=== PATIENT | male | born 1950 | race African-American/Black ===

== ENCOUNTER 2016-02-23 14:41 | Inpatient (IN) | payer OTHER ==
[~2016-02-23] VITALS: Wt 152.5 kg
[2016-02-23] MEDS ORDERED: ALBUTEROL 0.083% NEBU SOLN 3 ML VIAL INH STA (15:18)
[2016-02-23 15:20] LABS: BASO % 0.2 %; BASO ABS # 0.01 K/uL (0-0.2); EOS % 4.5 %; HEMATOCRIT 25.1 % (42-52); IG% 0.7 %; LYMPH % 27.9 %; LYMPH ABS # 1.24 K/uL (1.2-3.4); MEAN CELL VOLUME 75.8 fL (80-100); MEAN CORPUSCULAR HEMOGLOBIN 26.6 pg (25-34); MEAN CORPUSCULAR HGB CONC 35.1 g/dl (32-36); MONO % 10.3 %; NEUT % 56.4 %; PLATELET COUNT 254 K/uL (130-400); RED BLOOD COUNT 3.31 M/uL (4.7-6.1); WHITE BLOOD COUNT 4.45 K/uL (4.8-10.8)
--- NOTE | 2016-02-23 15:29 | DIAGNOSTIC IMAGING REPORT ---
CHEST ONE VIEW PORTABLE CLINICAL HISTORY: EVALUATE WEAKNESS dyspnea COMPARISON STUDY: None FINDINGS: Moderate cardiomegaly. Findings of mild congestive failure. Moderate pulmonary vasculature prominence. IMPRESSION: Mild congestive failure. Electronically signed by: Ish Huertas M.D. 02/23/2016 3:27 PM Dictated Date/Time: 02/23/2016 3:26 PM
[2016-02-23 15:39] LABS: ALT/SGPT 20 U/L (12-78); BLOOD UREA NITROGEN 50 mg/dl (7-18); BUN/CREATININE RATIO 24.8 (10-20); CARBON DIOXIDE 27 mmol/L (21-32); CHLORIDE 92 mmol/L (98-107); GLUCOSE 62 mg/dl (70-99); MAGNESIUM 2.2 mg/dl (1.8-2.4); POTASSIUM 5.8 mmol/L (3.5-5.1); SODIUM 128 mmol/L (136-145)
[2016-02-23 15:42] LABS: ALKALINE PHOSPHATASE 162 U/L (45-117); AST/SGOT 23 U/L (15-37)
[2016-02-23 16:02] LABS: COMPLETE YES
[2016-02-23] MEDS ORDERED: NovoLIN-R INSULIN PER UNIT CHARGE IV STA (16:02)
[2016-02-23] MEDS ORDERED: DEXTROSE 50% 50 ML SYR IV STA (16:02)
[2016-02-23] MEDS ORDERED: CALCIUM GLUCONATE 10% 10 ML VIAL IV STA (16:02)
[2016-02-23 16:04] LABS: VEN BLD GAS O2 SATURATION < 60.0 %; VEN BLOOD GAS BASE EXCESS 1.8 mmol/L; VENOUS BLOOD GAS PCO2 58 mmHg (38.0-50.0); VENOUS BLOOD GAS PO2 22 mmHg
[2016-02-23] MEDS ORDERED: MAGN400T6 PO (16:14)
[2016-02-23] MEDS ORDERED: CLR10 PO (16:14)
[2016-02-23] MEDS ORDERED: METO100T14 PO (16:14)
[2016-02-23] MEDS ORDERED: HALO10TA17 PO (16:14)
[2016-02-23] MEDS ORDERED: FRS/40 PO (16:14)
[2016-02-23] MEDS ORDERED: ACET-1256 PO (16:14)
[2016-02-23] MEDS ORDERED: SPIR25TA PO (16:14)
[2016-02-23] MEDS ORDERED: DIVA500T59 PO (16:14)
[2016-02-23] MEDS ORDERED: IMD2X PO (16:14)
[2016-02-23] MEDS ORDERED: RANI300T2 PO (16:14)
[2016-02-23] MEDS ORDERED: METF-383 PO (16:14)
[2016-02-23] MEDS ORDERED: ASPI-589 PO (16:14)
[2016-02-23] MEDS ORDERED: ATOR-22 PO (16:14)
[2016-02-23] MEDS ORDERED: ENAL10TA88 PO (16:14)
[2016-02-23] MEDS ORDERED: SODIUM CHLORIDE 0.9% 500ML 500 ML IV STA (16:15)
[2016-02-23] MEDS ORDERED: FUROSEMIDE 40 MG/4 ML VIAL IV STA (17:09)
[2016-02-23] MEDS ORDERED: SODIUM POLYST. SULF SUSP 15G/60ML PO STA (17:09)
[2016-02-23] MEDS ORDERED: ACETAMINOPHEN 325 MG TAB PO PRN (17:15)
[2016-02-23] MEDS ORDERED: ALUMINUM/MAGNESIUM/SIMETH (MAALOX MAX) 30 ML UDC PO PRN (17:15)
[2016-02-23] MEDS ORDERED: LORAZEPAM 2 MG/ML 1 ML VIAL IV PRN ×2 (17:15)
[2016-02-23] MEDS ORDERED: ONDANSETRON INJ 2 MG/ML 2 ML VIAL IV PRN (17:15)
[2016-02-23] MEDS ORDERED: MAGNESIUM HYDROXIDE SUSP 30 ML UDC PO PRN (17:15)
[2016-02-23] MEDS ORDERED: NITROGLYCERIN 0.4 MG SL PER TAB CHARGE SL PRN (17:15)
[2016-02-23] MEDS ORDERED: HALOPERIDOL LACTATE 5 MG/ML 1 ML VIAL IV PRN (17:15)
[2016-02-23] MEDS ORDERED: HydrALAZINE HCL 20 MG/ML VIAL IV PRN (17:15)
[2016-02-23] MEDS ORDERED: DEXTROSE 50% 50 ML SYR IV PRN (17:45)
[2016-02-23] MEDS ORDERED: GLUCOSE 10 TABS/TUBE PO PRN (17:45)
[2016-02-23] MEDS ORDERED: GLUCAGON FOR INJ 1 MG VIAL SQ PRN (17:45)
[2016-02-23] MEDS ORDERED: GLUCOSE 40% GEL 15 GM TUBE PO PRN (17:45)
[2016-02-23 17:54] LABS: TOTAL IRON BINDING CAPACITY 280 mcg/dl (250-450)
--- NOTE | 2016-02-23 17:57 | HISTORY & PHYSICAL EXAMINATION ---
DATE OF ADMISSION: 02/23/2016 COMPLEX ADMISSION CHIEF COMPLAINT: Altered mental status. HISTORY OF PRESENT ILLNESS: Mr. Stover is a 65-year-old male who is incarcerated at [facility]. 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 He has significant comorbid illnesses; however, he presents today for decreased mentation, sleepiness, more difficulty to arouse. The patient has a history of mental retardation, schizophrenia, taking Depakote and Haldol on a scheduled basis for these things, but also takes medications that looked to be geared toward heart failure and presents today with hyponatremia, hyperkalemia with EKG changes, acute renal failure and what looks to be mild heart failure, unknown whether this is systolic or diastolic. The patient also was somewhat more anemic and is chronically anemic state and because of these multiple issues more pressingly being the hyperkalemia and peaked T waves, he will be admitted to our facility. 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 PAST MEDICAL HISTORY: As above, mental retardation, schizophrenia, hypertension, diabetes on oral medications, coronary artery disease, unknown status, dyslipidemia and chronic hyponatremia, and chronic anemia. MEDICATIONS: On presentation are Tylenol p.r.n., aspirin 81 a day, atorvastatin 20 a day, Depakote 1000 b.i.d., Vasotec 20 b.i.d., Lasix 40 b.i.d., Imodium p.r.n., Claritin 10 a day, magnesium oxide 400 a day, metformin 850 t.i.d., metoprolol 100 b.i.d., Aldactone 25 every day, Haldol 10 b.i.d. and Zantac 300. SOCIAL HISTORY: The patient would not give me a straight answer whether he smoked prior to his incarceration or drank. FAMILY HISTORY: Unobtainable. REVIEW OF SYSTEMS: Unreliable at best because of the patient's mental condition. PHYSICAL EXAMINATION: GENERAL: He is an obese black male. VITAL SIGNS: Temperature 36.7, pulse 74, respiration rate is 18, BP 135/83, O2 sat 98% on room air. HEENT: He has strabismus present. He cannot tell which is the tracking eye, it may well be that his right eye has more strabismus. Pupils: PERRL, EOMI. Oropharynx: He has some missing teeth, erythema to the posterior pharynx without exudates. NECK: Without lymphadenopathy. Trachea is midline. I cannot assess JVD due to the size of his neck and some facial hair. HEART: Distant but regular. I cannot hear any overt murmurs. LUNGS: Have decreased breath sounds at the bases from poor inspiratory effort, no large rales or rhonchi. ABDOMEN: Obese, normoactive bowel sounds, soft, does not appear to be tender. EXTREMITIES: Changes of chronic venous stasis, probably 1+ edema but an indurated type edema to his knees. NEUROLOGIC: He is awake. He is oriented to person. He has tangential thinking and has evasive question answering. LABORATORY DATA: He has a white count of 4, H\T\H 8 and 25, platelet count 254; differential seems relatively normal. His BUN and creatinine are 50 and 2.0, potassium 58, sodium 128. However, his bicarbonate is preserved and there is no anion gap. His glucose is 107. Cardiac enzymes are unremarkable. He has mildly elevated alkaline phosphatase to 162. His protein is high at 8.8. His albumin is low at 3.0. IMAGING DATA: Chest x-ray - difficult film is due to his body size. It looks to be mild congestive change. EKG shows sinus rhythm with peaked T waves. ASSESSMENT: A 65-year-old male who presents with hyperkalemia and EKG changes, acute renal failure, hyponatremia, worsened chronic anemia, an elevated protein not consistent with decreased albumin. PLAN: The patient will be kept in telemetry due to his hyperkalemia. For the hyperkalemia, the Emergency Room physician ordered calcium gluconate, regular insulin and dextrose. We will also give him 30 grams of Kayexalate. We will check a potassium at midnight, have him on a low potassium renal diet. Acute renal failure, because of the clinical evidence of volume overload, will give him some Lasix, will have a nephrology consult. We will check a urine sodium and a urine urea to help may be calculate a FENa. We will check a renal ultrasound. Regarding his hyponatremia, this is not significantly low. We will consider fluid restriction once we given his Lasix and see what his repeat level in the morning. Regarding his anemia, his indices suggest this may be iron deficient as his MCV is 75.8. We will add on iron and TIBC to his admission labs to determine if he has iron deficient anemia, certainly this could be anemia of chronic disease, given his chronic health issues, perhaps renal failure. Regarding his initial complaint decreased alertness, Depakote level is sent by myself and pending. Regarding his elevated total protein which is not in alignment with his low albumin, we will send an SPEP test, but this is a send out and will not be returned for few days. For his schizophrenia, we will maintain his Depakote unless his level is out of line, continue Haldol both scheduled and p.r.n. along with p.r.n. Ativan. He will be on heparin for deep vein thrombosis prevention. He has continued on a proton pump inhibitor in lieu of his Zantac. He is a full code. Time for this admission was 58 minutes.
--- NOTE | 2016-02-23 18:20 | EMERGENCY ROOM VISIT NOTE ---
History Report prepared by Zabrina: Ksenia Carrasquillo Under the Supervision of: Dr. Kristopher Andrade D.O. First contact with patient: 14:43 Chief Complaint: ALTERED MENTAL STATUS Stated Complaint: ALTERED MENTAL STATUS/ ABNORMAL LABS History of Present Illness The patient is a 65 year old male arriving by ambulance from [facility] who presents to the Emergency Room for evaluation of an altered mental status. Per Robert GANDARA who cares for the patient at the [facility], the patient has a history of MR, schizophrenia, hypertension, diabetes, CAD and dyslipidemia. Patient garret has chronic hyponatremia. His baseline creatinine is 0.8, hemiglobin is 10. Today, the patient has been feeling much more tired and has been falling asleep. Robert states the patient has been more difficult to awaken and arouse today. Additionally, as his labs were showed creatinine of 2, sodium of 125, potassium of 5.8 and Hbg of 8.8, patient was referred to the ED for further evaluation. Patient states that he is not currently in any discomfort, but history from him is limited secondary to AMS. [facility] History Limited By: AMS Onset: today Review of Systems Full ROS limited secondary to AMS. Past Medical & Surgical Medical Problems: (1) CAD (coronary artery disease) (2) Diabetes (3) HTN (hypertension) (4) Hyperkalemia (5) Hyperlipemia (6) Hyponatremia (7) Mental retardation (8) Schizophrenia Social History Housing Status: other (incarcerated) Occupation Status: disabled Current/Historical Medications Scheduled Aspirin (Aspirin Adult Low Dose), 81 MG PO DAILY Atorvastatin (Lipitor), 20 MG PO QPM Divalproex Sodium (Depakote), 1,000 TAB PO BID Enalapril (Vasotec), 20 MG PO BID Furosemide (Lasix), 40 MG PO BID Haloperidol (Haldol), 10 MG PO BID Loratadine (Claritin), 10 MG PO DAILY Magnesium Oxide (Mag-Ox), 400 MG PO DAILY Metformin Hcl (Glucophage), 850 MG PO TID Metoprolol Tartrate (Lopressor) (Lopressor), 100 MG PO BID Ranitidine (Zantac), 300 MG PO BID Spironolactone (Aldactone), 25 MG PO BID Scheduled PRN Acetaminophen (Tylenol), 1,000 MG PO TID PRN for Pain Loperamide Hcl (Imodium), 2 MG PO TID PRN for GI Upset Allergies Coded Allergies: No Known Allergies (Unverified , 02/23/16) Physical Exam Vital Signs Date Time Temp Pulse Resp B/P Pulse Ox O2 Delivery O2 Flow Rate FiO2 02/23/16 16:41 69 19 93 02/23/16 16:15 65 104/54 69 101/51 02/23/16 16:11 68 10 91 02/23/16 16:10 104/54 02/23/16 16:06 84/45 02/23/16 16:04 101/51 02/23/16 15:41 70 19 92 02/23/16 15:21 99 Room Air 02/23/16 15:17 99 Room Air 02/23/16 15:11 77 14 02/23/16 14:57 74 02/23/16 14:54 36.7 71 18 135/83 99 Room Air 02/23/16 14:49 135/83 Physical Exam GENERAL: Morbidly obese, sitting up in bed, expiratory wheezing, uncomfortable appearing. EYE EXAM: normal conjunctiva, PERRL and EOM's intact OROPHARYNX: no exudate, no erythema, lips, buccal mucosa, and tongue normal and mucous membranes are moist NECK: supple, no nuchal rigidity, no adenopathy, non-tender LUNGS: Lung sounds diminished at the bases. Diffuse wheezing, bilaterally. HEART: Distant heart sounds. ABDOMEN: abdomen soft, non-tender, normo-active bowel sounds, no masses, no rebound or guarding. BACK: Back is symmetrical on inspection and there is no deformity, no midline tenderness, no CVA tenderness. RECTAL: Heme negative. SKIN: no rashes and no bruising UPPER EXTREMITIES: upper extremities are grossly normal. LOWER EXTREMITIES: Diffuse pitting edema, tracking up to thighs. NEURO EXAM: Alert, oriented to place but not date. Following commands. Nonfocal. Medical Decision & Procedures ER Provider Diagnostic Interpretation: Xray results per the radiologist and my interpretation. Other results have been interpreted by the radiologist and reviewed by me. CHEST ONE VIEW PORTABLE CLINICAL HISTORY: EVALUATE WEAKNESS dyspnea COMPARISON STUDY: None FINDINGS: Moderate cardiomegaly. Findings of mild congestive failure. Moderate pulmonary vasculature prominence. IMPRESSION: Mild congestive failure. Electronically signed by: Ish Huertas M.D. 02/23/2016 3:27 PM Dictated Date/Time: 02/23/2016 3:26 PM Laboratory Results 02/23/16 14:07 Red Blood Count 3.31, Mean Corpuscular Volume 75.8, Mean Corpuscular Hemoglobin 26.6, Mean Corpuscular Hemoglobin Concent 35.1, Mean Platelet Volume 10.0, Neutrophils (%) (Auto) 56.4, Lymphocytes (%) (Auto) 27.9, Monocytes (%) (Auto) 10.3, Eosinophils (%) (Auto) 4.5, Basophils (%) (Auto) 0.2, Neutrophils # (Auto ) 2.51, Lymphocytes # (Auto) 1.24, Monocytes # (Auto) 0.46, Eosinophils # (Auto ) 0.20, Basophils # (Auto) 0.01 02/23/16 14:07 Test 02/23/16 14:07 02/23/16 15:19 02/23/16 15:51 02/23/16 16:02 White Blood Count 4.45 K/uL (4.8-10.8) Red Blood Count 3.31 M/uL (4.7-6.1) Hemoglobin 8.8 g/dL (14.0-18.0) Hematocrit 25.1 % (42-52) Mean Corpuscular Volume 75.8 fL (80-100) Mean Corpuscular Hemoglobin 26.6 pg (25-34) Mean Corpuscular Hemoglobin Concent 35.1 g/dl (32-36) Platelet Count 254 K/uL (130-400) Mean Platelet Volume 10.0 fL (7.4-10.4) Neutrophils (%) (Auto) 56.4 % Lymphocytes (%) (Auto) 27.9 % Monocytes (%) (Auto) 10.3 % Eosinophils (%) (Auto) 4.5 % Basophils (%) (Auto) 0.2 % Neutrophils # (Auto) 2.51 K/uL (1.4-6.5) Lymphocytes # (Auto) 1.24 K/uL (1.2-3.4) Monocytes # (Auto) 0.46 K/uL (0.11-0.59) Eosinophils # (Auto) 0.20 K/uL (0-0.5) Basophils # (Auto) 0.01 K/uL (0-0.2) RDW Standard Deviation 41.4 fL (36.4-46.3) RDW Coefficient of Variation 14.7 % (11.5-14.5) Immature Granulocyte % (Auto) 0.7 % Immature Granulocyte # (Auto) 0.03 K/uL (0.00-0.02) Red Blood Cell Morphology Unremarkable Anion Gap 9.0 mmol/L (3-11) Estimated GFR () 38.9 Estimated GFR (Non- 33.5 BUN/Creatinine Ratio 24.8 (10-20) Calcium Level 9.0 mg/dl (8.5-10.1) Magnesium Level 2.2 mg/dl (1.8-2.4) Iron Level 45 mcg/dl (35-175) Total Iron Binding Capacity 280 mcg/dl (250-450) Total Bilirubin 0.2 mg/dl (0.2-1) Direct Bilirubin < 0.1 mg/dl (0-0.2) Aspartate Amino Transf (AST/SGOT) 23 U/L (15-37) Alanine Aminotransferase (ALT/SGPT) 20 U/L (12-78) Alkaline Phosphatase 162 U/L (45-117) Troponin I < 0.015 ng/ml (0-0.045) Pro-B-Type Natriuretic Peptide 823 pg/ml (0-900) Total Protein 8.8 gm/dl (6.4-8.2) Albumin 3.0 gm/dl (3.4-5.0) Bedside Glucose 107 mg/dl (70-99) Venous Blood pH 7.32 (7.36-7.41) Venous Blood Partial Pressure CO2 58 mmHg (38.0-50.0) Venous Blood Partial Pressure O2 22 mmHg Venous Blood HCO3 29 meq/L Venous Blood Oxygen Saturation < 60.0 % Venous Blood Base Excess 1.8 mmol/L Ammonia 11.0 umol/L (11-32) Test 02/23/16 16:09 Laboratory results per my review. Medications Administered Medications (Trade) Dose Ordered Sig/Ismael Route Start Time Stop Time Status Last Admin Dose Admin Albuterol Sulfate (Ventolin 0.083% 2.5MG/3ML Neb) 2.5 mg NOW STAT INH 02/23/16 15:18 02/23/16 15:19 DC 02/23/16 15:29 2.5 MG Calcium Gluconate (Calcium Gluconate 10%) 1,000 mg NOW STAT IV 02/23/16 16:02 02/23/16 16:04 DC 02/23/16 16:56 1,000 MG Insulin Human Regular (novoLIN-R U-100 PER UNIT) 10 units NOW STAT IV 02/23/16 16:02 02/23/16 16:04 DC 02/23/16 17:09 10 UNITS Dextrose 50 ml 50 ml NOW STAT IV 02/23/16 16:02 02/23/16 16:04 DC 02/23/16 16:56 50 ML Sodium Chloride (Nss 500ml) 500 ml @ 999 mls/hr Q31M STAT IV 02/23/16 16:15 02/23/16 16:45 DC 02/23/16 16:59 999 MLS/HR ECG Indication: altered mental status Rate (beats per minute): 66 Rhythm: sinus rhythm Findings: 1st degree AV block, ST depression (III), other (Peaked T waves anterolateral. ) ED Course ED COURSE: Vital signs were reviewed and showed hypertension. The patient's medical record was reviewed. On 02/15 sodium was 125, potassium was 5.8, creatinine was 1.6. Today, Creatinine is 2. Sodium is 125, potassium is 5.8 and Hbg is 8.8. The above diagnostic studies were performed and reviewed. ED treatments and interventions as stated above. 1445: The patient was evaluated in room A8. A complete history and physical examination was performed. 1518: Albuterol Sulfate 2.5 mg INH was ordered. 1530: Spoke with Robert GANDARA from [facility]. He was able to give additional history on the patient. 1602: I reviewed the results of the patient's workup. Dextrose 50 ml IV, Insulin Human Regular 10 units IV and Calcium Gluconate 1,000 mg IV were ordered. The hospitalist will be contacted. 1605: After discussion with Dr. Peña, the patient will continue to be evaluated by the [facility] hospitalist for further management. Based on the patients age, coexisting illnesses, exam and lab findings the decision to treat as an inpatient was made. The patient remained stable while under my care. The patient will be evaluated for further management. Medical Decision Differential diagnoses includes but is not limited to toxic, metabolic, infectious, traumatic, cardiac, neurologic, hematologic, psychiatric and inflammatory etiologies. Patient is a 65-year-old male prisoner referred in from the [facility] with a past medical history of MR, schizophrenia, and hyponatremia. Patient has been falling asleep and difficult to arouse throughout the whole day. Upon presentation sodium is 128 which slightly improved from his previous in the walk mid 120s. Hemoglobin is 8.8 down from his baseline at 10. Creatinine is 2 up from a baseline of 0.8. Potassium was elevated at 5.8. Rectal was heme- negative. EKG did show peaked T waves. He has diffuse pitting edema bilateral lower extremities. PH was slightly low at 7.32 along with a CO2 of 58. Based on patient's presentation I do favor he is likely volume overloaded. I did give him insulin, glucose and IV calcium for his hyper kalemia. Patient was evaluated by internal medicine and admitted for further workup. Consults Time Called: 1500 Consulting Physician: Robert Guevara Returned Call: 1530 Discussed the patient's case. Robert GANDARA was able to give additional history on the patient. Additional Consults: Time Called: 1600 Consulted Physician: Dr. Peña - [facility] Returned Call: 1605 Additional Comments: Discussed the patient's case. He will continue to be evaluated by the [facility] hospitalist for further management. Impression Primary Impression: Altered mental status Additional Impressions: Hyperkalemia, SON (acute kidney injury), Hyponatremia , Anemia, CHF (congestive heart failure) Scribe Attestation The scribe's documentation has been prepared under my direction and personally reviewed by me in its entirety. I confirm that the note above accurately reflects all work, treatment, procedures, and medical decision making performed by me. Departure Information Dispostion Being Evaluated By Hospitalist ([facility]) Referrals Ismael LUNA (PCP)
[2016-02-23 19:19] VITALS: BP 161/92; PULSE 84; TEMP 36.7; O2SAT 94
--- NOTE | 2016-02-23 19:39 | DIAGNOSTIC IMAGING REPORT ---
ADDENDUM Addendum: There was a speech recognition error initial report. The right kidney length is 9.3 cm. Electronically signed by: Richard Yun M.D. 02/24/2016 1:13 PM Dictated Date/Time: 02/24/2016 1:13 PM ORIGINAL REPORT EXAMINATION: RENAL ULTRASOUND CLINICAL HISTORY: acute renal failure COMPARISON STUDY: None FINDINGS: The right kidney measures 5.3 cm. The left kidney measures 9.9 cm. There is no evidence of hydronephrosis. There are no renal masses. No bladder abnormalities are visualized. Bilateral ureteral jets were visualized. The study was difficult from a technical standpoint due to the patient's large body habitus and lack of cooperation IMPRESSION : Normal study. Electronically signed by: Richard Yun M.D. 02/23/2016 7:37 PM Dictated Date/Time: 02/23/2016 7:36 PM
[2016-02-23] MEDS ORDERED: LORAZEPAM INJ 1 MG in SYRINGE 0.5 ML IV PRN (20:00)
[2016-02-23] MEDS ORDERED: LORAZEPAM INJ 0.5 MG in SYRINGE 0.75 ML IV PRN (20:00)
[2016-02-23] MEDS ORDERED: ALBUT/IPRATROP 3MG/0.5MG NEB 3 ML VIAL INH PRN (20:30)
[2016-02-23 20:55] LABS: PROTHROMBIN TIME (PATIENT) 10.5 SECONDS (9.0-12.0)
[2016-02-23] MEDS: HEPARIN SOD 5000 UNIT/0.5 ML CARP SQ SCH (21:00)
[2016-02-23] MEDS: INSULIN ASPART 100 UNITS/ML 3 ML PEN SC SCH (21:00)
[2016-02-23] MEDS: DIVALPROEX SODIUM 500 MG DELAY RELEASE TAB PO SCH (21:55)
[2016-02-23] MEDS: METOPROLOL TARTRATE 100 MG TAB PO SCH (21:55)
[2016-02-23] MEDS: HALOPERIDOL 5 MG TAB PO SCH (21:55)
[2016-02-23 23:52] VITALS: BP 126/86; PULSE 65; TEMP 36.7; O2SAT 94
[2016-02-24] VITALS (14 sets, daily range): BP systolic 126–150; BP diastolic 66–94; PULSE 64–80; TEMP 36.4–36.9; O2SAT 92–100
[2016-02-24 00:19] LABS: BLOOD UREA NITROGEN 48 mg/dl (7-18); BUN/CREATININE RATIO 25.1 (10-20); CALCIUM 8.7 mg/dl (8.5-10.1); CARBON DIOXIDE 28 mmol/L (21-32); CHLORIDE 96 mmol/L (98-107); GLUCOSE 87 mg/dl (70-99); POTASSIUM 5.6 mmol/L (3.5-5.1); SODIUM 132 mmol/L (136-145)
[2016-02-24] MEDS: ALBUT/IPRATROP 3MG/0.5MG NEB 3 ML VIAL INH SCH ×4 (07:32→19:55)
[2016-02-24] MEDS: METOPROLOL TARTRATE 100 MG TAB PO SCH ×2 (09:17→20:59)
[2016-02-24] MEDS: DIVALPROEX SODIUM 500 MG DELAY RELEASE TAB PO SCH ×2 (09:17→20:59)
[2016-02-24] MEDS: ASPIRIN 81 MG ECTAB PO SCH (09:17)
[2016-02-24] MEDS: PANTOprazole SOD 40 MG TAB PO SCH (09:18)
[2016-02-24] MEDS: HALOPERIDOL 5 MG TAB PO SCH ×2 (09:18→21:00)
[2016-02-24] MEDS: HEPARIN SOD 5000 UNIT/0.5 ML CARP SQ SCH ×2 (09:22→21:03)
[2016-02-24 10:40] LABS: HEMATOCRIT 26.3 % (42-52); MEAN CELL VOLUME 77.8 fL (80-100); MEAN CORPUSCULAR HEMOGLOBIN 26.3 pg (25-34); MEAN CORPUSCULAR HGB CONC 33.8 g/dl (32-36); MEAN PLATELET VOLUME 9.6 fL (7.4-10.4); PLATELET COUNT 224 K/uL (130-400); RED BLOOD COUNT 3.38 M/uL (4.7-6.1); WHITE BLOOD COUNT 3.58 K/uL (4.8-10.8)
[2016-02-24] MEDS: INSULIN ASPART 100 UNITS/ML 3 ML PEN SC SCH ×3 (11:00→20:58)
[2016-02-24 11:03] LABS: BLOOD UREA NITROGEN 40 mg/dl (7-18); BUN/CREATININE RATIO 26.3 (10-20); CARBON DIOXIDE 29 mmol/L (21-32); CHLORIDE 94 mmol/L (98-107); GLUCOSE 128 mg/dl (70-99); POTASSIUM 4.7 mmol/L (3.5-5.1); SODIUM 130 mmol/L (136-145)
--- NOTE | 2016-02-24 12:30 | Nephrology Progress Note ---
Nephrology Progress Note Date of Service Feb 24, 2016. Chief Complaint Evaluation of SON, hyperkalemia and CHF Subjective Mr. Stover is an incarcerated 65 year old male who is seen at the request of Dr. Peña for evaluation of SON, hyperkalemia and CHF. Medical records in the hospital EMR were reviewed and are summarized as follows : The patient has a history of learning disability, paranoid schizophrenia, AODM, HTN, hyperlipidemia, ASCVD, anemia and chronic hyponatremia. Medical records from the [facility] system are not yet available. His baseline creatinine value is unknown. EMS records indicate that yesterday Mr. Stover was taken to the [facility] for evaluation of mental status changes. He had slurred speech, difficulty with word finding and was incontinent of bowel and bladder. He was noted to have lower extremity edema. Laboratory studies obtained in the [facility] revealed sodium 128, creatinine 2.0, potassium 5.8. In the ED at [facility] ECG was NSR w/ first degree AVB and peaked T-waves. Patient was treated medically for hyperkalemia, given one dose of IV furosemide and admitted to the ICU. Review of Systems Unable to obtain. Patient was not cooperative Vital Signs Last 8 Hrs Date Time Temp Pulse Resp B/P Pulse Ox O2 Delivery O2 Flow Rate FiO2 02/24/16 11:58 36.4 80 18 145/71 95 Nasal Cannula 1.0 02/24/16 08:00 Nasal Cannula 2.0 02/24/16 08:00 36.4 74 16 128/69 100 Nasal Cannula 2.0 02/24/16 07:32 72 16 95 Nasal Cannula 3.0 02/24/16 06:25 36.7 77 21 126/66 94 Room Air I & O 24-Hour Column 02/24/16 08:00 Intake Total 720 ml Balance 720 ml Last Recorded Weight Weight (Kilograms): 152.500 Physical Exam General Appearance: + pertinent finding (chronically ill appearing) Head: normocephalic, atraumatic Eyes: PERRL, EOMI Neck: supple, no adenopathy Respiratory/Chest: lungs clear (anteriorly) Cardiovascular: regular rate, rhythm Abdomen/GI: normal bowel sounds, non tender, soft Extremities/Musculoskelatal: + swelling (1+ pretibial pitting edema) Neurologic/Psych: alert (agitated) Social History Occupation: disabled Laboratory Results Past 24 Hours 02/23/16 14:07 Red Blood Count 3.31, Mean Corpuscular Volume 75.8, Mean Corpuscular Hemoglobin 26.6, Mean Corpuscular Hemoglobin Concent 35.1, Mean Platelet Volume 10.0, Neutrophils (%) (Auto) 56.4, Lymphocytes (%) (Auto) 27.9, Monocytes (%) (Auto) 10.3, Eosinophils (%) (Auto) 4.5, Basophils (%) (Auto) 0.2, Neutrophils # (Auto ) 2.51, Lymphocytes # (Auto) 1.24, Monocytes # (Auto) 0.46, Eosinophils # (Auto ) 0.20, Basophils # (Auto) 0.01 02/24/16 08:40 02/23/16 14:07 02/23/16 23:53 02/24/16 08:40 Test 02/23/16 14:07 02/23/16 15:19 02/23/16 15:51 02/23/16 16:02 White Blood Count 4.45 K/uL (4.8-10.8) Red Blood Count 3.31 M/uL (4.7-6.1) Hemoglobin 8.8 g/dL (14.0-18.0) Hematocrit 25.1 % (42-52) Mean Corpuscular Volume 75.8 fL (80-100) Mean Corpuscular Hemoglobin 26.6 pg (25-34) Mean Corpuscular Hemoglobin Concent 35.1 g/dl (32-36) Platelet Count 254 K/uL (130-400) Mean Platelet Volume 10.0 fL (7.4-10.4) Neutrophils (%) (Auto) 56.4 % Lymphocytes (%) (Auto) 27.9 % Monocytes (%) (Auto) 10.3 % Eosinophils (%) (Auto) 4.5 % Basophils (%) (Auto) 0.2 % Neutrophils # (Auto) 2.51 K/uL (1.4-6.5) Lymphocytes # (Auto) 1.24 K/uL (1.2-3.4) Monocytes # (Auto) 0.46 K/uL (0.11-0.59) Eosinophils # (Auto) 0.20 K/uL (0-0.5) Basophils # (Auto) 0.01 K/uL (0-0.2) RDW Standard Deviation 41.4 fL (36.4-46.3) RDW Coefficient of Variation 14.7 % (11.5-14.5) Immature Granulocyte % (Auto) 0.7 % Immature Granulocyte # (Auto) 0.03 K/uL (0.00-0.02) Red Blood Cell Morphology Unremarkable Anion Gap 9.0 mmol/L (3-11) Estimated GFR () 38.9 Estimated GFR (Non- 33.5 BUN/Creatinine Ratio 24.8 (10-20) Calcium Level 9.0 mg/dl (8.5-10.1) Magnesium Level 2.2 mg/dl (1.8-2.4) Iron Level 45 mcg/dl (35-175) Total Iron Binding Capacity 280 mcg/dl (250-450) Total Bilirubin 0.2 mg/dl (0.2-1) Direct Bilirubin < 0.1 mg/dl (0-0.2) Aspartate Amino Transf (AST/SGOT) 23 U/L (15-37) Alanine Aminotransferase (ALT/SGPT) 20 U/L (12-78) Alkaline Phosphatase 162 U/L (45-117) Troponin I < 0.015 ng/ml (0-0.045) Pro-B-Type Natriuretic Peptide 823 pg/ml (0-900) Total Protein 8.8 gm/dl (6.4-8.2) Albumin 3.0 gm/dl (3.4-5.0) Bedside Glucose 107 mg/dl (70-99) Venous Blood pH 7.32 (7.36-7.41) Venous Blood Partial Pressure CO2 58 mmHg (38.0-50.0) Venous Blood Partial Pressure O2 22 mmHg Venous Blood HCO3 29 meq/L Venous Blood Oxygen Saturation < 60.0 % Venous Blood Base Excess 1.8 mmol/L Ammonia 11.0 umol/L (11-32) Influenza Type A Antigen Neg for Influ A (NEG) Influenza Type B Antigen Neg for Influ B (NEG) Test 02/23/16 16:09 02/23/16 17:35 02/23/16 18:59 02/23/16 21:05 Valproic Acid (Depakene) Level 39 mcg/ml (50-100) Prothrombin Time 10.5 SECONDS (9.0-12.0) Prothromb Time International Ratio 1.0 (0.9-1.1) Bedside Glucose 121 mg/dl (70-99) Test 02/23/16 23:53 02/24/16 06:17 02/24/16 08:10 02/24/16 08:40 Anion Gap 8.0 mmol/L (3-11) 7.0 mmol/L (3-11) Estimated GFR () 41.4 55.0 Estimated GFR (Non- 35.7 47.5 BUN/Creatinine Ratio 25.1 (10-20) 26.3 (10-20) Calcium Level 8.7 mg/dl (8.5-10.1) 9.0 mg/dl (8.5-10.1) Bedside Glucose 71 mg/dl (70-99) Random Cortisol 9.12 mcg/dl Red Blood Count 3.38 M/uL (4.7-6.1) Mean Corpuscular Volume 77.8 fL (80-100) Mean Corpuscular Hemoglobin 26.3 pg (25-34) Mean Corpuscular Hemoglobin Concent 33.8 g/dl (32-36) RDW Standard Deviation 43.4 fL (36.4-46.3) RDW Coefficient of Variation 15.1 % (11.5-14.5) Mean Platelet Volume 9.6 fL (7.4-10.4) Date/Time Source Procedure Growth Status 02/24/16 06:15 Nasal MRSA DNA Surveillance Screen - Final Specimen Negative for MRSA by DNA Probe Complete Allergies Coded Allergies: No Known Allergies (Unverified , 02/23/16) Medications Current Inpatient Medications Medications (Trade) Dose Ordered Sig/Ismael Route Start Time Stop Time Status Last Admin Dose Admin Heparin Sodium (Porcine) (Heparin Sq 5000 Unit/0.5ml) 5,000 unit Q12 SQ 02/23/16 21:00 03/24/16 20:59 02/24/16 09:22 5,000 UNIT Acetaminophen (Tylenol Tab) 650 mg Q4H PRN PO 02/23/16 17:15 03/24/16 17:14 Al Hydrox/Mg Hydrox/Simethicone (Maalox Max Susp) 15 ml Q4H PRN PO 02/23/16 17:15 03/24/16 17:14 Magnesium Hydroxide (Milk Of Magnesia Susp) 30 ml Q12H PRN PO 02/23/16 17:15 03/24/16 17:14 Ondansetron HCl (Zofran Inj) 4 mg Q6H PRN IV 02/23/16 17:15 03/24/16 17:14 Nitroglycerin (Nitrostat Tab) 0.4 mg UD PRN SL 02/23/16 17:15 03/24/16 17:14 Aspirin (Ecotrin Tab) 81 mg DAILY PO 02/24/16 09:00 03/25/16 08:59 02/24/16 09:17 81 MG Divalproex Sodium (Depakote Delay Rel Tab) 1,000 mg BID PO 02/23/16 21:00 03/24/16 20:59 02/24/16 09:17 1,000 MG Metoprolol Tartrate (Lopressor Tab) 100 mg BID PO 02/23/16 21:00 03/24/16 20:59 02/24/16 09:17 100 MG Haloperidol (Haldol Tab) 10 mg BID PO 02/23/16 21:00 03/24/16 20:59 02/24/16 09:18 10 MG Haloperidol Lactate (Haldol Inj) 5 mg Q4 PRN IV 02/23/16 17:15 03/24/16 17:14 Lorazepam (Ativan Inj) 1 mg Q4H PRN IV 02/23/16 17:15 03/24/16 17:14 Lorazepam (Ativan Inj) 0.5 mg Q4H PRN IV 02/23/16 17:15 03/24/16 17:14 Insulin Aspart (novoLOG ASPART) SLIDING SCALE PARAMETER ACHS SC 02/23/16 21:00 03/24/16 20:59 Hydralazine HCl (HydrALAZINE INJ) 10 mg Q4H PRN IV 02/23/16 17:15 03/24/16 17:14 Pantoprazole Sodium (Protonix Tab) 40 mg QAM PO 02/24/16 09:00 03/25/16 08:59 02/24/16 09:18 40 MG Glucose (Glucose 40% Gel) 15-30 GRAMS 15 GRAMS... UD PRN PO 02/23/16 17:45 03/24/16 17:44 Glucose (Glucose Chew Tab) 4-8 Tablets 4 Tabl... UD PRN PO 02/23/16 17:45 03/24/16 17:44 Dextrose (Dextrose 50% 50ML Syringe) 25-50ML OF 50% DW IV FOR... UD PRN IV 02/23/16 17:45 03/24/16 17:44 Glucagon 1 mg 1 mg UD PRN SQ 02/23/16 17:45 03/24/16 17:44 Lorazepam 0.5 mg/ Syringe 1 ml @ 1 mls/min Q4H PRN IV 02/23/16 20:00 03/24/16 19:59 Lorazepam/Syringe (Ativan Inj/ Syringe) 1 ml @ 1 mls/min Q4H PRN IV 02/23/16 20:00 03/24/16 19:59 Albuterol/ Ipratropium (Duoneb) 3 ml QIDR INH 02/24/16 08:00 03/25/16 07:59 02/24/16 07:32 3 ML Albuterol/ Ipratropium (Duoneb) 3 ml Q2H PRN INH 02/23/16 20:30 03/24/16 20:29 Impression (1) SON (acute kidney injury) (2) Hyperkalemia (3) Hyponatremia (4) CHF (congestive heart failure) (5) Anemia (6) HTN (hypertension) (7) Schizophrenia (8) Mental retardation (9) Diabetes Patient admitted to [facility] for evaluation of mental status changes. He was found to have SON, hyperkalemia and CHF. Outpatient medical regimen included TIERRA inhibitor, loop diuretic and aldactone. Potassium has corrected with medical management and lower extremity edema has improved following loop diuretic administration. PMH - learning disability, paranoid schizophrenia, AODM, HTN, hyperlipidemia, ASCVD, anemia and chronic hyponatremia. Recommendations ACUTE KIDNEY INJURY: -- Hold vasotec and aldactone -- Will order urinalysis w/ microscopy -- Monitor serial PRP -- Await results of renal US -- Will request previous laboratory values from [facility] HYPERKALEMIA: -- Corrected following kayexelate and furosemide administration EDEMA: -- Patient has persistent lower extremity edema -- Will provide IV lasix today -- Recommend echocardiogram to assess LVEF HYPONATREMIA: -- Will order urine osmolality
[2016-02-24] MEDS ORDERED: FUROSEMIDE INJ 40 MG in SYRINGE 0 ML IV ONE (14:00)
[2016-02-24] MEDS ORDERED: PERFLUTREN LIPID MICROSPHERE (DEFINITY) IV ONE (14:14)
--- NOTE | 2016-02-24 16:30 | Progress Note ---
Subjective Date of Service: Feb 24, 2016. Subjective Pt evaluation today including: conversation w/ patient, physical exam, chart review, lab review, review of studies, review of inpatient medication list Pt presents with slurred speech States no pain or distress Unknown baseline alert and oriented x 2 Problem List Medical Problems: (1) SON (acute kidney injury) Status: Acute (2) Altered mental status Status: Acute (3) Anemia Status: Acute (4) CHF (congestive heart failure) Status: Acute Review of Systems Constitutional: No chills, No fever Respiratory: No cough, No dyspnea on exertion, No shortness of breath, No sputum, No wheezing Cardiac: No chest pain, No orthopnea Abdomen: No constipation, No diarrhea, No nausea, No pain, No vomiting Musculoskeletal: No joint pain, No muscle pain Male : No dysuria, No urinary frequency Objective Vital Signs Date Time Temp Pulse Resp B/P Pulse Ox O2 Delivery O2 Flow Rate FiO2 02/24/16 12:00 92 Nasal Cannula 2.0 02/24/16 11:58 36.4 80 18 145/71 95 Nasal Cannula 1.0 02/24/16 11:34 76 16 99 Nasal Cannula 3.0 02/24/16 08:00 Nasal Cannula 2.0 02/24/16 08:00 36.4 74 16 128/69 100 Nasal Cannula 2.0 02/24/16 07:32 72 16 95 Nasal Cannula 3.0 02/24/16 06:25 36.7 77 21 126/66 94 Room Air 02/24/16 04:00 94 Nasal Cannula 2.0 02/24/16 04:00 36.9 76 20 136/83 94 Nasal Cannula 2.0 02/24/16 00:01 94 Nasal Cannula 2.0 02/23/16 23:52 36.7 65 20 126/86 94 Nasal Cannula 2.0 02/23/16 23:30 73 02/23/16 19:19 36.7 84 20 161/92 94 Nasal Cannula 2.0 02/23/16 18:43 85 20 161/92 99 Nasal Cannula 02/23/16 18:00 87 Room Air 02/23/16 16:41 69 19 93 02/23/16 16:15 65 104/54 69 101/51 02/23/16 16:11 68 10 91 02/23/16 16:10 104/54 02/23/16 16:06 84/45 02/23/16 16:04 101/51 Physical Exam General Appearance: WD/WN, no apparent distress Neck: supple, no adenopathy Respiratory/Chest: normal breath sounds, + decreased breath sounds Cardiovascular: no gallop, no JVD Abdomen: non tender, soft Neurologic/Psychiatric: no motor/sensory deficits, normal mood/affect Laboratory Results Last 24 Hours Test 02/23/16 16:09 02/23/16 17:35 02/23/16 18:59 02/23/16 21:05 Valproic Acid (Depakene) Level 39 mcg/ml Prothrombin Time 10.5 SECONDS Prothromb Time International Ratio 1.0 Bedside Glucose 121 mg/dl Test 02/23/16 23:53 02/24/16 06:17 02/24/16 08:10 02/24/16 08:40 Sodium Level 132 mmol/L 130 mmol/L Potassium Level 5.6 mmol/L 4.7 mmol/L Chloride Level 96 mmol/L 94 mmol/L Carbon Dioxide Level 28 mmol/L 29 mmol/L Anion Gap 8.0 mmol/L 7.0 mmol/L Blood Urea Nitrogen 48 mg/dl 40 mg/dl Creatinine 1.90 mg/dl 1.50 mg/dl Estimated GFR () 41.4 55.0 Estimated GFR (Non- 35.7 47.5 BUN/Creatinine Ratio 25.1 26.3 Random Glucose 87 mg/dl 128 mg/dl Calcium Level 8.7 mg/dl 9.0 mg/dl Bedside Glucose 71 mg/dl Random Cortisol 9.12 mcg/dl White Blood Count 3.58 K/uL Red Blood Count 3.38 M/uL Hemoglobin 8.9 g/dL Hematocrit 26.3 % Mean Corpuscular Volume 77.8 fL Mean Corpuscular Hemoglobin 26.3 pg Mean Corpuscular Hemoglobin Concent 33.8 g/dl RDW Standard Deviation 43.4 fL RDW Coefficient of Variation 15.1 % Platelet Count 224 K/uL Mean Platelet Volume 9.6 fL Test 02/24/16 15:25 Assessment and Plan A 65-year-old male who presents with hyperkalemia and EKG changes, acute renal failure, hyponatremia, worsened chronic anemia, an elevated protein not consistent with decreased albumin. For the hyperkalemia, the Emergency Room physician ordered calcium gluconate, regular insulin and dextrose. We will also give him 30 grams of Kayexalate. Resolved. Cont on a low potassium renal diet. Cont to hold aldactone. Acute renal failure, because of the clinical evidence of volume overload, will give him some Lasix, will have a nephrology consult. We will check a urine sodium and a urine urea to help may be calculate a FENa. Renal US unremarkable Regarding his hyponatremia, this is not significantly low. We will consider fluid restriction once we given his Lasix and see what his repeat level in the morning. Regarding his anemia, his indices suggest this may be iron deficient as his MCV is 75.8. We will add on iron and TIBC to his admission labs to determine if he has iron deficient anemia, certainly this could be anemia of chronic disease, given his chronic health issues, perhaps renal failure. Regarding his initial complaint decreased alertness, ?if due to all antipsychotics involved Regarding his elevated total protein which is not in alignment with his low albumin, we will send an SPEP test, but this is a send out and will not be returned for few days. For his schizophrenia, we will maintain his Depakote, level is subtherapeutic. Continue Haldol both scheduled and p.r.n. along with p.r.n. Ativan. He will be on heparin for deep vein thrombosis prevention. He has continued on a proton pump inhibitor in lieu of his Zantac. He is a full code.
--- NOTE | 2016-02-24 16:46 | ECHOCARDIOGRAM REPORT ---
*NOTICE TO RECEIVING [employer] This information is strictly Confidential and protected under [place] law. [place] law prohibits you from making any further disclosure of this information unless further disclosure is expressly permitted by the written consent of the person to whom it pertains or is authorized by law. A general authorization for the release of medical or other information is not sufficient for this purpose. Hospital accepts no responsibility if the information is made available to any other person, INCLUDING THE PATIENT. Interpretation Summary * Name: KAMILA PATTERSON [id number] Study Date: 02/24/2016 01:32 PM BP: 145/71 mmHg * Patient Location: .MSICU\S\E102\S\1 HR: 72 * : 1950 (M/d/yyyy) Gender: Male * Age: 65 yrs Ethnicity: [place] Weight: 336 lb * Ordering Physician: Caleb Montague * Referring Physician: Ismael LUNA * Performed By: Leonie Marin RCS * * Reason For Study: EDEMA / ? CHF * -- Conclusions -- * The study was technically difficult. * Valves are not well seen, no significant regurgitation or stenosis appreciated with color flow or Doppler. * LVEF 65% with overall normal wall motion (Definity aid). * Diastolic dysfunction is present. Procedure Details * A complete two-dimensional transthoracic echocardiogram was performed (2D, M-mode, Doppler and color flow Doppler). * The study was technically difficult. * There were technical limitations due to patient'sbody habitus * A contrast injection of Definity was performed to improve assessment of LV function. * Contrast was injected into an intravenous site in the left arm. * One vial of Definity ultrasound contrast was diluted in normal saline to a total volume of 10 ml. A total of '2' ml of solution was administered during imaging. * Lot # [id number] of Definity utilized for procedure. * Expiration date 1 AUG 04. * The attending nurse who injected the contrast agent was ROMA GARCIA, RN. Left Ventricle * The left ventricle is not well visualized. * The left ventricle is grossly normal size. Mitral Valve * The mitral valve is not well visualized. Tricuspid Valve * The tricuspid valve is not well visualized. Aortic Valve * No hemodynamically significant valvular aortic stenosis. * There is no significant aortic regurgitation. Pulmonic Valve * The pulmonic valve is not well visualized. Left Ventricular Diastolic Function * Grade I diastolic dysfunction, (abnormal relaxation pattern). MMode 2D Measurements and Calculations IVSd 1.5 cm IVSs 2.0 cm LVIDd 5.2 cm LVIDs 3.6 cm LVPWd 1.4 cm LVPWs 1.4 cm IVS/LVPW 1.0 FS 32.3 % EDV(Teich) 132.3 ml ESV(Teich) 52.8 ml EF(Teich) 60.1 % EDV(cubed) 144.5 ml ESV(cubed) 44.9 ml EF(cubed) 68.9 % % IVS thick 38.7 % % LVPW thick 1.6 % LV mass(C)d 325.5 grams LV mass(C)s 249.9 grams SV(Teich) 79.5 ml SV(cubed) 99.6 ml Ao root diam 4.3 cm Ao root area 14.7 cm\S\2 LA dimension 3.8 cm LA/Ao 0.88 LVOT diam 2.0 cm LVOT area 3.2 cm\S\2 Doppler Measurements and Calculations MV E max anya 109.1 cm/sec MV A max anya 144.5 cm/sec MV E/A 0.76 MV P1/2t max anya 104.2 cm/sec MV P1/2t 80.4 msec MVA(P1/2t) 2.7 cm\S\2 MV dec slope 379.6 cm/sec\S\2 MV dec time 0.18 sec Ao V2 max 81.4 cm/sec Ao max PG 2.7 mmHg Ao max PG (full) -0.67 mmHg VICKI(V,A) 3.6 cm\S\2 VICKI(V,D) 3.6 cm\S\2 LV V1 max PG 3.3 mmHg LV V1 max 91.2 cm/sec
[2016-02-25] MEDS: INSULIN ASPART 100 UNITS/ML 3 ML PEN SC SCH (06:30)
[2016-02-25 07:20] VITALS: BP 143/82; PULSE 79; TEMP 36.6; O2SAT 97
[2016-02-25 07:43] LABS: BLOOD UREA NITROGEN 28 mg/dl (7-18); BUN/CREATININE RATIO 25.3 (10-20); CALCIUM 9.1 mg/dl (8.5-10.1); CARBON DIOXIDE 30 mmol/L (21-32); CHLORIDE 94 mmol/L (98-107); GLUCOSE 86 mg/dl (70-99); POTASSIUM 4.6 mmol/L (3.5-5.1); SODIUM 131 mmol/L (136-145)
[2016-02-25] MEDS: ALBUT/IPRATROP 3MG/0.5MG NEB 3 ML VIAL INH SCH ×2 (08:01→11:23)
[2016-02-25 08:02] VITALS: PULSE 91; O2SAT 95
[2016-02-25] MEDS: HEPARIN SOD 5000 UNIT/0.5 ML CARP SQ SCH (08:24)
[2016-02-25] MEDS: PANTOprazole SOD 40 MG TAB PO SCH (09:23)
[2016-02-25] MEDS: METOPROLOL TARTRATE 100 MG TAB PO SCH (09:23)
[2016-02-25] MEDS: HALOPERIDOL 5 MG TAB PO SCH (09:23)
[2016-02-25] MEDS: DIVALPROEX SODIUM 500 MG DELAY RELEASE TAB PO SCH (09:24)
[2016-02-25] MEDS: ASPIRIN 81 MG ECTAB PO SCH (09:24)
--- NOTE | 2016-02-25 09:24 | Nephrology Progress Note ---
Nephrology Progress Note Date of Service Feb 25, 2016. Chief Complaint Evaluation of SON, hyperkalemia and CHF Subjective Mr. Stover was seen and evaluated in his hospital room this morning. He voices no medical concerns. He remains agitated. Medical records from [facility] were reviewed this morning. Patient has had mild hyponatremia w/ serum sodium 130 - 135 mmol/l. His baseline creatinine has been 0.8 - 1.2. Echocardiogram results reviewed this am. LVEF has been 65%. No valvular heart disease or WMA reported. Review of Systems Cardiovascular: No chest pain Respiratory: No dyspnea at rest Abdomen: No pain Genitourinary - Male: No urinary hesitancy Extremities: No leg edema Vital Signs Last 8 Hrs Date Time Temp Pulse Resp B/P Pulse Ox O2 Delivery O2 Flow Rate FiO2 02/25/16 08:02 91 16 95 Room Air 02/25/16 07:20 36.6 79 18 143/82 97 Nasal Cannula 3.0 I & O 24-Hour Column 02/25/16 08:00 Intake Total 650 ml Balance 650 ml Last Recorded Weight Weight (Kilograms): 152.500 Physical Exam General Appearance: no apparent distress Head: atraumatic Eyes: PERRL Neck: no adenopathy Respiratory/Chest: lungs clear Cardiovascular: regular rate, rhythm Abdomen/GI: normal bowel sounds, non tender Extremities/Musculoskelatal: no pedal edema Neurologic/Psych: alert, oriented x 3 Social History Occupation: disabled Laboratory Results Past 24 Hours 02/25/16 06:35 Test 02/24/16 17:25 02/24/16 20:57 02/25/16 06:35 Bedside Glucose 104 mg/dl (70-99) 98 mg/dl (70-99) Anion Gap 7.0 mmol/L (3-11) Estimated GFR () 80.1 Estimated GFR (Non- 69.1 BUN/Creatinine Ratio 25.3 (10-20) Calcium Level 9.1 mg/dl (8.5-10.1) Allergies Coded Allergies: No Known Allergies (Unverified , 02/23/16) Medications Current Inpatient Medications Medications (Trade) Dose Ordered Sig/Ismael Route Start Time Stop Time Status Last Admin Dose Admin Heparin Sodium (Porcine) (Heparin Sq 5000 Unit/0.5ml) 5,000 unit Q12 SQ 02/23/16 21:00 03/24/16 20:59 02/24/16 21:03 5,000 UNIT Acetaminophen (Tylenol Tab) 650 mg Q4H PRN PO 02/23/16 17:15 03/24/16 17:14 Al Hydrox/Mg Hydrox/Simethicone (Maalox Max Susp) 15 ml Q4H PRN PO 02/23/16 17:15 03/24/16 17:14 Magnesium Hydroxide (Milk Of Magnesia Susp) 30 ml Q12H PRN PO 02/23/16 17:15 03/24/16 17:14 Ondansetron HCl (Zofran Inj) 4 mg Q6H PRN IV 02/23/16 17:15 03/24/16 17:14 Nitroglycerin (Nitrostat Tab) 0.4 mg UD PRN SL 02/23/16 17:15 03/24/16 17:14 Aspirin (Ecotrin Tab) 81 mg DAILY PO 02/24/16 09:00 03/25/16 08:59 02/24/16 09:17 81 MG Divalproex Sodium (Depakote Delay Rel Tab) 1,000 mg BID PO 02/23/16 21:00 03/24/16 20:59 02/24/16 20:59 1,000 MG Metoprolol Tartrate (Lopressor Tab) 100 mg BID PO 02/23/16 21:00 03/24/16 20:59 02/24/16 20:59 100 MG Haloperidol (Haldol Tab) 10 mg BID PO 02/23/16 21:00 03/24/16 20:59 02/24/16 21:00 10 MG Haloperidol Lactate (Haldol Inj) 5 mg Q4 PRN IV 02/23/16 17:15 03/24/16 17:14 Lorazepam (Ativan Inj) 1 mg Q4H PRN IV 02/23/16 17:15 03/24/16 17:14 Lorazepam (Ativan Inj) 0.5 mg Q4H PRN IV 02/23/16 17:15 03/24/16 17:14 Insulin Aspart (novoLOG ASPART) SLIDING SCALE PARAMETER ACHS SC 02/23/16 21:00 03/24/16 20:59 Hydralazine HCl (HydrALAZINE INJ) 10 mg Q4H PRN IV 02/23/16 17:15 03/24/16 17:14 Pantoprazole Sodium (Protonix Tab) 40 mg QAM PO 02/24/16 09:00 03/25/16 08:59 02/24/16 09:18 40 MG Glucose (Glucose 40% Gel) 15-30 GRAMS 15 GRAMS... UD PRN PO 02/23/16 17:45 03/24/16 17:44 Glucose (Glucose Chew Tab) 4-8 Tablets 4 Tabl... UD PRN PO 02/23/16 17:45 03/24/16 17:44 Dextrose (Dextrose 50% 50ML Syringe) 25-50ML OF 50% DW IV FOR... UD PRN IV 02/23/16 17:45 03/24/16 17:44 Glucagon 1 mg 1 mg UD PRN SQ 02/23/16 17:45 03/24/16 17:44 Lorazepam 0.5 mg/ Syringe 1 ml @ 1 mls/min Q4H PRN IV 02/23/16 20:00 03/24/16 19:59 Lorazepam/Syringe (Ativan Inj/ Syringe) 1 ml @ 1 mls/min Q4H PRN IV 02/23/16 20:00 03/24/16 19:59 Albuterol/ Ipratropium (Duoneb) 3 ml QIDR INH 02/24/16 08:00 03/25/16 07:59 02/25/16 08:01 3 ML Albuterol/ Ipratropium (Duoneb) 3 ml Q2H PRN INH 02/23/16 20:30 03/24/16 20:29 Impression (1) SON (acute kidney injury) (2) Hyperkalemia (3) Hyponatremia (4) CHF (congestive heart failure) (5) Anemia (6) HTN (hypertension) (7) Schizophrenia (8) Mental retardation (9) Diabetes Patient admitted to [facility] for evaluation of mental status changes. He was found to have SON, hyperkalemia and CHF. Outpatient medical regimen included TIERRA inhibitor, loop diuretic and aldactone. Potassium has corrected with medical management and lower extremity edema has improved following loop diuretic administration. PMH - learning disability, paranoid schizophrenia, AODM, HTN, hyperlipidemia, ASCVD, anemia and chronic hyponatremia. Recommendations ACUTE KIDNEY INJURY: -- Resolved. Baseline creatinine has been 0.8 - 1.0 -- Echocardiogram shows preserved LVEF. Recommend avoiding TIERRA inhibitor and aldactone as outpatient -- Urinalysis has not yet been obtained -- Renal US report reviewed this am: 9 cm kidneys without mass or hydronephrosis HYPERKALEMIA: -- Corrected following kayexelate and furosemide administration EDEMA: -- Peripheral edema has resolved -- Echocardiogram shows preserved cardiac function w/ LVEF 65% -- Recommend providing furosemide 20 mg each morning as outpatient to control volume status and blood pressure HYPONATREMIA: -- staff nurse anesthetist unable to obtain urine sample
[2016-02-25] MEDS ORDERED: FURO20TA PO (09:47)
--- NOTE | 2016-02-25 09:50 | Discharge Instructions ---
Discharge Instructions Admission Reason for Admission: Hyperkalemia Discharge Discharge Diagnosis / Problem: Altered mental status, hyperkalemia Discharge Goals Goal(s): Decrease discomfort, Improve function, Increase independence, Improve disease control, Diagnostic testing Activity Recommendations Activity Limitations: resume your previous activity . Instructions / Follow-Up Instructions / Follow-Up Patient to be discharged back to correctional facility Recommend repeat BMP in 1 week to assess potassium and creatinine specifically Please stop taking everton inhibitor and aldactone medication ECHO obtained and reviewed did not determine any congestive heart failure or valvular disease Would also look into perhaps tapering heavy antipsychotics Please follow up with primary care provider in skilled nursing in 1 week Current Hospital Diet Patient's current hospital diet: Low Potassium Diet (2g K), Diabetes Type 2 Diet Discharge Diet Recommended Diet: Diabetes Type 2 Diet, Low Potassium Diet (2g K) Pending Studies Studies pending at discharge: no Medical Emergencies . Who to Call and When: Medical Emergencies: If at any time you feel your situation is an emergency, please call 911 immediately. . Non-Emergent Contact Non-Emergency issues call your: Primary Care Provider Call Non-Emergent contact if: you have a fever, your pain is worsening . . "Provider Documentation" section prepared by Caleb Montague. VTE Core Measure Inpt VTE Proph given/why not?: Unfractionated heparin SQ
[2016-02-25 10:32] VITALS: BP 143/82; PULSE 91; TEMP 36.6; O2SAT 95
--- NOTE | 2016-02-25 12:18 | Discharge Summary ---
Discharge Summary Admission Date: Feb 23, 2016 at 17:17 Discharge Date: Feb 25, 2016 Discharge Disposition: Acute care facility Principal Diagnosis: metabolic encephalopathy, hyperkalemia Consultations: Nephrology Medication Reconciliation New Medications: Furosemide (Lasix) 20 Mg Tab 1 TAB PO DAILY for 30 Days, #30 TAB 5 Refills Continued Medications: Acetaminophen (Tylenol) 500 Mg Tab 1000 MG PO TID PRN for Pain, TAB Aspirin (Aspirin Adult Low Dose) 81 Mg Tab 81 MG PO DAILY Atorvastatin (Lipitor) 20 Mg Tab 20 MG PO QPM, TAB Divalproex Sodium (Depakote) 500 Mg Tab 1000 TAB PO BID for 30 Days, TAB 2 Refills Haloperidol (Haldol) 10 Mg Tab 10 MG PO BID, TAB Loperamide Hcl (Imodium) 2 Mg Cap 2 MG PO TID PRN for GI Upset, CAP Loratadine (Claritin) 10 Mg Tab 10 MG PO DAILY, TAB Magnesium Oxide (Mag-Ox) 400 Mg Tab 400 MG PO DAILY, TAB Metformin Hcl (Glucophage) 850 Mg Tab 850 MG PO TID, TAB Metoprolol Tartrate (Lopressor) (Lopressor) 100 Mg Tab 100 MG PO BID, TAB Ranitidine (Zantac) 300 Mg Tab 300 MG PO BID, TAB Discontinued Medications: Enalapril (Vasotec) 10 Mg Tab 20 MG PO BID, TAB Furosemide (Lasix) 40 Mg Tab 40 MG PO BID, TAB Spironolactone (Aldactone) 25 Mg Tab 25 MG PO BID, TAB Discharge Exam Review of Systems: Constitutional: No chills, No fever Respiratory: No cough, No shortness of breath, No sputum, No wheezing Cardiovascular: + edema, No chest pain, No orthopnea Abdomen: No nausea, No pain Musculoskeletal: No joint pain, No muscle pain Genitourinary - Male: No dysuria, No hematuria Psychiatric: + depression symptoms, No insomnia Physical Exam: General Appearance: WD/WN, no apparent distress Neck: supple, no adenopathy Respiratory/Chest: chest non-tender, lungs clear Cardiovascular: no gallop, no JVD Abdomen / GI: non tender, soft Neurologic/Psychiatric: alert, oriented x 3 Hospital Course A 65-year-old male who presents with hyperkalemia and EKG changes, acute renal failure, hyponatremia, worsened chronic anemia, an elevated protein not consistent with decreased albumin. For the hyperkalemia, the Emergency Room physician ordered calcium gluconate, regular insulin and dextrose. We will also give him 30 grams of Kayexalate. Resolved the following day. Cont on a low potassium renal diet. Cont to hold aldactone and ACEI on discharge Acute renal failure, because of the clinical evidence of volume overload, will give him some Lasix. Nephrology consulted. Agreed to hold ACEI and aldactone and only lasix 20 mg PO daily on discharge. Cr improved on DC Regarding his hyponatremia, this is not significantly low. Cont to monitor Regarding his anemia, his indices suggest this may be iron deficient as his MCV is 75.8 however serum iron and TIBC WNL, certainly this could be anemia of chronic disease, given his chronic health issues, perhaps renal failure. Regarding his initial complaint decreased alertness, ?if due to all antipsychotics involved Regarding his elevated total protein which is not in alignment with his low albumin, we will send an SPEP test, but this is a send out and will not be returned for few days. For his schizophrenia, we will maintain his Depakote, level is subtherapeutic. Continue Haldol both scheduled and p.r.n. along with p.r.n. Ativan. He will be on heparin for deep vein thrombosis prevention. He has continued on a proton pump inhibitor in lieu of his Zantac. He is a full code. Total Time Spent: Greater than 30 minutes This includes examination of the patient, discharge planning, medication reconciliation, and communication with other providers. Discharge Instructions Please refer to the electronic Patient Visit Report (Discharge Instructions) for additional information.
--- NOTE | 2016-02-27 10:33 | EDITING REQUIRED CODING QUERY ---
CONGESTIVE HEART FAILURE To Promote full compliance with coding requirements relating to patient care, physician participation is requested in all cases of pre coder uncertainty. Please assist us with the following questions. A diagnosis of Congestive Heart Failure is documented in the patient's medical record. To accurately code this diagnosis and to compare patient severity, we ask that you specify the type of heart failure by placing an X within the parenthesis (x). SYSTOLIC HEART FAILURE ( ) Acute ( ) Chronic ( ) Acute on Chronic ( ) Rheumatic ( X) Unknown DIASTOLIC HEART FAILURE ( ) Acute ( X) Chronic ( ) Acute on Chronic ( ) Rheumatic ( ) Unknown COMBINED SYSTOLIC AND DIASTOLIC HEART FAILURE ( ) Acute ( ) Chronic ( ) Acute on Chronic ( ) Rheumatic (X ) Unknown Was the CHF Present On Admission? Please check the appropriate box: (X ) Present on Admission ( ) Not Present On Admission ( ) Clinically undetermined Thank you Gilda Sheppard
--- NOTE | 2016-02-27 10:39 | EDITING REQUIRED CODING QUERY ---
CODING QUERY To promote full compliance with coding requirements relating to patient care, provider participation is requested in all cases of oyster grower uncertainty. Please assist us with the question(s) below: Coding Question(s): Metabolic Encephalopathy is documented on the Discharge Summary. There is documentation of altered mental status and decreased alertness ? d/t all antipsychotics. Please clarify below, in your clinical opinion. (X ) the altered mental status and decreased alertness were questionably due to all antipsychotic medications and was Metabolic Encephalopathy ( ) No Metabolic Encephalopathy ( ) Metabolic Encephalopathy due to other - Specify ( ) Other: Specify Physician's Response(s): Thank you Gilda Sheppard Principal Diagnosis: "_that condition established after study, to be chiefly responsible for occasioning the admission of the patient to the hospital for care." Co-Existing Principal Diagnosis: "_when two or more diagnoses equally meet the criteria for principal diagnosis as determined by the circumstances of admission, diagnostic work up, and/or therapy provided, and the Alphabetic Index, Tabular List, or another coding guideline does not provide sequencing direction, any one of the diagnoses may be sequenced first." "When the physician has documented what appears to be a current diagnosis in the body of the record, but has not included the diagnosis in the final diagnostic statement, the physician should be asked whether the diagnosis should be added." (Source Coding [facility] 2 QTR90. p3-4)
[2016-02-27 15:01] LABS: ALBUMIN 3.5 G/DL (3.8-4.8); GAMMA GLOBULIN 2.3 G/DL (0.8-1.7); TOTAL PROTEIN 8.1 G/DL (6.2-8.3)
[2016-05-18] MEDS ORDERED: COLC0.6T54 PO (10:46)
[2016-05-18] MEDS ORDERED: FLM4 PO (10:46)
[2016-05-18] MEDS ORDERED: AMPI500C9 PO (10:46)
[2016-05-18] MEDS ORDERED: PRED10TA PO (10:46)
[2016-05-18] MEDS ORDERED: LCTXP OR (10:46)
== END 2016-02-25 12:04 | DRG 682 ==
LOC: ENRESERVTM → ENRESERVDT → EDBD 14:41 → C.EDA 14:43 → C.EDINP 17:17 → C.MSICU 02-24 06:55 → C.MS4W 02-24 17:57
PROVIDERS: ADMIT Internal Medicine; ATTEND Hospitalist
DX: N17.9 Acute kidney failure, unspecified (principal); G93.41 Metabolic encephalopathy; I50.32 Chronic diastolic (congestive) heart failure; F20.0 Paranoid schizophrenia; E87.1 Hypo-osmolality and hyponatremia; E87.5 Hyperkalemia; D63.8 Anemia in other chronic diseases classified elsewhere; R79.89 Other specified abnormal findings of blood chemistry; T43.1X5A Adverse effect of monoamine-oxidase-inhibitor antidepressants, initial encounter; T42.6X5A Adverse effect of other antiepileptic and sedative-hypnotic drugs, initial encounter; E11.9 Type 2 diabetes mellitus without complications; I10 Essential (primary) hypertension; I25.10 Atherosclerotic heart disease of native coronary artery without angina pectoris; E78.5 Hyperlipidemia, unspecified; F79 Unspecified intellectual disabilities; E66.9 Obesity, unspecified; Z51.81 Encounter for therapeutic drug level monitoring; Z79.899 Other long term (current) drug therapy; Z79.84 Long term (current) use of oral hypoglycemic drugs; Z79.82 Long term (current) use of aspirin

== ENCOUNTER → 2016-02-23 | Outpatient (CLI) | payer OTHER ==
[~2016-02-23] MED LIST: ACET-1256 PO; AMPI500C9 PO; ASPI-589 PO; ASPI81TA28 PO; ATOR-22 PO; BUME2TAB3 PO; CLR10 PO; COLC0.6T54 PO; CPR500 PO; DIMECRE TOP; DIVA500T5 PO; DIVA500T59 PO; ENAL10TA88 PO; FERR1TAB39 PO; FLM4 PO; FRS/40 PO; FURO20TA PO; HALO10TA17 PO; HALO2TAB PO; IMD2X PO; IPRASOL4 NEB; ISOS-10 PO; KETO1AER2 TOP; LCTXP OR; LPR100 PO; MAGN400T6 PO; MCRK/10 PO; METF-383 PO; METO100T14 PO; PRED10TA PO; RANI300T2 PO; SPIR25TA PO; SULF-302 PO; SULF800T23 PO; TRMCR515 TOP; ZINC1CRE3 TOP
[2016-02-23 11:46] LABS: BASO % 0.2 %; BASO ABS # 0.01 K/uL (0-0.2); HEMATOCRIT 25.8 % (42-52); IG% 0.2 %; LYMPH % 25.3 %; LYMPH ABS # 1.18 K/uL (1.2-3.4); MEAN CELL VOLUME 76.1 fL (80-100); NEUT % 59.3 %; PLATELET COUNT 271 K/uL (130-400); RED BLOOD COUNT 3.39 M/uL (4.7-6.1); WHITE BLOOD COUNT 4.66 K/uL (4.8-10.8)
[2016-02-23 11:54] LABS: MEAN CORPUSCULAR HGB CONC 34.1 g/dl (32-36)
[2016-02-23 12:09] LABS: ALB/GLOB RATIO 0.6 (0.9-2); ALKALINE PHOSPHATASE 170 U/L (45-117); ALT/SGPT 22 U/L (12-78); AST/SGOT 19 U/L (15-37); BLOOD UREA NITROGEN 46 mg/dl (7-18); BUN/CREATININE RATIO 23.2 (10-20); CALCIUM 8.8 mg/dl (8.5-10.1); CARBON DIOXIDE 28 mmol/L (21-32); CHLORIDE 92 mmol/L (98-107); GLUCOSE 82 mg/dl (70-99); POTASSIUM 5.8 mmol/L (3.5-5.1); SODIUM 127 mmol/L (136-145)
[2016-02-23 12:14] LABS: COMPLETE YES; HYPOCHROMIA PRESENT; MICROCYTOSIS PRESENT; TARGET CELLS 1+
== END ==
LOC: C.LABSPEC 11:25
DX: E87.1 Hypo-osmolality and hyponatremia (principal)

== ENCOUNTER → 2016-04-02 | Outpatient (CLI) | payer OTHER ==
[~2016-04-02] MED LIST changes: -ENAL10TA88 PO; -FRS/40 PO; -SPIR25TA PO; +SULF-183 PO; -SULF-302 PO
[2016-04-02 08:46] LABS: BASO % 0.2 %; BASO ABS # 0.01 K/uL (0-0.2); EOS % 2.3 %; IG% 0.7 %; LYMPH % 12.7 %; LYMPH ABS # 0.71 K/uL (1.2-3.4); MEAN CELL VOLUME 80.6 fL (80-100); MEAN PLATELET VOLUME 10.1 fL (7.4-10.4); MONO % 12.5 %; NEUT % 71.6 %; PLATELET COUNT 239 K/uL (130-400); RED BLOOD COUNT 3.35 M/uL (4.7-6.1); WHITE BLOOD COUNT 5.58 K/uL (4.8-10.8)
[2016-04-02 08:54] LABS: MEAN CORPUSCULAR HGB CONC 32.2 g/dl (32-36)
[2016-04-02 08:58] LABS: ALB/GLOB RATIO 0.6 (0.9-2); ALKALINE PHOSPHATASE 140 U/L (45-117); ALT/SGPT 17 U/L (12-78); AST/SGOT 21 U/L (15-37); BLOOD UREA NITROGEN 17 mg/dl (7-18); CALCIUM 8.9 mg/dl (8.5-10.1); CARBON DIOXIDE 29 mmol/L (21-32); CHLORIDE 92 mmol/L (98-107); CREATININE 0.76 mg/dl (0.60-1.40); GLUCOSE 105 mg/dl (70-99); POTASSIUM 4.7 mmol/L (3.5-5.1); SODIUM 131 mmol/L (136-145)
[2016-04-02 09:17] LABS: COMPLETE YES; HYPOCHROMIA PRESENT; MICROCYTOSIS PRESENT; TARGET CELLS 1+
== END | disposition home or self-care (01) ==
LOC: C.LABSPEC 08:39
PROVIDERS: ATTEND Nurse Practitioner Adult Health
DX: E87.0 Hyperosmolality and hypernatremia (principal); E87.5 Hyperkalemia

== ENCOUNTER → 2016-04-11 | Outpatient (CLI) | payer OTHER ==
[2016-04-11 09:51] LABS: BASO % 0.2 %; BASO ABS # 0.01 K/uL (0-0.2); EOS % 2.5 %; HEMATOCRIT 22.7 % (42-52); LYMPH % 17.1 %; MEAN CELL VOLUME 77.2 fL (80-100); MEAN CORPUSCULAR HEMOGLOBIN 25.5 pg (25-34); MEAN PLATELET VOLUME 9.4 fL (7.4-10.4); NEUT % 61.2 %; PLATELET COUNT 246 K/uL (130-400); RED BLOOD COUNT 2.94 M/uL (4.7-6.1); WHITE BLOOD COUNT 6.42 K/uL (4.8-10.8)
[2016-04-11 09:55] LABS: COMPLETE YES
[2016-04-11 10:04] LABS: ALB/GLOB RATIO 0.6 (0.9-2); ALKALINE PHOSPHATASE 126 U/L (45-117); ALT/SGPT 15 U/L (12-78); AST/SGOT 13 U/L (15-37); BLOOD UREA NITROGEN 14 mg/dl (7-18); BUN/CREATININE RATIO 13.9 (10-20); CALCIUM 8.6 mg/dl (8.5-10.1); CARBON DIOXIDE 32 mmol/L (21-32); CHLORIDE 89 mmol/L (98-107); GLUCOSE 98 mg/dl (70-99); POTASSIUM 4.9 mmol/L (3.5-5.1); SODIUM 127 mmol/L (136-145)
[2016-04-13 07:03] LABS: TARGET CELLS 1+
== END | disposition home or self-care (01) ==
LOC: C.LABSPEC 09:36
PROVIDERS: ATTEND Nurse Practitioner Adult Health
DX: D62 Acute posthemorrhagic anemia (principal)

== ENCOUNTER → 2016-04-12 | Outpatient (CLI) | payer OTHER ==
[2016-04-12 11:42] LABS: BASO % 0.2 %; BASO ABS # 0.01 K/uL (0-0.2); EOS % 2.1 %; HEMATOCRIT 21.9 % (42-52); IG% 1.3 %; LYMPH % 19.2 %; LYMPH ABS # 1.19 K/uL (1.2-3.4); MEAN CELL VOLUME 78.8 fL (80-100); MEAN CORPUSCULAR HEMOGLOBIN 25.9 pg (25-34); MEAN PLATELET VOLUME 9.4 fL (7.4-10.4); MONO % 13.5 %; NEUT % 63.7 %; PLATELET COUNT 234 K/uL (130-400); RED BLOOD COUNT 2.78 M/uL (4.7-6.1); WHITE BLOOD COUNT 6.21 K/uL (4.8-10.8)
[2016-04-12 11:46] LABS: MEAN CORPUSCULAR HGB CONC 32.9 g/dl (32-36)
[2016-04-12 12:05] LABS: ALB/GLOB RATIO 0.6 (0.9-2); ALKALINE PHOSPHATASE 119 U/L (45-117); ALT/SGPT 14 U/L (12-78); AST/SGOT 12 U/L (15-37); BLOOD UREA NITROGEN 14 mg/dl (7-18); BUN/CREATININE RATIO 12.9 (10-20); CALCIUM 8.3 mg/dl (8.5-10.1); CARBON DIOXIDE 30 mmol/L (21-32); CHLORIDE 89 mmol/L (98-107); GLUCOSE 84 mg/dl (70-99); POTASSIUM 4.5 mmol/L (3.5-5.1); SODIUM 127 mmol/L (136-145)
[2016-04-12 12:24] LABS: COMPLETE YES; HYPOCHROMIA PRESENT; POLYCHROMASIA 1+; TARGET CELLS 1+
== END | disposition home or self-care (01) ==
LOC: C.LABSPEC 11:30
PROVIDERS: ATTEND Nurse Practitioner Adult Health
DX: D64.9 Anemia, unspecified (principal)

== ENCOUNTER 2016-04-13 11:43 | Inpatient (IN) | payer OTHER ==
[~2016-04-13] VITALS: Ht 195.6 cm; Wt 172.0 kg
[2016-04-13] VITALS (7 sets, daily range): BP systolic 137–170; BP diastolic 51–86; PULSE 70–88; TEMP 36.5–36.8; O2SAT 93–100; Ht 195.6 cm; Wt 172.0 kg
[~2016-04-13 11:43] MED LIST changes: -AMPI500C9 PO; -ASPI81TA28 PO; -BUME2TAB3 PO; -COLC0.6T54 PO; -CPR500 PO; -DIMECRE TOP; -DIVA500T5 PO; -FERR1TAB39 PO; -FLM4 PO; -HALO2TAB PO; -IPRASOL4 NEB; -ISOS-10 PO; -KETO1AER2 TOP; -LCTXP OR; -LPR100 PO; -MCRK/10 PO; -PRED10TA PO; -SULF-183 PO; -SULF800T23 PO; -TRMCR515 TOP; -ZINC1CRE3 TOP
[2016-04-13] MEDS ORDERED: BUME2TAB3 PO (13:38)
[2016-04-13] MEDS ORDERED: SULF800T23 PO (13:56)
[2016-04-13] MEDS ORDERED: HALO2TAB PO (13:56)
[2016-04-13] MEDS ORDERED: KETO1AER2 TOP (13:56)
[2016-04-13] MEDS ORDERED: MCRK/10 PO (13:56)
[2016-04-13] MEDS ORDERED: ISOS-10 PO (13:56)
[2016-04-13] MEDS ORDERED: SODIUM CHLORIDE 0.9% 1000ML 1,000 ML IV STA (14:20)
--- NOTE | 2016-04-13 14:48 | DIAGNOSTIC IMAGING REPORT ---
CHEST ONE VIEW PORTABLE CLINICAL HISTORY: Altered mental status. Hematuria. COMPARISON STUDY: 02/23/2016 FINDINGS: The study is limited from a technical standpoint. The cardiac silhouette is enlarged. The study is rotated. There is aortic tortuosity/ectasia. There is radiographic evidence for congestive failure with diffuse elevation of the interstitium. There is no lobar consolidation.[ IMPRESSION: Technically limited study. Worsening congestive failure. No evidence of lobar consolidation. Electronically signed by: Richard Yun M.D. 04/13/2016 2:46 PM Dictated Date/Time: 04/13/2016 2:45 PM
[2016-04-13 15:14] LABS: HEMATOCRIT 20.2 % (42-52); MEAN CELL VOLUME 76.5 fL (80-100); MEAN CORPUSCULAR HEMOGLOBIN 25.8 pg (25-34); MEAN CORPUSCULAR HGB CONC 33.7 g/dl (32-36); MEAN PLATELET VOLUME 7.7 fL (7.4-10.4); PLATELET COUNT 183 K/uL (130-400); RED BLOOD COUNT 2.64 M/uL (4.7-6.1)
[2016-04-13 15:21] LABS: PARTIAL THROMBOPLASTIN RATIO 1.1; PROTHROMBIN TIME (PATIENT) 10.7 SECONDS (9.0-12.0)
[2016-04-13 15:29] LABS: ALT/SGPT 13 U/L (12-78); AST/SGOT 12 U/L (15-37); BLOOD UREA NITROGEN 14 mg/dl (7-18); BUN/CREATININE RATIO 13.6 (10-20); CALCIUM 8.5 mg/dl (8.5-10.1); CARBON DIOXIDE 32 mmol/L (21-32); CHLORIDE 90 mmol/L (98-107); GLUCOSE 71 mg/dl (70-99); MAGNESIUM 1.9 mg/dl (1.8-2.4); POTASSIUM 4.5 mmol/L (3.5-5.1); SODIUM 128 mmol/L (136-145)
[2016-04-13 15:38] LABS: ALKALINE PHOSPHATASE 114 U/L (45-117)
[2016-04-13 15:53] LABS: BASO % 0.2 %; BASO ABS # 0.01 K/uL (0-0.2); COMPLETE YES; EOS % 1.8 %; IG% 0.8 %; LYMPH % 17.6 %; MICROCYTOSIS PRESENT; MONO % 18.4 %; NEUT % 61.2 %; TARGET CELLS 1+
[2016-04-13 15:54] LABS: URINE APPEARANCE CLEAR (CLEAR); URINE BILIRUBIN NEG (NEG); URINE COLOR ORANGE; URINE EPITHELIAL CELL AUTO 0-5 /lpf (0-5); URINE NITRITE NEG (NEG); URINE PH 7.5 (4.5-7.5); URINE SPECIFIC GRAVITY 1.006 (1.000-1.030); UROBILINOGEN NEG (NEG); ZZURINE CULT IF INDIC CATH NO
[2016-04-13 15:55] LABS: MANUAL MICROSCOPIC REQUIRED? NO; REVIEW REQ? NO
--- NOTE | 2016-04-13 16:13 | EMERGENCY ROOM VISIT NOTE ---
History Report prepared by Angelicaibbrett: Cass Herr Under the Supervision of: Dr. Gwyn Thomson D.O. First contact with patient: 14:09 Chief Complaint: HEMATURIA Stated Complaint: HEMATURIA Nursing Triage Summary: pt here two weeks ago, from [facility], guards at bedside; had ortega x2, removed at present; pt Hx MR and psych issues; hematuria; Hgb 7.2. History of Present Illness The patient is a 65 year old male who presents to the Emergency Room with complaints of intermittent hematuria for the past 2 weeks. He is accompanied by 2 guards from [facility], where he resides. He is an infirmary inmate at [facility] and was seen here in the ED 2 weeks ago for the same symptoms. He had a Ortega catheter placed, which was removed today. His notes from [facility] note his Hemoglobin is at 7.2, from lab work performed yesterday. His notes also state he has experienced "hematuria with clots" for the past few days. He has a past history of schizophrenia and mental retardation and is unable to answer questions about his current condition. Source of History: patient History Limited By: other (mental retardation) Onset: 2 weeks MATERIAL HANDLER 2ND SHIFT Position: other (urinary system) Timing: intermittent Review of Systems See HPI for pertinent positives & negatives. A total of 10 systems reviewed and were otherwise negative. Past Medical & Surgical Medical Problems: (1) CAD (coronary artery disease) (2) Diabetes (3) HTN (hypertension) (4) Hyperkalemia (5) Hyperlipemia (6) Hyponatremia (7) Mental retardation (8) Schizophrenia Social History Smoking Status: Current Some Day Smoker Alcohol Use: none Drug Use: none Marital Status: single Housing Status: other Occupation Status: disabled Current/Historical Medications Scheduled Aspirin (Aspirin Adult Low Dose), 81 MG PO DAILY Atorvastatin (Lipitor), 20 MG PO QPM Bumetanide (Bumex), 2 MG PO DAILY Divalproex Sodium (Depakote), 1,000 TAB PO HS Haloperidol (Haldol), 10 MG PO BID Haloperidol (Haloperidol), 2 MG PO BID Isosorbide Mononitrate (Isosorbide Mononitrate ER), 60 MG PO DAILY Ketoconazole (Topical) (Extina), 1 DOSE TOP BID Magnesium Oxide (Mag-Ox), 400 MG PO DAILY Metformin Hcl (Glucophage), 850 MG PO TID Metoprolol Tartrate (Lopressor) (Lopressor), 100 MG PO BID Potassium Chloride (K-Tabs), 10 MEQ PO DAILY Ranitidine (Zantac), 300 MG PO BID Sulfa/Trimethoprim (Bactrim Ds 800MG/160MG), 1 TAB PO BID Scheduled PRN Acetaminophen (Tylenol), 1,000 MG PO TID PRN for Pain Allergies Coded Allergies: No Known Allergies (Unverified , 04/13/16) Physical Exam Vital Signs Date Time Temp Pulse Resp B/P Pulse Ox O2 Delivery O2 Flow Rate FiO2 04/13/16 12:08 36.5 69 16 132/71 97 Room Air Physical Exam CONSTITUTIONAL/VITAL SIGNS: Reviewed / noted above. GENERAL: Non-toxic in appearance, obese. The patient is difficult to understand when he speaks. He has no specific complaints. INTEGUMENTARY: Warm, dry, and [place]. HEAD: Normocephalic. EYES: without scleral icterus or trauma. ENT/OROPHARYNX: clear and moist, edentulous. LYMPHADENOPATHY/NECK: Is supple without lymphadenopathy or meningismus. RESPIRATORY: Lungs clear and equal. CARDIOVASCULAR: Regular rate and rhythm. GI/ABDOMEN: Soft and nontender. No organomegaly or pulsatile mass. No rebound or guarding. Normal bowel sounds. EXTREMITIES: Warm and well perfused. BACK: No CVA tenderness. NEUROLOGICAL: Intact without focal deficits. : Gross blood from the urethra. PSYCHIATRIC: normal affect. MUSCULOSKELETAL: Normally developed with good muscle tone. Medical Decision & Procedures ER Provider Diagnostic Interpretation: This X-Ray was reviewed and interpreted by myself and the radiologist. CHEST ONE VIEW PORTABLE IMPRESSION: Technically limited study. Worsening congestive failure. No evidence of lobar consolidation. Electronically signed by: Richard Yun M.D. 04/13/2016 2:46 PM Laboratory Results 04/13/16 15:00 Red Blood Count 2.64, Mean Corpuscular Volume 76.5, Mean Corpuscular Hemoglobin 25.8, Mean Corpuscular Hemoglobin Concent 33.7, Mean Platelet Volume 7.7, Neutrophils (%) (Auto) 61.2, Lymphocytes (%) (Auto) 17.6, Monocytes (%) (Auto) 18.4, Eosinophils (%) (Auto) 1.8, Basophils (%) (Auto) 0.2, Neutrophils # (Auto ) 3.12, Lymphocytes # (Auto) 0.90, Monocytes # (Auto) 0.94, Eosinophils # (Auto ) 0.09, Basophils # (Auto) 0.01 04/13/16 15:00 Test 04/13/16 15:00 04/13/16 15:45 White Blood Count 5.10 K/uL (4.8-10.8) Red Blood Count 2.64 M/uL (4.7-6.1) Hemoglobin 6.8 g/dL (14.0-18.0) Hematocrit 20.2 % (42-52) Mean Corpuscular Volume 76.5 fL (80-100) Mean Corpuscular Hemoglobin 25.8 pg (25-34) Mean Corpuscular Hemoglobin Concent 33.7 g/dl (32-36) Platelet Count 183 K/uL (130-400) Mean Platelet Volume 7.7 fL (7.4-10.4) Neutrophils (%) (Auto) 61.2 % Lymphocytes (%) (Auto) 17.6 % Monocytes (%) (Auto) 18.4 % Eosinophils (%) (Auto) 1.8 % Basophils (%) (Auto) 0.2 % Neutrophils # (Auto) 3.12 K/uL (1.4-6.5) Lymphocytes # (Auto) 0.90 K/uL (1.2-3.4) Monocytes # (Auto) 0.94 K/uL (0.11-0.59) Eosinophils # (Auto) 0.09 K/uL (0-0.5) Basophils # (Auto) 0.01 K/uL (0-0.2) RDW Standard Deviation 43.6 fL (36.4-46.3) RDW Coefficient of Variation 15.6 % (11.5-14.5) Immature Granulocyte % (Auto) 0.8 % Immature Granulocyte # (Auto) 0.04 K/uL (0.00-0.02) Basophilic Stippling 1+ Microcytosis PRESENT Target Cells 1+ Prothrombin Time 10.7 SECONDS (9.0-12.0) Prothromb Time International Ratio 1.0 (0.9-1.1) Activated Partial Thromboplast Time 28.6 SECONDS (21.0-31.0) Partial Thromboplastin Ratio 1.1 Anion Gap 6.0 mmol/L (3-11) Est Creatinine Clear Calc Drug Dose 124.0 ml/min Estimated GFR () 89.9 Estimated GFR (Non- 77.5 BUN/Creatinine Ratio 13.6 (10-20) Calcium Level 8.5 mg/dl (8.5-10.1) Magnesium Level 1.9 mg/dl (1.8-2.4) Total Bilirubin 0.1 mg/dl (0.2-1) Direct Bilirubin < 0.1 mg/dl (0-0.2) Aspartate Amino Transf (AST/SGOT) 12 U/L (15-37) Alanine Aminotransferase (ALT/SGPT) 13 U/L (12-78) Alkaline Phosphatase 114 U/L (45-117) Total Creatine Kinase 58 U/L (39-308) Creatine Kinase MB 2.3 ng/ml (0.5-3.6) Creatine Kinase MB Ratio 4.0 (0-3.0) Troponin I < 0.015 ng/ml (0-0.045) Total Protein 7.5 gm/dl (6.4-8.2) Albumin 2.6 gm/dl (3.4-5.0) Lipase 183 U/L (73-393) Thyroid Stimulating Hormone (TSH) 4.120 uIu/ml (0.300-4.500) Urine Color ORANGE Urine Appearance CLEAR (CLEAR) Urine pH 7.5 (4.5-7.5) Urine Specific [place] 1.006 (1.000-1.030) Urine Protein NEG (NEG) Urine Glucose (UA) NEG (NEG) Urine Ketones NEG (NEG) Urine Occult Blood 3+ (NEG) Urine Nitrite NEG (NEG) Urine Bilirubin NEG (NEG) Urine Urobilinogen NEG (NEG) Urine Leukocyte Esterase NEG (NEG) Urine WBC (Auto) 0 /hpf (0-5) Urine RBC (Auto) >30 /hpf (0-4) Urine Hyaline Casts (Auto) 1-5 /lpf (0-5) Urine Epithelial Cells (Auto) 0-5 /lpf (0-5) Urine Bacteria (Auto) NEG (NEG) Laboratory results as stated above per my review. Medications Administered Medications (Trade) Dose Ordered Sig/Ismael Route Start Time Stop Time Status Last Admin Dose Admin Sodium Chloride (Nss 1000ml) 1,000 ml @ 999 mls/hr Q1H1M STAT IV 04/13/16 14:20 04/13/16 15:20 DC 04/13/16 15:57 999 MLS/HR ECG Indication: weakness Rate (beats per minute): 64 Rhythm: sinus rhythm Findings: no acute ischemic change, no ectopy ED Course 1419: Previous medical records were reviewed. The patient was evaluated in room C11B. A complete history and physical examination was performed. 1420: NSS 1000 ml @ 999 mls/hr IV. 1609: I discussed the patients case with Dr. Haas [facility] Hospitalist. The patient will be further evaluated. Medical Decision Differential includes acute coronary syndrome, myocardial infarction, CVA, TIA, anemia, infection, pneumonia, UTI, pyelonephritis, poor nutrition, dehydration, electrolyte disturbance,hypoglycemia. This is a 65-year-old male who is presenting to the emergency Department for history of recent bleeding from the urethra as well as anemia. He had blood work done yesterday that revealed anemia. He was sent here today for passing blood from the penis and passing clots. Patient is a poor historian and has mental health as well as MR. The patient reveals gross hematuria from the urethra as well as clots. Exam was otherwise remarkable for obesity. His speech is mostly incomprehensible most of the time. This is apparently chronic. Vital signs are stable. Physical exam was noted above. There is gross blood from the urethra. Hemoglobin 6.8 today. Chest x-ray was negative for acute disease. EKG shows a sinus rhythm. Metabolic panel was unremarkable. Urine reveals 30 and 30 RBCs but there is no gross blood after Ortega catheter placement. Ortega catheter was placed by nursing staff without difficulty. The patient was ordered transfusion of blood for anemia. He will be seen by the hospitalist service, with whom I spoke. Consults Time Called: 1605 Consulting Physician: Dr. Murillo [facility] Hospitalist Returned Call: 1604 I discussed the patients case with Dr. Haas [facility] Hospitalist. The patient will be further evaluated. Impression Primary Impression: Hemorrhage of urethra Additional Impression: Anemia Scribe Attestation The scribe's documentation has been prepared under my direction and personally reviewed by me in its entirety. I confirm that the note above accurately reflects all work, treatment, procedures, and medical decision making performed by me. Departure Information Dispostion Being Evaluated By Hospitalist Referrals Ismael LUNA (PCP) Patient Instructions My [facility] Problem Qualifiers
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
[2016-04-13] MEDS ORDERED: IV FLUIDS COMPLETED PRN ×2 (17:45→18:45)
[2016-04-13] MEDS ORDERED: ONDANSETRON INJ 2 MG/ML 2 ML VIAL IV PRN (18:30)
[2016-04-13] MEDS ORDERED: ACETAMINOPHEN 325 MG TAB PO PRN (18:30)
[2016-04-13] MEDS ORDERED: ACETAMINOPHEN 500 MG TAB PO PRN (18:30)
[2016-04-13] MEDS ORDERED: ALUMINUM/MAGNESIUM/SIMETH (MAALOX MAX) 30 ML UDC PO PRN (18:30)
[2016-04-13] MEDS ORDERED: POLYETHYLENE (MIRALAX) 17 GM PACK PO PRN (18:30)
[2016-04-13] MEDS ORDERED: MAGNESIUM HYDROXIDE SUSP 30 ML UDC PO PRN (18:30)
[2016-04-13 18:56] LABS: FERRITIN 83.2 ng/ml (8.0-388.0); TOTAL IRON BINDING CAPACITY 274 mcg/dl (250-450)
[2016-04-13] MEDS ORDERED: DIVALPROEX SODIUM 500 MG DELAY RELEASE TAB PO SCH (21:00)
--- NOTE | 2016-04-13 21:39 | History and Physical ---
History & Physical Date & Time of Service: Apr 13, 2016 at 21:39 Chief Complaint: Anemia Hemorrhage Of Urethra Primary Care Physician: Ismael LUNA Social History Smoking Status: Current Some Day Smoker Alcohol Use: none Drug Use: none Marital Status: single Occupational Status: disabled Allergies Coded Allergies: No Known Allergies (Unverified , 04/13/16) Home Medications Scheduled Aspirin (Aspirin Adult Low Dose), 81 MG PO DAILY Atorvastatin (Lipitor), 20 MG PO QPM Bumetanide (Bumex), 2 MG PO DAILY Divalproex Sodium (Depakote), 1,000 TAB PO HS Haloperidol (Haldol), 10 MG PO BID Haloperidol (Haloperidol), 2 MG PO BID Isosorbide Mononitrate (Isosorbide Mononitrate ER), 60 MG PO DAILY Ketoconazole (Topical) (Extina), 1 DOSE TOP BID Magnesium Oxide (Mag-Ox), 400 MG PO DAILY Metformin Hcl (Glucophage), 850 MG PO TID Metoprolol Tartrate (Lopressor) (Lopressor), 100 MG PO BID Potassium Chloride (K-Tabs), 10 MEQ PO DAILY Ranitidine (Zantac), 300 MG PO BID Sulfa/Trimethoprim (Bactrim Ds 800MG/160MG), 1 TAB PO BID Scheduled PRN Acetaminophen (Tylenol), 1,000 MG PO TID PRN for Pain Physical Exam Vital Signs Date Time Temp Pulse Resp B/P Pulse Ox O2 Delivery O2 Flow Rate FiO2 04/13/16 18:48 71 7 136/62 100 04/13/16 18:30 136/62 04/13/16 18:28 71 7 100 04/13/16 18:23 71 13 100 04/13/16 18:18 74 17 100 04/13/16 18:14 142/72 04/13/16 18:13 73 15 100 04/13/16 18:08 73 15 100 04/13/16 18:03 76 17 100 04/13/16 18:00 77 18 138/65 100 04/13/16 17:59 138/65 04/13/16 17:58 75 14 100 04/13/16 17:53 75 16 100 04/13/16 17:50 36.8 77 20 164/84 99 04/13/16 17:48 77 23 170/86 100 04/13/16 17:44 167/77 04/13/16 17:43 75 19 04/13/16 17:40 36.8 78 16 170/86 100 04/13/16 17:38 77 19 100 04/13/16 17:33 70 12 100 04/13/16 17:31 138/51 04/13/16 17:30 36.5 70 16 138/51 100 04/13/16 17:29 137/57 04/13/16 17:28 71 14 99 04/13/16 17:25 36.5 71 18 144/58 99 04/13/16 17:23 74 26 98 04/13/16 17:19 144/58 04/13/16 17:18 68 17 98 04/13/16 17:13 70 10 98 04/13/16 17:08 72 17 100 04/13/16 17:03 70 20 99 04/13/16 16:59 127/55 04/13/16 16:58 67 13 99 04/13/16 16:56 67 04/13/16 16:00 66 12 122/60 98 Room Air 04/13/16 16:00 122/60 04/13/16 14:05 70 16 128/68 98 Room Air 04/13/16 12:08 36.5 69 16 132/71 97 Room Air Diagnostics Laboratory Results Results Past 24 Hours Test 04/13/16 15:00 04/13/16 15:45 04/13/16 18:18 04/13/16 19:49 Range/Units White Blood Count 5.10 4.8-10.8 K/uL Red Blood Count 2.64 4.7-6.1 M/uL Hemoglobin 6.8 14.0-18.0 g/dL Hematocrit 20.2 42-52 % Mean Corpuscular Volume 76.5 80-100 fL Mean Corpuscular Hemoglobin 25.8 25-34 pg Mean Corpuscular Hemoglobin Concent 33.7 32-36 g/dl Platelet Count 183 130-400 K/uL Mean Platelet Volume 7.7 7.4-10.4 fL Neutrophils (%) (Auto) 61.2 % Lymphocytes (%) (Auto) 17.6 % Monocytes (%) (Auto) 18.4 % Eosinophils (%) (Auto) 1.8 % Basophils (%) (Auto) 0.2 % Neutrophils # (Auto) 3.12 1.4-6.5 K/uL Lymphocytes # (Auto) 0.90 1.2-3.4 K/uL Monocytes # (Auto) 0.94 0.11-0.59 K/uL Eosinophils # (Auto) 0.09 0-0.5 K/uL Basophils # (Auto) 0.01 0-0.2 K/uL RDW Standard Deviation 43.6 36.4-46.3 fL RDW Coefficient of Variation 15.6 11.5-14.5 % Immature Granulocyte % (Auto) 0.8 % Immature Granulocyte # (Auto) 0.04 0.00-0.02 K/uL Basophilic Stippling 1+ Microcytosis PRESENT Target Cells 1+ Prothrombin Time 10.7 9.0-12.0 SECONDS Prothromb Time International Ratio 1.0 0.9-1.1 Activated Partial Thromboplast Time 28.6 21.0-31.0 SECONDS Partial Thromboplastin Ratio 1.1 Sodium Level 128 136-145 mmol/L Potassium Level 4.5 3.5-5.1 mmol/L Chloride Level 90 98-107 mmol/L Carbon Dioxide Level 32 21-32 mmol/L Anion Gap 6.0 3-11 mmol/L Blood Urea Nitrogen 14 7-18 mg/dl Creatinine 1.00 0.60-1.40 mg/dl Est Creatinine Clear Calc Drug Dose 124.0 ml/min Estimated GFR () 89.9 Estimated GFR (Non- 77.5 BUN/Creatinine Ratio 13.6 10-20 Random Glucose 71 70-99 mg/dl Calcium Level 8.5 8.5-10.1 mg/dl Magnesium Level 1.9 1.8-2.4 mg/dl Iron Level 24 35-175 mcg/dl Total Iron Binding Capacity 274 250-450 mcg/dl Transferrin 210 200-360 mg/dl Transferrin % Saturation 8 20-50 % Ferritin 83.2 8.0-388.0 ng/ml Total Bilirubin 0.1 0.2-1 mg/dl Direct Bilirubin < 0.1 0-0.2 mg/dl Aspartate Amino Transf (AST/SGOT) 12 15-37 U/L Alanine Aminotransferase (ALT/SGPT) 13 12-78 U/L Alkaline Phosphatase 114 45-117 U/L Total Creatine Kinase 58 39-308 U/L Creatine Kinase MB 2.3 0.5-3.6 ng/ml Creatine Kinase MB Ratio 4.0 0-3.0 Troponin I < 0.015 0-0.045 ng/ml Total Protein 7.5 6.4-8.2 gm/dl Albumin 2.6 3.4-5.0 gm/dl Lipase 183 73-393 U/L Thyroid Stimulating Hormone (TSH) 4.120 0.300-4.500 uIu/ml Urine Color ORANGE Urine Appearance CLEAR CLEAR Urine pH 7.5 4.5-7.5 Urine Specific [place] 1.006 1.000-1.030 Urine Protein NEG NEG Urine Glucose (UA) NEG NEG Urine Ketones NEG NEG Urine Occult Blood 3+ NEG Urine Nitrite NEG NEG Urine Bilirubin NEG NEG Urine Urobilinogen NEG NEG Urine Leukocyte Esterase NEG NEG Urine WBC (Auto) 0 0-5 /hpf Urine RBC (Auto) >30 0-4 /hpf Urine Hyaline Casts (Auto) 1-5 0-5 /lpf Urine Epithelial Cells (Auto) 0-5 0-5 /lpf Urine Bacteria (Auto) NEG NEG Bedside Glucose 102 70-99 mg/dl Test 04/13/16 20:49 04/13/16 21:27 Range/Units Impression Assessment and Plan admit #[id number] VTE Prophylaxis VTE Risk Assessment Done? Y/N: Yes Risk Level: Moderate
[2016-04-13] MEDS: SULFAMETHOXAZOLE/TRIMETHOPRIM DS 800/160MG TAB PO SCH (21:55)
[2016-04-13] MEDS: METOPROLOL TARTRATE 100 MG TAB PO SCH (21:55)
[2016-04-13] MEDS: RANITIDINE HCL 150 MG TAB PO SCH (21:56)
[2016-04-13] MEDS: DIVALPROEX SODIUM 500 MG DELAY RELEASE TAB PO SCH (21:57)
[2016-04-13] MEDS: ATORVASTATIN 20 MG TAB PO SCH (21:57)
[2016-04-13] MEDS: HALOPERIDOL 1 MG TAB PO SCH (21:58)
[2016-04-13] MEDS: HALOPERIDOL 5 MG TAB PO SCH (21:58)
[2016-04-13 22:13] LABS: HEMATOCRIT 23.2 % (42-52)
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
[2016-04-14 07:08] LABS: ESTIMATED AVERAGE GLUCOSE 120 mg/dl; HA1C FLAG Normal (Normal)
[2016-04-14 07:47] VITALS: BP 163/73; PULSE 77; TEMP 37.1; O2SAT 94
[2016-04-14] MEDS: MAGNESIUM OXIDE 400 MG TAB PO SCH (07:56)
[2016-04-14] MEDS: HALOPERIDOL 5 MG TAB PO SCH ×2 (07:56→20:57)
[2016-04-14] MEDS: ISOSORBIDE MONONITRATE 60 MG TABCR PO SCH (07:56)
[2016-04-14] MEDS: SULFAMETHOXAZOLE/TRIMETHOPRIM DS 800/160MG TAB PO SCH ×2 (07:57→20:55)
[2016-04-14] MEDS: BUMETANIDE 1 MG TAB PO SCH (07:57)
[2016-04-14] MEDS: RANITIDINE HCL 150 MG TAB PO SCH ×2 (07:57→20:55)
[2016-04-14] MEDS: METFORMIN HCL 850 MG TAB PO SCH ×3 (07:57→18:24)
[2016-04-14] MEDS: POTASSIUM CHLORIDE 10 MEQ TABCR PO SCH (07:58)
[2016-04-14] MEDS: METOPROLOL TARTRATE 100 MG TAB PO SCH ×2 (07:58→20:56)
[2016-04-14] MEDS: HALOPERIDOL 1 MG TAB PO SCH ×2 (08:32→20:56)
[2016-04-14] MEDS ORDERED: PNEUMOCOCCAL POLYSACCHARIDES 25 MCG/0.5 ML VIAL/SYR IM. ONE (09:00)
[2016-04-14] MEDS ORDERED: PNEUMOCOCCAL ADMINISTRATION CHARGE ONE (09:00)
[2016-04-14 09:07] LABS: EOS % 0.7 %; HEMATOCRIT 22.1 % (42-52); IG% 0.4 %; LYMPH % 11.7 %; LYMPH ABS # 0.63 K/uL (1.2-3.4); MEAN CELL VOLUME 76.7 fL (80-100); MEAN CORPUSCULAR HEMOGLOBIN 26.4 pg (25-34); MEAN CORPUSCULAR HGB CONC 34.4 g/dl (32-36); MEAN PLATELET VOLUME 8.2 fL (7.4-10.4); MONO % 15.4 %; NEUT % 71.8 %; PLATELET COUNT 197 K/uL (130-400); RED BLOOD COUNT 2.88 M/uL (4.7-6.1); WHITE BLOOD COUNT 5.39 K/uL (4.8-10.8)
[2016-04-14 09:24] LABS: BUN/CREATININE RATIO 12.6 (10-20); CALCIUM 8.6 mg/dl (8.5-10.1); CREATININE 0.97 mg/dl (0.60-1.40); POTASSIUM 4.4 mmol/L (3.5-5.1)
[2016-04-14 09:55] LABS: COMPLETE YES; HYPOCHROMIA PRESENT; MICROCYTOSIS PRESENT; TARGET CELLS 1+
--- NOTE | 2016-04-14 11:14 | Urology Consultation ---
History General Date of Service: Apr 14, 2016. Chief Complaint: Hematuria/urethral bleeding Primary Care Physician: Ismael LUNA Pt seen a urologist before?: No If yes, why?: Uncertain if this is accurate History of Present Illness 65y/o inmate at [facility] - poor historian - presented with anemia and urethral bleeding - was seen in the ER here 2 weeks ago with a similar complaint and had a ortega catheter placed (I am a little unclear if he was truly in retention vs catheter placement secondary to the blood alone - unfortunately, he is unable to help me with this differentiation) - apparently his catheter was removed yesterday at [facility] and then he started passing blood and clots again and returned to the ER and had his catheter replaced - he reports a remote hx of some urethral trauma (pencil or blade passed into his urethra??) - he acknowledges this but can't expand upon it - I believe he is a smoker - he does not think he has ever had a cystoscopy - subjectively feeling ok right now 04/14/16 08:51 Red Blood Count 2.88, Mean Corpuscular Volume 76.7, Mean Corpuscular Hemoglobin 26.4, Mean Corpuscular Hemoglobin Concent 34.4, Mean Platelet Volume 8.2, Neutrophils (%) (Auto) 71.8, Lymphocytes (%) (Auto) 11.7, Monocytes (%) (Auto) 15.4, Eosinophils (%) (Auto) 0.7, Basophils (%) (Auto) 0.0, Neutrophils # (Auto ) 3.87, Lymphocytes # (Auto) 0.63, Monocytes # (Auto) 0.83, Eosinophils # (Auto ) 0.04, Basophils # (Auto) 0.00 04/14/16 08:51 Test 04/13/16 15:00 04/13/16 15:45 04/13/16 18:18 04/13/16 19:49 Basophilic Stippling 1+ Prothrombin Time 10.7 SECONDS (9.0-12.0) Prothromb Time International Ratio 1.0 (0.9-1.1) Activated Partial Thromboplast Time 28.6 SECONDS (21.0-31.0) Partial Thromboplastin Ratio 1.1 Estimated Average Glucose 120 mg/dl Hemoglobin A1c 5.8 % (4.5-5.6) Magnesium Level 1.9 mg/dl (1.8-2.4) Iron Level 24 mcg/dl (35-175) Total Iron Binding Capacity 274 mcg/dl (250-450) Transferrin 210 mg/dl (200-360) Ferritin 83.2 ng/ml (8.0-388.0) Total Bilirubin 0.1 mg/dl (0.2-1) Direct Bilirubin < 0.1 mg/dl (0-0.2) Aspartate Amino Transf (AST/SGOT) 12 U/L (15-37) Alanine Aminotransferase (ALT/SGPT) 13 U/L (12-78) Alkaline Phosphatase 114 U/L (45-117) Total Creatine Kinase 58 U/L (39-308) Creatine Kinase MB 2.3 ng/ml (0.5-3.6) Creatine Kinase MB Ratio 4.0 (0-3.0) Troponin I < 0.015 ng/ml (0-0.045) Total Protein 7.5 gm/dl (6.4-8.2) Albumin 2.6 gm/dl (3.4-5.0) Lipase 183 U/L (73-393) Thyroid Stimulating Hormone (TSH) 4.120 uIu/ml (0.300-4.500) Urine Color ORANGE Urine Appearance CLEAR (CLEAR) Urine pH 7.5 (4.5-7.5) Urine Specific [place] 1.006 (1.000-1.030) Urine Protein NEG (NEG) Urine Glucose (UA) NEG (NEG) Urine Ketones NEG (NEG) Urine Occult Blood 3+ (NEG) Urine Nitrite NEG (NEG) Urine Bilirubin NEG (NEG) Urine Urobilinogen NEG (NEG) Urine Leukocyte Esterase NEG (NEG) Urine WBC (Auto) 0 /hpf (0-5) Urine RBC (Auto) >30 /hpf (0-4) Urine Hyaline Casts (Auto) 1-5 /lpf (0-5) Urine Epithelial Cells (Auto) 0-5 /lpf (0-5) Urine Bacteria (Auto) NEG (NEG) Transferrin % Saturation % (20-50) Bedside Glucose 102 mg/dl (70-99) Test 04/13/16 22:02 04/14/16 08:51 White Blood Count 5.39 K/uL (4.8-10.8) Red Blood Count 2.88 M/uL (4.7-6.1) Hemoglobin 7.6 g/dL (14.0-18.0) Hematocrit 22.1 % (42-52) Mean Corpuscular Volume 76.7 fL (80-100) Mean Corpuscular Hemoglobin 26.4 pg (25-34) Mean Corpuscular Hemoglobin Concent 34.4 g/dl (32-36) Platelet Count 197 K/uL (130-400) Mean Platelet Volume 8.2 fL (7.4-10.4) Neutrophils (%) (Auto) 71.8 % Lymphocytes (%) (Auto) 11.7 % Monocytes (%) (Auto) 15.4 % Eosinophils (%) (Auto) 0.7 % Basophils (%) (Auto) 0.0 % Neutrophils # (Auto) 3.87 K/uL (1.4-6.5) Lymphocytes # (Auto) 0.63 K/uL (1.2-3.4) Monocytes # (Auto) 0.83 K/uL (0.11-0.59) Eosinophils # (Auto) 0.04 K/uL (0-0.5) Basophils # (Auto) 0.00 K/uL (0-0.2) RDW Standard Deviation 44.0 fL (36.4-46.3) RDW Coefficient of Variation 15.6 % (11.5-14.5) Immature Granulocyte % (Auto) 0.4 % Immature Granulocyte # (Auto) 0.02 K/uL (0.00-0.02) Hypochromasia PRESENT Microcytosis PRESENT Target Cells 1+ Anion Gap 6.0 mmol/L (3-11) Est Creatinine Clear Calc Drug Dose 127.8 ml/min Estimated GFR () 93.2 Estimated GFR (Non- 80.5 BUN/Creatinine Ratio 12.6 (10-20) Calcium Level 8.6 mg/dl (8.5-10.1) Vital Signs Past 12 Hours Date Time Temp Pulse Resp B/P Pulse Ox O2 Delivery O2 Flow Rate FiO2 04/14/16 07:47 37.1 77 17 163/73 94 Room Air 04/14/16 00:00 Room Air 04/13/16 23:11 36.8 86 20 137/75 93 Room Air Laboratory Labs were reviewed and are within normal limits unless listed below. Labs are available in the chart and at [facility] Problem List Medical Problems: (1) SON (acute kidney injury) Status: Acute (2) Altered mental status Status: Acute (3) Anemia Status: Acute (4) Anemia Status: Acute (5) CHF (congestive heart failure) Status: Acute (6) Hemorrhage of urethra Status: Acute Past History congestive heart failure, coronary artery disease, diabetes, GERD, high cholesterol, hypertension, other (schizophrenia, MR) Past Surgical History: other (pt could not describe any surgeries) Social History Hx Tobacco Use In Past Year?: Yes Marital status: single Occupation status: disabled, other (prisoner) Allergies Coded Allergies: No Known Allergies (Unverified , 04/13/16) Medications Home Medications: Home Meds and Scripts Medications Dose Route/Sig Max Daily Dose Days Date Category Bactrim Ds 800MG/160MG (Trimethoprim/Sulfamethoxazole) Tab 1 Tab PO BID 04/13/16 Reported K-Tabs (Potassium Chloride) 10 Meq Tabcr 10 Meq PO DAILY 04/13/16 Reported Extina (Ketoconazole (Topical)) 2 % Aer 1 Dose TOP BID 04/13/16 Reported Isosorbide Mononitrate ER (Isosorbide Mononitrate) 60 Mg Tabcr 60 Mg PO DAILY 04/13/16 Reported Haloperidol 2 Mg Tab 2 Mg PO BID 04/13/16 Reported Bumex (Bumetanide) 2 Mg Tab 2 Mg PO DAILY 04/13/16 Reported Zantac (Ranitidine HCl) 300 Mg Tab 300 Mg PO BID 02/23/16 Reported Lopressor (Metoprolol Tartrate) 100 Mg Tab 100 Mg PO BID 02/23/16 Reported Glucophage (Metformin Hcl) 850 Mg Tab 850 Mg PO TID 02/23/16 Reported Mag-Ox (Magnesium Oxide) 400 Mg Tab 400 Mg PO DAILY 02/23/16 Reported Haldol (Haloperidol) 10 Mg Tab 10 Mg PO BID 02/23/16 Reported Depakote (Divalproex Sodium) 500 Mg Tab 1,000 Tab PO HS 30 02/23/16 Reported Lipitor (Atorvastatin Calcium) 20 Mg Tab 20 Mg PO QPM 02/23/16 Reported Aspirin Adult Low Dose (Aspirin) 81 Mg Tab 81 Mg PO DAILY 02/23/16 Reported Tylenol (Acetaminophen) 500 Mg Tab 1,000 Mg PO TID PRN 02/23/16 Reported Inpatient Medications: Current Inpatient Medications Medications (Trade) Dose Ordered Sig/Ismael Route Start Time Stop Time Status Last Admin Dose Admin Miscellaneous (Iv Fluids Completed) 1 ea PRN PRN N/A 04/13/16 17:45 04/13/17 17:44 Acetaminophen (Tylenol Tab) 650 mg Q4H PRN PO 04/13/16 18:30 05/13/16 18:29 Al Hydrox/Mg Hydrox/Simethicone (Maalox Max Susp) 15 ml Q4H PRN PO 04/13/16 18:30 05/13/16 18:29 Magnesium Hydroxide (Milk Of Magnesia Susp) 30 ml Q6H PRN PO 04/13/16 18:30 05/13/16 18:29 Polyethylene (Miralax Powder Packet) 17 gm DAILY PRN PO 04/13/16 18:30 05/13/16 18:29 Ondansetron HCl (Zofran Inj) 4 mg Q6H PRN IV 04/13/16 18:30 05/13/16 18:29 Acetaminophen (Tylenol Tab) 1,000 mg TID PRN PO 04/13/16 18:30 05/13/16 18:29 Atorvastatin Calcium (Lipitor Tab) 20 mg QPM PO 04/13/16 21:00 05/13/16 20:59 04/13/16 21:57 20 MG Bumetanide (Bumex Tab) 2 mg DAILY PO 04/14/16 09:00 05/14/16 08:59 04/14/16 07:57 2 MG Isosorbide Mononitrate (Imdur Ext Rel Tab) 60 mg DAILY PO 04/14/16 09:00 05/14/16 08:59 04/14/16 07:56 60 MG Magnesium Oxide (Mag-Ox Tab) 400 mg DAILY PO 04/14/16 09:00 05/14/16 08:59 04/14/16 07:56 400 MG Metformin HCl (Glucophage Tab) 850 mg TIDM PO 04/14/16 08:00 05/14/16 07:59 04/14/16 07:57 850 MG Metoprolol Tartrate (Lopressor Tab) 100 mg BID PO 04/13/16 21:00 05/13/16 20:59 04/14/16 07:58 100 MG Trimethoprim/ Sulfamethoxazole (Septra Ds 800/ 160MG Tab) 1 tab BID PO 04/13/16 21:00 04/23/16 20:59 04/14/16 07:57 1 TAB Haloperidol (Haldol Tab) 2 mg BID PO 04/13/16 21:00 05/13/16 20:59 04/14/16 08:32 2 MG Haloperidol (Haldol Tab) 10 mg BID PO 04/13/16 21:00 05/13/16 20:59 04/14/16 07:56 10 MG Miscellaneous Information (Order Awaiting Action) 1 ea QS N/A 04/13/16 20:00 05/13/16 19:59 Potassium Chloride (Klor-Con M10) 10 meq DAILY PO 04/14/16 09:00 05/14/16 08:59 04/14/16 07:58 10 MEQ Ranitidine HCl (zANTac TAB) 300 mg BID PO 04/13/16 21:00 05/13/16 20:59 04/14/16 07:57 300 MG Divalproex Sodium (Depakote Delay Rel Tab) 500 mg HS PO 04/13/16 21:00 05/13/16 20:59 04/13/16 21:57 500 MG Review of Systems Review of Systems Constitutional: No chills, No fever, No frequent headaches, No problem reported , No see HPI, No weight loss Eyes: No blurred vision, No double vision, No eye pain, No loss of night vision , No problem reported, No see HPI Neurological: No dizzy, No numbness/tingling, No passing out, No problem reported, No see HPI, No seizures Endocrine: No excessive thirst, No problem reported, No see HPI, No tired/ sluggish, No too cold, No too hot Gastrointestinal: No abdominal pain, No constipation, No diarrhea, No indigestion, No nausea, No problem reported, No see HPI, No vomiting Cardiovascular: No angina, No chest pain, No heart murmur, No irregular heartbeat, No palpitations, No problem reported, No see HPI, No swelling ankles/ feet Respiratory: No chronic cough, No coughing up blood, No problem reported, No see HPI, No shortness of breath, No wheezing Skin: No boils, No dry skin, No problem reported, No rash, No see HPI Musculoskeletal: + problem reported (b/l leg pain) Blood / Lymphatic: + bleed easily Ears / Nose / Throat: No hearing loss, No hoarse voice, No problem reported, No see HPI, No sinus, No sore throat Psychologic / Mental: + problem reported Male : + blood in urine All Other Systems: Reviewed and Negative Physical Exam Vital Signs: Vital Signs Past 12 Hours Date Time Temp Pulse Resp B/P Pulse Ox O2 Delivery O2 Flow Rate FiO2 04/14/16 07:47 37.1 77 17 163/73 94 Room Air 04/14/16 00:00 Room Air 04/13/16 23:11 36.8 86 20 137/75 93 Room Air Physical Exam: General Appearance: + pertinent finding (mumbled speech - difficult to comprehend. Large man, slumped posture.) Eyes: bilateral eyes normal inspection ENT: normal ENT inspection, hearing grossly normal Neck: no adenopathy Respiratory/Chest: no respiratory distress, no accessory muscle use Cardiovascular: regular rate, rhythm Gastrointestinal: Abdomen: normal abdomen Bladder: normal bladder Renal: normal renal Genitourinary - Male: Penis: normal penis (uncircumcised - no active bleeding from the urethra, no urethral discharge) Urethral Meatus: normal urethral meatus Testes: normal testes (no masses, non-tender) Extremities: + pedal edema, + swelling Neurologic/Psychiatric: no motor/sensory deficits Skin: normal color, warm/dry Lymphatic: no adenopathy Assessment & Plan Assessment & Plan Urethral bleeding - uncertain cause, warrants further evaluation - but likely can be completed as an outpatient - remote hx of self induced urethral trauma? - no active bleeding at the moment - rec leaving catheter in place until further evaluation occurs - out pt cystoscopy appointment - had an US in February - no clear upper tract or bladder pathology - given that clinically his bleeding is from the urethra, I do not think a CT is necessary right now
[2016-04-14 14:57] LABS: HEMATOCRIT 21.8 % (42-52)
[2016-04-14 15:07] VITALS: BP 144/69; PULSE 84; TEMP 37; O2SAT 91
--- NOTE | 2016-04-14 15:10 | PROGRESS NOTE ---
DATE: 04/14/2016 HOSPITALIST PROGRESS NOTE PROBLEM LIST: Includes: 1. Hematuria. 2. Anemia. 3. Diabetes. 4. Coronary artery disease. 5. Schizophrenia. 6. Chronic hyponatremia. 7. Deep venous thrombosis prophylaxis. 8. Hyperlipidemia. 9. Gastroesophageal reflux disease. SUBJECTIVE: The patient is a 65-year-old male who was admitted from [facility] on 04/13/2016 with hematuria and it sounds like the patient was having some urethral trauma in the form of a pencil and a knife blade at different times but details on that are difficult to ascertain from the patient as per Dr. Murillo's note. On exam, the patient today reports that he is feeling well. He denies any problems. The patient is a difficult historian. He is not having any urethral pain at this time. He is not having any penile pain at this time. He does have a catheter in place. He did ask if there is any blood in the urine. He also asked if there is any glass or metal in the urine, otherwise no concerns or problems. No chest discomfort, no difficulty breathing, no abdominal pain. Other than that, the patient really did not give much of a history. Similar to Dr. Murillo's note, patient did ask me if I was from psychiatry or from medical and I did explain to him that I was medical. OBJECTIVE: GENERAL: The patient is a 65-year-old male lying in bed, does not appear in any acute distress. He is alert and oriented x3. VITAL SIGNS: Temp 37.1, pulse 77, respirations 17, blood pressure is 163/73, pulse ox 94% on room air. HEENT: Normocephalic, atraumatic. Pupils equal, round and reactive to light and accommodation. Extraocular movements are intact. The patient does have some strabismus which is chronic. NECK: Short neck, no mass. No adenopathy. No bruit. CHEST: Diminished breath sounds bilaterally. No wheeze, rale or rhonchi noted. CARDIOVASCULAR: Regular rate and rhythm. No murmurs, gallops or rubs. ABDOMEN: Bowel sounds are present. Abdomen soft, nontender. No guarding, rigidity or organomegaly. EXTREMITIES: No cyanosis or clubbing. Chronic venous stasis changes, 2+ edema bilaterally. NEUROLOGIC: The above-mentioned strabismus, otherwise no other focal deficits noted. LABORATORY DATA: Shows a white count of 5000, H\T\H 7.6 and 22.1 which is an improvement compared to 6.8 and 20.2 on admission. Sodium 125, chloride 89, potassium 4.4, BUN 12, creatinine 0.97. Urine culture is pending. No new imaging. IMPRESSION: 1. This is a 65-year-old male with history of schizophrenia and mental retardation who presents with what appears to be trauma to urethra with quite significant blood loss by the sound of it. The patient was evaluated by Dr. Doherty from urology service who felt that the patient could be followed up as an outpatient and have cystoscopy done. The patient has no active bleeding at this time. The recommendation is for him to continue the Man catheter until he is evaluated as an outpatient. 2. Anemia, acute on chronic. The patient to receive 1 unit of packed red blood cells. I did discuss the case with Dr. Montague and does have an H&H scheduled for this afternoon. If it is low, we will have the patient receive a second unit. We will plan on keeping him at least until tomorrow. We will continue to follow. 3. Diabetes mellitus. At this time, continue home meds. A1c was checked. His A1c was 5.8. 4. Coronary artery disease stable at this time. He is to continue his home medications. 5. Schizophrenia. He is continuing home medications at this time. 6. Chronic hyponatremia. Actually patient is stable. This is possibly secondary to above diagnoses. 7. The patient is on deep vein thrombosis prophylaxis. Due to his breathing, he is not on any anticoagulation pharmacologically at this time. 8. Hyperlipidemia. He is on Lipitor. He is to continue this. 9. Gastroesophageal reflux disease. Continue Zantac. MTDD
[2016-04-14 20:55] VITALS: BP 147/75; PULSE 85
[2016-04-14] MEDS: DIVALPROEX SODIUM 500 MG DELAY RELEASE TAB PO SCH (20:55)
[2016-04-14] MEDS: ATORVASTATIN 20 MG TAB PO SCH (20:58)
[2016-04-14 23:59] VITALS: BP 135/66; PULSE 78; TEMP 37.3; O2SAT 91
[2016-04-15] VITALS (9 sets, daily range): BP systolic 100–147; BP diastolic 57–77; PULSE 66–75; TEMP 36.7–37.4; O2SAT 90–94
[2016-04-15] MEDS: METOPROLOL TARTRATE 100 MG TAB PO SCH (08:47)
[2016-04-15] MEDS: SULFAMETHOXAZOLE/TRIMETHOPRIM DS 800/160MG TAB PO SCH (08:47)
[2016-04-15] MEDS: HALOPERIDOL 5 MG TAB PO SCH (08:47)
[2016-04-15] MEDS: RANITIDINE HCL 150 MG TAB PO SCH (08:47)
[2016-04-15] MEDS: HALOPERIDOL 1 MG TAB PO SCH (08:48)
[2016-04-15] MEDS: ISOSORBIDE MONONITRATE 60 MG TABCR PO SCH (08:48)
[2016-04-15] MEDS: POTASSIUM CHLORIDE 10 MEQ TABCR PO SCH (08:48)
[2016-04-15] MEDS: BUMETANIDE 1 MG TAB PO SCH (08:49)
[2016-04-15] MEDS: MAGNESIUM OXIDE 400 MG TAB PO SCH (08:49)
[2016-04-15] MEDS: METFORMIN HCL 850 MG TAB PO SCH ×2 (08:49→12:29)
[2016-04-15] MEDS ORDERED: SULF-183 PO ×2 (09:25→15:00)
--- NOTE | 2016-04-15 10:21 | PROGRESS NOTE ---
DATE: 04/15/2016 HOSPITALIST PROGRESS NOTE PROBLEM LIST: Includes: 1. Hematuria. 2. Anemia. 3. Diabetes. 4. Coronary artery disease. 5. Schizophrenia. 6. Chronic hyponatremia. 7. Deep vein thrombosis prophylaxis. 8. Hyperlipidemia. 9. Gastroesophageal reflux disease. SUBJECTIVE: The patient is a 65-year-old male who was admitted [facility] on with hematuria and anemia. Upon admission the patient was evaluated for bleeding from urethra with history of trauma to the urethra. At this time, urology has seen the patient, the bleeding has stopped and urology was recommending follow up procedure including cystoscopy to evaluate further. On exam and history today, the patient reports that he does have a little bit of knee pain, otherwise no complaints. He does not think he has had any bleeding from the urethra. When I spoke with nursing, they deny any blood from urethra as well. He denies any other problems. No headache or lightheadedness, dizziness, no chest pain, no palpitations, no chest pressure or heaviness. No abdominal pain, no nausea or vomiting, no swelling that he is aware of. He does still have a Man in place and is not having any difficulty with that. OBJECTIVE: GENERAL: The patient is a 65-year-old male, lying in bed in no acute distress. He is alert and oriented x3. Mood is good. Affect is good. VITAL SIGNS: Temp 37.4, pulse is 74, respirations 14, blood pressure is 143/72, pulse ox 94% on room air. HEENT: Normocephalic, atraumatic. Pupils equal, round and reactive. There is some strabismus noted. Otherwise no abnormality. [place] moist gingival and buccal mucosa. NECK: Thick, no mass. No adenopathy. No bruits. CHEST: Breath sounds are slightly diminished bilaterally. I feel that this is due to positioning. No wheeze, rale or rhonchi noted. CARDIOVASCULAR: Regular rate and rhythm. No murmurs, gallops or rubs. ABDOMEN: Obese, soft, nontender. No guarding, rigidity or organomegaly. PELVIS: Urethra had no visible blood around the urethra. EXTREMITIES: The patient has some chronic venous stasis changes with some +1 to +2 edema bilaterally. No erythema. On evaluating his knees, there is no deformity, no tenderness to palpation. No abnormality on exam. The patient had appropriate range of motion. NEUROLOGIC: Cranial nerves II-XII are intact. The patient does have chronic strabismus, otherwise no focal deficit noted. LABORATORY AND IMAGING DATA: Show an H\T\H yesterday afternoon was 7.4/21.8, had been 7.6/22.1 earlier today, so there was a slight decline; platelet count 197,000. No other imaging and no other laboratory data noted. IMPRESSION AND PLAN: 1. This is a 65-year-old male with history of schizophrenia and mental retardation who presented with trauma to the urethra and significant blood loss resulting in anemia. The patient did receive 1 unit of packed red blood cells in the Emergency Room; however, his hematocrit is still below 8 and there was a slight drop off during the day yesterday down to 7.4 and 21.8. At this point in regards to the urethral trauma, the bleeding has stopped. The patient has been seen by urology. I referred to Dr. Doherty's now, recommendation for urology is to follow patient up as an outpatient for possible cystoscopy and further evaluation. 2. Anemia: At this point, after discussion with Dr. Montague, will go ahead and transfuse the patient with 1 unit of packed red blood cells and then we will do a repeat H\T\H this afternoon. As long his H\T\H is above 8, the patient can be transferred back to [facility] today and then discharged from the hospital. He will need to be followed up in approximately [address] Doherty for evaluation of the potential urethral trauma. Due to the patient's MRI and schizophrenia, it was deemed that he is unable to verbally comprehend the need for blood. He has no family. He is a cortez of the [facility]. Due to medical criteria, it was deemed that it was medically necessary for him to receive the blood. We will go ahead and transfuse 1 unit packed red blood cells. ELAINE
--- NOTE | 2016-04-15 11:40 | Discharge Summary ---
Discharge Summary Date of Service Apr 15, 2016. Discharge Summary Admission Date: Apr 13, 2016 at 18:21 Discharge Date: Apr 15, 2016 Discharge Disposition: Home ([facility]) Principal Diagnosis: Uretheral bleeding Consultations: Urology Medication Reconciliation New Medications: Sulfamethoxazole-Trimethoprim (Smz-Tmp Ds) 1 Tab Tab 1 TAB PO BID for 5 Days, #10 TAB Continued Medications: Acetaminophen (Tylenol) 500 Mg Tab 1000 MG PO TID PRN for Pain, TAB Atorvastatin (Lipitor) 20 Mg Tab 20 MG PO QPM, TAB Bumetanide (Bumex) 2 Mg Tab 2 MG PO DAILY, TAB Divalproex Sodium (Depakote) 500 Mg Tab 1000 TAB PO HS for 30 Days, TAB 2 Refills Haloperidol (Haldol) 10 Mg Tab 10 MG PO BID, TAB Haloperidol (Haloperidol) 2 Mg Tab 2 MG PO BID, #30 TAB 2 Refills Isosorbide Mononitrate (Isosorbide Mononitrate ER) 60 Mg Tabcr 60 MG PO DAILY Ketoconazole (Topical) (Extina) 2 % Aer 1 DOSE TOP BID Magnesium Oxide (Mag-Ox) 400 Mg Tab 400 MG PO DAILY, TAB Metformin Hcl (Glucophage) 850 Mg Tab 850 MG PO TID, TAB Metoprolol Tartrate (Lopressor) (Lopressor) 100 Mg Tab 100 MG PO BID, TAB Potassium Chloride (K-Tabs) 10 Meq Tabcr 10 MEQ PO DAILY Ranitidine (Zantac) 300 Mg Tab 300 MG PO BID, TAB Discontinued Medications: Aspirin (Aspirin Adult Low Dose) 81 Mg Tab 81 MG PO DAILY Sulfa/Trimethoprim (Bactrim Ds 800MG/160MG) Tab 1 TAB PO BID, #6 TAB Discharge Exam Review of Systems: Constitutional: No chills, No fever Respiratory: No cough, No dyspnea at rest, No dyspnea on exertion, No shortness of breath, No sputum, No wheezing Cardiovascular: No chest pain, No orthopnea Abdomen: No nausea, No pain, No vomiting Musculoskeletal: No joint pain, No muscle pain Genitourinary - Male: + hematuria, No dysuria, No urinary frequency Physical Exam: General Appearance: WD/WN, no apparent distress Neck: supple, no adenopathy Cardiovascular: no gallop, no JVD Abdomen / GI: non tender, soft Neurologic/Psychiatric: alert, + disoriented Hospital Course I agree with PA assessment and plan and have personally seen and examined pt myself This is a 65-year-old male with history of schizophrenia and mental retardation who presented with trauma to the urethra and significant blood loss resulting in anemia. The patient did receive 1 unit of packed red blood cells in the Emergency Room; however, his hematocrit is still below 8 and there was a slight drop off during the day yesterday down to 7.4 and 21.8. At this point in regards to the urethral trauma, the bleeding has stopped. The patient has been seen by urology. I referred to Dr. Doherty's now, recommendation for urology is to follow patient up as an outpatient for possible cystoscopy and further evaluation. Anemia: At this point, after discussion with Dr. Montague, will go ahead and transfuse the patient with 1 unit of packed red blood cells and then we will do a repeat H\T\H this afternoon. As long his H\T\H is above 8, the patient can be transferred back to [facility] today and then discharged from the hospital. He will need to be followed up in approximately [address] Doherty for evaluation of the potential urethral trauma. Due to the patient's MRI and schizophrenia, it was deemed that he is unable to verbally comprehend the need for blood. He has no family. He is a [place] of [place]. Due to medical criteria, it was deemed that it was medically necessary for him to receive the blood. We will go ahead and transfuse 1 unit packed red blood cells. Pt to be discharged to [facility] s/ transfusion and follow up with urology as OP. Total Time Spent: Greater than 30 minutes This includes examination of the patient, discharge planning, medication reconciliation, and communication with other providers. Discharge Instructions Please refer to the electronic Patient Visit Report (Discharge Instructions) for additional information.
--- NOTE | 2016-04-15 11:41 | Discharge Instructions ---
Discharge Instructions Admission Reason for Admission: Anemia Hemorrhage Of Urethra Discharge Discharge Diagnosis / Problem: Uretheral bleeding Discharge Goals Goal(s): Decrease discomfort, Improve function, Increase independence, Improve disease control, Learn about illness, Diagnostic testing, Therapeutic intervention Activity Recommendations Activity Limitations: resume your previous activity Exercise/Sports Limitations: none Shower/Bathe: no limitations . Instructions / Follow-Up Instructions / Follow-Up Patient to be discharged back to [facility] Will need close surveillance as likely cause of bleeding from trauma of inserting objects Will need to follow up with urology in 1 week Please continue to take antibiotic bactrim twice a day for 10 days Current Hospital Diet Patient's current hospital diet: Regular Diet Discharge Diet Recommended Diet: Regular Diet Pending Studies Studies pending at discharge: no Laboratory Results Hemoglobin A1c Test 04/13/16 15:00 Range/Units Estimated Average Glucose 120 mg/dl Hemoglobin A1c 5.8 H 4.5-5.6 % Medical Emergencies . Who to Call and When: Medical Emergencies: If at any time you feel your situation is an emergency, please call 911 immediately. . Non-Emergent Contact Non-Emergency issues call your: Primary Care Provider Call Non-Emergent contact if: you have a fever, your pain is worsening . . "Provider Documentation" section prepared by Caleb Montague. VTE Core Measure Inpt VTE Proph given/why not?: Treatment not indicated
--- NOTE | 2016-04-15 11:43 | Progress Note ---
Progress Note Date of Service Apr 14, 2016. Progress Note I agree with PA assessment and plan and have personally seen and examined pt myself Pt resting comfortably in bed Undergoing transfusion Pt tangential in speech VSS Urology consult pending
--- NOTE | 2016-04-15 11:46 | Progress Note ---
Progress Note Date of Service Apr 15, 2016. Progress Note S: No major issues - only complaint pertains to his feet - no further bleeding overnight O: NAD slouched in bed - edematous lower extremities - urine clear - no bleeding around the catheter 04/14/16 14:29 Test 04/15/16 11:25 Bedside Glucose 105 mg/dl (70-99) Vital Signs Past 12 Hours Date Time Temp Pulse Resp B/P Pulse Ox O2 Delivery O2 Flow Rate FiO2 04/15/16 11:31 37.0 74 18 128/70 04/15/16 08:00 Room Air 04/15/16 07:34 37.4 74 14 143/72 94 Room Air 04/15/16 00:30 Room Air 04/14/16 23:59 37.3 78 20 135/66 91 Room Air A/P: Urethral bleeding after recent catheter removal - currently resolved - stable from standpoint - he is not a great historian and I am a little unclear in regard to how well he was voiding as an outpt - leave catheter for now - likely warrants a cysto and voiding trial in our office in the next week or two - ok from d/c to fdc from standpoint
[2016-04-15 14:41] LABS: HEMATOCRIT 24.5 % (42-52)
[2016-04-18 12:15] LABS: ILGF1 Z SCORE MALE -1.3 SD (-2.0 - +2.0)
[2016-05-18] MEDS ORDERED: COLC0.6T54 PO (10:46)
[2016-05-18] MEDS ORDERED: FLM4 PO (10:46)
[2016-05-18] MEDS ORDERED: AMPI500C9 PO (10:46)
[2016-05-18] MEDS ORDERED: PRED10TA PO (10:46)
[2016-05-18] MEDS ORDERED: LCTXP OR (10:46)
== END 2016-04-15 15:50 | DRG 699 ==
LOC: ENRESERVTM → ENRESERVDT → EDBD 11:43 → C.EDC 11:44 → C.MS2W 18:21 → EDBEDREQ 18:29
PROVIDERS: ADMIT Family Medicine; ATTEND Hospitalist
DX: S37.30XA Unspecified injury of urethra, initial encounter (principal); D62 Acute posthemorrhagic anemia; E87.1 Hypo-osmolality and hyponatremia; X58.XXXA Exposure to other specified factors, initial encounter; Y92.149 Unspecified place in prison as the place of occurrence of the external cause; R31.9 Hematuria, unspecified; F20.9 Schizophrenia, unspecified; F79 Unspecified intellectual disabilities; E22.0 Acromegaly and pituitary gigantism; I50.9 Heart failure, unspecified; E11.9 Type 2 diabetes mellitus without complications; I11.0 Hypertensive heart disease with heart failure; E78.00 Pure hypercholesterolemia, unspecified; E78.5 Hyperlipidemia, unspecified; K21.9 Gastro-esophageal reflux disease without esophagitis; I87.8 Other specified disorders of veins; I25.10 Atherosclerotic heart disease of native coronary artery without angina pectoris; F17.210 Nicotine dependence, cigarettes, uncomplicated; Z79.82 Long term (current) use of aspirin; Z79.84 Long term (current) use of oral hypoglycemic drugs; Z79.899 Other long term (current) drug therapy

== ENCOUNTER → 2016-05-04 | Outpatient (CLI) | payer OTHER ==
[~2016-05-04] MED LIST changes: +AMPI500C9 PO; -ASPI-589 PO; +ASPI81TA28 PO; +BUME2TAB3 PO; -CLR10 PO; +COLC0.6T54 PO; +CPR500 PO; +DIMECRE TOP; +DIVA500T5 PO; +FERR1TAB39 PO; +FLM4 PO; -FURO20TA PO; +HALO2TAB PO; +IPRASOL4 NEB; +ISOS-10 PO; +KETO1AER2 TOP; +LCTXP OR; +LPR100 PO; +MCRK/10 PO; +PRED10TA PO; +SULF800T23 PO; +TRMCR515 TOP; +ZINC1CRE3 TOP
[2016-05-04 14:30] LABS: BASO % 0.2 %; BASO ABS # 0.01 K/uL (0-0.2); EOS % 1.4 %; HEMATOCRIT 27.3 % (42-52); IG% 0.5 %; LYMPH % 12.2 %; LYMPH ABS # 0.79 K/uL (1.2-3.4); MEAN CELL VOLUME 75.8 fL (80-100); MEAN CORPUSCULAR HEMOGLOBIN 25.6 pg (25-34); MEAN PLATELET VOLUME 9.2 fL (7.4-10.4); MONO % 26.8 %; NEUT % 58.9 %; PLATELET COUNT 288 K/uL (130-400); WHITE BLOOD COUNT 6.46 K/uL (4.8-10.8)
[2016-05-04 14:40] LABS: COMPLETE YES; MEAN CORPUSCULAR HGB CONC 33.7 g/dl (32-36)
[2016-05-04 14:45] LABS: URINE APPEARANCE CLOUDY (CLEAR); URINE BILIRUBIN NEG (NEG); URINE COLOR YELLOW; URINE NITRITE POS (NEG); URINE SPECIFIC GRAVITY 1.013 (1.000-1.030); UROBILINOGEN NEG (NEG)
[2016-05-04 14:51] LABS: MANUAL MICROSCOPIC REQUIRED? NO; REVIEW REQ? NO
[2016-05-04 14:53] LABS: SULFASALICYLIC ACID POS (NEG)
[2016-05-04 14:54] LABS: ALB/GLOB RATIO 0.5 (0.9-2); ALKALINE PHOSPHATASE 85 U/L (45-117); ALT/SGPT 11 U/L (12-78); AST/SGOT 18 U/L (15-37); BLOOD UREA NITROGEN 9 mg/dl (7-18); BUN/CREATININE RATIO 10.1 (10-20); CALCIUM 8.6 mg/dl (8.5-10.1); CARBON DIOXIDE 27 mmol/L (21-32); CHLORIDE 87 mmol/L (98-107); CREATININE 0.92 mg/dl (0.60-1.40); GLUCOSE 83 mg/dl (70-99); MAGNESIUM 1.8 mg/dl (1.8-2.4); POTASSIUM 4.4 mmol/L (3.5-5.1); SODIUM 125 mmol/L (136-145)
== END | disposition home or self-care (01) ==
LOC: C.LABSPEC 14:30
DX: R41.82 Altered mental status, unspecified (principal)

== ENCOUNTER 2016-05-07 10:24 | Inpatient (IN) | payer OTHER ==
[~2016-05-07] VITALS: Ht 195.6 cm; Wt 160.9 kg
[~2016-05-07 10:24] MED LIST changes: -AMPI500C9 PO; -ASPI81TA28 PO; -COLC0.6T54 PO; -CPR500 PO; -DIMECRE TOP; -DIVA500T5 PO; -FERR1TAB39 PO; -FLM4 PO; -IMD2X PO; -IPRASOL4 NEB; -LCTXP OR; -LPR100 PO; -PRED10TA PO; -SULF800T23 PO; -TRMCR515 TOP; -ZINC1CRE3 TOP
[2016-05-07] MEDS ORDERED: SULF800T23 PO (10:59)
[2016-05-07] MEDS ORDERED: ASPI81TA28 PO (10:59)
[2016-05-07] MEDS ORDERED: FERR1TAB39 PO (10:59)
[2016-05-07] MEDS ORDERED: DIVA500T5 PO (10:59)
[2016-05-07] MEDS ORDERED: ZINC1CRE3 TOP (11:04)
[2016-05-07] MEDS ORDERED: DIMECRE TOP (11:04)
[2016-05-07] MEDS ORDERED: TRMCR515 TOP (11:04)
[2016-05-07] MEDS ORDERED: IMD2X PO (11:04)
--- NOTE | 2016-05-07 11:36 | DIAGNOSTIC IMAGING REPORT ---
CHEST ONE VIEW PORTABLE CLINICAL HISTORY: cough, fever dyspnea COMPARISON STUDY: 04/13/2016 FINDINGS: Suboptimal study due to patient respiratory and somatic motion. Heart is enlarged. Pulmonary vasculature is prominent. Diaphragms are smooth. IMPRESSION: Poor state technically. Cardiomegaly. Mild congestive failure. Electronically signed by: Ish Huertas M.D. 05/07/2016 11:35 AM Dictated Date/Time: 05/07/2016 11:34 AM
[2016-05-07 11:49] LABS: BASO % 0.2 %; BASO ABS # 0.01 K/uL (0-0.2); HEMATOCRIT 25.3 % (42-52); LYMPH ABS # 0.85 K/uL (1.2-3.4); MEAN CELL VOLUME 75.3 fL (80-100); MEAN CORPUSCULAR HGB CONC 33.2 g/dl (32-36); MEAN PLATELET VOLUME 8.7 fL (7.4-10.4); MONO % 29.7 %; NEUT % 51.1 %; PLATELET COUNT 214 K/uL (130-400); RED BLOOD COUNT 3.36 M/uL (4.7-6.1); WHITE BLOOD COUNT 4.99 K/uL (4.8-10.8)
[2016-05-07 12:21] LABS: BUN/CREATININE RATIO 12.5 (10-20); CALCIUM 8.5 mg/dl (8.5-10.1); CREATININE 1.1 mg/dl (0.60-1.40); POTASSIUM 4.2 mmol/L (3.5-5.1)
[2016-05-07 12:22] LABS: COMPLETE YES
[2016-05-07 12:24] LABS: ALB/GLOB RATIO 0.4 (0.9-2)
[2016-05-07 12:32] LABS: URINE APPEARANCE CLOUDY (CLEAR); URINE BILIRUBIN NEG (NEG); URINE COLOR YELLOW; URINE NITRITE POS (NEG); URINE SPECIFIC GRAVITY 1.006 (1.000-1.030); UROBILINOGEN NEG (NEG)
[2016-05-07 12:42] LABS: MANUAL MICROSCOPIC REQUIRED? NO; REVIEW REQ? YES
[2016-05-07] MEDS ORDERED: OPTIRAY 320 IV PRN (13:00)
--- NOTE | 2016-05-07 13:06 | DIAGNOSTIC IMAGING REPORT ---
HEAD CT NONCONTRAST CT DOSE: 691.05 mGy.cm HISTORY: Altered mental status. lethargic eval fro bleed TECHNIQUE: Multiaxial CT images of the head were performed without the use of intravenous contrast. Automated exposure control was utilized for this study. Comparison: None. Findings: The paranasal sinuses and mastoid air cells are clear. The calvarium and skull base are intact. The ventricles and sulci are within normal limits. There is no mass, hematoma, midline shift, or acute infarct. Old nasal bone fractures. Impression: No acute intracranial abnormality. Electronically signed by: Brenden Encarnacion M.D. 05/07/2016 1:04 PM Dictated Date/Time: 05/07/2016 12:59 PM
--- NOTE | 2016-05-07 13:19 | DIAGNOSTIC IMAGING REPORT ---
CHEST CTA for PULMONARY ARTERIES CT DOSE: 740.29 mGy.cm HISTORY: Chest pain dyspnea TECHNIQUE: Multiaxial CT images of the chest were performed following the intravenous administration of contrast to evaluate the pulmonary arteries. Maximal intensity projection images were also obtained. COMPARISON STUDY: None. FINDINGS: Limited study technically due to patient motion and inability to suspend respiration. Mild atelectatic change thoracic aorta. There is a right hilar/infrahilar mass/chely complex. This measures 3.8 x 3.5 cm. Is a 1.9 cm subcarinal node. This chely complex narrows the airway immediately distal to the right mainstem bronchus. Mild basilar interstitial changes are present. No evidence well-defined focal infiltrate. No evidence for significant pulmonary embolus. IMPRESSION: 1. No evidence for pulmonary embolus.. 2. Right hilar mass/chely complex measuring 3.8 x 3.5 cm. This creates narrowing of the bronchi in a right hilar distribution although no significant post obstructive changes identified currently. 3. Neoplastic process must be considered with bronchoscopy recommended. 4. Mild nonspecific interstitial change throughout both hemithoraces. 5. Poor study technically due to patient respiratory and somatic motion. Electronically signed by: Ish Huertas M.D. 05/07/2016 1:18 PM Dictated Date/Time: 05/07/2016 1:09 PM
[2016-05-07] MEDS ORDERED: LPR100 PO (15:13)
[2016-05-07] MEDS ORDERED: ONDANSETRON INJ 2 MG/ML 2 ML VIAL IV PRN (15:15)
[2016-05-07] MEDS ORDERED: ALUMINUM/MAGNESIUM/SIMETH (MAALOX MAX) 30 ML UDC PO PRN (15:15)
[2016-05-07] MEDS ORDERED: MAGNESIUM HYDROXIDE SUSP 30 ML UDC PO PRN (15:15)
[2016-05-07] MEDS ORDERED: ACETAMINOPHEN 325 MG TAB PO PRN (15:15)
[2016-05-07] MEDS ORDERED: POLYETHYLENE (MIRALAX) 17 GM PACK PO PRN (15:15)
[2016-05-07] MEDS ORDERED: NITROGLYCERIN 0.4 MG SL PER TAB CHARGE SL PRN (15:15)
[2016-05-07] MEDS ORDERED: ZINC OXIDE TOP PRN (15:30)
[2016-05-07] MEDS ORDERED: GLUCAGON FOR INJ 1 MG VIAL SQ PRN (15:30)
[2016-05-07] MEDS ORDERED: GLUCOSE 40% GEL 15 GM TUBE PO PRN (15:30)
[2016-05-07] MEDS ORDERED: DEXTROSE 50% 50 ML SYR IV PRN (15:30)
[2016-05-07] MEDS ORDERED: [UNRECOGNIZED DRUG - OTHER] TOP PRN (15:30)
[2016-05-07] MEDS ORDERED: DIMETHICONE TOP PRN (15:30)
[2016-05-07] MEDS ORDERED: TRIAMCINOLONE ACET 0.5% CR 15 GM TUBE EXT PRN (15:30)
[2016-05-07] MEDS ORDERED: GLUCOSE 10 TABS/TUBE PO PRN (15:30)
[2016-05-07] MEDS: INSULIN ASPART 100 UNITS/ML 3 ML PEN SC SCH ×2 (16:00→20:52)
[2016-05-07] MEDS ORDERED: LOPERAMIDE HCL 2 MG CAP PO PRN (16:00)
[2016-05-07 16:20] VITALS: BP 146/77; PULSE 77; TEMP 36.7; O2SAT 91; Ht 195.6 cm; Wt 160.9 kg
[2016-05-07 16:48] LABS: INR 1.1 (0.9-1.1); PARTIAL THROMBOPLASTIN RATIO 1.2; PROTHROMBIN TIME (PATIENT) 11.3 SECONDS (9.0-12.0)
[2016-05-07] MEDS ORDERED: FUROSEMIDE INJ 40 MG in SYRINGE 0 ML IV ONE (17:00)
--- NOTE | 2016-05-07 17:09 | EMERGENCY ROOM VISIT NOTE ---
History Report prepared by Zabrina: Lorene Mayen Under the Supervision of: Dr. Jim Mendes M.D. First contact with patient: 11:46 Chief Complaint: FEVER Stated Complaint: FEVER History of Present Illness The patient is a 65 year old male who presents to the Emergency Room to be evaluated for a persistent fever [employer] WORK[employer]. Per nursing notes, his temperature was 100.8 at the [facility]. Today, his pulse ox dropped to 85 percent on room air. He has a catheter and is currently on Bactrim for a UTI. Per [facility]dc guards, [facility] year and a half now due to his medical problems. The infirmary was concerned that the patient was septic. The patient denies shortness of breath, any pain, or other complaints. History is limited secondary to MR. 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 Social History Smoking Status: Current Every Day Smoker Alcohol Use: none Drug Use: none Marital Status: single Housing Status: other (fdc) Occupation Status: disabled, other Current/Historical Medications Scheduled Aspirin (Aspirin Ec), 81 MG PO DAILY Atorvastatin (Lipitor), 20 MG PO HS Bumetanide (Bumex), 2 MG PO DAILY Divalproex Sodium (Depakote), 1,000 TAB PO HS Divalproex Sodium (Depakote Delay Rel), 500 MG PO DAILY Ferrous Sulfate Dried (Feosol), 200 MG PO BID Haloperidol (Haldol), 10 MG PO BID Haloperidol (Haloperidol), 2 MG PO BID Isosorbide Mononitrate (Isosorbide Mononitrate ER), 60 MG PO DAILY Ketoconazole (Topical) (Extina), 1 DOSE TOP BID Magnesium Oxide (Mag-Ox), 400 MG PO BID Metformin Hcl (Glucophage), 850 MG PO TID Metoprolol Tartrate (Metoprolol Tartrate), 100 MG PO BID Potassium Chloride (K-Tabs), 10 MEQ PO DAILY Ranitidine (Zantac), 300 MG PO BID Sulfa/Trimethoprim (Bactrim Ds 800MG/160MG), 1 TAB PO BID Scheduled PRN Dimethicone-Zinc Oxide-Vitamin (A & D Zinc Oxide), 1 APPLN TOP BID PRN for DRYNESS Loperamide Hcl (Imodium), 2 MG PO TID PRN for Diarrhea Triamcinolone Acet (Triamcinolone Acetonide), 1 APPLN TOP BID PRN for RASH Zinc Oxide (Topical) (Desitin Rapid Relief), 1 APPLN TOP QID PRN for INCONTINENCE Allergies Coded Allergies: No Known Allergies (Unverified , 04/13/16) Physical Exam Vital Signs Date Time Temp Pulse Resp B/P Pulse Ox O2 Delivery O2 Flow Rate FiO2 05/07/16 14:30 67 141/77 100 Room Air 05/07/16 14:00 67 141/77 99 Room Air 05/07/16 13:47 66 05/07/16 13:01 72 22 135/79 98 Nasal Cannula 2.0 05/07/16 11:20 70 18 105/48 95 Nasal Cannula 2.0 05/07/16 10:47 96 Nasal Cannula 2.0 05/07/16 10:46 88 Room Air 05/07/16 10:39 75 05/07/16 10:38 37.5 75 18 105/52 88 Room Air Physical Exam Constitutional: Vital signs reviewed. Eyes: Pupils are equal round reactive to light. Conjunctiva are noninjected. ENT: Pharynx is clear without erythema or exudate. Mucous membranes are moist. Neck supple without meningeal signs. Respiratory: Clear to auscultation bilaterally. Breath sounds are equal bilaterally. Cardiovascular: Regular rate and rhythm. No rubs or gallops. GI: Soft, nondistended and nontender. Bowel sounds are present. Musculoskeletal: No lower extremity tenderness. Integumentary: No cyanosis. Neurological: The patient is somnolent but arousable. No focal deficits. Psychiatric: Unable to assess. Medical Decision & Procedures ER Provider Diagnostic Interpretation: Radiology results as stated below per my review and the radiologist's interpretation: CHEST ONE VIEW PORTABLE CLINICAL HISTORY: cough, fever dyspnea COMPARISON STUDY: 04/13/2016 FINDINGS: Suboptimal study due to patient respiratory and somatic motion. Heart is enlarged. Pulmonary vasculature is prominent. Diaphragms are smooth. IMPRESSION: Poor state technically. Cardiomegaly. Mild congestive failure. Electronically signed by: Ish Huertas M.D. 05/07/2016 11:35 AM Dictated Date/Time: 05/07/2016 11:[address] CT DOSE: 691.05 mGy.cm HISTORY: Altered mental status. lethargic eval fro bleed TECHNIQUE: Multiaxial CT images of the head were performed without the use of intravenous contrast. Automated exposure control was utilized for this study. Comparison: None. Findings: The paranasal sinuses and mastoid air cells are clear. The calvarium and skull base are intact. The ventricles and sulci are within normal limits. There is no mass, hematoma, midline shift, or acute infarct. Old nasal bone fractures. Impression: No acute intracranial abnormality. Electronically signed by: Brenden Encarnacion M.D. 05/07/2016 1:04 PM Dictated Date/Time: 05/07/2016 12:59 PM CHEST CTA for PULMONARY ARTERIES CT DOSE: 740.29 mGy.cm HISTORY: Chest pain dyspnea TECHNIQUE: Multiaxial CT images of the chest were performed following the intravenous administration of contrast to evaluate the pulmonary arteries. Maximal intensity projection images were also obtained. COMPARISON STUDY: None. FINDINGS: Limited study technically due to patient motion and inability to suspend respiration. Mild atelectatic change thoracic aorta. There is a right hilar/infrahilar mass/chely complex. This measures 3.8 x 3.5 cm. Is a 1.9 cm subcarinal node. This chely complex narrows the airway immediately distal to the right mainstem bronchus. Mild basilar interstitial changes are present. No evidence well-defined focal infiltrate. No evidence for significant pulmonary embolus. IMPRESSION: 1. No evidence for pulmonary embolus.. 2. Right hilar mass/chely complex measuring 3.8 x 3.5 cm. This creates narrowing of the bronchi in a right hilar distribution although no significant post obstructive changes identified currently. 3. Neoplastic process must be considered with bronchoscopy recommended. 4. Mild nonspecific interstitial change throughout both hemithoraces. 5. Poor study technically due to patient respiratory and somatic motion. Electronically signed by: Ish Huertas M.D. 05/07/2016 1:18 PM Dictated Date/Time: 05/07/2016 1:09 PM Laboratory Results 05/07/16 10:55 Red Blood Count 3.36, Mean Corpuscular Volume 75.3, Mean Corpuscular Hemoglobin 25.0, Mean Corpuscular Hemoglobin Concent 33.2, Mean Platelet Volume 8.7, Neutrophils (%) (Auto) 51.1, Lymphocytes (%) (Auto) 17.0, Monocytes (%) (Auto) 29.7, Eosinophils (%) (Auto) 1.0, Basophils (%) (Auto) 0.2, Neutrophils # (Auto ) 2.55, Lymphocytes # (Auto) 0.85, Monocytes # (Auto) 1.48, Eosinophils # (Auto ) 0.05, Basophils # (Auto) 0.01 05/07/16 10:55 Test 05/07/16 10:55 05/07/16 11:00 05/07/16 11:11 05/07/16 11:15 White Blood Count 4.99 K/uL (4.8-10.8) Red Blood Count 3.36 M/uL (4.7-6.1) Hemoglobin 8.4 g/dL (14.0-18.0) Hematocrit 25.3 % (42-52) Mean Corpuscular Volume 75.3 fL (80-100) Mean Corpuscular Hemoglobin 25.0 pg (25-34) Mean Corpuscular Hemoglobin Concent 33.2 g/dl (32-36) Platelet Count 214 K/uL (130-400) Mean Platelet Volume 8.7 fL (7.4-10.4) Neutrophils (%) (Auto) 51.1 % Lymphocytes (%) (Auto) 17.0 % Monocytes (%) (Auto) 29.7 % Eosinophils (%) (Auto) 1.0 % Basophils (%) (Auto) 0.2 % Neutrophils # (Auto) 2.55 K/uL (1.4-6.5) Lymphocytes # (Auto) 0.85 K/uL (1.2-3.4) Monocytes # (Auto) 1.48 K/uL (0.11-0.59) Eosinophils # (Auto) 0.05 K/uL (0-0.5) Basophils # (Auto) 0.01 K/uL (0-0.2) RDW Standard Deviation 43.4 fL (36.4-46.3) RDW Coefficient of Variation 15.8 % (11.5-14.5) Immature Granulocyte % (Auto) 1.0 % Immature Granulocyte # (Auto) 0.05 K/uL (0.00-0.02) Red Blood Cell Morphology Unremarkable Prothrombin Time 11.3 SECONDS (9.0-12.0) Prothromb Time International Ratio 1.1 (0.9-1.1) Activated Partial Thromboplast Time 30.4 SECONDS (21.0-31.0) Partial Thromboplastin Ratio 1.2 Anion Gap 5.0 mmol/L (3-11) Est Creatinine Clear Calc Drug Dose 110.5 ml/min Estimated GFR () 80.1 Estimated GFR (Non- 69.1 BUN/Creatinine Ratio 12.5 (10-20) Calcium Level 8.5 mg/dl (8.5-10.1) Total Bilirubin 0.2 mg/dl (0.2-1) Aspartate Amino Transf (AST/SGOT) 27 U/L (15-37) Alanine Aminotransferase (ALT/SGPT) 16 U/L (12-78) Alkaline Phosphatase 75 U/L (45-117) Pro-B-Type Natriuretic Peptide 3127 pg/ml (0-900) Total Protein 7.7 gm/dl (6.4-8.2) Albumin 2.3 gm/dl (3.4-5.0) Globulin 5.4 gm/dl (2.5-4.0) Albumin/Globulin Ratio 0.4 (0.9-2) Influenza Type A Antigen Neg for Influ A (NEG) Influenza Type B Antigen Neg for Influ B (NEG) Bedside Lactic Acid Venous 0.99 mmol/L (0.90-1.70) Bedside Troponin I 0.000 ng/ml (0-0.045) Test 05/07/16 12:00 Urine Color YELLOW Urine Appearance CLOUDY (CLEAR) Urine pH 6.0 (4.5-7.5) Urine Specific Elizabeth 1.006 (1.000-1.030) Urine Protein NEG (NEG) Urine Glucose (UA) NEG (NEG) Urine Ketones NEG (NEG) Urine Occult Blood 2+ (NEG) Urine Nitrite POS (NEG) Urine Bilirubin NEG (NEG) Urine Urobilinogen NEG (NEG) Urine Leukocyte Esterase LARGE (NEG) Urine WBC (Auto) >30 /hpf (0-5) Urine RBC (Auto) 0-4 /hpf (0-4) Urine Hyaline Casts (Auto) 1-5 /lpf (0-5) Urine Epithelial Cells (Auto) 5-10 /lpf (0-5) Urine Bacteria (Auto) 3+ (NEG) Urine Yeast (Auto) (NONE PRSENT) Laboratory results as reviewed by me. ED Course 1149: The patient was evaluated in room C8. A complete history and physical exam was performed. 1345: I reassessed the patient. He was awake and alert with no complaints. His oxygen saturation was 98 percent on 2L oxygen. 1351: I discussed the case with Dr. Eddi RAM Hospitalist. The patient will be evaluated for further management. Medical Decision This is a 65-year-old male who presents with fever and hypoxia. Differential diagnosis includes pneumonia, bronchitis, sepsis, UTI, pulmonary embolism. I did perform a limited focused review of portions of the patient's old chart on the electronic medical record. He was admitted for urethral bleeding requiring transfusion in March. I did evaluate the patient as noted above. History is limited due to the patient's developmental delay. IV access was established. The patient was placed on a continuous capital markets specialist. The patient was hypoxemic here and placed on supplemental oxygen. Initially the patient was rather lethargic but on reassessment he is now awake and alert. I did order and personally review the patient's 12-lead EKG and chest x-ray as described above. Chest x-ray was nondiagnostic. I did order and review the patient's blood work as noted in the electronic medical record. He is hyponatremic and anemic. I did order a CT of the chest. I did review the images myself as well as the radiology report as described above. There is no evidence of pulmonary embolism or infiltrate. His urinalysis does show signs of infection. He has been on Bactrim. I did recommend hospitalization for IV antibiotics and further evaluation of his hypoxia. I did discuss the case with the hospitalist and case management rn. Consults Time Called: [phone] Consulting Physician: Dr. Eddi RAM Hospitalist Returned Call: [phone] I discussed the case with him. The patient will be evaluated for further management. Impression Primary Impression: Hypoxia Additional Impressions: UTI (urinary tract infection) Hilar mass Anemia Hyponatremia Scribe Attestation The scribe's documentation has been prepared under my direct and personally reviewed by me in its entirety. I confirm that the note above accurately reflects all work, treatment, procedures, and medical decision making performed by me. Departure Information Dispostion Being Evaluated By Hospitalist Referrals Ismael LUNA (PCP) Patient Instructions My [facility] Problem Qualifiers Additional Impressions: UTI (urinary tract infection) Urinary tract infection type: catheter-associated UTI Indwelling urinary catheter type: indwelling urethral catheter Encounter type: initial encounter Qualified Codes: T83.511A - Infection and inflammatory reaction due to indwelling urethral catheter, initial encounter; N39.0 - Urinary tract infection, site not specified Anemia Anemia type: unspecified type Qualified Codes: D64.9 - Anemia, unspecified
[2016-05-07] MEDS ORDERED: PNEUMOCOCCAL ADMINISTRATION CHARGE ONE (18:00)
[2016-05-07] MEDS: ENOXAPARIN 40 MG/0.4 ML SYR SC SCH (18:00)
[2016-05-07] MEDS ORDERED: PNEUMOCOCCAL POLYSACCHARIDES 25 MCG/0.5 ML VIAL/SYR IM. ONE (18:00)
--- NOTE | 2016-05-07 19:17 | History and Physical ---
History & Physical Date & Time of Service: May 07, 2016 at 15:37 Chief Complaint: FEVER Primary Care Physician: Ismael LUNA History of Present Illness Source: patient, clinic records, hospital records, other ([facility] records) This is a 65 y/o male with a history of CAD, HTN, HLD, DM II, chronic diastolic CHF, urinary retention, schizophrenia, and mental retardation who presented to the ED on 05/07 with shortness of breath. The patient is a resident of [facility]. The patient reports having fevers and chills this morning and was found to have a temperature of 100.8F in the [facility]. The patient has a catheter in place and was recently diagnosed with a UTI last week and started on Bactrim DS on 05/05. The patient also complained of shortness of breath and felt as if he was "suffocating" this morning. The patient was found to have an O2 sat of 85% on room air. The patient does not typically wear supplemental oxygen. In the ED, the patient has been afebrile. He is now saturating at 98- 100% on 2L NC and states his SOB has improved. The patient denies fevers, chills, sweats, chest pain, palpitations, claudication, cough, wheezing, nausea , vomiting, abdominal pain, dysuria, hematuria, paralysis, weakness, numbness and tingling. Past Medical/Surgical History CAD HTN HLD DM II Chronic diastolic CHF Urinary retention Schizophrenia Mental retardation Family History Unable to obtain family history from patient due to mental status, which is at baseline. Social History Smoking Status: Former Smoker (patient currently residing in [facility] where he is not allowed to smoke, no cigarettes in several months) Smokeless Tobacco Use: No Alcohol Use: none Drug Use: none Marital Status: single Housing status: other ([facility]) Occupational Status: disabled, other (incarcerated) Allergies Coded Allergies: No Known Allergies (Unverified , 04/13/16) Home Medications Scheduled Aspirin (Aspirin Ec), 81 MG PO DAILY Atorvastatin (Lipitor), 20 MG PO HS Bumetanide (Bumex), 2 MG PO DAILY Divalproex Sodium (Depakote), 1,000 TAB PO HS Divalproex Sodium (Depakote Delay Rel), 500 MG PO DAILY Ferrous Sulfate Dried (Feosol), 200 MG PO BID Haloperidol (Haldol), 10 MG PO BID Haloperidol (Haloperidol), 2 MG PO BID Isosorbide Mononitrate (Isosorbide Mononitrate ER), 60 MG PO DAILY Ketoconazole (Topical) (Extina), 1 DOSE TOP BID Magnesium Oxide (Mag-Ox), 400 MG PO BID Metformin Hcl (Glucophage), 850 MG PO TID Metoprolol Tartrate (Metoprolol Tartrate), 100 MG PO BID Potassium Chloride (K-Tabs), 10 MEQ PO DAILY Ranitidine (Zantac), 300 MG PO BID Sulfa/Trimethoprim (Bactrim Ds 800MG/160MG), 1 TAB PO BID Scheduled PRN Dimethicone-Zinc Oxide-Vitamin (A & D Zinc Oxide), 1 APPLN TOP BID PRN for DRYNESS Loperamide Hcl (Imodium), 2 MG PO TID PRN for Diarrhea Triamcinolone Acet (Triamcinolone Acetonide), 1 APPLN TOP BID PRN for RASH Zinc Oxide (Topical) (Desitin Rapid Relief), 1 APPLN TOP QID PRN for INCONTINENCE Review of Systems Constitutional: + chills, + fever, No sweats Eyes: No diplopia, No eye pain, No worsening of vision ENT: No hearing loss, No sore throat, No trouble swallowing Respiratory: + shortness of breath, No cough, No wheezing Cardiovascular: No chest pain, No claudication, No palpitations Abdomen: No nausea, No pain, No vomiting Musculoskeletal: No calf pain, No joint pain, No muscle pain Genitourinary - Male: No dysuria, No hematuria, No urinary retention (Man in place) Neurologic: No numbness/tingling, No paralysis, No weakness Integumentary: No color change, No itch, No rash Physical Exam Vital Signs Date Time Temp Pulse Resp B/P Pulse Ox O2 Delivery O2 Flow Rate FiO2 05/07/16 14:30 67 17 141/77 100 Room Air 05/07/16 14:00 67 17 141/77 99 Room Air 05/07/16 13:47 66 05/07/16 13:01 72 22 135/79 98 Nasal Cannula 2.0 05/07/16 11:20 70 18 105/48 95 Nasal Cannula 2.0 05/07/16 10:47 96 Nasal Cannula 2.0 05/07/16 10:46 88 Room Air 05/07/16 10:39 75 05/07/16 10:38 37.5 75 18 105/52 88 Room Air General Appearance: WD/WN, no apparent distress, + obese (morbidly obese) Head: normocephalic, atraumatic Eyes: normal inspection, PERRL, EOMI, + pertinent finding (disconjugate gaze, R eye lazy and with cataract) ENT: normal ENT inspection, hearing grossly normal, pharynx normal, + pertinent finding (macroglossia, at baseline) Neck: supple, no JVD, trachea midline Respiratory/Chest: normal breath sounds, no respiratory distress, + decreased breath sounds, + wheezing (scattered throughout) Cardiovascular: regular rate, rhythm, no gallop, no murmur Abdomen/GI: normal bowel sounds, non tender, soft Genitourinary - Male: + pertinent finding (Man catheter in place draining clear urine) Extremities/Musculoskelatal: no calf tenderness, no pedal edema, + pertinent finding (skin extremely dry and thick in lower extremities) Neurologic/Psych: alert, normal mood/affect, + disoriented (oriented to name. Patient aware he was in [place] did not know the town. Oriented to year but not the month or date.), + pertinent finding (difficult to understand speech) Skin: normal color, warm/dry, no rash Diagnostics Laboratory Results Results Past 24 Hours Test 05/07/16 10:55 05/07/16 11:00 05/07/16 11:11 05/07/16 11:15 Range/Units White Blood Count 4.99 4.8-10.8 K/uL Red Blood Count 3.36 4.7-6.1 M/uL Hemoglobin 8.4 14.0-18.0 g/dL Hematocrit 25.3 42-52 % Mean Corpuscular Volume 75.3 80-100 fL Mean Corpuscular Hemoglobin 25.0 25-34 pg Mean Corpuscular Hemoglobin Concent 33.2 32-36 g/dl Platelet Count 214 130-400 K/uL Mean Platelet Volume 8.7 7.4-10.4 fL Neutrophils (%) (Auto) 51.1 % Lymphocytes (%) (Auto) 17.0 % Monocytes (%) (Auto) 29.7 % Eosinophils (%) (Auto) 1.0 % Basophils (%) (Auto) 0.2 % Neutrophils # (Auto) 2.55 1.4-6.5 K/uL Lymphocytes # (Auto) 0.85 1.2-3.4 K/uL Monocytes # (Auto) 1.48 0.11-0.59 K/uL Eosinophils # (Auto) 0.05 0-0.5 K/uL Basophils # (Auto) 0.01 0-0.2 K/uL RDW Standard Deviation 43.4 36.4-46.3 fL RDW Coefficient of Variation 15.8 11.5-14.5 % Immature Granulocyte % (Auto) 1.0 % Immature Granulocyte # (Auto) 0.05 0.00-0.02 K/uL Red Blood Cell Morphology Unremarkable Sodium Level 125 136-145 mmol/L Potassium Level 4.2 3.5-5.1 mmol/L Chloride Level 89 98-107 mmol/L Carbon Dioxide Level 31 21-32 mmol/L Anion Gap 5.0 3-11 mmol/L Blood Urea Nitrogen 14 7-18 mg/dl Creatinine 1.10 0.60-1.40 mg/dl Est Creatinine Clear Calc Drug Dose 110.5 ml/min Estimated GFR () 80.1 Estimated GFR (Non- 69.1 BUN/Creatinine Ratio 12.5 10-20 Random Glucose 69 70-99 mg/dl Calcium Level 8.5 8.5-10.1 mg/dl Total Bilirubin 0.2 0.2-1 mg/dl Aspartate Amino Transf (AST/SGOT) 27 15-37 U/L Alanine Aminotransferase (ALT/SGPT) 16 12-78 U/L Alkaline Phosphatase 75 45-117 U/L Pro-B-Type Natriuretic Peptide 3127 0-900 pg/ml Total Protein 7.7 6.4-8.2 gm/dl Albumin 2.3 3.4-5.0 gm/dl Globulin 5.4 2.5-4.0 gm/dl Albumin/Globulin Ratio 0.4 0.9-2 Influenza Type A Antigen Neg for Influ A NEG Influenza Type B Antigen Neg for Influ B NEG Bedside Lactic Acid Venous 0.99 0.90-1.70 mmol/L Bedside Troponin I 0.000 0-0.045 ng/ml Test 05/07/16 12:00 Range/Units Urine Color YELLOW Urine Appearance CLOUDY CLEAR Urine pH 6.0 4.5-7.5 Urine Specific [place] 1.006 1.000-1.030 Urine Protein NEG NEG Urine Glucose (UA) NEG NEG Urine Ketones NEG NEG Urine Occult Blood 2+ NEG Urine Nitrite POS NEG Urine Bilirubin NEG NEG Urine Urobilinogen NEG NEG Urine Leukocyte Esterase LARGE NEG Urine WBC (Auto) >30 0-5 /hpf Urine RBC (Auto) 0-4 0-4 /hpf Urine Hyaline Casts (Auto) 1-5 0-5 /lpf Urine Epithelial Cells (Auto) 5-10 0-5 /lpf Urine Bacteria (Auto) 3+ NEG Urine Yeast (Auto) NONE PRSENT Microbiology Results 05/07/16 Blood Culture, Received Pending 05/07/16 Blood Culture, Received Pending 05/07/16 Urine Culture, Received Pending Diagnostic Radiology Reviewed the following studies and agree with interpretation as follows: Patient Name: KAMILA PATTERSON [id number] Unit Number: [id number] Dictated: 05/07/161133 Transcribed: 05/07/16 1134 MS Printed Date/Time: [~ rep prt dt]/[~ rep prt tm] [~ rep ct labl] - [~ rep ct ivnm] [facility] [place] [address] Dictated: 05/07/161133 Transcribed: 05/07/16 1134 MS Printed Date/Time: [~ rep prt dt]/[~ rep prt tm] [~ rep ct labl] - [~ rep ct ivnm] Patient: KAMILA PATTERSON [id number] Address1: [facility] Rec: [id number] Address2: [facility] Acct ID: [id number] [facility] Zip: [place] [address] Date: 1950 Sex: M Room/Bed: Ref Phy: [facility] SC: BRENT Att Phy: Report #: [id number] Griselda Phy: CHERYL [facility] Test: [id number] Admit Phy: Jewelsmith: DAVID Interpreting Phy: Ish Huertas M.D. Diagnosis: FEVER Ordering Phy: ED, PROTOCOL Service Date: 05/07/16 Admit Date: 05/07/16 MNE: PWRSCRIBE CONF: DICTATED BY: Ish Huertas M.D.]] CC: ED,PROTOCOL No Doctor, Assigned Ismael LUNA Endcc: [~ rep ct add3]] CHEST ONE VIEW PORTABLE CLINICAL HISTORY: cough, fever dyspnea COMPARISON STUDY: 04/13/2016 FINDINGS: Suboptimal study due to patient respiratory and somatic motion. Heart is enlarged. Pulmonary vasculature is prominent. Diaphragms are smooth. IMPRESSION: Poor state technically. Cardiomegaly. Mild congestive failure. Electronically signed by: Ish Huertas M.D. 05/07/2016 11:35 AM Dictated Date/Time: 05/07/2016 11:34 AM The status of this report is Signed. Draft = Not yet reviewed or approved by Radiologist. Signed = Reviewed and approved by Radiologist. <AttendingPhy></AttendingPhy> <FamilyPhy>CHERYLIsmael</FamilyPhy> <PrimaryPhy> CHERYL kristine</PrimaryPhy> <UnitNumber>[id number]</UnitNumber> <VisitNumber> [id number]</VisitNumber> <PatientName>KAMILA PATTERSON [id number]</PatientName> < DateOfBirth>1950</DateOfBirth> <Location>[facility]</Location> <ServiceDate></ServiceDate> <MNE>ESINDI</MNE> <OrderingPhy>ED, PROTOCOL</OrderingPhy> < OrderingPhyMNE>f rep ord dr estrada</OrderingPhyMNE> <DictatingPhyMNE>f rep dict dr estrada</DictatingPhyMNE> <CCListMNE>f rep ct mne</CCListMNE> <AdmittingPhyMNE>f pt admit dr estrada</AdmittingPhyMNE> <AttendingPhyMNE>f pt attend dr estrada</ AttendingPhyMNE> <ConsultingPhyMNE>f pt consult dr estrada</ConsultingPhyMNE> <FamilyPhyMNE>f pt fam dr estrada</FamilyPhyMNE> <OtherPhyMNE>f pt other dr estrada</OtherPhyMNE> < PrimaryPhyMNE>f pt prim care dr estrada</PrimaryPhyMNE> <ReferringPhyMNE>f pt referring dr estrada</ReferringPhyMNE> Patient Name: KAMILA PATTERSON [id number] Unit Number: [id number] Dictated: 05/07/161258 Transcribed: 05/07/161258 [facility] Printed Date/Time: [~ rep prt dt]/[~ rep prt tm] [~ rep ct labl] - [~ rep ct ivnm] [facility] [place] [address] Dictated: 05/07/161258 Transcribed: 05/07/161258 PA Printed Date/Time: [~ rep prt dt]/[~ rep prt tm] [~ rep ct labl] - [~ rep ct ivnm] Patient: KAMILA PATTERSON [id number] Address1: [facility] Rec: [id number] Address2: [facility] Acct ID: [id number] [facility] Zip: [place] [address] Date: 1950 Sex: M Room/Bed: Ref Phy: [facility] SC: C.[facility] Att Phy: Report #: [id number] [facility] Phy: [facility] Test: HWO Admit Phy: Jewelsmith: ROQUE Interpreting Phy: Brenden Encarnacion MD Diagnosis: FEVER Ordering Phy: Jim Mendes MD Service Date: 05/07/16 Admit Date: 05/07/16 MNE: PWRSCRIBE CONF: DICTATED BY: Brenden Encarnacion M.D.]] CC: Jim Mendes M.D. [facility] Endcc: [~ rep ct add3]] HEAD CT NONCONTRAST CT DOSE: 691.05 mGy.cm HISTORY: Altered mental status. lethargic eval fro bleed TECHNIQUE: Multiaxial CT images of the head were performed without the use of intravenous contrast. Automated exposure control was utilized for this study. Comparison: None. Findings: The paranasal sinuses and mastoid air cells are clear. The calvarium and skull base are intact. The ventricles and sulci are within normal limits. There is no mass, hematoma, midline shift, or acute infarct. Old nasal bone fractures. Impression: No acute intracranial abnormality. Electronically signed by: Brenden Encarnacion M.D. 05/07/2016 1:04 PM Dictated Date/Time: 05/07/2016 12:59 PM The status of this report is Signed. Draft = Not yet reviewed or approved by Radiologist. Signed = Reviewed and approved by Radiologist. <AttendingPhy></AttendingPhy> <FamilyPhy>Ismael LUNA</FamilyPhy> <PrimaryPhy> Ismael LUNA</PrimaryPhy> <UnitNumber>[id number]</UnitNumber> <VisitNumber> [id number]</VisitNumber> <PatientName>KAMILA PATTERSON [id number]</PatientName> < DateOfBirth>1950</DateOfBirth> <Location>C[facility]</Location> <ServiceDate></ServiceDate> <MNE>ESINDI</MNE> <OrderingPhy>Jim Mendes MD</ OrderingPhy> <OrderingPhyMNE>f rep ord dr estrada</OrderingPhyMNE> <DictatingPhyMNE> f rep dict dr estrada</DictatingPhyMNE> <CCListMNE>f rep ct mne</CCListMNE> < AdmittingPhyMNE>f pt admit dr estrada</AdmittingPhyMNE> <AttendingPhyMNE>f pt attend dr estrada</AttendingPhyMNE> <ConsultingPhyMNE>f pt consult dr estrada</ConsultingPhyMNE> <FamilyPhyMNE>f pt fam dr estrada</FamilyPhyMNE> <OtherPhyMNE>f pt other dr estrada</OtherPhyMNE> < PrimaryPhyMNE>f pt prim care dr estrada</PrimaryPhyMNE> <ReferringPhyMNE>f pt referring dr estrada</ReferringPhyMNE> Patient Name: KAMILA PATTERSON [id number] Unit Number: [id number] Dictated: 05/07/161308 Transcribed: 05/07/161308 MS Printed Date/Time: [~ rep prt dt]/[~ rep prt tm] [~ rep ct labl] - [~ rep ct ivnm] [facility] [place] [address] Dictated: 03/20/17 1309 Transcribed: 05/07/16 1309 MS Printed Date/Time: [~ rep prt dt]/[~ rep prt tm] [~ rep ct labl] - [~ rep ct ivnm] Patient: KAMILA PATTERSON [id number] Address1: [facility] Rec: [id number] Address2: [facility] Acct ID: [id number] [facility] Zip: [place] [address] Date: 1950 Sex: M Room/Bed: Ref Phy: [facility] SC: C.[facility] Att Phy: Report #: [id number] Griselda Phy: [facility] Test: CXPEA Admit Phy: Jewelsmith: ROQUE Interpreting Phy: Ish Huertas M.D. Diagnosis: FEVER Ordering Phy: Jim Mendes MD Service Date: 05/07/16 Admit Date: 05/07/16 MNE: PWRSCRIBE CONF: DICTATED BY: Ish Huertas M.D.]] CC: Jim Mendes M.D. [facility] Endcc: [~ rep ct add3]] CHEST CTA for PULMONARY ARTERIES CT DOSE: 740.29 mGy.cm HISTORY: Chest pain dyspnea TECHNIQUE: Multiaxial CT images of the chest were performed following the intravenous administration of contrast to evaluate the pulmonary arteries. Maximal intensity projection images were also obtained. COMPARISON STUDY: None. FINDINGS: Limited study technically due to patient motion and inability to suspend respiration. Mild atelectatic change thoracic aorta. There is a right hilar/infrahilar mass/chely complex. This measures 3.8 x 3.5 cm. Is a 1.9 cm subcarinal node. This chely complex narrows the airway immediately distal to the right mainstem bronchus. Mild basilar interstitial changes are present. No evidence well-defined focal infiltrate. No evidence for significant pulmonary embolus. IMPRESSION: 1. No evidence for pulmonary embolus.. 2. Right hilar mass/chely complex measuring 3.8 x 3.5 cm. This creates narrowing of the bronchi in a right hilar distribution although no significant post obstructive changes identified currently. 3. Neoplastic process must be considered with bronchoscopy recommended. 4. Mild nonspecific interstitial change throughout both hemithoraces. 5. Poor study technically due to patient respiratory and somatic motion. Electronically signed by: Ish Huertas M.D. 05/07/2016 1:18 PM Dictated Date/Time: 05/07/2016 1:09 PM The status of this report is Signed. Draft = Not yet reviewed or approved by Radiologist. Signed = Reviewed and approved by Radiologist. <AttendingPhy></AttendingPhy> <[facility]Phy>[facility]</FamilyPhy> <PrimaryPhy> CHERYL [facility]</PrimaryPhy> <UnitNumber>[id number]</UnitNumber> <VisitNumber> [id number]</VisitNumber> <PatientName>KAMILA PATTERSON [id number]</PatientName> < DateOfBirth>1950</DateOfBirth> <Location>[facility]</Location> <ServiceDate></ServiceDate> <MNE>ESINDI</MNE> <OrderingPhy>Jim Mendes MD</ OrderingPhy> <OrderingPhyMNE>f rep ord dr estrada</OrderingPhyMNE> <DictatingPhyMNE> f rep dict dr estrada</DictatingPhyMNE> <CCListMNE>f rep ct mnbrett</CCListMNE> < AdmittingPhyMNE>f pt admit dr estrada</AdmittingPhyMNE> <AttendingPhyMNE>f pt attend dr estrada</AttendingPhyMNE> <ConsultingPhyMNE>f pt consult dr estrada</ConsultingPhyMNE> <FamilyPhyMNE>f pt fam dr estrada</FamilyPhyMNE> <OtherPhyMNE>f pt other dr estrada</OtherPhyMNE> < PrimaryPhyMNE>f pt prim care dr estrada</PrimaryPhyMNE> <ReferringPhyMNE>f pt referring dr estrada</ReferringPhyMNE> EKG Reviewed EKG and agree with interpretation as follows: 76 bpm, SR with 1st degree AV block Impression Assessment and Plan 65 y/o male resident of [facility] with a history of CAD, HTN, HLD, DM II, chronic diastolic CHF, urinary retention, schizophrenia, and mental retardation who presented to the ED on 05/07 with shortness of breath. Patient came to ED with chief complaint of fever and was found to have a temperature of 100.8F in the [facility]. He has been afebrile in the ED. The patient had also complained of shortness of breath and was found to have an O2 saturation of 85% on room air. The patient does not wear supplemental oxygen. The patient is now saturating at 98-100% on 2 L nasal cannula and states that his shortness of breath has improved. A CTA was done to rule out PE, which was negative, however , this found a right hilar mass. CXR showed mild congestive failure. Head CT negative for acute disease. Patient is also being treated for UTI and started Bactrim DS on 05/05. Initial labs significant for a BNP of 3127 and a dirty UA. Sodium low at 125. This seems to be around baseline, which is between 125 and 130. Shortness of breath/acute respiratory failure with hypoxia -Admit to telemetry -O2 by protocol Mild acute exacerbation of chronic diastolic CHF--per hospital records, echo on 02/24/16 shows diastolic dysfunction, preserved ejection fraction of 65%, no wall motion abnormalities, valves not well visualized but no significant abnormalities -Lasix 40 mg IV x 1, will see how much UO he has -Daily weights -Strict I's & O's -Continue Bumex 2 mg PO qd Right hilar mass on CT--mass measures 3.8 x 3.5 cm -Consult thoracic surgery, appreciate recs UTI--urine culture at [facility] on 05/04 shows multiple organisms, recommends repeat collection. UA in the ED positive for nitrites, leuks and bacteria -Repeat urine culture pending -Blood cultures pending -Continue Bactrim DS PO BID CAD and HTN--stable -Continue aspirin 81 mg PO qd and Imdur 60 mg PO qd HLD -Continue atorvastatin 20 mg PO qd Diabetes mellitus type 2--Last hemoglobin A1c checked on 04/13/16 was 5.8 -Hold metformin -Insulin sliding scale -Check BSGs q ac and qhs Schizophrenia -Continue Depakote 500 mg PO qd and 1000 mg PO qhs, Haldol 12 mg PO BID DVT prophylaxis -Enoxaparin 40 mg SC q24h -SANDIP Bustamante Code Status -Level I, FULL RESUSCITATION STATUS This chart was completed in part utilizing [employer] Speech Voice Recognition software. Attempts were made to minimize the grammatical errors, random word insertions, pronoun errors and incomplete sentences. Any formal questions or concerns about the content, text or information contained within the body of this dictation should be directly addressed to the provider for clarification. I agree with PA assessment and plan and have seen and examined pt myself Pt admitted for sob Perihilar mass noted incidentally thoracic surgery consulted Cont diuretics for mild CHF exab Currently hemodynamically stable at this time Level of Care Telemetry Resuscitation Status FULL RESUSCITATION VTE Prophylaxis VTE Risk Assessment Done? Y/N: Yes Risk Level: Moderate Given or contraindicated: Enoxaparin (Lovenox)SQ, T.E.D. Stockings, SCD's
[2016-05-07 19:23] VITALS: BP 129/78; PULSE 71; TEMP 37; O2SAT 95
[2016-05-07] MEDS: FERROUS SULFATE 325 MG TAB PO SCH (20:45)
[2016-05-07] MEDS: DIVALPROEX SODIUM 500 MG DELAY RELEASE TAB PO SCH (20:45)
[2016-05-07] MEDS: HALOPERIDOL 5 MG TAB PO SCH (20:46)
[2016-05-07] MEDS: HALOPERIDOL 1 MG TAB PO SCH (20:46)
[2016-05-07] MEDS: SULFAMETHOXAZOLE/TRIMETHOPRIM DS 800/160MG TAB PO SCH (20:46)
[2016-05-07] MEDS: RANITIDINE HCL 150 MG TAB PO SCH (20:46)
[2016-05-07] MEDS: METOPROLOL TARTRATE 100 MG TAB PO SCH (20:47)
[2016-05-07] MEDS: MAGNESIUM OXIDE 400 MG TAB PO SCH (20:48)
[2016-05-07] MEDS: ATORVASTATIN 20 MG TAB PO SCH (20:52)
[2016-05-08] VITALS (8 sets, daily range): BP systolic 117–164; BP diastolic 65–79; PULSE 74–85; TEMP 36.8–37.8; O2SAT 91–98
[2016-05-08] MEDS: INSULIN ASPART 100 UNITS/ML 3 ML PEN SC SCH ×4 (07:00→20:27)
[2016-05-08 07:53] LABS: BASO % 0.2 %; BASO ABS # 0.01 K/uL (0-0.2); COMPLETE YES; EOS % 1.1 %; HEMATOCRIT 27.6 % (42-52); IG% 0.9 %; LYMPH % 26.2 %; LYMPH ABS # 1.23 K/uL (1.2-3.4); MEAN CELL VOLUME 75.2 fL (80-100); MEAN CORPUSCULAR HEMOGLOBIN 24.8 pg (25-34); MEAN PLATELET VOLUME 8.8 fL (7.4-10.4); MONO % 18.6 %; PLATELET COUNT 208 K/uL (130-400); RED BLOOD COUNT 3.67 M/uL (4.7-6.1); WHITE BLOOD COUNT 4.69 K/uL (4.8-10.8)
[2016-05-08 08:22] LABS: BUN/CREATININE RATIO 14.4 (10-20); CALCIUM 8.8 mg/dl (8.5-10.1); POTASSIUM 4.3 mmol/L (3.5-5.1)
[2016-05-08] MEDS: DIVALPROEX SODIUM 500 MG DELAY RELEASE TAB PO SCH ×2 (09:20→20:22)
[2016-05-08] MEDS: ISOSORBIDE MONONITRATE 60 MG TABCR PO SCH (09:21)
[2016-05-08] MEDS: METOPROLOL TARTRATE 100 MG TAB PO SCH ×2 (09:22→20:25)
[2016-05-08] MEDS: SULFAMETHOXAZOLE/TRIMETHOPRIM DS 800/160MG TAB PO SCH ×2 (09:23→20:26)
[2016-05-08] MEDS: BUMETANIDE 1 MG TAB PO SCH (09:31)
[2016-05-08] MEDS: FERROUS SULFATE 325 MG TAB PO SCH ×2 (09:31→20:22)
[2016-05-08] MEDS: ASPIRIN 81 MG ECTAB PO SCH (09:31)
[2016-05-08] MEDS: HALOPERIDOL 1 MG TAB PO SCH ×2 (09:32→20:23)
[2016-05-08] MEDS: HALOPERIDOL 5 MG TAB PO SCH ×2 (09:32→20:24)
[2016-05-08] MEDS: POTASSIUM CHLORIDE 10 MEQ TABCR PO SCH (09:33)
[2016-05-08] MEDS: MAGNESIUM OXIDE 400 MG TAB PO SCH ×2 (09:33→20:25)
[2016-05-08] MEDS: RANITIDINE HCL 150 MG TAB PO SCH ×2 (09:34→20:27)
--- NOTE | 2016-05-08 13:11 | SURGICAL CONSULTATION ---
DATE OF CONSULTATION: 05/08/2016 REASON FOR CONSULT: Mediastinal adenopathy and hypoxia. HISTORY OF PRESENT ILLNESS: Domenic Stover is simply a huge 65-year-old male who stands 6 feet 5 inches tall and weighs 360 pounds. He is an inmate at [facility]. The patient was admitted yesterday afternoon with fevers and chills, was found to have probably a urinary tract infection. CT scan of his chest was obtained as he was hypoxic and this showed mediastinal, particularly hilar adenopathy. I was asked to evaluate him from a thoracic surgery standpoint. The patient does have a history of smoking but does not smoke, now that he is in [facility]. He states that he has lost weight. The patient is huge however. He definitely had symptoms suggestive of infection. However, this may well have been due to his urine. Saturations are better. In talking with him today, he really is difficult for me to get a history from. The patient suffers from not only schizophrenia, but also mental retardation and although I do not see a diagnosis, he certainly seems to have sleep apnea. PAST MEDICAL HISTORY: 1. Obesity. 2. Mental retardation. 3. Schizophrenia. 4. Coronary artery disease. 5. Hypertension. 6. Hyperlipidemia. 7. Diabetes mellitus (adult onset). 8. Episodes of diastolic dysfunction with congestive heart failure. 9. Urinary retention. 10. Hypoxemia. PAST SURGICAL HISTORY: Unknown. MEDICATIONS: 1. Depakote. 2. Aspirin. 3. Lipitor. 4. Bumex. 5. Ferrous sulfate. 6. Haldol. 7. Isosorbide mononitrate. 8. Extina topical. 9. Imodium. 10. Magnesium oxide. 11. Glucophage. 12. Metoprolol. 13. Potassium supplements. 14. Zantac. 15. Bactrim. ALLERGIES: No known drug allergies. SOCIAL HISTORY: The patient is originally from [facility]. He did smoke cigarettes. Otherwise he is difficult to get a history from. I am not sure how long he has been incarcerated. FAMILY MEDICAL HISTORY: Noncontributory. REVIEW OF SYSTEMS: The patient states he has lost weight despite the fact that he is huge. He also states that he does smoke but does not smoke now. He does not use alcohol or drugs while he is in nursing home. He states he has a hard time breathing. It is difficult for me to get a history from him. He does not appear to have any GI problems but he does have an indwelling Man and had problems with urinary retention and renal failure. PHYSICAL EXAMINATION: GENERAL: This is simply a huge man who is sitting in bed. He is handcuffed in his right wrist as well as his right foot, which is chained to the bed. HEENT: His sclerae are muddy but anicteric. He does appear to have frontal bossing. Pupils are small but reactive. He has no nasolabial flattening. His oral mucosa is moist. Not really cooperative with the exam to open his mouth. NECK: Thick but supple. He has no carotid bruits or lymphadenopathy. LUNGS: He does have some mild wheezing with some rhonchi. He has decreased breath sounds in both bases. HEART: He has distant heart sounds but regular rate and rhythm of his heart. ABDOMEN: Simply huge. I am unable to palpate any abnormalities. EXTREMITIES: Upon evaluation of his lower extremities, he has hemosiderin deposition, 1+ edema bilaterally. It appears his edema has decreased with wrinkled skin. He has no joint effusions. I can palpate posterior tibialis pulses. NEUROLOGIC: He moves all extremities to command but is quite guarded in his answers and simply would not answer some questions. DATA: I reviewed his CT scan. He does have a right hilar adenopathy and actually has some left hilar and mediastinal lymph node enlargement, although the right hilum is by far the most prominent. A very poor study. He also has some interstitial changes bilaterally. ASSESSMENT AND PLAN: Right hilar mass in a patient with history of cigarette smoking. I think an endobronchial ultrasound is indicated in this patient; however, he needs to get a bit better than he is. He has a sodium of 125 and I think that correction of this will of course need to be done. He needs to be tuned up a bit before the endobronchial ultrasound but I would like to try to do that this week. MTDD
[2016-05-08] MEDS: ENOXAPARIN 40 MG/0.4 ML SYR SC SCH (18:29)
--- NOTE | 2016-05-08 18:32 | Nephrology Consultation ---
Nephrology Consultation Date & Providers Date of Consultation: May 08, 2016. Primary Care Provider: Ismael LUNA Referring Provider: Reason for Consultation Hyponatremia History of Present Illness Mr. Domenic Stover is a 65-year-old male with morbid obesity, documented mental retardation, schizophrenia, coronary artery disease, hypertension, hyperlipidemia, diabetes mellitus II, chronic diastolic CHF. He presented to [facility] yesterday from [facility] with shortness of breath. Review of systems notable for fevers and chills within the past 24 hours. He has a history of urinary retention and incontinence. A Man catheter had recently been placed. He was diagnosed with a UTI last week and started on Bactrim. Mr. Stover is a very poor historian. CXR and CT of the chest were reviewed today. CT surgery consult also reviewed. There is evidence of hypervolemia and at least mild congestive failure. No specific infiltrates noted. Bilateral hilar adenopathy concerning. Hypoxia improving. There is a history of chronic hyponatremia. Serum sodium ranging from 125-131 mmol/L since January 2016. Prior admission to [facility] with diastolic CHF reviewed. Past Medical/Surgical History Medical: -- Morbid obesity -- Mental retardation -- Schizophrenia -- Coronary artery disease -- Hypertension -- Hyperlipidemia -- Diabetes mellitus II -- Chronic diastolic CHF -- Chronic urinary retention -- Chronic hyponatremia Surgical: None reported Allergies Coded Allergies: No Known Allergies (Unverified , 04/13/16) Inpatient Medications Current Inpatient Medications Medications (Trade) Dose Ordered Sig/Ismael Route Start Time Stop Time Status Last Admin Dose Admin Ioversol (Optiray 320) 100 ml UD PRN IV 05/07/16 13:00 05/11/16 12:59 Enoxaparin Sodium (Lovenox Inj) 40 mg DAILY@1800 SC 05/07/16 18:00 06/06/16 17:59 Acetaminophen (Tylenol Tab) 650 mg Q4H PRN PO 05/07/16 15:15 06/06/16 15:14 05/08/16 09:23 650 MG Al Hydrox/Mg Hydrox/Simethicone (Maalox Max Susp) 15 ml Q4H PRN PO 05/07/16 15:15 06/06/16 15:14 Magnesium Hydroxide (Milk Of Magnesia Susp) 30 ml Q12H PRN PO 05/07/16 15:15 06/06/16 15:14 Ondansetron HCl (Zofran Inj) 4 mg Q6H PRN IV 05/07/16 15:15 06/06/16 15:14 Nitroglycerin (Nitrostat Tab) 0.4 mg UD PRN SL 05/07/16 15:15 06/06/16 15:14 Polyethylene (Miralax Powder Packet) 17 gm DAILY PRN PO 05/07/16 15:15 06/06/16 15:14 Aspirin (Ecotrin Tab) 81 mg DAILY PO 05/08/16 09:00 06/07/16 08:59 05/08/16 09:31 81 MG Atorvastatin Calcium (Lipitor Tab) 20 mg HS PO 05/07/16 21:00 06/06/16 20:59 05/07/16 20:52 20 MG Bumetanide (Bumex Tab) 2 mg DAILY PO 05/08/16 09:00 06/07/16 08:59 05/08/16 09:31 2 MG Divalproex Sodium (Depakote Delay Rel Tab) 500 mg DAILY PO 05/08/16 09:00 06/07/16 08:59 05/08/16 09:20 500 MG Isosorbide Mononitrate (Imdur Ext Rel Tab) 60 mg DAILY PO 05/08/16 09:00 06/07/16 08:59 05/08/16 09:21 60 MG Loperamide HCl (Imodium Cap) 2 mg TID PRN PO 05/07/16 16:00 06/06/16 15:59 Magnesium Oxide (Mag-Ox Tab) 400 mg BID PO 05/07/16 21:00 06/06/16 20:59 05/08/16 09:33 400 MG Metoprolol Tartrate (Lopressor Tab) 100 mg BID PO 05/07/16 21:00 06/06/16 20:59 05/08/16 09:22 100 MG Trimethoprim/ Sulfamethoxazole (Septra Ds 800/ 160MG Tab) 1 tab BID PO 05/07/16 21:00 05/12/16 20:59 05/08/16 09:23 1 TAB Triamcinolone Acetonide (Kenalog 0.5% Crm) 1 appln BID PRN EXT 05/07/16 15:30 06/06/16 15:29 Ferrous Sulfate (Feosol Tab) 325 mg BID PO 05/07/16 21:00 06/06/16 20:59 05/08/16 09:31 325 MG Haloperidol (Haldol Tab) 2 mg BID PO 05/07/16 21:00 06/06/16 20:59 05/08/16 09:32 2 MG Haloperidol (Haldol Tab) 10 mg BID PO 05/07/16 21:00 06/06/16 20:59 05/08/16 09:32 10 MG Miscellaneous Information (Order Awaiting Action) 1 ea QS N/A 05/07/16 16:00 06/06/16 15:59 Potassium Chloride (Klor-Con M10) 10 meq DAILY PO 05/08/16 09:00 06/07/16 08:59 05/08/16 09:33 10 MEQ Ranitidine HCl (zANTac TAB) 300 mg BID PO 05/07/16 21:00 06/06/16 20:59 05/08/16 09:34 300 MG Miscellaneous Information (Order Awaiting Action) 1 ea QS N/A 05/07/16 16:00 06/06/16 15:59 Divalproex Sodium (Depakote Delay Rel Tab) 1,000 mg HS PO 05/07/16 21:00 06/06/16 20:59 05/07/16 20:45 1,000 MG Insulin Aspart (novoLOG ASPART) SLIDING SCALE If C... ACHS SC 05/07/16 16:00 06/06/16 15:59 Glucose (Glucose 40% Gel) 15-30 GRAMS 15 GRAMS... UD PRN PO 05/07/16 15:30 06/06/16 15:29 Glucose (Glucose Chew Tab) 4-8 Tablets 4 Tabl... UD PRN PO 05/07/16 15:30 06/06/16 15:29 Dextrose (Dextrose 50% 50ML Syringe) 25-50ML OF 50% DW IV FOR... UD PRN IV 05/07/16 15:30 06/06/16 15:29 Glucagon (Glucagon Inj) 1 mg UD PRN SQ 05/07/16 15:30 06/06/16 15:29 Social History Smoking Status: Former Smoker (patient currently residing in [facility] where he is not allowed to smoke, no cigarettes in several months) Smokeless Tobacco Use: No Alcohol Use: none Drug Use: none Marital Status: single Housing Status: other ([facility]) Occupation: disabled, other (incarcerated) Review of Systems A complete review of systems was performed. Pertinent positives are noted above. All other systems are negative. Physical Exam Date Time Temp Pulse Resp B/P Pulse Ox O2 Delivery O2 Flow Rate FiO2 05/08/16 15:07 36.9 77 20 117/65 98 Nasal Cannula 2.0 05/08/16 12:00 Nasal Cannula 2.0 05/08/16 11:00 36.8 78 18 164/74 98 Nasal Cannula 2.0 05/08/16 09:09 Nasal Cannula 2.0 05/08/16 08:00 Nasal Cannula 2.0 05/08/16 07:35 37.0 84 18 151/79 05/08/16 07:29 37.8 82 22 128/76 96 Nasal Cannula 2.0 05/08/16 04:00 Nasal Cannula 2.0 05/08/16 04:00 37.4 85 21 121/72 92 Nasal Cannula 2.0 05/08/16 00:00 37.8 76 17 147/74 96 Nasal Cannula 2.0 05/08/16 00:00 Nasal Cannula 2.0 05/07/16 20:00 Nasal Cannula 2.0 05/07/16 19:23 37.0 71 18 129/78 95 General Appearance: no apparent distress, + obese Head: normocephalic, atraumatic Eyes: normal inspection, sclerae normal ENT: normal ENT inspection, pharynx normal Neck: supple, + pertinent finding (thick, increased JVP) Respiratory/Chest: no respiratory distress, no accessory muscle use, + decreased breath sounds Cardiovascular: regular rate, rhythm, no gallop Abdomen/GI: non tender, soft Genitourinary - Male: + pertinent finding (Man draining yellow urine) Extremities/Musculoskelatal: normal inspection, + pedal edema Neurologic/Psych: alert, + depressed affect Skin: normal color Laboratory Results Last 24 Hours Test 05/07/16 19:47 05/08/16 07:22 05/08/16 11:25 05/08/16 15:43 Bedside Glucose 134 mg/dl 175 mg/dl 94 mg/dl White Blood Count 4.69 K/uL Red Blood Count 3.67 M/uL Hemoglobin 9.1 g/dL Hematocrit 27.6 % Mean Corpuscular Volume 75.2 fL Mean Corpuscular Hemoglobin 24.8 pg Mean Corpuscular Hemoglobin Concent 33.0 g/dl Platelet Count 208 K/uL Mean Platelet Volume 8.8 fL Neutrophils (%) (Auto) 53.0 % Lymphocytes (%) (Auto) 26.2 % Monocytes (%) (Auto) 18.6 % Eosinophils (%) (Auto) 1.1 % Basophils (%) (Auto) 0.2 % Neutrophils # (Auto) 2.49 K/uL Lymphocytes # (Auto) 1.23 K/uL Monocytes # (Auto) 0.87 K/uL Eosinophils # (Auto) 0.05 K/uL Basophils # (Auto) 0.01 K/uL RDW Standard Deviation 43.8 fL RDW Coefficient of Variation 15.7 % Immature Granulocyte % (Auto) 0.9 % Immature Granulocyte # (Auto) 0.04 K/uL Sodium Level 125 mmol/L Potassium Level 4.3 mmol/L Chloride Level 87 mmol/L Carbon Dioxide Level 30 mmol/L Anion Gap 8.0 mmol/L Blood Urea Nitrogen 14 mg/dl Creatinine 1.00 mg/dl Est Creatinine Clear Calc Drug Dose 120.4 ml/min Estimated GFR () 89.9 Estimated GFR (Non- 77.5 BUN/Creatinine Ratio 14.4 Random Glucose 76 mg/dl Calcium Level 8.8 mg/dl Test 05/08/16 16:30 05/08/16 16:42 Urine Osmolality 290 mOms/kg Urine Random Sodium 34 mEq/L Urine Random Potassium 14.3 mEq/L Urine Random Chloride 34 mEq/L Osmolality 265 mOsm/kg Impression (1) Hyponatremia (2) Acute on chronic diastolic (congestive) heart failure (3) Acute respiratory failure with hypoxia (4) HTN (hypertension) Mr. Domenic Stover is a 65-year-old male with morbid obesity, documented mental retardation, schizophrenia, coronary artery disease, hypertension, hyperlipidemia, diabetes mellitus II, chronic diastolic CHF. He presented to [facility] on 05/07/16 from [facility] with shortness of breath. Review of systems notable for fevers and chills within 24 hours of admission. He has a history of urinary retention and incontinence. A Man catheter had recently been placed after he was diagnosed with a UTI last week and started on Bactrim. Mr. Stover is a very poor historian. CXR and CT of the chest were evidence of hypervolemia and at least mild congestive failure; no specific infiltrates; bilateral hilar adenopathy concerning. CT surgery suggested endobronchial US once medically stable. Hypoxia improving. Acute on chronic hyponatremia noted. Difficult to assess symptoms. Hypervolemic on exam. Suggest continued monitoring response to diuretics. Repeat metabolic profile tomorrow AM with urine osmolality, urine chloride, urine sodium and urine potassium. Check TSH. Restrict daily fluid intake to < 1.5 L. Chronic hyponatremia may be associated with SIADH but this is unclear at this time. Recommendations -- Restrict daily fluid intake <1.5 L -- Bumex 92-4 mg daily) to encourage net negative fluid balance (>1L/d) -- Repeat metabolic profile tomorrow AM -- Check urine studies in the AM -- Check TSH
[2016-05-08] MEDS ORDERED: BUMETANIDE 1 MG TAB PO ONE (19:00)
--- NOTE | 2016-05-08 19:16 | Hospitalist Progress Note ---
Hospitalist Progress Note Date of Service May 08, 2016. Subjective Pt evaluation today including: conversation w/ patient Pain: 0 patient with no complaints Objective Vital Signs Date Time Temp Pulse Resp B/P Pulse Ox O2 Delivery O2 Flow Rate FiO2 05/08/16 15:07 36.9 77 20 117/65 98 Nasal Cannula 2.0 05/08/16 12:00 Nasal Cannula 2.0 05/08/16 11:00 36.8 78 18 164/74 98 Nasal Cannula 2.0 05/08/16 09:09 Nasal Cannula 2.0 05/08/16 08:00 Nasal Cannula 2.0 05/08/16 07:35 37.0 84 18 151/79 05/08/16 07:29 37.8 82 22 128/76 96 Nasal Cannula 2.0 05/08/16 04:00 Nasal Cannula 2.0 05/08/16 04:00 37.4 85 21 121/72 92 Nasal Cannula 2.0 05/08/16 00:00 37.8 76 17 147/74 96 Nasal Cannula 2.0 05/08/16 00:00 Nasal Cannula 2.0 05/07/16 20:00 Nasal Cannula 2.0 05/07/16 19:23 37.0 71 18 129/78 95 Physical Exam General Appearance: WD/WN Eyes: sclerae normal Neck: trachea midline Respiratory/Chest: chest non-tender Cardiovascular: regular rate, rhythm Abdomen: normal bowel sounds, non tender Extremities: normal range of motion Skin: normal color Laboratory Results Last 24 Hours Test 05/07/16 19:47 05/08/16 07:22 05/08/16 11:25 05/08/16 15:43 Bedside Glucose 134 mg/dl 175 mg/dl 94 mg/dl White Blood Count 4.69 K/uL Red Blood Count 3.67 M/uL Hemoglobin 9.1 g/dL Hematocrit 27.6 % Mean Corpuscular Volume 75.2 fL Mean Corpuscular Hemoglobin 24.8 pg Mean Corpuscular Hemoglobin Concent 33.0 g/dl Platelet Count 208 K/uL Mean Platelet Volume 8.8 fL Neutrophils (%) (Auto) 53.0 % Lymphocytes (%) (Auto) 26.2 % Monocytes (%) (Auto) 18.6 % Eosinophils (%) (Auto) 1.1 % Basophils (%) (Auto) 0.2 % Neutrophils # (Auto) 2.49 K/uL Lymphocytes # (Auto) 1.23 K/uL Monocytes # (Auto) 0.87 K/uL Eosinophils # (Auto) 0.05 K/uL Basophils # (Auto) 0.01 K/uL RDW Standard Deviation 43.8 fL RDW Coefficient of Variation 15.7 % Immature Granulocyte % (Auto) 0.9 % Immature Granulocyte # (Auto) 0.04 K/uL Sodium Level 125 mmol/L Potassium Level 4.3 mmol/L Chloride Level 87 mmol/L Carbon Dioxide Level 30 mmol/L Anion Gap 8.0 mmol/L Blood Urea Nitrogen 14 mg/dl Creatinine 1.00 mg/dl Est Creatinine Clear Calc Drug Dose 120.4 ml/min Estimated GFR () 89.9 Estimated GFR (Non- 77.5 BUN/Creatinine Ratio 14.4 Random Glucose 76 mg/dl Calcium Level 8.8 mg/dl Test 05/08/16 16:30 05/08/16 16:42 Urine Osmolality 290 mOms/kg Urine Random Sodium 34 mEq/L Urine Random Potassium 14.3 mEq/L Urine Random Chloride 34 mEq/L Osmolality 265 mOsm/kg Assessment and Plan 65 y/o male resident of [facility] with a history of CAD, HTN, HLD, DM II, chronic diastolic CHF, urinary retention, schizophrenia, and mental retardation who presented to the ED on 05/07 with shortness of breath. Patient came to ED with chief complaint of fever and was found to have a temperature of 100.8F in the [facility]. He has been afebrile in the ED. The patient had also complained of shortness of breath and was found to have an O2 saturation of 85% on room air. The patient does not wear supplemental oxygen. The patient is now saturating at 98-100% on 2 L nasal cannula and states that his shortness of breath has improved. A CTA was done to rule out PE, which was negative, however , this found a right hilar mass. CXR showed mild congestive failure. Head CT negative for acute disease. Patient is also being treated for UTI and started Bactrim DS on 05/05. Initial labs significant for a BNP of 3127 and a dirty UA. Sodium low at 125. This seems to be around baseline, which is between 125 and 130. 1. Shortness of breath/acute respiratory failure with hypoxia -Admit to telemetry -O2 by protocol symptoms are improving 2. Mild acute exacerbation of chronic diastolic CHF--per hospital records, echo on 02/24/16 shows diastolic dysfunction, preserved ejection fraction of 65%, no wall motion abnormalities, valves not well visualized but no significant abnormalities - -Daily weights -Strict I's & O's -Continue Bumex 2 mg PO qd being adjusted by Dr. Salgado 3. Right hilar mass on CT--mass measures 3.8 x 3.5 cm -Consult thoracic surgery, appreciate recs. Dr. Salgado consulted to help with acute on chronic hyponatremia. 4. UTI--urine culture at [facility] on 05/04 shows multiple organisms, recommends repeat collection. UA in the ED positive for nitrites, leuks and bacteria -Repeat urine culture pending -Blood cultures pending -Continue Bactrim DS PO BID 5. CAD and HTN--stable -Continue aspirin 81 mg PO qd and Imdur 60 mg PO qd 6. Diabetes mellitus type 2--Last hemoglobin A1c checked on 04/13/16 was 5.8 -Hold metformin -Insulin sliding scale -Check BSGs q ac and qhs Schizophrenia -Continue Depakote 500 mg PO qd and 1000 mg PO qhs, Haldol 12 mg PO BID DVT prophylaxis -Enoxaparin 40 mg SC q24h -SANDIP Bustamante Code Status -Level I, FULL RESUSCITATION STATUS
[2016-05-08] MEDS: ATORVASTATIN 20 MG TAB PO SCH (20:24)
[2016-05-09 03:41] VITALS: BP 122/72; PULSE 71; TEMP 37.5; O2SAT 92
[2016-05-09] MEDS: INSULIN ASPART 100 UNITS/ML 3 ML PEN SC SCH ×4 (07:00→21:00)
[2016-05-09 07:01] LABS: BASO % 0.4 %; BASO ABS # 0.02 K/uL (0-0.2); EOS % 2.2 %; HEMATOCRIT 26.7 % (42-52); IG% 0.4 %; LYMPH % 23.6 %; LYMPH ABS # 1.09 K/uL (1.2-3.4); MEAN CELL VOLUME 76.9 fL (80-100); MEAN CORPUSCULAR HEMOGLOBIN 25.6 pg (25-34); MEAN CORPUSCULAR HGB CONC 33.3 g/dl (32-36); MEAN PLATELET VOLUME 8.5 fL (7.4-10.4); MONO % 18.4 %; PLATELET COUNT 176 K/uL (130-400); RED BLOOD COUNT 3.47 M/uL (4.7-6.1); WHITE BLOOD COUNT 4.62 K/uL (4.8-10.8)
[2016-05-09 07:29] LABS: COMPLETE YES; MICROCYTOSIS PRESENT; TARGET CELLS 1+
[2016-05-09 07:37] LABS: BUN/CREATININE RATIO 14.3 (10-20); CALCIUM 8.2 mg/dl (8.5-10.1); POTASSIUM 4.3 mmol/L (3.5-5.1)
[2016-05-09 07:48] LABS: PHOSPHORUS 4.4 mg/dl (2.5-4.9); THYROID STIMULATING HORMONE 2.81 uIu/ml (0.300-4.500)
[2016-05-09] MEDS: METOPROLOL TARTRATE 100 MG TAB PO SCH ×2 (08:00→21:20)
[2016-05-09] MEDS: SULFAMETHOXAZOLE/TRIMETHOPRIM DS 800/160MG TAB PO SCH (08:00)
[2016-05-09] MEDS: HALOPERIDOL 1 MG TAB PO SCH ×2 (08:00→21:21)
[2016-05-09] MEDS: POTASSIUM CHLORIDE 10 MEQ TABCR PO SCH (08:00)
[2016-05-09] MEDS: FERROUS SULFATE 325 MG TAB PO SCH ×2 (08:00→21:20)
[2016-05-09] MEDS: ASPIRIN 81 MG ECTAB PO SCH (08:00)
[2016-05-09] MEDS: RANITIDINE HCL 150 MG TAB PO SCH ×2 (08:00→21:20)
[2016-05-09] MEDS: BUMETANIDE 1 MG TAB PO SCH (08:00)
[2016-05-09] MEDS: DIVALPROEX SODIUM 500 MG DELAY RELEASE TAB PO SCH ×2 (08:00→21:21)
[2016-05-09] MEDS: HALOPERIDOL 5 MG TAB PO SCH ×2 (08:00→21:20)
[2016-05-09] MEDS: MAGNESIUM OXIDE 400 MG TAB PO SCH ×2 (08:00→21:21)
[2016-05-09] MEDS: ISOSORBIDE MONONITRATE 60 MG TABCR PO SCH (08:00)
--- NOTE | 2016-05-09 08:01 | SURGERY PROGRESS NOTE ---
DATE: 05/09/2016 Mr. Stover was seen today. This is going to be a difficult case. I think this patient needs an endobronchial ultrasound with biopsies. I think he has a probable malignancy. It could be a lung malignancy or could be lymphoma. At any rate it manifests itself as a fairly large right hilar mass. Having said that, I talked to him today about this and he stated "I can't go for that." Given his mental retardation and his schizophrenia I think it is going to be difficult to get consent for this. We will start working on that. I think we will try and do him while he is in the hospital. He does have a urinary tract infection; however, I am concerned enough that he is still having some low grade fevers 37.8. His white count is a bit low at 4620.
--- NOTE | 2016-05-09 10:00 | Nephrology Progress Note ---
Nephrology Progress Note Date of Service May 09, 2016. Chief Complaint Hyponatremia Subjective No acute events overnight. Reports some lower back discomfort this morning which he attributes to the hospital bed. Denies shortness of breath. No fevers or chills. Review of Systems A complete review of systems was performed. Pertinent positives are noted above. All other systems are negative. Vital Signs Last 8 Hrs Date Time Temp Pulse Resp B/P Pulse Ox O2 Delivery O2 Flow Rate FiO2 05/09/16 04:00 Nasal Cannula 2.0 05/09/16 03:41 37.5 71 20 122/72 92 Nasal Cannula 2.0 I & O 24-Hour Column 05/09/16 08:00 Intake Total 920 ml Output Total 1950 ml Balance -1030 ml Last Recorded Weight Weight (Kilograms): 158.600 Physical Exam General Appearance: WD/WN, no apparent distress Head: normocephalic, atraumatic Eyes: normal inspection, sclerae normal ENT: normal ENT inspection, pharynx normal Neck: supple Respiratory/Chest: lungs clear, no respiratory distress, no accessory muscle use Cardiovascular: regular rate, rhythm, no gallop, no murmur Abdomen/GI: non tender, soft Extremities/Musculoskelatal: normal inspection, + pedal edema Neurologic/Psych: alert, + depressed affect Social History Smokeless Tobacco Use: No Alcohol Use: none Drug Use: none Marital Status: single Housing Status: other ([facility]) Occupation: disabled, other (incarcerated) Laboratory Results Past 24 Hours 05/09/16 06:52 Red Blood Count 3.47, Mean Corpuscular Volume 76.9, Mean Corpuscular Hemoglobin 25.6, Mean Corpuscular Hemoglobin Concent 33.3, Mean Platelet Volume 8.5, Neutrophils (%) (Auto) 55.0, Lymphocytes (%) (Auto) 23.6, Monocytes (%) (Auto) 18.4, Eosinophils (%) (Auto) 2.2, Basophils (%) (Auto) 0.4, Neutrophils # (Auto ) 2.54, Lymphocytes # (Auto) 1.09, Monocytes # (Auto) 0.85, Eosinophils # (Auto ) 0.10, Basophils # (Auto) 0.02 05/09/16 06:52 Test 05/08/16 11:25 05/08/16 15:43 05/08/16 16:30 05/08/16 16:42 Bedside Glucose 175 mg/dl (70-99) 94 mg/dl (70-99) Urine Osmolality 290 mOms/kg (500-800) Urine Random Sodium 34 mEq/L Urine Random Potassium 14.3 mEq/L Urine Random Chloride 34 mEq/L Osmolality 265 mOsm/kg (280-300) Test 05/08/16 20:24 05/09/16 06:35 05/09/16 06:52 Bedside Glucose 134 mg/dl (70-99) 81 mg/dl (70-99) White Blood Count 4.62 K/uL (4.8-10.8) Red Blood Count 3.47 M/uL (4.7-6.1) Hemoglobin 8.9 g/dL (14.0-18.0) Hematocrit 26.7 % (42-52) Mean Corpuscular Volume 76.9 fL (80-100) Mean Corpuscular Hemoglobin 25.6 pg (25-34) Mean Corpuscular Hemoglobin Concent 33.3 g/dl (32-36) Platelet Count 176 K/uL (130-400) Mean Platelet Volume 8.5 fL (7.4-10.4) Neutrophils (%) (Auto) 55.0 % Lymphocytes (%) (Auto) 23.6 % Monocytes (%) (Auto) 18.4 % Eosinophils (%) (Auto) 2.2 % Basophils (%) (Auto) 0.4 % Neutrophils # (Auto) 2.54 K/uL (1.4-6.5) Lymphocytes # (Auto) 1.09 K/uL (1.2-3.4) Monocytes # (Auto) 0.85 K/uL (0.11-0.59) Eosinophils # (Auto) 0.10 K/uL (0-0.5) Basophils # (Auto) 0.02 K/uL (0-0.2) RDW Standard Deviation 45.0 fL (36.4-46.3) RDW Coefficient of Variation 15.9 % (11.5-14.5) Immature Granulocyte % (Auto) 0.4 % Immature Granulocyte # (Auto) 0.02 K/uL (0.00-0.02) Microcytosis PRESENT Target Cells 1+ Anion Gap 7.0 mmol/L (3-11) Est Creatinine Clear Calc Drug Dose 118.5 ml/min Estimated GFR () 89.9 Estimated GFR (Non- 77.5 BUN/Creatinine Ratio 14.3 (10-20) Calcium Level 8.2 mg/dl (8.5-10.1) Phosphorus Level 4.4 mg/dl (2.5-4.9) Albumin 2.3 gm/dl (3.4-5.0) Thyroid Stimulating Hormone (TSH) 2.810 uIu/ml (0.300-4.500) Allergies Coded Allergies: No Known Allergies (Unverified , 04/13/16) Medications Current Inpatient Medications Medications (Trade) Dose Ordered Sig/Ismael Route Start Time Stop Time Status Last Admin Dose Admin Ioversol (Optiray 320) 100 ml UD PRN IV 05/07/16 13:00 05/11/16 12:59 Enoxaparin Sodium (Lovenox Inj) 40 mg DAILY@1800 SC 05/07/16 18:00 06/06/16 17:59 05/08/16 18:29 40 MG Acetaminophen (Tylenol Tab) 650 mg Q4H PRN PO 05/07/16 15:15 06/06/16 15:14 05/08/16 09:23 650 MG Al Hydrox/Mg Hydrox/Simethicone (Maalox Max Susp) 15 ml Q4H PRN PO 05/07/16 15:15 06/06/16 15:14 Magnesium Hydroxide (Milk Of Magnesia Susp) 30 ml Q12H PRN PO 05/07/16 15:15 06/06/16 15:14 Ondansetron HCl (Zofran Inj) 4 mg Q6H PRN IV 05/07/16 15:15 06/06/16 15:14 Nitroglycerin (Nitrostat Tab) 0.4 mg UD PRN SL 05/07/16 15:15 06/06/16 15:14 Polyethylene (Miralax Powder Packet) 17 gm DAILY PRN PO 05/07/16 15:15 06/06/16 15:14 Aspirin (Ecotrin Tab) 81 mg DAILY PO 05/08/16 09:00 06/07/16 08:59 05/09/16 08:00 81 MG Atorvastatin Calcium (Lipitor Tab) 20 mg HS PO 05/07/16 21:00 06/06/16 20:59 05/08/16 20:24 20 MG Bumetanide (Bumex Tab) 2 mg DAILY PO 05/08/16 09:00 06/07/16 08:59 05/09/16 08:00 2 MG Divalproex Sodium (Depakote Delay Rel Tab) 500 mg DAILY PO 05/08/16 09:00 06/07/16 08:59 05/09/16 08:00 500 MG Isosorbide Mononitrate (Imdur Ext Rel Tab) 60 mg DAILY PO 05/08/16 09:00 06/07/16 08:59 05/09/16 08:00 60 MG Loperamide HCl (Imodium Cap) 2 mg TID PRN PO 05/07/16 16:00 06/06/16 15:59 Magnesium Oxide (Mag-Ox Tab) 400 mg BID PO 05/07/16 21:00 06/06/16 20:59 05/09/16 08:00 400 MG Metoprolol Tartrate (Lopressor Tab) 100 mg BID PO 05/07/16 21:00 06/06/16 20:59 05/09/16 08:00 100 MG Triamcinolone Acetonide (Kenalog 0.5% Crm) 1 appln BID PRN EXT 05/07/16 15:30 06/06/16 15:29 Ferrous Sulfate (Feosol Tab) 325 mg BID PO 05/07/16 21:00 06/06/16 20:59 05/09/16 08:00 325 MG Haloperidol (Haldol Tab) 2 mg BID PO 05/07/16 21:00 06/06/16 20:59 05/09/16 08:00 2 MG Haloperidol (Haldol Tab) 10 mg BID PO 05/07/16 21:00 06/06/16 20:59 05/09/16 08:00 10 MG Miscellaneous Information (Order Awaiting Action) 1 ea QS N/A 05/07/16 16:00 06/06/16 15:59 Potassium Chloride (Klor-Con M10) 10 meq DAILY PO 05/08/16 09:00 06/07/16 08:59 05/09/16 08:00 10 MEQ Ranitidine HCl (zANTac TAB) 300 mg BID PO 05/07/16 21:00 06/06/16 20:59 05/09/16 08:00 300 MG Miscellaneous Information (Order Awaiting Action) 1 ea QS N/A 05/07/16 16:00 06/06/16 15:59 Divalproex Sodium (Depakote Delay Rel Tab) 1,000 mg HS PO 05/07/16 21:00 06/06/16 20:59 05/08/16 20:22 1,000 MG Insulin Aspart (novoLOG ASPART) SLIDING SCALE If C... ACHS SC 05/07/16 16:00 06/06/16 15:59 Glucose (Glucose 40% Gel) 15-30 GRAMS 15 GRAMS... UD PRN PO 05/07/16 15:30 06/06/16 15:29 Glucose (Glucose Chew Tab) 4-8 Tablets 4 Tabl... UD PRN PO 05/07/16 15:30 06/06/16 15:29 Dextrose (Dextrose 50% 50ML Syringe) 25-50ML OF 50% DW IV FOR... UD PRN IV 05/07/16 15:30 06/06/16 15:29 Glucagon (Glucagon Inj) 1 mg UD PRN SQ 05/07/16 15:30 06/06/16 15:29 Ciprofloxacin (Cipro Tab) 500 mg BID PO 05/09/16 11:00 05/19/16 10:59 Impression (1) Hyponatremia (2) Acute on chronic diastolic (congestive) heart failure (3) Acute respiratory failure with hypoxia (4) HTN (hypertension) Mr. Domneic Stover is a 65-year-old male with morbid obesity, documented mental retardation, schizophrenia, coronary artery disease, hypertension, hyperlipidemia, diabetes mellitus II, chronic diastolic CHF. He presented to [facility] on 05/07/16 from [facility] with shortness of breath. Review of systems notable for fevers and chills within 24 hours of admission. He has a history of urinary retention and incontinence. A Man catheter had recently been placed after he was diagnosed with a UTI last week and started on Bactrim. Mr. Stover is a very poor historian. CXR and CT of the chest were evidence of hypervolemia and at least mild congestive failure; no specific infiltrates; bilateral hilar adenopathy concerning. CT surgery suggested endobronchial US once medically stable. Hypoxia improving. Acute on chronic hyponatremia in the setting of hypervolemia. TSH 2.8. Restrict daily fluid intake to <1.5 L. Chronic hyponatremia may be associated with SIADH but this is unclear at this time. Recommendations -- Restrict daily fluid intake <1.5 L -- Bumex (2-4 mg daily) to encourage net negative fluid balance (>1L/d) -- Repeat metabolic profile tomorrow AM -- Monitor morning urine osmolality -- Potassium chloride 10 mEq daily
[2016-05-09 11:24] VITALS: BP 114/67; PULSE 76; TEMP 37.4; O2SAT 92
[2016-05-09] MEDS: CIPROFLOXACIN 500 MG TAB PO SCH ×2 (11:57→21:19)
[2016-05-09] MEDS: ENOXAPARIN 40 MG/0.4 ML SYR SC SCH (16:59)
[2016-05-09 17:54] VITALS: O2SAT 92
[2016-05-09 19:11] VITALS: BP 164/61; PULSE 93; TEMP 37.6; O2SAT 92
--- NOTE | 2016-05-09 19:46 | Hospitalist Progress Note ---
Hospitalist Progress Note Date of Service May 09, 2016. Subjective Pt evaluation today including: conversation w/ patient patient without complaints Medications Medications (Trade) Dose Ordered Sig/Ismael Route Start Time Stop Time Status Last Admin Dose Admin Ciprofloxacin (Cipro Tab) 500 mg BID PO 05/09/16 11:00 05/19/16 10:59 05/09/16 11:57 500 MG Objective Vital Signs Date Time Temp Pulse Resp B/P Pulse Ox O2 Delivery O2 Flow Rate FiO2 05/09/16 19:11 37.6 93 24 164/61 92 Nasal Cannula 2.0 05/09/16 17:54 92 Nasal Cannula 2.0 05/09/16 16:00 Nasal Cannula 2.0 05/09/16 12:00 Nasal Cannula 2.0 05/09/16 11:24 37.4 76 20 114/67 92 Nasal Cannula 2.0 05/09/16 08:30 Nasal Cannula 2.0 05/09/16 04:00 Nasal Cannula 2.0 05/09/16 03:41 37.5 71 20 122/72 92 Nasal Cannula 2.0 05/09/16 00:01 Nasal Cannula 2.0 05/08/16 23:56 37.8 74 20 126/68 91 Nasal Cannula 2.0 05/08/16 20:00 Nasal Cannula 2.0 05/08/16 19:55 36.8 82 20 149/72 92 Nasal Cannula 3.0 Physical Exam General Appearance: WD/WN, no apparent distress Eyes: sclerae normal Neck: trachea midline Respiratory/Chest: lungs clear Cardiovascular: regular rate, rhythm Abdomen: normal bowel sounds, non tender Extremities: non-tender, normal inspection Neurologic/Psychiatric: alert Laboratory Results Last 24 Hours Test 05/08/16 20:24 05/09/16 06:35 05/09/16 06:52 05/09/16 11:45 Bedside Glucose 134 mg/dl 81 mg/dl 105 mg/dl White Blood Count 4.62 K/uL Red Blood Count 3.47 M/uL Hemoglobin 8.9 g/dL Hematocrit 26.7 % Mean Corpuscular Volume 76.9 fL Mean Corpuscular Hemoglobin 25.6 pg Mean Corpuscular Hemoglobin Concent 33.3 g/dl Platelet Count 176 K/uL Mean Platelet Volume 8.5 fL Neutrophils (%) (Auto) 55.0 % Lymphocytes (%) (Auto) 23.6 % Monocytes (%) (Auto) 18.4 % Eosinophils (%) (Auto) 2.2 % Basophils (%) (Auto) 0.4 % Neutrophils # (Auto) 2.54 K/uL Lymphocytes # (Auto) 1.09 K/uL Monocytes # (Auto) 0.85 K/uL Eosinophils # (Auto) 0.10 K/uL Basophils # (Auto) 0.02 K/uL RDW Standard Deviation 45.0 fL RDW Coefficient of Variation 15.9 % Immature Granulocyte % (Auto) 0.4 % Immature Granulocyte # (Auto) 0.02 K/uL Microcytosis PRESENT Target Cells 1+ Sodium Level 127 mmol/L Potassium Level 4.3 mmol/L Chloride Level 88 mmol/L Carbon Dioxide Level 32 mmol/L Anion Gap 7.0 mmol/L Blood Urea Nitrogen 14 mg/dl Creatinine 1.00 mg/dl Est Creatinine Clear Calc Drug Dose 118.5 ml/min Estimated GFR () 89.9 Estimated GFR (Non- 77.5 BUN/Creatinine Ratio 14.3 Random Glucose 81 mg/dl Calcium Level 8.2 mg/dl Phosphorus Level 4.4 mg/dl Albumin 2.3 gm/dl Thyroid Stimulating Hormone (TSH) 2.810 uIu/ml Test 05/09/16 16:24 Bedside Glucose 163 mg/dl Assessment and Plan (1) Hilar mass Assessment & Plan: further work up is needed to decide etiology will ask palliative to see patient ? of capacity will also ask psychiatric eval for capacity determination in context of mental retardation. (2) Mental retardation (3) CAD (coronary artery disease) (4) Hyponatremia Assessment & Plan: Nephrology input appreciated. 65 y/o male resident of [facility] with a history of CAD, HTN, HLD, DM II, chronic diastolic CHF, urinary retention, schizophrenia, and mental retardation who presented to the ED on 05/07 with shortness of breath. Patient came to ED with chief complaint of fever and was found to have a temperature of 100.8F in the [facility]. He has been afebrile in the ED. The patient had also complained of shortness of breath and was found to have an O2 saturation of 85% on room air. The patient does not wear supplemental oxygen. The patient is now saturating at 98-100% on 2 L nasal cannula and states that his shortness of breath has improved. A CTA was done to rule out PE, which was negative, however , this found a right hilar mass. CXR showed mild congestive failure. Head CT negative for acute disease. Patient is also being treated for UTI and started Bactrim DS on 05/05. Initial labs significant for a BNP of 3127 and a dirty UA. Sodium low at 125. This seems to be around baseline, which is between 125 and 130. 1. Shortness of breath/acute respiratory failure with hypoxia -Admit to telemetry -O2 by protocol symptoms are improving 2. Mild acute exacerbation of chronic diastolic CHF--per hospital records, echo on 02/24/16 shows diastolic dysfunction, preserved ejection fraction of 65%, no wall motion abnormalities, valves not well visualized but no significant abnormalities - -Daily weights -Strict I's & O's -Continue Bumex 2 mg PO qd being adjusted by Dr. Salgado 3. Right hilar mass on CT--mass measures 3.8 x 3.5 cm -Consult thoracic surgery, appreciate recs. Dr. Salgado consulted to help with acute on chronic hyponatremia. 4. UTI--urine culture at [facility] on 05/04 shows multiple organisms, recommends repeat collection. UA in the ED positive for nitrites, leuks and bacteria -Repeat urine culture pending -Blood cultures pending -Continue Bactrim DS PO BID 5. CAD and HTN--stable -Continue aspirin 81 mg PO qd and Imdur 60 mg PO qd 6. Diabetes mellitus type 2--Last hemoglobin A1c checked on 04/13/16 was 5.8 -Hold metformin -Insulin sliding scale -Check BSGs q ac and qhs Schizophrenia -Continue Depakote 500 mg PO qd and 1000 mg PO qhs, Haldol 12 mg PO BID DVT prophylaxis -Enoxaparin 40 mg SC q24h -SANDIP Bustamante Code Status -Level I, FULL RESUSCITATION STATUS
[2016-05-09 20:30] VITALS: O2SAT 90
[2016-05-09] MEDS: ATORVASTATIN 20 MG TAB PO SCH (21:20)
[2016-05-09 23:40] VITALS: BP 126/69; PULSE 73; TEMP 37.4; O2SAT 97
[2016-05-10] VITALS (11 sets, daily range): BP systolic 134–171; BP diastolic 72–75; PULSE 69–83; TEMP 37–37.6; O2SAT 90–97
[2016-05-10 06:54] LABS: BASO % 0.2 %; BASO ABS # 0.01 K/uL (0-0.2); COMPLETE YES; EOS % 2.1 %; IG% 0.7 %; LYMPH % 19.2 %; MEAN CELL VOLUME 77.3 fL (80-100); MEAN CORPUSCULAR HEMOGLOBIN 25.1 pg (25-34); MEAN CORPUSCULAR HGB CONC 32.5 g/dl (32-36); MEAN PLATELET VOLUME 8.8 fL (7.4-10.4); MONO % 13.9 %; NEUT % 63.9 %; PLATELET COUNT 182 K/uL (130-400); RED BLOOD COUNT 3.62 M/uL (4.7-6.1); WHITE BLOOD COUNT 5.74 K/uL (4.8-10.8)
[2016-05-10] MEDS: INSULIN ASPART 100 UNITS/ML 3 ML PEN SC SCH ×4 (07:00→20:56)
[2016-05-10 07:27] LABS: BUN/CREATININE RATIO 13.6 (10-20); CALCIUM 8.3 mg/dl (8.5-10.1); POTASSIUM 4.2 mmol/L (3.5-5.1)
[2016-05-10 07:29] LABS: PHOSPHORUS 3.4 mg/dl (2.5-4.9)
--- NOTE | 2016-05-10 10:34 | Nephrology Progress Note ---
Nephrology Progress Note Date of Service May 10, 2016. Chief Complaint Hyponatremia Subjective No acute events overnight. No complaints this morning. Denies shortness of breath. Appetite good. Voiding urine without difficulty. Review of Systems A complete review of systems was performed. Pertinent positives are noted above. All other systems are negative. Vital Signs Last 8 Hrs Date Time Temp Pulse Resp B/P Pulse Ox O2 Delivery O2 Flow Rate FiO2 05/10/16 08:07 37.0 81 20 134/75 94 Nasal Cannula 2.0 05/10/16 08:00 94 Nasal Cannula 2.0 05/10/16 07:40 94 Nasal Cannula 2.0 05/10/16 04:15 92 Nasal Cannula 2.0 05/10/16 03:58 37.5 75 20 136/72 92 Nasal Cannula 3.0 I & O 24-Hour Column 05/10/16 08:00 Intake Total 660 ml Output Total 3550 ml Balance -2890 ml Last Recorded Weight Weight (Kilograms): 156.500 Physical Exam General Appearance: no apparent distress, + obese Head: normocephalic, atraumatic Eyes: normal inspection, sclerae normal ENT: normal ENT inspection, pharynx normal Neck: supple, no JVD Respiratory/Chest: lungs clear, + decreased breath sounds Cardiovascular: regular rate, rhythm Abdomen/GI: non tender, soft Extremities/Musculoskelatal: normal inspection, + pedal edema Neurologic/Psych: alert, normal mood/affect Social History Smokeless Tobacco Use: No Alcohol Use: none Drug Use: none Marital Status: single Housing Status: other ([facility]) Occupation: disabled, other (incarcerated) Laboratory Results Past 24 Hours 05/10/16 06:34 Red Blood Count 3.62, Mean Corpuscular Volume 77.3, Mean Corpuscular Hemoglobin 25.1, Mean Corpuscular Hemoglobin Concent 32.5, Mean Platelet Volume 8.8, Neutrophils (%) (Auto) 63.9, Lymphocytes (%) (Auto) 19.2, Monocytes (%) (Auto) 13.9, Eosinophils (%) (Auto) 2.1, Basophils (%) (Auto) 0.2, Neutrophils # (Auto ) 3.67, Lymphocytes # (Auto) 1.10, Monocytes # (Auto) 0.80, Eosinophils # (Auto ) 0.12, Basophils # (Auto) 0.01 05/10/16 06:34 Test 05/09/16 11:45 05/09/16 16:24 05/09/16 19:51 05/09/16 23:05 Bedside Glucose 105 mg/dl (70-99) 163 mg/dl (70-99) 151 mg/dl (70-99) Urine Osmolality 460 mOms/kg (500-800) Test 05/10/16 06:34 White Blood Count 5.74 K/uL (4.8-10.8) Red Blood Count 3.62 M/uL (4.7-6.1) Hemoglobin 9.1 g/dL (14.0-18.0) Hematocrit 28.0 % (42-52) Mean Corpuscular Volume 77.3 fL (80-100) Mean Corpuscular Hemoglobin 25.1 pg (25-34) Mean Corpuscular Hemoglobin Concent 32.5 g/dl (32-36) Platelet Count 182 K/uL (130-400) Mean Platelet Volume 8.8 fL (7.4-10.4) Neutrophils (%) (Auto) 63.9 % Lymphocytes (%) (Auto) 19.2 % Monocytes (%) (Auto) 13.9 % Eosinophils (%) (Auto) 2.1 % Basophils (%) (Auto) 0.2 % Neutrophils # (Auto) 3.67 K/uL (1.4-6.5) Lymphocytes # (Auto) 1.10 K/uL (1.2-3.4) Monocytes # (Auto) 0.80 K/uL (0.11-0.59) Eosinophils # (Auto) 0.12 K/uL (0-0.5) Basophils # (Auto) 0.01 K/uL (0-0.2) RDW Standard Deviation 45.5 fL (36.4-46.3) RDW Coefficient of Variation 15.9 % (11.5-14.5) Immature Granulocyte % (Auto) 0.7 % Immature Granulocyte # (Auto) 0.04 K/uL (0.00-0.02) Anion Gap 6.0 mmol/L (3-11) Est Creatinine Clear Calc Drug Dose 117.7 ml/min Estimated GFR () 89.9 Estimated GFR (Non- 77.5 BUN/Creatinine Ratio 13.6 (10-20) Bedside Glucose 90 mg/dl (70-99) Calcium Level 8.3 mg/dl (8.5-10.1) Phosphorus Level 3.4 mg/dl (2.5-4.9) Albumin 2.1 gm/dl (3.4-5.0) Allergies Coded Allergies: No Known Allergies (Unverified , 04/13/16) Medications Current Inpatient Medications Medications (Trade) Dose Ordered Sig/Ismael Route Start Time Stop Time Status Last Admin Dose Admin Ioversol (Optiray 320) 100 ml UD PRN IV 05/07/16 13:00 05/11/16 12:59 Enoxaparin Sodium (Lovenox Inj) 40 mg DAILY@1800 SC 05/07/16 18:00 06/06/16 17:59 05/09/16 16:59 40 MG Acetaminophen (Tylenol Tab) 650 mg Q4H PRN PO 05/07/16 15:15 06/06/16 15:14 05/08/16 09:23 650 MG Al Hydrox/Mg Hydrox/Simethicone (Maalox Max Susp) 15 ml Q4H PRN PO 05/07/16 15:15 06/06/16 15:14 Magnesium Hydroxide (Milk Of Magnesia Susp) 30 ml Q12H PRN PO 05/07/16 15:15 06/06/16 15:14 Ondansetron HCl (Zofran Inj) 4 mg Q6H PRN IV 05/07/16 15:15 06/06/16 15:14 Nitroglycerin (Nitrostat Tab) 0.4 mg UD PRN SL 05/07/16 15:15 06/06/16 15:14 Polyethylene (Miralax Powder Packet) 17 gm DAILY PRN PO 05/07/16 15:15 06/06/16 15:14 Aspirin (Ecotrin Tab) 81 mg DAILY PO 05/08/16 09:00 06/07/16 08:59 05/09/16 08:00 81 MG Atorvastatin Calcium (Lipitor Tab) 20 mg HS PO 05/07/16 21:00 06/06/16 20:59 05/09/16 21:20 20 MG Bumetanide (Bumex Tab) 2 mg DAILY PO 05/08/16 09:00 06/07/16 08:59 05/09/16 08:00 2 MG Divalproex Sodium (Depakote Delay Rel Tab) 500 mg DAILY PO 05/08/16 09:00 06/07/16 08:59 05/09/16 08:00 500 MG Isosorbide Mononitrate (Imdur Ext Rel Tab) 60 mg DAILY PO 05/08/16 09:00 06/07/16 08:59 05/09/16 08:00 60 MG Loperamide HCl (Imodium Cap) 2 mg TID PRN PO 05/07/16 16:00 06/06/16 15:59 Magnesium Oxide (Mag-Ox Tab) 400 mg BID PO 05/07/16 21:00 06/06/16 20:59 05/09/16 21:21 400 MG Metoprolol Tartrate (Lopressor Tab) 100 mg BID PO 05/07/16 21:00 06/06/16 20:59 05/09/16 21:20 100 MG Triamcinolone Acetonide (Kenalog 0.5% Crm) 1 appln BID PRN EXT 05/07/16 15:30 06/06/16 15:29 Ferrous Sulfate (Feosol Tab) 325 mg BID PO 05/07/16 21:00 06/06/16 20:59 05/09/16 21:20 325 MG Haloperidol (Haldol Tab) 2 mg BID PO 05/07/16 21:00 06/06/16 20:59 05/09/16 21:21 2 MG Haloperidol (Haldol Tab) 10 mg BID PO 05/07/16 21:00 06/06/16 20:59 05/09/16 21:20 10 MG Miscellaneous Information (Order Awaiting Action) 1 ea QS N/A 05/07/16 16:00 06/06/16 15:59 Potassium Chloride (Klor-Con M10) 10 meq DAILY PO 05/08/16 09:00 06/07/16 08:59 05/09/16 08:00 10 MEQ Ranitidine HCl (zANTac TAB) 300 mg BID PO 05/07/16 21:00 06/06/16 20:59 05/09/16 21:20 300 MG Miscellaneous Information (Order Awaiting Action) 1 ea QS N/A 05/07/16 16:00 06/06/16 15:59 Divalproex Sodium (Depakote Delay Rel Tab) 1,000 mg HS PO 05/07/16 21:00 06/06/16 20:59 05/09/16 21:21 1,000 MG Insulin Aspart (novoLOG ASPART) SLIDING SCALE If C... ACHS SC 05/07/16 16:00 06/06/16 15:59 Glucose (Glucose 40% Gel) 15-30 GRAMS 15 GRAMS... UD PRN PO 05/07/16 15:30 06/06/16 15:29 Glucose (Glucose Chew Tab) 4-8 Tablets 4 Tabl... UD PRN PO 05/07/16 15:30 06/06/16 15:29 Dextrose (Dextrose 50% 50ML Syringe) 25-50ML OF 50% DW IV FOR... UD PRN IV 05/07/16 15:30 06/06/16 15:29 Glucagon (Glucagon Inj) 1 mg UD PRN SQ 05/07/16 15:30 06/06/16 15:29 Ciprofloxacin (Cipro Tab) 500 mg BID PO 05/09/16 11:00 05/19/16 10:59 05/09/16 21:19 500 MG Impression (1) Hyponatremia (2) Acute on chronic diastolic (congestive) heart failure (3) Acute respiratory failure with hypoxia (4) HTN (hypertension) Mr. Domenic Stover is a 65-year-old male with morbid obesity, documented mental retardation, schizophrenia, coronary artery disease, hypertension, hyperlipidemia, diabetes mellitus II, chronic diastolic CHF. He presented to [facility] on 05/07/16 from [facility] with shortness of breath. Review of systems notable for fevers and chills within 24 hours of admission. He has a history of urinary retention and incontinence. A Man catheter had recently been placed after he was diagnosed with a UTI last week and started on Bactrim. Mr. Stover is a very poor historian. CXR and CT of the chest were evidence of hypervolemia and at least mild congestive failure; no specific infiltrates; bilateral hilar adenopathy concerning. CT surgery suggested endobronchial US once medically stable. Acute on chronic hyponatremia in the setting of hypervolemia. TSH 2.8. Restrict daily fluid intake to <1.5 L. Chronic hyponatremia may be associated with SIADH but this is unclear at this time. Recommendations -- Restrict daily fluid intake <1.5 L -- Bumex 2 mg daily -- Repeat metabolic profile tomorrow AM -- Potassium chloride 10 mEq daily -- Outpatient follow up with nephrology within 2 weeks of discharge
[2016-05-10] MEDS: BUMETANIDE 1 MG TAB PO SCH (10:38)
[2016-05-10] MEDS: CIPROFLOXACIN 500 MG TAB PO SCH ×2 (10:39→20:45)
[2016-05-10] MEDS: DIVALPROEX SODIUM 500 MG DELAY RELEASE TAB PO SCH ×2 (10:39→20:48)
[2016-05-10] MEDS: ASPIRIN 81 MG ECTAB PO SCH (10:40)
[2016-05-10] MEDS: FERROUS SULFATE 325 MG TAB PO SCH ×2 (10:41→20:51)
[2016-05-10] MEDS: ISOSORBIDE MONONITRATE 60 MG TABCR PO SCH (10:42)
[2016-05-10] MEDS: HALOPERIDOL 5 MG TAB PO SCH ×2 (10:42→20:49)
[2016-05-10] MEDS: POTASSIUM CHLORIDE 10 MEQ TABCR PO SCH (10:43)
[2016-05-10] MEDS: METOPROLOL TARTRATE 100 MG TAB PO SCH ×2 (10:44→20:50)
[2016-05-10] MEDS: MAGNESIUM OXIDE 400 MG TAB PO SCH ×2 (10:45→20:52)
[2016-05-10] MEDS: RANITIDINE HCL 150 MG TAB PO SCH ×2 (10:46→20:46)
[2016-05-10] MEDS: HALOPERIDOL 1 MG TAB PO SCH ×2 (10:46→20:51)
--- NOTE | 2016-05-10 12:05 | SURGERY PROGRESS NOTE ---
DATE: 05/10/2016 SUBJECTIVE: Mr. Stover was seen today. Mr. Stover has some obvious mental deficiencies and is schizophrenic. When I discussed that he had a mass in his chest and we were concerned that he may possibly have a malignancy, he stated quite frankly there was no need for a biopsy because he did not have any cancer. The patient is apparently going to be evaluated by psychiatry to see whether or not he is equipped to make his own decisions. I think this patient needs an endobronchial ultrasound with biopsies under general anesthesia.
--- NOTE | 2016-05-10 13:53 | Psychiatric Consultation ---
Psychiatric Consultation Date of Service: May 10, 2016. Consultation requested to evaluate patient's capacity to make medical decision as he is refusing the diagnostic testing recommended to workup a mass in his chest. At the time I see the patient he is able to give me vague information about the recommended procedure, that "they want to put something in my chest", and he does not want this. He says that he does not have cancer and knows that because a psychiatrist told him (none have seen him here.). He previously said he does not have a psychiatrist and becomes agitated that I am from psychiatry. he says that he "doesn't want anyone messing with my heart and soul" and will not be quiet long enough to clarify the procedure or its purpose. When asked what would happen if he doesn't have the test he says "I could , but I'm not gonna because I don't have cancer.". He denies auditory or visual hallucinations. he denies suicidality saying "I love myself". I have spoken with an senior storage administrator from [facility] who says that they are moving forward with guardianship and in the process of working with the patient' s appointed curriculum director. The patient has no family, and has had no one involved with him for years. They cannot immediately find an IQ but do have him listed as having Intellectual Disabilities. The senior storage administrator says that he would accept the patient back to the medical unit at [facility] for care until the guardianship process has been completed. An email from the senior storage administrator to Emma Gamez containing this information was sent this AM (not in chart). Assessment: The patient is not able to manipulate information in a reality based way, and subsequent to that, cannot appreciate the meaning of decisions relative to the recommendations. I agree that someone should be appointed guardian in view of long standing schizophrenia and intellectual disabilities, and the [facility] system and begun that process. Recommendation has been reviewed with Dr. June Dillard who is in agreement.
[2016-05-10] MEDS: ENOXAPARIN 40 MG/0.4 ML SYR SC SCH (16:27)
--- NOTE | 2016-05-10 18:17 | Hospitalist Progress Note ---
Hospitalist Progress Note Date of Service May 10, 2016. Subjective Pt evaluation today including: conversation w/ patient, chart review, conversation w/ resourcing consultant Patient insists that he does not have cancer, and he does not need psychiatry to manage his medications. He is expresses his right to refuse any treatment and states he does not want any procedures. Objective Vital Signs Date Time Temp Pulse Resp B/P Pulse Ox O2 Delivery O2 Flow Rate FiO2 05/10/16 15:55 37.1 69 17 162/75 91 Nasal Cannula 2.0 05/10/16 15:45 Nasal Cannula 2.0 05/10/16 12:00 Nasal Cannula 2.0 05/10/16 11:00 37.0 79 20 148/74 95 Nasal Cannula 2.0 05/10/16 10:42 37.0 79 20 148/74 91 Room Air 05/10/16 08:07 37.0 81 20 134/75 94 Nasal Cannula 2.0 05/10/16 08:00 94 Nasal Cannula 2.0 05/10/16 07:40 94 Nasal Cannula 2.0 05/10/16 04:15 92 Nasal Cannula 2.0 05/10/16 03:58 37.5 75 20 136/72 92 Nasal Cannula 3.0 05/10/16 00:10 97 Nasal Cannula 2.0 05/09/16 23:40 37.4 73 20 126/69 97 Nasal Cannula 2.0 05/09/16 20:30 90 Room Air 05/09/16 19:11 37.6 93 24 164/61 92 Nasal Cannula 2.0 Physical Exam General Appearance: no apparent distress Eyes: sclerae normal Neck: supple Respiratory/Chest: lungs clear Cardiovascular: regular rate, rhythm Abdomen: normal bowel sounds Extremities: normal range of motion Laboratory Results Last 24 Hours Test 05/09/16 19:51 05/09/16 23:05 05/10/16 06:34 05/10/16 10:45 Bedside Glucose 151 mg/dl 90 mg/dl 132 mg/dl Urine Osmolality 460 mOms/kg White Blood Count 5.74 K/uL Red Blood Count 3.62 M/uL Hemoglobin 9.1 g/dL Hematocrit 28.0 % Mean Corpuscular Volume 77.3 fL Mean Corpuscular Hemoglobin 25.1 pg Mean Corpuscular Hemoglobin Concent 32.5 g/dl Platelet Count 182 K/uL Mean Platelet Volume 8.8 fL Neutrophils (%) (Auto) 63.9 % Lymphocytes (%) (Auto) 19.2 % Monocytes (%) (Auto) 13.9 % Eosinophils (%) (Auto) 2.1 % Basophils (%) (Auto) 0.2 % Neutrophils # (Auto) 3.67 K/uL Lymphocytes # (Auto) 1.10 K/uL Monocytes # (Auto) 0.80 K/uL Eosinophils # (Auto) 0.12 K/uL Basophils # (Auto) 0.01 K/uL RDW Standard Deviation 45.5 fL RDW Coefficient of Variation 15.9 % Immature Granulocyte % (Auto) 0.7 % Immature Granulocyte # (Auto) 0.04 K/uL Sodium Level 130 mmol/L Potassium Level 4.2 mmol/L Chloride Level 92 mmol/L Carbon Dioxide Level 32 mmol/L Anion Gap 6.0 mmol/L Blood Urea Nitrogen 14 mg/dl Creatinine 1.00 mg/dl Est Creatinine Clear Calc Drug Dose 117.7 ml/min Estimated GFR () 89.9 Estimated GFR (Non- 77.5 BUN/Creatinine Ratio 13.6 Random Glucose 86 mg/dl Calcium Level 8.3 mg/dl Phosphorus Level 3.4 mg/dl Albumin 2.1 gm/dl Diagnostic Results CHEST CTA for PULMONARY ARTERIES CT DOSE: 740.29 mGy.cm HISTORY: Chest pain dyspnea TECHNIQUE: Multiaxial CT images of the chest were performed following the intravenous administration of contrast to evaluate the pulmonary arteries. Maximal intensity projection images were also obtained. COMPARISON STUDY: None. FINDINGS: Limited study technically due to patient motion and inability to suspend respiration. Mild atelectatic change thoracic aorta. There is a right hilar/infrahilar mass/chely complex. This measures 3.8 x 3.5 cm. Is a 1.9 cm subcarinal node. This chely complex narrows the airway immediately distal to the right mainstem bronchus. Mild basilar interstitial changes are present. No evidence well-defined focal infiltrate. No evidence for significant pulmonary embolus. IMPRESSION: 1. No evidence for pulmonary embolus.. 2. Right hilar mass/chely complex measuring 3.8 x 3.5 cm. This creates narrowing of the bronchi in a right hilar distribution although no significant post obstructive changes identified currently. 3. Neoplastic process must be considered with bronchoscopy recommended. 4. Mild nonspecific interstitial change throughout both hemithoraces. 5. Poor study technically due to patient respiratory and somatic motion. Electronically signed by: Ish Huertas M.D. 05/07/2016 1:18 PM Dictated Date/Time: 05/07/2016 1:09 PM Assessment and Plan (1) Hilar mass Assessment & Plan: The patient does not have the capacity to make his own decisions, psychiatry input appreciated. His clinical picture of hilar mass in a former smoker is consistent with malignancy. I have discussed the case with the long-term administration, and urged for a quick guardianship process. I belief he is a poor candidate for aggressive therapy. Even though he lacks the capacity to understand and make his own choices medically, he has consistently expressed no desire in any treatment. A biopsy is only the beginning of a long process, or further medical interventions. I probably will not be his physician when he has a guardian, however I have expressed that my position on further intervention is in line with the patient's current expressed preference to not undergo any diagnostic work up. This brings up the next point of interest which is would he be a candidate for early release secodary to his terminal illness? Without a biopsy and a prognosis of less than a year this may be difficult. If the work up does not proceed, I would recommend consideration of a repeat CT in 3 months to document growth of the tumor, if that would be sufficient evidence to make him a candidate for early release based upon his terminal condition and limited life expectancy in the context of no agreement for treatment. (2) Mental retardation Assessment & Plan: Stable will obtain Guardianship (3) CAD (coronary artery disease) (4) Hyponatremia Assessment & Plan: responding to tx 65 y/o male resident of [facility] with a history of CAD, HTN, HLD, DM II, chronic diastolic CHF, urinary retention, schizophrenia, and mental retardation who presented to the ED on 05/07 with shortness of breath. Patient came to ED with chief complaint of fever and was found to have a temperature of 100.8F in the [facility]. He has been afebrile in the ED. The patient had also complained of shortness of breath and was found to have an O2 saturation of 85% on room air. The patient does not wear supplemental oxygen. The patient is now saturating at 98-100% on 2 L nasal cannula and states that his shortness of breath has improved. A CTA was done to rule out PE, which was negative, however , this found a right hilar mass. CXR showed mild congestive failure. Head CT negative for acute disease. Patient is also being treated for UTI and started Bactrim DS on 05/05. Initial labs significant for a BNP of 3127 and a dirty UA. Sodium low at 125. This seems to be around baseline, which is between 125 and 130. 1. Shortness of breath/acute respiratory failure with hypoxia -Admit to telemetry -O2 by protocol symptoms are improving 2. Mild acute exacerbation of chronic diastolic CHF--per hospital records, echo on 02/24/16 shows diastolic dysfunction, preserved ejection fraction of 65%, no wall motion abnormalities, valves not well visualized but no significant abnormalities - -Daily weights -Strict I's & O's -Continue Bumex 2 mg PO qd being adjusted by Dr. Salgado 3. Right hilar mass on CT--mass measures 3.8 x 3.5 cm -Consult thoracic surgery, appreciate recs. Dr. Salgado consulted to help with acute on chronic hyponatremia. 4. UTI--urine culture at [facility] on 05/04 shows multiple organisms, recommends repeat collection. UA in the ED positive for nitrites, leuks and bacteria -Repeat urine culture pending -Blood cultures pending -Continue Bactrim DS PO BID 5. CAD and HTN--stable -Continue aspirin 81 mg PO qd and Imdur 60 mg PO qd 6. Diabetes mellitus type 2--Last hemoglobin A1c checked on 04/13/16 was 5.8 -Hold metformin -Insulin sliding scale -Check BSGs q ac and qhs Schizophrenia -Continue Depakote 500 mg PO qd and 1000 mg PO qhs, Haldol 12 mg PO BID DVT prophylaxis -Enoxaparin 40 mg SC q24h -SANDIP Bustamante Code Status -Level I, FULL RESUSCITATION STATUS
[2016-05-10] MEDS: ATORVASTATIN 20 MG TAB PO SCH (20:53)
[2016-05-11] VITALS (8 sets, daily range): BP systolic 119–154; BP diastolic 72–87; PULSE 69–78; TEMP 36.9–37.1; O2SAT 91–99
[2016-05-11] MEDS: INSULIN ASPART 100 UNITS/ML 3 ML PEN SC SCH ×4 (07:00→20:00)
[2016-05-11 07:13] LABS: BUN/CREATININE RATIO 16.5 (10-20); CALCIUM 8.7 mg/dl (8.5-10.1); CREATININE 0.92 mg/dl (0.60-1.40); PHOSPHORUS 3.7 mg/dl (2.5-4.9); POTASSIUM 4.4 mmol/L (3.5-5.1)
[2016-05-11] MEDS: MAGNESIUM OXIDE 400 MG TAB PO SCH ×2 (08:00→20:07)
[2016-05-11] MEDS: BUMETANIDE 1 MG TAB PO SCH (08:00)
[2016-05-11] MEDS: POTASSIUM CHLORIDE 10 MEQ TABCR PO SCH (08:00)
[2016-05-11] MEDS: HALOPERIDOL 5 MG TAB PO SCH ×2 (08:01→20:05)
[2016-05-11] MEDS: CIPROFLOXACIN 500 MG TAB PO SCH ×2 (08:01→20:06)
[2016-05-11] MEDS: FERROUS SULFATE 325 MG TAB PO SCH ×2 (08:01→20:06)
[2016-05-11] MEDS: RANITIDINE HCL 150 MG TAB PO SCH ×2 (08:01→20:05)
[2016-05-11] MEDS: METOPROLOL TARTRATE 100 MG TAB PO SCH ×2 (08:01→20:04)
[2016-05-11] MEDS: HALOPERIDOL 1 MG TAB PO SCH ×2 (08:01→20:06)
[2016-05-11] MEDS: ISOSORBIDE MONONITRATE 60 MG TABCR PO SCH (08:01)
[2016-05-11] MEDS: DIVALPROEX SODIUM 500 MG DELAY RELEASE TAB PO SCH ×2 (08:02→20:07)
[2016-05-11] MEDS: ASPIRIN 81 MG ECTAB PO SCH (08:02)
--- NOTE | 2016-05-11 09:46 | Nephrology Progress Note ---
Nephrology Progress Note Date of Service May 11, 2016. Chief Complaint Hyponatremia Subjective No acute events overnight. No complaints this morning. Sleeping comfortably. Denies shortness of breath. No fevers or chills. Appetite good. Fluid intake reported ~1 L/d Review of Systems A complete review of systems was performed. Pertinent positives are noted above. All other systems are negative. Vital Signs Last 8 Hrs Date Time Temp Pulse Resp B/P Pulse Ox O2 Delivery O2 Flow Rate FiO2 05/11/16 08:00 37.1 78 20 133/75 99 Room Air 05/11/16 04:13 36.9 76 20 150/76 96 Nasal Cannula 2.0 05/11/16 04:00 Nasal Cannula 2.0 I & O 24-Hour Column 05/11/16 07:59 Intake Total 980 ml Output Total 2950 ml Balance -1970 ml Last Recorded Weight Weight (Kilograms): 160.900 Physical Exam General Appearance: no apparent distress, + obese Head: normocephalic, atraumatic Eyes: normal inspection, sclerae normal ENT: normal ENT inspection, pharynx normal Neck: supple, no JVD Respiratory/Chest: lungs clear, + decreased breath sounds Cardiovascular: regular rate, rhythm, no gallop Abdomen/GI: non tender, soft Extremities/Musculoskelatal: normal inspection, + pedal edema Neurologic/Psych: alert, normal mood/affect Social History Smokeless Tobacco Use: No Alcohol Use: none Drug Use: none Marital Status: single Housing Status: other ([facility]) Occupation: disabled, other (incarcerated) Laboratory Results Past 24 Hours 05/11/16 06:28 Test 05/10/16 10:45 05/10/16 20:25 05/11/16 06:28 05/11/16 06:33 Bedside Glucose 132 mg/dl (70-99) 138 mg/dl (70-99) 98 mg/dl (70-99) Anion Gap 7.0 mmol/L (3-11) Est Creatinine Clear Calc Drug Dose 129.9 ml/min Estimated GFR () 99.4 Estimated GFR (Non- 85.8 BUN/Creatinine Ratio 16.5 (10-20) Calcium Level 8.7 mg/dl (8.5-10.1) Phosphorus Level 3.7 mg/dl (2.5-4.9) Albumin 2.2 gm/dl (3.4-5.0) Allergies Coded Allergies: No Known Allergies (Unverified , 04/13/16) Medications Current Inpatient Medications Medications (Trade) Dose Ordered Sig/Ismael Route Start Time Stop Time Status Last Admin Dose Admin Ioversol (Optiray 320) 100 ml UD PRN IV 05/07/16 13:00 05/11/16 12:59 Enoxaparin Sodium (Lovenox Inj) 40 mg DAILY@1800 SC 05/07/16 18:00 06/06/16 17:59 05/10/16 16:27 40 MG Acetaminophen (Tylenol Tab) 650 mg Q4H PRN PO 05/07/16 15:15 06/06/16 15:14 05/08/16 09:23 650 MG Al Hydrox/Mg Hydrox/Simethicone (Maalox Max Susp) 15 ml Q4H PRN PO 05/07/16 15:15 06/06/16 15:14 Magnesium Hydroxide (Milk Of Magnesia Susp) 30 ml Q12H PRN PO 05/07/16 15:15 06/06/16 15:14 Ondansetron HCl (Zofran Inj) 4 mg Q6H PRN IV 05/07/16 15:15 06/06/16 15:14 Nitroglycerin (Nitrostat Tab) 0.4 mg UD PRN SL 05/07/16 15:15 06/06/16 15:14 Polyethylene (Miralax Powder Packet) 17 gm DAILY PRN PO 05/07/16 15:15 06/06/16 15:14 Aspirin (Ecotrin Tab) 81 mg DAILY PO 05/08/16 09:00 06/07/16 08:59 05/11/16 08:02 81 MG Atorvastatin Calcium (Lipitor Tab) 20 mg HS PO 05/07/16 21:00 06/06/16 20:59 05/10/16 20:53 20 MG Bumetanide (Bumex Tab) 2 mg DAILY PO 05/08/16 09:00 06/07/16 08:59 05/11/16 08:00 2 MG Divalproex Sodium (Depakote Delay Rel Tab) 500 mg DAILY PO 05/08/16 09:00 06/07/16 08:59 05/11/16 08:02 500 MG Isosorbide Mononitrate (Imdur Ext Rel Tab) 60 mg DAILY PO 05/08/16 09:00 06/07/16 08:59 05/11/16 08:01 60 MG Loperamide HCl (Imodium Cap) 2 mg TID PRN PO 05/07/16 16:00 06/06/16 15:59 Magnesium Oxide (Mag-Ox Tab) 400 mg BID PO 05/07/16 21:00 06/06/16 20:59 05/11/16 08:00 400 MG Metoprolol Tartrate (Lopressor Tab) 100 mg BID PO 05/07/16 21:00 06/06/16 20:59 05/11/16 08:01 100 MG Triamcinolone Acetonide (Kenalog 0.5% Crm) 1 appln BID PRN EXT 05/07/16 15:30 06/06/16 15:29 Ferrous Sulfate (Feosol Tab) 325 mg BID PO 05/07/16 21:00 06/06/16 20:59 05/11/16 08:01 325 MG Haloperidol (Haldol Tab) 2 mg BID PO 05/07/16 21:00 06/06/16 20:59 05/11/16 08:01 2 MG Haloperidol (Haldol Tab) 10 mg BID PO 05/07/16 21:00 06/06/16 20:59 05/11/16 08:01 10 MG Miscellaneous Information (Order Awaiting Action) 1 ea QS N/A 05/07/16 16:00 06/06/16 15:59 Potassium Chloride (Klor-Con M10) 10 meq DAILY PO 05/08/16 09:00 06/07/16 08:59 05/11/16 08:00 10 MEQ Ranitidine HCl (zANTac TAB) 300 mg BID PO 05/07/16 21:00 06/06/16 20:59 05/11/16 08:01 300 MG Miscellaneous Information (Order Awaiting Action) 1 ea QS N/A 05/07/16 16:00 06/06/16 15:59 Divalproex Sodium (Depakote Delay Rel Tab) 1,000 mg HS PO 05/07/16 21:00 06/06/16 20:59 05/10/16 20:48 1,000 MG Insulin Aspart (novoLOG ASPART) SLIDING SCALE If C... ACHS SC 05/07/16 16:00 06/06/16 15:59 Glucose (Glucose 40% Gel) 15-30 GRAMS 15 GRAMS... UD PRN PO 05/07/16 15:30 06/06/16 15:29 Glucose (Glucose Chew Tab) 4-8 Tablets 4 Tabl... UD PRN PO 05/07/16 15:30 06/06/16 15:29 Dextrose (Dextrose 50% 50ML Syringe) 25-50ML OF 50% DW IV FOR... UD PRN IV 05/07/16 15:30 06/06/16 15:29 Glucagon (Glucagon Inj) 1 mg UD PRN SQ 05/07/16 15:30 06/06/16 15:29 Ciprofloxacin (Cipro Tab) 500 mg BID PO 05/09/16 11:00 05/19/16 10:59 05/11/16 08:01 500 MG Impression (1) Hyponatremia (2) Acute on chronic diastolic (congestive) heart failure (3) Acute respiratory failure with hypoxia (4) HTN (hypertension) Mr. Domenic Stover is a 65-year-old male with morbid obesity, documented mental retardation, schizophrenia, coronary artery disease, hypertension, hyperlipidemia, diabetes mellitus II, chronic diastolic CHF. He presented to [facility] on 05/07/16 from [facility] with shortness of breath. Review of systems notable for fevers and chills within 24 hours of admission. He has a history of urinary retention and incontinence. A Man catheter had recently been placed after he was diagnosed with a UTI last week and started on Bactrim. Mr. Stover is a very poor historian. CXR and CT of the chest were evidence of hypervolemia and at least mild congestive failure; no specific infiltrates; bilateral hilar adenopathy concerning. CT surgery suggested endobronchial US once medically stable. Acute on chronic hyponatremia in the setting of hypervolemia. TSH 2.8. Restrict daily fluid intake to <1 L. Chronic hyponatremia may be associated with SIADH but this is unclear at this time. Certainly SIADH may be associated with underlying lung disease. Cannot exclude reset osmostat at this time either. Recommendations -- Restrict daily fluid intake <1 L -- Bumex 2 mg daily -- Repeat metabolic profile tomorrow AM -- Potassium chloride 10 mEq daily -- Outpatient follow up with nephrology within 2 weeks of discharge
--- NOTE | 2016-05-11 10:39 | SURGERY PROGRESS NOTE ---
DATE: 05/11/2016 SUBJECTIVE: Mr. Stover was evaluated by the psychiatrist yesterday. Unfortunately, no one has a power of trust and estates attorney and he is unable to grasp the importance of this and repeatedly states that he does not have cancer. At this point, we will hold off offering him anything. At present, they are starting to work on getting a power of trust and estates attorney at the [facility] where someone can sign for his consents. ELAINE
[2016-05-11] MEDS ORDERED: CPR500 PO (11:33)
--- NOTE | 2016-05-11 16:05 | Discharge Instructions ---
Discharge Instructions Date of Service May 11, 2016. Admission Reason for Admission: Hilar Mass,Sob Discharge Discharge Diagnosis / Problem: Hilar mass Discharge Goals Goal(s): Improve function Activity Recommendations Activity Limitations: per Instructions/Follow-up section . Instructions / Follow-Up Instructions / Follow-Up to go to [facility] and obtain Guardianship to figure out next step in tx Current Hospital Diet Patient's current hospital diet: Diabetes Type 2 Diet Discharge Diet Recommended Diet: Diabetes Type 2 Diet Fluid Restriction: 1000 ml (4 cups) Pending Studies Studies pending at discharge: no Laboratory Results Hemoglobin A1c Test 04/13/16 15:00 Range/Units Estimated Average Glucose 120 mg/dl Hemoglobin A1c 5.8 H 4.5-5.6 % Medical Emergencies . Who to Call and When: Medical Emergencies: If at any time you feel your situation is an emergency, please call 911 immediately. . Non-Emergent Contact Non-Emergency issues call your: Primary Care Provider . Past History Medical & Surgical History: (1) Hilar mass (2) Mental retardation (3) HTN (hypertension) (4) Diabetes (5) CAD (coronary artery disease) . "Provider Documentation" section prepared by Davey Catalan. VTE Core Measure Inpt VTE Proph given/why not?: Enoxaparin (Lovenox)TAE, TJesusERoxy Arteaga, SCD's
[2016-05-11] MEDS: ENOXAPARIN 40 MG/0.4 ML SYR SC SCH (18:37)
[2016-05-11] MEDS: ATORVASTATIN 20 MG TAB PO SCH (20:04)
[2016-05-18] MEDS ORDERED: FLM4 PO (10:46)
[2016-05-18] MEDS ORDERED: AMPI500C9 PO (10:46)
[2016-05-18] MEDS ORDERED: LCTXP OR (10:46)
[2016-05-18] MEDS ORDERED: PRED10TA PO (10:46)
[2016-05-18] MEDS ORDERED: COLC0.6T54 PO (10:46)
--- NOTE | 2016-05-21 13:57 | DISCHARGE SUMMARY ---
Please see dictated H\T\P for full details of his admission. The patient is a 65-year-old with history of coronary artery disease, hypertension, hyperlipidemia, diabetes, chronic diastolic congestive heart failure, urinary retention, schizophrenia, mental retardation, who presented complaining of shortness of breath. He is a prisoner and had been diagnosed with a urinary tract infection 1 week prior to admission, was started on Bactrim. He complained of shortness of breath, which he thought was suffocating him. He was found to have O2 saturation of 85% on room air. Typically did not wear supplemental oxygen and CTA was performed, which showed no evidence of a pulmonary embolism. There was a right hilar mass, notable complex measuring 3.8 x 3.5 cm. It creates narrowing of the bronchi in the right hilar distribution although no significant postobstructive changes were identified. Bronchoscopy was recommended to be considered. The patient was brought in and started off on for treatment for his respiratory failure with hypoxemia. He was admitted to telemetry, he received oxygen per protocol. He received some diuresis with Lasix and Bumex was continued. CT surgery was consulted and Dr. Gomez saw the patient. He recommended consideration of endobronchial ultrasound with biopsies. Unfortunately, the patient has mental retardation and schizophrenia and was deemed by psychiatry, unable to make his own decisions. Guardianship therefore is being pursued by the snf. Of note, the patient, even though he has no understanding of his medical illness, his preference would be not to proceed with any treatments for possible cancer. He does not believe that he has cancer. Once the patient does have guardianship, decision is to whether to proceed with biopsy for presumed malignancy, will be obtained with his guardian. Since the patient is not agreeable to proceed with a biopsy or consideration of cancer, even if we were to proceed with this procedure, it is questionable whether the patient would even agree to aggressive treatment of malignancy, if this were the diagnosis. Consideration for palliation and symptom management is definitely an appropriate option for this patient, based upon his difficulty to ever comprehend the nature of his disease and agree to therapies that would be directed towards malignancy if this is his diagnosis. The patient was discovered to have Klebsiella pneumoniae in his urine and pseudomonas. The pseudomonas was pansensitive and the Klebsiella was resistant only to Bactrim. The patient will be sent back to the facility on ciprofloxacin while awaiting the sn[facility] to obtain guardianship. [facility] to the [facility]. Time spent in review of the chart, discussion with the patient was 35 minutes.
== END 2016-05-11 21:52 | DRG 189 ==
LOC: ENRESERVDT → ENRESERVTM → EDBD 10:24 → C.EDC 10:26 → C.2T 15:18
PROVIDERS: ADMIT Hospitalist; ATTEND Hospitalist
DX: J96.01 Acute respiratory failure with hypoxia (principal); I50.33 Acute on chronic diastolic (congestive) heart failure; N39.0 Urinary tract infection, site not specified; E87.1 Hypo-osmolality and hyponatremia; Z68.41 Body mass index [BMI] 40.0-44.9, adult; I11.0 Hypertensive heart disease with heart failure; Z66 Do not resuscitate; I25.10 Atherosclerotic heart disease of native coronary artery without angina pectoris; E78.5 Hyperlipidemia, unspecified; F20.9 Schizophrenia, unspecified; F79 Unspecified intellectual disabilities; R91.8 Other nonspecific abnormal finding of lung field; E11.9 Type 2 diabetes mellitus without complications; Z87.891 Personal history of nicotine dependence; Z79.82 Long term (current) use of aspirin; E66.01 Morbid (severe) obesity due to excess calories; J18.9 Pneumonia, unspecified organism; G93.41 Metabolic encephalopathy; E87.2 Acidosis; M62.82 Rhabdomyolysis; K21.9 Gastro-esophageal reflux disease without esophagitis; E78.00 Pure hypercholesterolemia, unspecified; M10.9 Gout, unspecified; B95.2 Enterococcus as the cause of diseases classified elsewhere; Z79.84 Long term (current) use of oral hypoglycemic drugs; Z79.899 Other long term (current) drug therapy; R65.11 Systemic inflammatory response syndrome (SIRS) of non-infectious origin with acute organ dysfunction; R50.9 Fever, unspecified; D50.9 Iron deficiency anemia, unspecified; R33.9 Retention of urine, unspecified

== ENCOUNTER 2016-05-14 19:41 | Inpatient (IN) | payer OTHER ==
[~2016-05-14] VITALS: Ht 195.6 cm; Wt 175.0 kg
[~2016-05-14 19:41] MED LIST changes: -ACET-1256 PO; +ASPI81TA28 PO; +CPR500 PO; +DIMECRE TOP; +DIVA500T5 PO; +FERR1TAB39 PO; +IMD2X PO; +LPR100 PO; -METO100T14 PO; +TRMCR515 TOP; +ZINC1CRE3 TOP
[2016-05-14] MEDS ORDERED: VANCOMYCIN 1GM/270ML NSS IV STA (20:05)
[2016-05-14] MEDS ORDERED: LEVAQUIN 750MG / 150ML D5W IV STA (20:05)
[2016-05-14] MEDS ORDERED: KETOROLAC TROMETHAMINE 30 MG/ML VIAL IV STA (20:05)
[2016-05-14] MEDS ORDERED: SODIUM CHLORIDE 0.9% 1000ML 1,000 ML IV ONE (20:05)
[2016-05-14] MEDS ORDERED: PIPERACILLIN/TAZOBACTAM 4.5 GM/100ML D5W IV STA (20:05)
--- NOTE | 2016-05-14 20:08 | EMERGENCY ROOM VISIT NOTE ---
History Report prepared by Zabrina: Xiao Mccoy Under the Supervision of: Dr. Gwyn Franco M.D. First contact with patient: 19:51 Stated Complaint: FEVER, CONFUSION, AMS History of Present Illness The patient is a 65 year old male who presents to the Emergency Room with complaints of persistent confusion that began prior to arrival. Per nursing staff the patient arrives via ALS from [facility]. They note that the patient was evaluated in the hospital last week and was diagnosed with a Hiler mass. Nursing staff states that the patient has had a Fever that has been measured up to 105 degrees Fahrenheit. They state that the patient was treated with Tylenol and his fever went down to 101 degrees Fahrenheit. Nursing staff states that the patient's blood glucose was 102 mg/dL upon arrival. They report that the patient received 250 cc NS bolus prior to arrival. The patient denies any abdominal pain. Records report that the patient is currently on Cipro for a UTI. Records note that the patient has a history of COPD, hypertension, diabetes, and schizophrenia. Source of History: patient, nursing staff, other (records) Onset: prior to arrival Position: other (global) Quality: other (confusion) Timing: other (persistent) Associated Symptoms: + fevers Review of Systems See HPI for pertinent positives & negatives. A total of 10 systems reviewed and were otherwise negative. Past Medical & Surgical Medical Problems: (1) Acute on chronic diastolic (congestive) heart failure (2) Acute respiratory failure with hypoxia (3) CAD (coronary artery disease) (4) Diabetes (5) Hilar mass (6) HTN (hypertension) (7) Hyperkalemia (8) Hyperlipemia (9) Hyponatremia (10) Mental retardation (11) Schizophrenia (12) Shortness of breath Family History No pertinent family history stated. Social History Smoking Status: Former Smoker Alcohol Use: none Drug Use: none Marital Status: single Housing Status: other Occupation Status: disabled, other Current/Historical Medications Scheduled Ampicillin (Ampicillin), 1 CAP PO QID Aspirin (Aspirin Ec), 81 MG PO DAILY Atorvastatin (Lipitor), 20 MG PO HS Bumetanide (Bumex), 2 MG PO DAILY Colchicine (Colchicine), 0.6 MG PO DAILY Divalproex Sodium (Depakote), 1,000 TAB PO HS Divalproex Sodium (Depakote Delay Rel), 500 MG PO DAILY Ferrous Sulfate Dried (Feosol), 200 MG PO BID Haloperidol (Haldol), 10 MG PO BID Haloperidol (Haloperidol), 2 MG PO BID Isosorbide Mononitrate (Isosorbide Mononitrate ER), 60 MG PO DAILY Ketoconazole (Topical) (Extina), 1 DOSE TOP BID Lactobacillus Acidophilus (Lactinex Granules), 1 PKT OR TID Magnesium Oxide (Mag-Ox), 400 MG PO BID Metformin Hcl (Glucophage), 850 MG PO TID Metoprolol Tartrate (Metoprolol Tartrate), 100 MG PO BID Potassium Chloride (K-Tabs), 10 MEQ PO DAILY Prednisone Tab (Prednisone), 10 MG PO DAILY Ranitidine (Zantac), 300 MG PO BID Tamsulosin HCl (Tamsulosin HCl), 0.4 MG PO QAM Scheduled PRN Acetaminophen (Tylenol), 500 MG PO TID PRN for Pain Dimethicone-Zinc Oxide-Vitamin (A & D Zinc Oxide), 1 APPLN TOP BID PRN for DRYNESS Ipratropium-Albuterol (Duoneb), 1 TREATMENT NEB TID PRN for Wheezing Loperamide Hcl (Imodium), 2 MG PO TID PRN for Diarrhea Triamcinolone Acet (Triamcinolone Acetonide), 1 APPLN TOP BID PRN for RASH Zinc Oxide (Topical) (Desitin Rapid Relief), 1 APPLN TOP QID PRN for INCONTINENCE Allergies Coded Allergies: No Known Allergies (Unverified , 05/14/16) Physical Exam Vital Signs Date Time Temp Pulse Resp B/P Pulse Ox O2 Delivery O2 Flow Rate FiO2 05/15/16 00:00 85 22 122/74 94 Room Air 05/14/16 22:58 37.4 05/14/16 22:50 86 18 131/60 92 Room Air 05/14/16 22:00 84 18 122/62 91 Room Air 05/14/16 21:18 79 18 140/66 100 Nebulizer 6.0 05/14/16 21:01 82 20 96 Room Air 05/14/16 20:48 80 05/14/16 20:46 93 Room Air 05/14/16 20:09 38.0 70 18 115/60 96 Room Air Physical Exam GENERAL: Patient is a healthy-appearing well-nourished HEAD: Normocephalic atraumatic EYES: Ocular movements intact pupils equal and react to light OROPHARYNX mucous membranes are moist no exudates present no erythema or edema present NECK: Supple no nuchal rigidity CHEST: Good equal expansion LUNGS: Distant lung sounds. CARDIAC: Normal S1 and S2 ABDOMEN: Soft nontender no guarding BACK: No CVA tenderness : Man catheter in place. EXTREMITIES: No pain upon palpation normal muscle strength in all groups no clubbing cyanosis or edema NEURO: Patient is following commands is answering questions appropriately. Alert and oriented x3 Cranial Nerves 2-12 grossly intact Medical Decision & Procedures ER Provider Diagnostic Interpretation: X-ray results as stated below per interpretation by me and the radiologist: CHEST ONE VIEW PORTABLE CLINICAL HISTORY: Sepsis dyspnea COMPARISON STUDY: 05/07/2016 FINDINGS: Moderate cardiac megaly. Tortuous thoracic aorta. Cellulitis slight accentuation left lower lobe markings. Findings of congestive failure diminished compared to the prior exam. IMPRESSION: 1. Mixed findings compared to the prior study. 2. Improving components of congestive heart failure. 3.. Possible early parenchymal infiltrate left base. Electronically signed by: Ish Huertas M.D. 05/14/2016 8:32 PM Dictated Date/Time: 05/14/2016 8:30 PM Laboratory Results Test 05/14/16 20:48 05/14/16 20:55 05/14/16 21:05 05/14/16 21:30 Prothrombin Time 11.6 SECONDS (9.0-12.0) Prothromb Time International Ratio 1.1 (0.9-1.1) Activated Partial Thromboplast Time 31.2 SECONDS (21.0-31.0) Partial Thromboplastin Ratio 1.2 Creatine Kinase MB 3.1 ng/ml (0.5-3.6) Creatine Kinase MB Ratio 0.2 (0-3.0) Troponin I 0.018 ng/ml (0-0.045) Bedside Lactic Acid Venous 2.06 mmol/L (0.90-1.70) Urine Color DK YELLOW Urine Appearance CLEAR (CLEAR) Urine pH 5.5 (4.5-7.5) Urine Specific [place]we 1.025 (1.000-1.030) Urine Protein 1+ (NEG) Urine Glucose (UA) NEG (NEG) Urine Ketones NEG (NEG) Urine Occult Blood 2+ (NEG) Urine Nitrite NEG (NEG) Urine Bilirubin NEG (NEG) Urine Urobilinogen NEG (NEG) Urine Leukocyte Esterase SMALL (NEG) Urine WBC (Auto) 10-30 /hpf (0-5) Urine RBC (Auto) 10-30 /hpf (0-4) Urine Hyaline Casts (Auto) 1-5 /lpf (0-5) Urine Epithelial Cells (Auto) 0-5 /lpf (0-5) Urine Bacteria (Auto) 1+ (NEG) Influenza Type A (RT-PCR) Neg for Influ A (NEG) Influenza Type A Antigen Neg for Influ A (NEG) Influenza Type B Antigen Neg for Influ B (NEG) Influenza Type B (RT-PCR) Neg for Influ B (NEG) Date/Time Source Procedure Growth Status 05/14/16 21:05 Urine,Catheterized Urine Culture - Final Enterococcus Faecalis Complete Labs reviewed by ED physician. Medications Administered Medications (Trade) Dose Ordered Sig/Ismael Route Start Time Stop Time Status Last Admin Dose Admin Sodium Chloride (Nss 1000ml) 1,000 ml @ 999 mls/hr Q1H1M ONCE IV 05/14/16 20:05 05/14/16 21:05 DC 05/14/16 20:48 999 MLS/HR Piperacillin Sod/ Tazobactam Sod (Zosyn Iv) 4.5 gm ONE STAT IV 05/14/16 20:05 05/14/16 20:10 DC 05/14/16 23:08 4.5 GM Vancomycin HCl (Vancomycin 1gm/ 270ml Nss) 1 gm ONE STAT IV 05/14/16 20:05 05/15/16 19:24 DC 05/14/16 23:08 1 GM Levofloxacin (Levaquin / D5W) 750 mg ONE STAT IV 05/14/16 20:05 05/15/16 19:24 DC 05/14/16 21:14 750 MG Albuterol/ Ipratropium (Duoneb) 12 ml ONE ONCE INH 05/14/16 20:15 05/14/16 20:16 DC 05/14/16 20:15 12 ML Ketorolac Tromethamine (Toradol Inj) 30 mg NOW STAT IV 05/14/16 20:05 05/15/16 19:24 DC 05/14/16 20:48 30 MG Acetaminophen (Tylenol Tab) 1,000 mg NOW STAT PO 05/14/16 21:09 05/15/16 19:24 DC 05/14/16 21:25 1,000 MG ECG Indication: altered mental status (confusion) Rate (beats per minute): 83 Rhythm: normal sinus Findings: no acute ischemic change, no ectopy ED Course 1954: Past medical records reviewed. The patient was evaluated in room C6. A complete history and physical examination was performed. The patient and Guards understand and agree that the patient will be evaluated for further treatment. 2005: Ordered Toradol Inj 30 mg IV, Levofloxacin 750 mg IV, Vancomycin HCl 1 gm IV, Zosyn IV 4.5 gm IV, Sodium Chloride 1000 ml @ 999 mls/hr IV. 2014: Ordered Duoneb 12 ml INH. 2108: Ordered Tylenol Tab 1000 mg PO. 2126: I discussed the patients case with YO Hightower. He is going to evaluate the patient for further treatment. Medical Decision Differential diagnosis: Etiologies such as sepsis, UTI, pneumonia, metabolic, electrolyte abnormalities , cardiac sources, intracerebral event, toxicologic, neurologic, as well as others were entertained. This is a 65-year-old male who presents emergency department with altered mental status. The patient has also been running high fevers. He does appear to have pneumonia on his chest x-ray. For this reason the patient was pancultured up and started on antibiotics. I did discuss the case with the hospitalist service who agreed to admit the patient. Patient and caretakers were in agreement with the treatment plan. Consults Time Called: 2122 Consulting Physician: YO Hightower Returned Call: [phone] I discussed the patients case with YO Hightower. He is going to evaluate the patient for further treatment. Impression Primary Impression: Pneumonia Scribe Attestation The scribe's documentation has been prepared under my direction and personally reviewed by me in its entirety. I confirm that the note above accurately reflects all work, treatment, procedures, and medical decision making performed by me. Departure Information Dispostion Being Evaluated By Hospitalist Prescriptions Lactobacillus Acidophilus (Lactinex Granules) 1 Gm Pack 1 PKT OR TID for 7 Days, #21 PKT Prov: Sophia Bonilla MD 05/18/16 Ampicillin (AMPICILLIN) 500 Mg Cap 1 CAP PO QID for 5 Days, #20 CAP Prov: Sophia Bonilla MD 05/18/16 Colchicine (Colchicine) 0.6 Mg Tab 0.6 MG PO DAILY for 3 Days, #3 TAB Prov: Sophia Bonilla MD 05/18/16 Prednisone Tab (PREDNISONE) 10 Mg Tab 10 MG PO DAILY for 3 Days, #3 TAB Prov: Sophia Bonilla MD 05/18/16 Tamsulosin HCl (Tamsulosin HCl) 0.4 Mg Cap 0.4 MG PO QAM for 30 Days, #30 CAP Prov: Sophai Bonilla MD 05/18/16 Referrals Ismael LUNA (PCP) Problem Qualifiers Primary Impression: Pneumonia Pneumonia type: due to unspecified organism Laterality: unspecified laterality Lung location: unspecified part of lung Qualified Codes: J18.9 - Pneumonia, unspecified organism
[2016-05-14] MEDS ORDERED: ALBUT/IPRATROP 3MG/0.5MG NEB 3 ML VIAL INH ONE (20:15)
--- NOTE | 2016-05-14 20:33 | DIAGNOSTIC IMAGING REPORT ---
CHEST ONE VIEW PORTABLE CLINICAL HISTORY: Sepsis dyspnea COMPARISON STUDY: 05/07/2016 FINDINGS: Moderate cardiac megaly. Tortuous thoracic aorta. Cellulitis slight accentuation left lower lobe markings. Findings of congestive failure diminished compared to the prior exam. IMPRESSION: 1. Mixed findings compared to the prior study. 2. Improving components of congestive heart failure. 3.. Possible early parenchymal infiltrate left base. Electronically signed by: Ish Huertas M.D. 05/14/2016 8:32 PM Dictated Date/Time: 05/14/2016 8:30 PM
[2016-05-14 21:01] VITALS: PULSE 82; O2SAT 96
[2016-05-14 21:02] LABS: BASO % 0.1 %; BASO ABS # 0.01 K/uL (0-0.2); COMPLETE YES; EOS % 0.4 %; HEMATOCRIT 27.3 % (42-52); IG% 0.8 %; LYMPH % 16.5 %; LYMPH ABS # 1.41 K/uL (1.2-3.4); MEAN CELL VOLUME 74.4 fL (80-100); MEAN CORPUSCULAR HEMOGLOBIN 24.5 pg (25-34); MEAN PLATELET VOLUME 8.9 fL (7.4-10.4); MONO % 8.1 %; NEUT % 74.1 %; PLATELET COUNT 204 K/uL (130-400); RED BLOOD COUNT 3.67 M/uL (4.7-6.1); WHITE BLOOD COUNT 8.52 K/uL (4.8-10.8)
[2016-05-14] MEDS ORDERED: ACETAMINOPHEN 500 MG TAB PO STA (21:09)
[2016-05-14 21:17] LABS: INR 1.1 (0.9-1.1); PARTIAL THROMBOPLASTIN RATIO 1.2; PROTHROMBIN TIME (PATIENT) 11.6 SECONDS (9.0-12.0)
[2016-05-14 21:19] LABS: BUN/CREATININE RATIO 16.9 (10-20); CALCIUM 8.3 mg/dl (8.5-10.1); POTASSIUM 4.1 mmol/L (3.5-5.1)
[2016-05-14 21:34] LABS: ALB/GLOB RATIO 0.4 (0.9-2); CKMB/CK RATIO 0.2 (0-3.0)
[2016-05-14] MEDS ORDERED: ACET-1256 PO (21:59)
[2016-05-14] MEDS ORDERED: IPRASOL4 NEB (21:59)
--- NOTE | 2016-05-14 22:10 | History and Physical ---
History & Physical Date & Time of Service: May 14, 2016 at 22:10 Chief Complaint: Fever, Confusion, Ams Primary Care Physician: Ismael LUNA History of Present Illness Source: patient, hospital records The patient is a 65-year-old male inmate of [facility], most recently admitted from May 07 to May 11 for a UTI and hypoxemia and a hilar mass, who is brought to the emergency department via ALS with persistent confusion, a fever that reportedly was 105F, that after Tylenol decreased to 101F. He presently is on Cipro for a UTI. The patient himself has no complaints other than the fact that he had blood drawn. Past Medical/Surgical History Medical Problems: (1) Hyponatremia Status: Chronic Social History Smoking Status: Former Smoker Smokeless Tobacco Use: No Alcohol Use: none Drug Use: none Marital Status: single Housing status: other Occupational Status: disabled, other Multi-Drug Resistant Organisms History of MDRO: No Allergies Coded Allergies: No Known Allergies (Unverified , 05/14/16) Home Medications Scheduled Aspirin (Aspirin Ec), 81 MG PO DAILY Atorvastatin (Lipitor), 20 MG PO HS Bumetanide (Bumex), 2 MG PO DAILY Ciprofloxacin (Ciprofloxacin HCl), 500 MG PO BID Divalproex Sodium (Depakote), 1,000 TAB PO HS Divalproex Sodium (Depakote Delay Rel), 500 MG PO DAILY Ferrous Sulfate Dried (Feosol), 200 MG PO BID Haloperidol (Haldol), 10 MG PO BID Haloperidol (Haloperidol), 2 MG PO BID Isosorbide Mononitrate (Isosorbide Mononitrate ER), 60 MG PO DAILY Ketoconazole (Topical) (Extina), 1 DOSE TOP BID Magnesium Oxide (Mag-Ox), 400 MG PO BID Metformin Hcl (Glucophage), 850 MG PO TID Metoprolol Tartrate (Metoprolol Tartrate), 100 MG PO BID Potassium Chloride (K-Tabs), 10 MEQ PO DAILY Ranitidine (Zantac), 300 MG PO BID Scheduled PRN Acetaminophen (Tylenol), 500 MG PO TID PRN for Pain Dimethicone-Zinc Oxide-Vitamin (A & D Zinc Oxide), 1 APPLN TOP BID PRN for DRYNESS Ipratropium-Albuterol (Duoneb), 1 TREATMENT NEB TID PRN for Wheezing Loperamide Hcl (Imodium), 2 MG PO TID PRN for Diarrhea Triamcinolone Acet (Triamcinolone Acetonide), 1 APPLN TOP BID PRN for RASH Zinc Oxide (Topical) (Desitin Rapid Relief), 1 APPLN TOP QID PRN for INCONTINENCE Review of Systems The patient denies chest pain, palpitations, shortness of breath, cough, lower extremity swelling, vision change, hearing change, sore throat, fevers, chills, sweats, weight change, fatigue, nausea, vomiting, abdominal pain, pelvic pain, blood in urine or stool, dysuria, urinary frequency or urgency, lightheadedness , dizziness, headache, memory loss, rash, abnormal bruising or bleeding, imbalance, focal or generalized weakness, numbness or tingling in arms or legs, arthralgias or myalgias, back or neck pain, night sweats, or allergy symptoms. The review of systems is otherwise negative other than for that already noted above, and at least 10 systems have been reviewed. Physical Exam Vital Signs Date Time Temp Pulse Resp B/P Pulse Ox O2 Delivery O2 Flow Rate FiO2 05/14/16 21:18 79 18 140/66 100 Nebulizer 6.0 05/14/16 21:01 82 20 96 Room Air 05/14/16 20:48 80 05/14/16 20:46 93 Room Air 05/14/16 20:09 38.0 70 18 115/60 96 Room Air The patient is awake, disoriented, normocephalic and atraumatic, lying in bed and in no acute distress. HEENT--PERRL, EOMI, mucous membranes and oropharynx dry. Neck--supple, no JVD or bruits, thyroid normal, trachea midline, no adenopathy. Heart--normal S1 and S2, no extra beats, no murmurs, rubs or gallops. Lungs--coarse breath sounds bilaterally, no respiratory distress, no accessory muscle use. Abdomen--normal bowel sounds and soft, nontender and nondistended, no hernias or masses, no organomegaly. Extremities--no cyanosis, clubbing or edema. There are good distal pulses b/l. Dermatologic--normal skin turgor, normal color, warm and dry, no abnormal lymph nodes, no rash. Neurologic--cranial nerves II through XII grossly intact. Rheumatologic--deferred due to handcuffs and leg cuffs. Psychiatric--flat affect. Diagnostics Laboratory Results Results Past 24 Hours Test 05/14/16 20:48 05/14/16 20:55 05/14/16 21:05 05/14/16 21:30 Range/Units White Blood Count 8.52 4.8-10.8 K/uL Red Blood Count 3.67 4.7-6.1 M/uL Hemoglobin 9.0 14.0-18.0 g/dL Hematocrit 27.3 42-52 % Mean Corpuscular Volume 74.4 80-100 fL Mean Corpuscular Hemoglobin 24.5 25-34 pg Mean Corpuscular Hemoglobin Concent 33.0 32-36 g/dl Platelet Count 204 130-400 K/uL Mean Platelet Volume 8.9 7.4-10.4 fL Neutrophils (%) (Auto) 74.1 % Lymphocytes (%) (Auto) 16.5 % Monocytes (%) (Auto) 8.1 % Eosinophils (%) (Auto) 0.4 % Basophils (%) (Auto) 0.1 % Neutrophils # (Auto) 6.31 1.4-6.5 K/uL Lymphocytes # (Auto) 1.41 1.2-3.4 K/uL Monocytes # (Auto) 0.69 0.11-0.59 K/uL Eosinophils # (Auto) 0.03 0-0.5 K/uL Basophils # (Auto) 0.01 0-0.2 K/uL RDW Standard Deviation 44.5 36.4-46.3 fL RDW Coefficient of Variation 16.1 11.5-14.5 % Immature Granulocyte % (Auto) 0.8 % Immature Granulocyte # (Auto) 0.07 0.00-0.02 K/uL Prothrombin Time 11.6 9.0-12.0 SECONDS Prothromb Time International Ratio 1.1 0.9-1.1 Activated Partial Thromboplast Time 31.2 21.0-31.0 SECONDS Partial Thromboplastin Ratio 1.2 Sodium Level 129 136-145 mmol/L Potassium Level 4.1 3.5-5.1 mmol/L Chloride Level 92 98-107 mmol/L Carbon Dioxide Level 27 21-32 mmol/L Anion Gap 10.0 3-11 mmol/L Blood Urea Nitrogen 17 7-18 mg/dl Creatinine 1.00 0.60-1.40 mg/dl Est Creatinine Clear Calc Drug Dose 125.2 ml/min Estimated GFR () 89.9 Estimated GFR (Non- 77.5 BUN/Creatinine Ratio 16.9 10-20 Random Glucose 87 70-99 mg/dl Calcium Level 8.3 8.5-10.1 mg/dl Total Bilirubin 0.2 0.2-1 mg/dl Aspartate Amino Transf (AST/SGOT) 73 15-37 U/L Alanine Aminotransferase (ALT/SGPT) 18 12-78 U/L Alkaline Phosphatase 75 45-117 U/L Total Creatine Kinase 1242 39-308 U/L Creatine Kinase MB 3.1 0.5-3.6 ng/ml Creatine Kinase MB Ratio 0.2 0-3.0 Troponin I 0.018 0-0.045 ng/ml Total Protein 7.9 6.4-8.2 gm/dl Albumin 2.1 3.4-5.0 gm/dl Globulin 5.8 2.5-4.0 gm/dl Albumin/Globulin Ratio 0.4 0.9-2 Bedside Lactic Acid Venous 2.06 0.90-1.70 mmol/L Influenza Type A Antigen Neg for Influ A NEG Influenza Type B Antigen Neg for Influ B NEG Microbiology Results 05/14/16 Blood Culture, Received Pending 05/14/16 Blood Culture, Received Pending Diagnostic Radiology Patient Name: KAMILA PATTERSON [id number] Unit Number: [id number] Dictated: 05/14/162029 Transcribed: 05/14/162029 MS Printed Date/Time: [~ rep prt dt]/[~ rep prt tm] [~ rep ct labl] - [~ rep ct ivnm] [facility] [place] [address] Dictated: 05/14/162029 Transcribed: 05/14/162029 MS Printed Date/Time: [~ rep prt dt]/[~ rep prt tm] [~ rep ct labl] - [~ rep ct ivnm] [~ rep ct add3]] CHEST ONE VIEW PORTABLE CLINICAL HISTORY: Sepsis dyspnea COMPARISON STUDY: 05/07/2016 FINDINGS: Moderate cardiac megaly. Tortuous thoracic aorta. Cellulitis slight accentuation left lower lobe markings. Findings of congestive failure diminished compared to the prior exam. IMPRESSION: 1. Mixed findings compared to the prior study. 2. Improving components of congestive heart failure. 3.. Possible early parenchymal infiltrate left base. Electronically signed by: Ish Huertas M.D. 05/14/2016 8:32 PM Dictated Date/Time: 05/14/2016 8:30 PM The status of this report is Signed. Draft = Not yet reviewed or approved by Radiologist. Signed = Reviewed and approved by Radiologist. <AttendingPhy></AttendingPhy> <FamilyPhy>SCI, Ismael</FamilyPhy> <PrimaryPhy> SCI, Ismael</PrimaryPhy> <UnitNumber>[id number]</UnitNumber> <VisitNumber> [id number]</VisitNumber> <PatientName>KAMILA PATTERSON [id number]</PatientName> < DateOfBirth>1950</DateOfBirth> <Location>[facility]</Location> <ServiceDate></ServiceDate> <MNE>ESINDI</MNE> <OrderingPhy>Gwyn Franco MD</ OrderingPhy> <OrderingPhyMNE>f rep ord dr estrada</OrderingPhyMNE> <DictatingPhyMNE> f rep dict dr estrada</DictatingPhyMNE> <CCListMNE>f rep ct nahede</CCListMNE> < AdmittingPhyMNE>f pt admit dr estrada</AdmittingPhyMNE> <AttendingPhyMNE>f pt attend dr estrada</AttendingPhyMNE> <ConsultingPhyMNE>f pt consult dr estrada</ConsultingPhyMNE> <FamilyPhyMNE>f pt fam dr estrada</FamilyPhyMNE> <OtherPhyMNE>f pt other dr estrada</OtherPhyMNE> < PrimaryPhyMNE>f pt prim care dr estrada</PrimaryPhyMNE> <ReferringPhyMNE>f pt referring dr estrada</ReferringPhyMNE> Impression Assessment and Plan Confusion/CHF/left lower lobe pneumonia/recent UTI/hyponatremia/lactic acidosis- -the patient will be admitted to the medical floor for further treatment. Left lower lobe pneumonia/hilar mass--place on vancomycin IV per renal dosing, Zosyn 3.375 mg IV every 8 hours, levofloxacin 500 mg IV every 24 hours, guaifenesin extended release 600 mg by mouth twice a day, Solu-Medrol 60 mg IV every 6 hours, and Xopenex with Atrovent nebulizers every 6 hours while awake and every 2 hours when necessary. UTI--stop Cipro by mouth, and use antibiotics as above. CAD/hypertension--continue enteric-coated aspirin 81 mg by mouth daily, Bumex 2 mg by mouth daily, isosorbide mononitrate ER see milligrams by mouth daily, mag oxide 400 mg by mouth twice a day, metoprolol tartrate 100 mg by mouth twice a day, and potassium chloride 10 mEq by mouth daily. Diabetes mellitus--hold metformin 850 mg by mouth 3 times a day, and place on Accu-Cheks before meals and at bedtime with NovoLog coverage. Schizophrenia/mental retardation--continue Depakote 1000 mg by mouth at bedtime , and Depakote delayed release 500 mg by mouth daily, haloperidol 10 mg by mouth twice a day with 2 mg by mouth twice a day when necessary. GERD--continue ranitidine 300 mg by mouth twice a day. Hypercholesterolemia--continue atorvastatin 20 mg by mouth at bedtime. 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
[2016-05-14 22:16] LABS: URINE APPEARANCE CLEAR (CLEAR); URINE BILIRUBIN NEG (NEG); URINE COLOR DK YELLOW; URINE EPITHELIAL CELL AUTO 0-5 /lpf (0-5); URINE NITRITE NEG (NEG); URINE PH 5.5 (4.5-7.5); URINE SPECIFIC GRAVITY 1.025 (1.000-1.030); UROBILINOGEN NEG (NEG); ZZURINE CULT IF INDIC CATH YES
[2016-05-14 22:26] LABS: MANUAL MICROSCOPIC REQUIRED? NO; REVIEW REQ? NO
[2016-05-14] MEDS ORDERED: VANCOMYCIN 1GM/270ML NSS ONE (22:49)
[2016-05-14 23:46] LABS: INFLUENZA A PCR Neg for Influ A (NEG); INFLUENZA B PCR Neg for Influ B (NEG)
[2016-05-15] VITALS (9 sets, daily range): BP systolic 109–187; BP diastolic 53–80; PULSE 68–91; TEMP 37.1–37.8; O2SAT 86–95; Ht 195.6 cm; Wt 175.0 kg
[2016-05-15] MEDS ORDERED: VANCOMYCIN INJ 1,000 MG in SODIUM CHLORIDE 0.9% 250ML 250 ML IV STA (00:11)
[2016-05-15] MEDS ORDERED: TRIAMCINOLONE ACET 0.5% CR 15 GM TUBE EXT PRN (00:15)
[2016-05-15] MEDS ORDERED: ACETAMINOPHEN 325 MG TAB PO PRN (00:15)
[2016-05-15] MEDS ORDERED: LOPERAMIDE HCL 2 MG CAP PO PRN (00:15)
[2016-05-15] MEDS ORDERED: ACETAMINOPHEN 500 MG TAB PO PRN (00:15)
[2016-05-15] MEDS ORDERED: ALBUT/IPRATROP 3MG/0.5MG NEB 3 ML VIAL INH PRN (00:15)
[2016-05-15] MEDS ORDERED: BUTT PASTE 171 APPLN/57 GM JAR TOP PRN (00:15)
[2016-05-15] MEDS ORDERED: ZOLPIDEM TARTRATE 5 MG TAB PO PRN (00:15)
[2016-05-15] MEDS ORDERED: VANCOMYCIN INJ 1,800 MG in SODIUM CHLORIDE 0.9% 500ML 500 ML IV STA (02:12)
[2016-05-15] MEDS ORDERED: PIPERACILL/TAZOBAC CONSULT ACTIVE PRN (02:15)
[2016-05-15] MEDS ORDERED: LEVALBUTEROL 1.25MG/0.5ML NEB INH PRN (02:30)
[2016-05-15] MEDS ORDERED: IPRATROPIUM BROMIDE NEB SOLN 0.02% 2.5 ML VIAL INH PRN (02:30)
[2016-05-15] MEDS: IPRATROPIUM BROMIDE NEB SOLN 0.02% 2.5 ML VIAL INH SCH ×4 (02:56→20:51)
[2016-05-15] MEDS: LEVALBUTEROL 1.25MG/0.5ML NEB INH SCH ×4 (02:56→20:51)
[2016-05-15] MEDS ORDERED: LEVALBUTEROL/IPRATROPIUM NEB INH SCH (03:00)
[2016-05-15] MEDS: METHYLPREDNISOLONE IV 60 MG in SYRINGE 0 ML IV SCH ×4 (03:05→20:07)
[2016-05-15] MEDS ORDERED: PIPERACILL/TAZOBAC IV 3.375 GM in DEXTROSE 5% 100ML 100 ML IV SCH (06:00)
[2016-05-15] MEDS: PIPERACILL/TAZOBAC IV 4.5 GM in DEXTROSE 5% 100ML IV SCH ×3 (06:03→22:09)
[2016-05-15] MEDS ORDERED: VANCOMYCIN CONSULT ACTIVE PRN (08:30)
--- NOTE | 2016-05-15 08:51 | Pharmacy Progress Note ---
Pharmacy Antibiotic Consult Date of Service: May 15, 2016. Pharmacy Dosing Scope Pharmacy is consulted to initiate Vancomycin IV dosing therapy, order appropriate labs and adjust drug dose/frequency. Subjective The patient is a 65 year old male admitted on May 15, 2016 at 00:03. Objective Height (Feet): 6 Height (Inches): 5.00 Weight (Kilograms): 175.000 Lab Results (24hrs): Laboratory Tests Test 05/14/16 20:48 BUN/Creatinine Ratio 16.9 Blood Urea Nitrogen 17 mg/dl Creatinine 1.00 mg/dl White Blood Count 8.52 K/uL Red Blood Count 3.67 M/uL Hemoglobin 9.0 g/dL Hematocrit 27.3 % Mean Corpuscular Volume 74.4 fL Mean Corpuscular Hemoglobin 24.5 pg Mean Corpuscular Hemoglobin Concent 33.0 g/dl Platelet Count 204 K/uL Mean Platelet Volume 8.9 fL Neutrophils (%) (Auto) 74.1 % Lymphocytes (%) (Auto) 16.5 % Monocytes (%) (Auto) 8.1 % Eosinophils (%) (Auto) 0.4 % Basophils (%) (Auto) 0.1 % Neutrophils # (Auto) 6.31 K/uL Lymphocytes # (Auto) 1.41 K/uL Monocytes # (Auto) 0.69 K/uL Eosinophils # (Auto) 0.03 K/uL Basophils # (Auto) 0.01 K/uL Micro Results: Item Value Date Time MRSA DNA Surveillance Screen Received 05/15/16 0605 Nasal Pending Urine Culture Received 05/14/16 210 Urine,Catheterized Pending Blood Culture Received 05/14/162042 Blood Pending Blood Culture Received 05/14/162039 Blood Pending Recent Pertinent Medications Item Value Date Time Levofloxacin 500 100 ml @ 100 mls/hr 05/15/16 2100 mg/Prmx Q24H/IV Piperacillin Sod/ 120 ml @ 30 mls/hr 05/15/16 0600 Tazobactam Sod Q8H/IV 05/15/16 0603 4.5 gm/Dextrose Assessment & Plan 65 yo M admitted with pneumonia and UTI (presently on cipro), initiated on broad spectrum antibiotics: Vancomycin, Zosyn, Levaquin IV. Blood cultures pending. MRSA swab pending. Urine culture pending. Vancomycin * Loading dose: 1000 mg IV X 1 dose given in ED ~2300 last night. * Additional loading dose of 1800 mg IV X 1 given @0300 this AM to complete total dose of 2800 mg. * Given BMI >35 kg/m2, pt is at risk for drug accumulation. * Continue Vancomycin 2350 (~13.5 mg/kg) IV every 10 hours. * Goal trough level estimate: between 15 - 20 mcg/mL (lung source) * A trough level has been ordered for: @1530 prior to the 1600 dose. Zosyn * 4.5 g IV every 8 hours for BMI >35 kg/m2 * No renal adjustment for CrCl >20 mL/min Levaquin * 750 mg IV every 24 hours * No renal adjustment for CrCl >50 mL/min Pharmacy will continue to follow and will adjust dose/frequency as necessary. Thank you
[2016-05-15] MEDS: ISOSORBIDE MONONITRATE 60 MG TABCR PO SCH (08:52)
[2016-05-15] MEDS: METOPROLOL TARTRATE 100 MG TAB PO SCH ×2 (08:52→20:48)
[2016-05-15] MEDS: RANITIDINE HCL 150 MG TAB PO SCH ×2 (08:53→20:50)
[2016-05-15] MEDS: ASPIRIN 81 MG ECTAB PO SCH (08:54)
[2016-05-15] MEDS: DIVALPROEX SODIUM 500 MG DELAY RELEASE TAB PO SCH ×2 (08:54→20:48)
[2016-05-15] MEDS: GUAIFENESIN 200 MG TAB PO SCH ×2 (08:54→20:47)
[2016-05-15] MEDS: HALOPERIDOL 5 MG TAB PO SCH ×2 (08:55→20:50)
[2016-05-15] MEDS: POTASSIUM CHLORIDE 10 MEQ TABCR PO SCH (08:55)
[2016-05-15] MEDS: MAGNESIUM OXIDE 400 MG TAB PO SCH ×2 (08:55→20:47)
[2016-05-15] MEDS: FERROUS SULFATE 325 MG TAB PO SCH ×2 (08:59→18:28)
[2016-05-15] MEDS ORDERED: BUMETANIDE 1 MG TAB PO SCH (09:00)
[2016-05-15] MEDS ORDERED: LEVOFLOXACIN CONSULT ACTIVE PRN (09:00)
[2016-05-15] MEDS ORDERED: VANCOMYCIN INJ 2,350 MG in SODIUM CHLORIDE 0.9% 500ML 500 ML IV SCH (10:00)
--- NOTE | 2016-05-15 19:22 | Progress Note ---
Subjective Date of Service: May 15, 2016. Subjective Pt evaluation today including: conversation w/ patient, physical exam, chart review, lab review, review of inpatient medication list Problem List Medical Problems: (1) SON (acute kidney injury) Status: Acute (2) Altered mental status Status: Acute (3) Anemia Status: Acute (4) Anemia Status: Acute (5) Anemia Status: Acute (6) CHF (congestive heart failure) Status: Acute (7) Hemorrhage of urethra Status: Acute (8) Hypoxia Status: Acute (9) Pneumonia Status: Acute (10) UTI (urinary tract infection) Status: Acute Review of Systems Constitutional: + fatigue, No chills, No fever, No problem reported, No see HPI , No sweats, No weakness, No weight loss Eyes: No diplopia, No discharge, No eye pain, No problem reported, No redness, No see HPI, No worsening of vision ENT: No dental problems, No hearing loss, No nasal symptoms, No problem reported, No see HPI, No sore throat, No tinnitus, No trouble swallowing, No unusual epistaxis Respiratory: + shortness of breath, No cough, No dyspnea at rest, No dyspnea on exertion, No hemoptysis, No problem reported, No see HPI, No sputum, No wheezing Cardiac: No PND, No chest pain, No claudication, No edema, No orthopnea, No palpitations, No problem reported, No see HPI Abdomen: + pain, No GI bleeding, No constipation, No diarrhea, No nausea, No problem reported, No see HPI, No vomiting Musculoskeletal: No calf pain, No joint pain, No muscle pain, No problem reported, No see HPI, No swelling Male : No dysuria, No hematuria, No incontinence, No nocturia more than once/ night, No problem reported, No see HPI, No sexual dysfunction, No slowing stream , No urinary frequency Neurologic: No balance problems, No memory loss, No numbness/tingling, No paralysis, No problem reported, No see HPI, No vertigo, No weakness Psychiatric: No anhedonism, No anxiety, No depression symptoms, No insomnia, No problem reported, No see HPI, No substance abuse Heme: No abnormal bleeding/bruising, No clotting problems, No night sweats, No problem reported, No see HPI, No swollen lymph nodes Endo: No excessive thirst, No excessive urination, No fatigue, No problem reported, No see HPI Skin: No bleeding, No color change, No itch, No new/changing skin lesions, No problem reported, No rash, No see HPI Medications Current Inpatient Medications Medications (Trade) Dose Ordered Sig/Ismael Route Start Time Stop Time Status Last Admin Dose Admin Zolpidem Tartrate (Ambien Tab) 5 mg HSZ PRN PO 05/15/16 00:15 06/14/16 00:14 Acetaminophen (Tylenol Tab) 500 mg TID PRN PO 05/15/16 00:15 06/14/16 00:14 Aspirin (Ecotrin Tab) 81 mg DAILY PO 05/15/16 09:00 06/14/16 08:59 05/15/16 08:54 81 MG Atorvastatin Calcium (Lipitor Tab) 20 mg HS PO 05/15/16 21:00 06/14/16 20:59 Bumetanide (Bumex Tab) 2 mg DAILY PO 05/15/16 09:00 06/14/16 08:59 05/15/16 08:54 2 MG Divalproex Sodium (Depakote Delay Rel Tab) 500 mg DAILY PO 05/15/16 09:00 06/14/16 08:59 05/15/16 08:54 500 MG Albuterol/ Ipratropium (Duoneb) 3 ml TID PRN INH 05/15/16 00:15 06/14/16 00:14 Isosorbide Mononitrate (Imdur Ext Rel Tab) 60 mg DAILY PO 05/15/16 09:00 06/14/16 08:59 05/15/16 08:52 60 MG Loperamide HCl (Imodium Cap) 2 mg TID PRN PO 05/15/16 00:15 06/14/16 00:14 Magnesium Oxide (Mag-Ox Tab) 400 mg BID PO 05/15/16 09:00 06/14/16 08:59 05/15/16 08:55 400 MG Metoprolol Tartrate (Lopressor Tab) 100 mg BID PO 05/15/16 09:00 06/14/16 08:59 05/15/16 08:52 100 MG Triamcinolone Acetonide (Kenalog 0.5% Crm) 1 appln BID PRN EXT 05/15/16 00:15 06/14/16 00:14 Miscellaneous Information (Order Awaiting Action) 1 ea QS N/A 05/15/16 08:00 06/14/16 07:59 Miscellaneous Information (Order Awaiting Action) 1 ea QS N/A 05/15/16 08:00 06/14/16 07:59 Non-Formulary Medication (Zinc Oxide (Topical) (Desitin Rapid Relief)) 1 appln QID PRN TOP 05/15/16 00:15 06/14/16 00:14 UNV Ferrous Sulfate (Feosol Tab) 325 mg BIDM PO 05/15/16 08:00 06/14/16 07:59 05/15/16 18:28 325 MG Haloperidol (Haldol Tab) 2 mg BID PRN PO 05/15/16 00:15 06/14/16 00:14 Haloperidol (Haldol Tab) 10 mg BID PO 05/15/16 09:00 06/14/16 08:59 05/15/16 08:55 10 MG Potassium Chloride (Klor-Con M10) 10 meq DAILY PO 05/15/16 09:00 06/14/16 08:59 05/15/16 08:55 10 MEQ Ranitidine HCl (zANTac TAB) 300 mg BID PO 05/15/16 09:00 06/14/16 08:59 05/15/16 08:53 300 MG Divalproex Sodium 1000 mg 1,000 mg HS PO 05/15/16 21:00 06/14/16 20:59 Methylprednisolone Sodium Succinate/ Syringe (Solu-Medrol IV/ Syringe) 0.96 ml @ 1.5 mls/min Q6H IV 05/15/16 02:30 06/14/16 02:29 05/15/16 14:20 1.5 MLS/MIN Guaifenesin 600 mg 600 mg BID PO 05/15/16 09:00 06/14/16 08:59 05/15/16 08:54 600 MG Piperacillin Sod/ Tazobactam Sod/ Dextrose (Zosyn Iv/D5 100ml) 120 ml @ 30 mls/hr Q8H IV 05/15/16 06:00 05/22/16 05:59 05/15/16 14:16 30 MLS/HR Piperacillin Sod/ Tazobactam Sod (Consult) 1 ea UD PRN N/A 05/15/16 02:15 06/14/16 02:14 Ipratropium Ralph (Atrovent 0.02% 0.5MG/2.5ML Neb) 0.5 mg Q6R INH 05/15/16 03:00 06/14/16 02:59 05/15/16 14:38 0.5 MG Levalbuterol (Xopenex 1.25MG/ 0.5ML Neb) 1.25 mg Q6R INH 05/15/16 03:00 06/14/16 02:59 05/15/16 14:38 1.25 MG Ipratropium Ralph (Atrovent 0.02% 0.5MG/2.5ML Neb) 0.5 mg Q2H PRN INH 05/15/16 02:30 06/14/16 02:29 Levalbuterol (Xopenex 1.25MG/ 0.5ML Neb) 1.25 mg Q2H PRN INH 05/15/16 02:30 06/14/16 02:29 Vancomycin HCl 1 ea 1 ea UD PRN N/A 05/15/16 08:30 06/14/16 08:29 Levofloxacin/Prmx (Levaquin / D5W/ Premixed D5W) 150 ml @ 100 mls/hr Q24H IV 05/15/16 21:00 05/20/16 22:29 Levofloxacin 1 ea 1 ea UD PRN N/A 05/15/16 09:00 06/14/16 08:59 Vancomycin HCl/ Sodium Chloride (Vancomycin Inj/ Nss 500ml) 547 ml @ 200 mls/hr Q10H IV 05/15/16 10:00 05/22/16 09:59 05/15/16 10:36 200 MLS/HR Objective Vital Signs Date Time Temp Pulse Resp B/P Pulse Ox O2 Delivery O2 Flow Rate FiO2 05/15/16 16:00 37.8 78 17 187/80 90 Room Air 05/15/16 14:39 74 18 86 Room Air 05/15/16 07:55 74 18 90 Room Air 05/15/16 07:47 37.5 91 16 152/75 93 Room Air 05/15/16 07:45 Room Air 05/15/16 02:56 80 18 95 Room Air 05/15/16 01:20 Room Air 05/15/16 01:20 37.4 81 20 109/53 92 Room Air 05/15/16 01:18 37.4 83 20 128/75 91 05/15/16 01:10 83 20 128/75 91 Room Air 05/15/16 00:15 86 05/15/16 00:00 85 22 122/74 94 Room Air 05/14/16 22:58 37.4 05/14/16 22:50 86 18 131/60 92 Room Air 05/14/16 22:00 84 18 122/62 91 Room Air 05/14/16 21:18 79 18 140/66 100 Nebulizer 6.0 05/14/16 21:01 82 20 96 Room Air 05/14/16 20:48 80 05/14/16 20:46 93 Room Air 05/14/16 20:09 38.0 70 18 115/60 96 Room Air Physical Exam General Appearance: no apparent distress Eyes: normal inspection, EOMI ENT: normal ENT inspection, hearing grossly normal Neck: supple Respiratory/Chest: chest non-tender, + decreased breath sounds, + crackles Cardiovascular: regular rate, rhythm, no edema, no gallop, no JVD Abdomen: normal bowel sounds, soft, + distended, + tenderness Extremities: normal range of motion, non-tender, normal inspection, no pedal edema Neurologic/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: 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, no motor/sensory deficits, alert, normal mood/affect, oriented x 3 Skin: normal color, warm/dry, + rash Laboratory Results Last 24 Hours Test 05/14/16 20:48 05/14/16 20:55 05/14/16 21:05 05/14/16 21:30 White Blood Count 8.52 K/uL Red Blood Count 3.67 M/uL Hemoglobin 9.0 g/dL Hematocrit 27.3 % Mean Corpuscular Volume 74.4 fL Mean Corpuscular Hemoglobin 24.5 pg Mean Corpuscular Hemoglobin Concent 33.0 g/dl Platelet Count 204 K/uL Mean Platelet Volume 8.9 fL Neutrophils (%) (Auto) 74.1 % Lymphocytes (%) (Auto) 16.5 % Monocytes (%) (Auto) 8.1 % Eosinophils (%) (Auto) 0.4 % Basophils (%) (Auto) 0.1 % Neutrophils # (Auto) 6.31 K/uL Lymphocytes # (Auto) 1.41 K/uL Monocytes # (Auto) 0.69 K/uL Eosinophils # (Auto) 0.03 K/uL Basophils # (Auto) 0.01 K/uL RDW Standard Deviation 44.5 fL RDW Coefficient of Variation 16.1 % Immature Granulocyte % (Auto) 0.8 % Immature Granulocyte # (Auto) 0.07 K/uL Prothrombin Time 11.6 SECONDS Prothromb Time International Ratio 1.1 Activated Partial Thromboplast Time 31.2 SECONDS Partial Thromboplastin Ratio 1.2 Sodium Level 129 mmol/L Potassium Level 4.1 mmol/L Chloride Level 92 mmol/L Carbon Dioxide Level 27 mmol/L Anion Gap 10.0 mmol/L Blood Urea Nitrogen 17 mg/dl Creatinine 1.00 mg/dl Est Creatinine Clear Calc Drug Dose 125.2 ml/min Estimated GFR () 89.9 Estimated GFR (Non- 77.5 BUN/Creatinine Ratio 16.9 Random Glucose 87 mg/dl Calcium Level 8.3 mg/dl Total Bilirubin 0.2 mg/dl Aspartate Amino Transf (AST/SGOT) 73 U/L Alanine Aminotransferase (ALT/SGPT) 18 U/L Alkaline Phosphatase 75 U/L Total Creatine Kinase 1242 U/L Creatine Kinase MB 3.1 ng/ml Creatine Kinase MB Ratio 0.2 Troponin I 0.018 ng/ml Total Protein 7.9 gm/dl Albumin 2.1 gm/dl Globulin 5.8 gm/dl Albumin/Globulin Ratio 0.4 Bedside Lactic Acid Venous 2.06 mmol/L Urine Color DK YELLOW Urine Appearance CLEAR Urine pH 5.5 Urine Specific [place] 1.025 Urine Protein 1+ Urine Glucose (UA) NEG Urine Ketones NEG Urine Occult Blood 2+ Urine Nitrite NEG Urine Bilirubin NEG Urine Urobilinogen NEG Urine Leukocyte Esterase SMALL Urine WBC (Auto) 10-30 /hpf Urine RBC (Auto) 10-30 /hpf Urine Hyaline Casts (Auto) 1-5 /lpf Urine Epithelial Cells (Auto) 0-5 /lpf Urine Bacteria (Auto) 1+ Influenza Type A (RT-PCR) Neg for Influ A Influenza Type A Antigen Neg for Influ A Influenza Type B Antigen Neg for Influ B Influenza Type B (RT-PCR) Neg for Influ B Assessment and Plan The patient is a 65-year-old male inmate of [facility], recently treated for UTI and hypoxemia and a hilar mass, who is brought to the emergency department with persistent confusion, and a fever Confusion likely metabolic encephalopathy secondary to UTI, improved UTI POA-stop Cipro by mouth, and use antibiotics as above. recent pseudomonas and klebsiella in the urine DC vaco/levofloxacin continue zosyn alone repeat urine and blood cx Left lower lobe pneumonia/hilar mass Right hilar mass/chely complex measuring 3.8 x 3.5 cm. possible post obstructive pneumonia continue Zosyn 3.375 mg IV every 8 hours, guaifenesin extended release 600 mg by mouth twice a day, Solu-Medrol 60 mg IV every 6 hours, and Xopenex with Atrovent nebulizers every 6 hours while awake and every 2 hours when necessary. Mild rhabdomyolysis gentle IVF hydration CAD/hypertension--continue enteric-coated aspirin 81 mg by mouth daily, Bumex 2 mg by mouth daily, isosorbide mononitrate ER see milligrams by mouth daily, mag oxide 400 mg by mouth twice a day, metoprolol tartrate 100 mg by mouth twice a day, and potassium chloride 10 mEq by mouth daily. Diabetes mellitus--hold metformin 850 mg by mouth 3 times a day, and place on Accu-Cheks before meals and at bedtime with NovoLog coverage. Schizophrenia/mental retardation--continue Depakote 1000 mg by mouth at bedtime , and Depakote delayed release 500 mg by mouth daily, haloperidol 10 mg by mouth twice a day with 2 mg by mouth twice a day when necessary. GERD--continue ranitidine 300 mg by mouth twice a day. Hypercholesterolemia--continue atorvastatin 20 mg by mouth at bedtime.
[2016-05-15] MEDS: SODIUM CHLORIDE 0.9% 1000ML 1,000 ML IV SCH (20:06)
[2016-05-15] MEDS: ATORVASTATIN 20 MG TAB PO SCH (20:47)
[2016-05-15] MEDS ORDERED: LEVOFLOXACIN / D5W 750 MG in PREMIXED IN D5W 150 ML IV SCH (21:00)
[2016-05-15] MEDS ORDERED: LEVOFLOXACIN / D5W 500 MG in PREMIXED IN D5W 100 ML IV SCH (21:00)
[2016-05-16] VITALS (7 sets, daily range): BP systolic 161–186; BP diastolic 70–82; PULSE 58–72; TEMP 36.5–36.7; O2SAT 91–99
[2016-05-16] MEDS: HydrALAZINE HCL 20 MG/ML VIAL IV. PRN ×2 (01:23→16:41)
[2016-05-16] MEDS: IPRATROPIUM BROMIDE NEB SOLN 0.02% 2.5 ML VIAL INH SCH ×4 (02:10→19:49)
[2016-05-16] MEDS: LEVALBUTEROL 1.25MG/0.5ML NEB INH SCH ×4 (02:10→19:49)
[2016-05-16] MEDS: METHYLPREDNISOLONE IV 60 MG in SYRINGE 0 ML IV SCH ×4 (02:20→21:01)
[2016-05-16] MEDS: PIPERACILL/TAZOBAC IV 4.5 GM in DEXTROSE 5% 100ML IV SCH ×3 (05:17→22:27)
[2016-05-16 07:20] LABS: COMPLETE YES; HEMATOCRIT 27.4 % (42-52); IG% 0.7 %; LYMPH % 5.8 %; MEAN CELL VOLUME 75.5 fL (80-100); MEAN CORPUSCULAR HEMOGLOBIN 24.8 pg (25-34); MEAN CORPUSCULAR HGB CONC 32.8 g/dl (32-36); MONO % 9.4 %; NEUT % 84.1 %; PLATELET COUNT 238 K/uL (130-400); RED BLOOD COUNT 3.63 M/uL (4.7-6.1); WHITE BLOOD COUNT 6.89 K/uL (4.8-10.8)
[2016-05-16 07:46] LABS: BUN/CREATININE RATIO 20.5 (10-20); CALCIUM 8.3 mg/dl (8.5-10.1); CREATININE 0.97 mg/dl (0.60-1.40); MAGNESIUM 1.9 mg/dl (1.8-2.4); POTASSIUM 4.1 mmol/L (3.5-5.1)
[2016-05-16 07:49] LABS: ALB/GLOB RATIO 0.4 (0.9-2); PHOSPHORUS 3.2 mg/dl (2.5-4.9)
[2016-05-16] MEDS ORDERED: DEXTROSE 50% 50 ML SYR IV PRN (08:30)
[2016-05-16] MEDS ORDERED: GLUCOSE 10 TABS/TUBE PO PRN (08:30)
[2016-05-16] MEDS ORDERED: GLUCOSE 40% GEL 15 GM TUBE PO PRN (08:30)
[2016-05-16] MEDS ORDERED: DC ALL PREVIOUSLY ORDERED DIABETES MEDS ONE (08:30)
[2016-05-16] MEDS ORDERED: GLUCAGON FOR INJ 1 MG VIAL SQ PRN (08:30)
[2016-05-16] MEDS ORDERED: PHARMACY GLYCEMIC MGMT CONSULT PRN (08:36)
[2016-05-16] MEDS ORDERED: INSULIN ASPART 100 UNITS/ML 3 ML PEN SC ONE (09:30)
--- NOTE | 2016-05-16 09:36 | SURGICAL CONSULTATION ---
DATE OF CONSULTATION: 05/16/2016 REASON FOR CONSULTATION: Right hilar mass. HISTORY OF PRESENT ILLNESS: Domenic Stover is a very large man that I met about a week ago when he was admitted to the hospital with a urinary tract infection and mental status changes. This patient has mineral deficiencies, has a very low IQ. In addition, he is schizophrenic. He has an inmate. He has been incarcerated for a long period of time at [facility]. He presents now with acute mental status changes and apparently had a high fever, although he has a normal white count and his urine appears clear to me on evaluation. I was asked to see him about a right hilar mass at that time. The patient does not have an apparent power of litigation attorney. He states he had no problems at all with his chest and did not want to have any procedures done. The patient was readmitted and is telling me the same thing again. He actually looks better. His x-ray has cleared some. He does have a right hilar mass. My suspicion is we are dealing with a malignancy. At this point, however, [facility] apparently [facility] and I think that apparently the paperwork has been started about a power of litigation attorney who can sign for consents. He is not amenable to having anything done at this point and in fact is quite disoriented. He has signs of schizophrenia and is quite concerned about the TV looking at him this morning. At this point, we will hold off offering him anything until a power of litigation attorney can be obtained. For specifics of my consultation, please refer to full consultation dated 05/08/2016. ELAINE
[2016-05-16] MEDS: FERROUS SULFATE 325 MG TAB PO SCH ×2 (09:46→18:24)
[2016-05-16] MEDS: HALOPERIDOL 5 MG TAB PO SCH ×2 (09:46→21:01)
[2016-05-16] MEDS: ASPIRIN 81 MG ECTAB PO SCH (09:47)
[2016-05-16] MEDS: ISOSORBIDE MONONITRATE 60 MG TABCR PO SCH (09:47)
[2016-05-16] MEDS: RANITIDINE HCL 150 MG TAB PO SCH ×2 (09:48→21:25)
[2016-05-16] MEDS: GUAIFENESIN 200 MG TAB PO SCH ×2 (09:49→21:02)
[2016-05-16] MEDS: MAGNESIUM OXIDE 400 MG TAB PO SCH ×2 (09:50→21:01)
[2016-05-16] MEDS: POTASSIUM CHLORIDE 10 MEQ TABCR PO SCH (09:50)
[2016-05-16] MEDS: METOPROLOL TARTRATE 100 MG TAB PO SCH ×2 (09:51→21:01)
[2016-05-16] MEDS: DIVALPROEX SODIUM 500 MG DELAY RELEASE TAB PO SCH ×2 (09:52→21:01)
--- NOTE | 2016-05-16 10:08 | Pharmacy Progress Note ---
Glycemic Control Intl Consult Date of Service May 16, 2016. Scope Glycemic Pharmacist consulted by Dr Camargo on 05/16/16 for glycemic control and to write orders per [facility] inpatient glycemic control protocol Objective Weight (Kilograms): 175.000 Accuchecks BSG (last 24hrs): Test 05/16/16 07:03 05/16/16 09:11 Random Glucose 184 mg/dl (70-99) Bedside Glucose 216 mg/dl (70-99) Laboratory Data (last 24hrs) HbA1c Item Value Date Time Hemoglobin A1c 5.8 % H 04/13/16 1500 Recent Pertinent Medications Outpatient Anti-diabetic Regimen: * Metformin 850mg PO TIDM The patient is currently receiving: * Basal insulin: None ordered * Correctional Insulin: None ordered * Prandial insulin: None ordered * Oral Agents: On hold for admission Risk Factors for Insulin Resistance: * Steroids * Infection * IVF/Abx mixed in dextrose * Diet Assessment & Plan ASSESSMENT: * Pt with hyperglycemia secondary to holding oral antidiabetic medications ( metformin) w/o subsequent bolus/SSI ordered. Hyperglycemia compounded by high dose RTC steroids with Solumedrol 60mg IV Q6hrs * Will continue to hold metformin for admission and utilize SQ basal bolus insulin regimen which is the recommended regimen for inpatient glycemic control. * Will initiate weight & stress based insulin dosing for insulin akil patient. Titrate dosing based on BSG trends. * Start with aggressive bolus insulin per CF/CR for steroid induced hyperglycemia. Steroids have their most profound effect on post-prandial hyperglycemia therefore aggressive CF/CR warranted. * Will start basal insulin for sustained hyperglycemia (BSG > 180mg/dl) * ADA & AACE recommend a goal blood sugar range 140-180 mg/dl for the majority of critically ill & non-critically ill patients. However, more stringent targets may be selected in individual cases. Will utilize more stringent goal of 110-140mg/dl based on patient age & tight glycemic control at baseline. Additionally, tighter glycemic control is warranted to facilitate infection healing. PLAN FOR INPATIENT GLYCEMIC CONTROL: * Holding outpatient oral diabetes medications * Start Basal insulin with Lantus 15 units SQ BID if BSG > 180mg/dl * NovoLog per scale ACHS or Q6hrs while NPO * Goal Range: Low 110 mg/dL - High 140 mg/dL * Correction Factor: 20 mg/dL/unit * Nutritional / Prandial insulin per carb ratio of 1 unit per 7 grams CHO consumed Looking ahead to discharge: * 65yo T2DM male with adequately controlled diabetes per recent A1c on current outpatient regimen. * Pt is maintained on oral agent monotherapy (metformin) as an outpatient * Oral agents are not recommended for inpatient use d/t drug interactions, changing PO intake, and difficulty titrating for acute hyper/hypoglycemia. ADA recommends re-initiating outpatient oral agents 1-2 days prior to discharge if/ when appropriate if they were held on admission. * Will try to resume metformin if possible prior to discharge. If not, seems reasonable for patient to continue metformin at discharge based on degree of outpatient control and renal function. * Please note that the plan above was derived based on current level of insulin resistance and hospital stress. These recommendations are appropriate for inpatient admission only. Plan of care upon discharge will need to be reassessed to avoid potential outpatient hypo/hyperglycemia. Thank you.
[2016-05-16] MEDS: INSULIN ASPART 100 UNITS/ML 3 ML PEN SC SCH ×3 (13:23→21:49)
[2016-05-16] MEDS: SODIUM CHLORIDE 0.9% 1000ML 1,000 ML IV SCH (15:12)
[2016-05-16] MEDS ORDERED: VANCOMYCIN TROUGH SCH (15:30)
--- NOTE | 2016-05-16 18:01 | Progress Note ---
Subjective Date of Service: May 16, 2016. Subjective Pt evaluation today including: conversation w/ patient, physical exam, lab review Problem List Medical Problems: (1) SON (acute kidney injury) Status: Acute (2) Altered mental status Status: Acute (3) Anemia Status: Acute (4) Anemia Status: Acute (5) Anemia Status: Acute (6) CHF (congestive heart failure) Status: Acute (7) Hemorrhage of urethra Status: Acute (8) Hypoxia Status: Acute (9) Pneumonia Status: Acute (10) UTI (urinary tract infection) Status: Acute Review of Systems ROS is unobtainable due to slight confusion Medications Current Inpatient Medications Medications (Trade) Dose Ordered Sig/Ismael Route Start Time Stop Time Status Last Admin Dose Admin Zolpidem Tartrate (Ambien Tab) 5 mg HSZ PRN PO 05/15/16 00:15 06/14/16 00:14 Acetaminophen (Tylenol Tab) 500 mg TID PRN PO 05/15/16 00:15 06/14/16 00:14 Aspirin (Ecotrin Tab) 81 mg DAILY PO 05/15/16 09:00 06/14/16 08:59 05/16/16 09:47 81 MG Atorvastatin Calcium (Lipitor Tab) 20 mg HS PO 05/15/16 21:00 06/14/16 20:59 05/15/16 20:47 20 MG Divalproex Sodium (Depakote Delay Rel Tab) 500 mg DAILY PO 05/15/16 09:00 06/14/16 08:59 05/16/16 09:52 500 MG Albuterol/ Ipratropium (Duoneb) 3 ml TID PRN INH 05/15/16 00:15 06/14/16 00:14 Isosorbide Mononitrate (Imdur Ext Rel Tab) 60 mg DAILY PO 05/15/16 09:00 06/14/16 08:59 05/16/16 09:47 60 MG Loperamide HCl (Imodium Cap) 2 mg TID PRN PO 05/15/16 00:15 06/14/16 00:14 Magnesium Oxide (Mag-Ox Tab) 400 mg BID PO 05/15/16 09:00 06/14/16 08:59 05/16/16 09:50 400 MG Metoprolol Tartrate (Lopressor Tab) 100 mg BID PO 05/15/16 09:00 06/14/16 08:59 05/16/16 09:51 100 MG Triamcinolone Acetonide (Kenalog 0.5% Crm) 1 appln BID PRN EXT 05/15/16 00:15 06/14/16 00:14 Miscellaneous Information (Order Awaiting Action) 1 ea QS N/A 05/15/16 08:00 06/14/16 07:59 Miscellaneous Information (Order Awaiting Action) 1 ea QS N/A 05/15/16 08:00 06/14/16 07:59 Non-Formulary Medication (Zinc Oxide (Topical) (Desitin Rapid Relief)) 1 appln QID PRN TOP 05/15/16 00:15 06/14/16 00:14 UNV Ferrous Sulfate (Feosol Tab) 325 mg BIDM PO 05/15/16 08:00 06/14/16 07:59 05/16/16 09:46 325 MG Haloperidol (Haldol Tab) 2 mg BID PRN PO 05/15/16 00:15 06/14/16 00:14 Haloperidol (Haldol Tab) 10 mg BID PO 05/15/16 09:00 06/14/16 08:59 05/16/16 09:46 10 MG Potassium Chloride (Klor-Con M10) 10 meq DAILY PO 05/15/16 09:00 06/14/16 08:59 05/16/16 09:50 10 MEQ Ranitidine HCl (zANTac TAB) 300 mg BID PO 05/15/16 09:00 06/14/16 08:59 05/16/16 09:48 300 MG Divalproex Sodium 1000 mg 1,000 mg HS PO 05/15/16 21:00 06/14/16 20:59 05/15/16 20:48 1,000 MG Methylprednisolone Sodium Succinate/ Syringe (Solu-Medrol IV/ Syringe) 0.96 ml @ 1.5 mls/min Q6H IV 05/15/16 02:30 06/14/16 02:29 05/16/16 15:12 1.5 MLS/MIN Guaifenesin 600 mg 600 mg BID PO 05/15/16 09:00 06/14/16 08:59 05/16/16 09:49 600 MG Piperacillin Sod/ Tazobactam Sod/ Dextrose (Zosyn Iv/D5 100ml) 120 ml @ 30 mls/hr Q8H IV 05/15/16 06:00 05/22/16 05:59 05/16/16 13:24 30 MLS/HR Piperacillin Sod/ Tazobactam Sod (Consult) 1 ea UD PRN N/A 05/15/16 02:15 06/14/16 02:14 Ipratropium Edmonson (Atrovent 0.02% 0.5MG/2.5ML Neb) 0.5 mg Q6R INH 05/15/16 03:00 06/14/16 02:59 05/16/16 07:52 0.5 MG Levalbuterol (Xopenex 1.25MG/ 0.5ML Neb) 1.25 mg Q6R INH 05/15/16 03:00 06/14/16 02:59 05/16/16 07:52 1.25 MG Ipratropium Edmonson (Atrovent 0.02% 0.5MG/2.5ML Neb) 0.5 mg Q2H PRN INH 05/15/16 02:30 06/14/16 02:29 Levalbuterol 1.25 mg 1.25 mg Q2H PRN INH 05/15/16 02:30 06/14/16 02:29 Sodium Chloride (Nss 1000ml) 1,000 ml @ 50 mls/hr Q20H IV 05/15/16 19:30 06/14/16 19:29 05/16/16 15:12 50 MLS/HR Hydralazine HCl (HydrALAZINE INJ) 10 mg Q4 PRN IV. 05/16/16 00:15 06/15/16 00:14 05/16/16 16:41 10 MG Glucose (Glucose 40% Gel) 15-30 GRAMS 15 GRAMS... UD PRN PO 05/16/16 08:30 06/15/16 08:29 Glucose (Glucose Chew Tab) 4-8 Tablets 4 Tabl... UD PRN PO 05/16/16 08:30 06/15/16 08:29 Dextrose (Dextrose 50% 50ML Syringe) 25-50ML OF 50% DW IV FOR... UD PRN IV 05/16/16 08:30 06/15/16 08:29 Glucagon (Glucagon Inj) 1 mg UD PRN SQ 05/16/16 08:30 06/15/16 08:29 Miscellaneous Information (Consult Glycemic Management Pharmacy) 1 ea UD PRN N/A 05/16/16 08:36 06/15/16 08:35 Insulin Aspart (novoLOG ASPART) SLIDING SCALE ACHS SC 05/16/16 09:00 06/15/16 08:59 Future hold 05/16/16 13:23 15 UNITS Insulin Glargine (Lantus Solostar Pen) SEE PROTOCOL TEXT BID SC 05/16/16 18:00 06/15/16 17:59 Objective Vital Signs Date Time Temp Pulse Resp B/P Pulse Ox O2 Delivery O2 Flow Rate FiO2 05/16/16 17:02 182/71 05/16/16 15:22 36.5 59 17 186/82 99 Room Air 05/16/16 07:53 72 18 96 Nasal Cannula 2.0 05/16/16 07:30 Nasal Cannula 2.0 05/16/16 07:08 36.7 72 16 162/70 98 Nasal Cannula 2.0 05/16/16 02:25 161/72 05/15/16 23:10 37.1 68 18 180/72 92 Nasal Cannula 3.0 05/15/16 20:51 68 18 92 Room Air 05/15/16 20:30 69 186/69 05/15/16 19:35 Room Air Physical Exam General Appearance: no apparent distress Eyes: normal inspection, EOMI ENT: normal ENT inspection, hearing grossly normal Neck: supple Respiratory/Chest: chest non-tender, lungs clear, normal breath sounds, no respiratory distress, no accessory muscle use Cardiovascular: regular rate, rhythm, no edema, no gallop, no JVD, no murmur Abdomen: normal bowel sounds, non tender, soft Extremities: normal range of motion, non-tender, normal inspection, + swelling Neurologic/Psychiatric: mopper II-XII nml as tested, no motor/sensory deficits, normal mood/affect, + pertinent finding (slighly confused but can answer simple question) Skin: normal color, warm/dry, no rash Laboratory Results Last 24 Hours Test 05/16/16 07:03 05/16/16 09:11 05/16/16 11:12 05/16/16 16:42 White Blood Count 6.89 K/uL Red Blood Count 3.63 M/uL Hemoglobin 9.0 g/dL Hematocrit 27.4 % Mean Corpuscular Volume 75.5 fL Mean Corpuscular Hemoglobin 24.8 pg Mean Corpuscular Hemoglobin Concent 32.8 g/dl Platelet Count 238 K/uL Mean Platelet Volume 9.0 fL Neutrophils (%) (Auto) 84.1 % Lymphocytes (%) (Auto) 5.8 % Monocytes (%) (Auto) 9.4 % Eosinophils (%) (Auto) 0.0 % Basophils (%) (Auto) 0.0 % Neutrophils # (Auto) 5.79 K/uL Lymphocytes # (Auto) 0.40 K/uL Monocytes # (Auto) 0.65 K/uL Eosinophils # (Auto) 0.00 K/uL Basophils # (Auto) 0.00 K/uL RDW Standard Deviation 44.5 fL RDW Coefficient of Variation 16.0 % Immature Granulocyte % (Auto) 0.7 % Immature Granulocyte # (Auto) 0.05 K/uL Sodium Level 128 mmol/L Potassium Level 4.1 mmol/L Chloride Level 93 mmol/L Carbon Dioxide Level 30 mmol/L Anion Gap 5.0 mmol/L Blood Urea Nitrogen 20 mg/dl Creatinine 0.97 mg/dl Est Creatinine Clear Calc Drug Dose 129.1 ml/min Estimated GFR () 93.2 Estimated GFR (Non- 80.5 BUN/Creatinine Ratio 20.5 Random Glucose 184 mg/dl Calcium Level 8.3 mg/dl Phosphorus Level 3.2 mg/dl Magnesium Level 1.9 mg/dl Total Bilirubin 0.2 mg/dl Aspartate Amino Transf (AST/SGOT) 56 U/L Alanine Aminotransferase (ALT/SGPT) 24 U/L Alkaline Phosphatase 69 U/L Total Creatine Kinase 550 U/L Total Protein 7.9 gm/dl Albumin 2.1 gm/dl Globulin 5.8 gm/dl Albumin/Globulin Ratio 0.4 Bedside Glucose 216 mg/dl 221 mg/dl 212 mg/dl Assessment and Plan The patient is a 65-year-old male inmate of [facility], recently treated for UTI and hypoxemia and a hilar mass, who is brought to the emergency department with persistent confusion, and a fever Confusion likely metabolic encephalopathy secondary to UTI, improved UTI POA-stop Cipro by mouth, and use antibiotics as above. recent pseudomonas and klebsiella in the urine DC vaco/levofloxacin continue zosyn alone repeat urine and blood cx Left lower lobe pneumonia/hilar mass Right hilar mass/chely complex measuring 3.8 x 3.5 cm. possible post obstructive pneumonia continue Zosyn 3.375 mg IV every 8 hours, guaifenesin extended release 600 mg by mouth twice a day, Solu-Medrol 60 mg IV every 6 hours, and Xopenex with Atrovent nebulizers every 6 hours while awake and every 2 hours when necessary. Last admission Dr. Gomez was consulted and was not able to do biopsy as was not able to get a consent deemed by psychiatrist as incompetent to take a decision legal channels are in the process of obtaining guardianship Mild rhabdomyolysis gentle IVF hydration CAD/hypertension--continue enteric-coated aspirin 81 mg by mouth daily, Bumex 2 mg by mouth daily, isosorbide mononitrate ER see milligrams by mouth daily, mag oxide 400 mg by mouth twice a day, metoprolol tartrate 100 mg by mouth twice a day, and potassium chloride 10 mEq by mouth daily. Diabetes mellitus--hold metformin 850 mg by mouth 3 times a day, and place on Accu-Cheks before meals and at bedtime with NovoLog coverage. Schizophrenia/mental retardation--continue Depakote 1000 mg by mouth at bedtime , and Depakote delayed release 500 mg by mouth daily, haloperidol 10 mg by mouth twice a day with 2 mg by mouth twice a day when necessary. GERD--continue ranitidine 300 mg by mouth twice a day. Hypercholesterolemia--continue atorvastatin 20 mg by mouth at bedtime.
[2016-05-16] MEDS: INSULIN GLARGINE SOLOSTAR 100 UNITS/ML 3 ML PEN SC SCH (18:24)
[2016-05-16] MEDS ORDERED: VANCOMYCIN INJ 2,800 MG in SODIUM CHLORIDE 0.9% 500ML 500 ML IV SCH (19:15)
[2016-05-16] MEDS ORDERED: VANCOMYCIN CONSULT ACTIVE PRN (19:15)
--- NOTE | 2016-05-16 20:25 | Pharmacy Progress Note ---
Pharmacy Antibiotic Consult Date of Service: May 16, 2016. Pharmacy Dosing Scope Pharmacy is re-consulted to initiate Vancomycin IV dosing therapy, order appropriate labs and adjust drug dose/frequency. Subjective The patient is a 65 year old male admitted on May 15, 2016 at 00:03; Dr. Camargo reinitiated Vancomycin for UTI tonight. Objective Height (Feet): 6 Height (Inches): 5.00 Weight (Kilograms): 175.000 Lab Results (24hrs): Laboratory Tests Test 05/16/16 07:03 BUN/Creatinine Ratio 20.5 Blood Urea Nitrogen 20 mg/dl Creatinine 0.97 mg/dl White Blood Count 6.89 K/uL Red Blood Count 3.63 M/uL Hemoglobin 9.0 g/dL Hematocrit 27.4 % Mean Corpuscular Volume 75.5 fL Mean Corpuscular Hemoglobin 24.8 pg Mean Corpuscular Hemoglobin Concent 32.8 g/dl Platelet Count 238 K/uL Mean Platelet Volume 9.0 fL Neutrophils (%) (Auto) 84.1 % Lymphocytes (%) (Auto) 5.8 % Monocytes (%) (Auto) 9.4 % Eosinophils (%) (Auto) 0.0 % Basophils (%) (Auto) 0.0 % Neutrophils # (Auto) 5.79 K/uL Lymphocytes # (Auto) 0.40 K/uL Monocytes # (Auto) 0.65 K/uL Eosinophils # (Auto) 0.00 K/uL Basophils # (Auto) 0.00 K/uL Recent Pertinent Medications Item Value Date Time Piperacillin Sod/ 120 ml @ 30 mls/hr 05/15/16 0600 Tazobactam Sod Q8H/IV 05/16/16 1324 4.5 gm/Dextrose Assessment & Plan Loading dose: Vancomycin 2800mg (~16mg/kg) IV X 1 dose then: Vancomycin 2350mg (13.5mg/kg) IV every 10 hours. I pretty much mimicked the previous Vancomycin plan except for loading dose. In essence nothing has really changed since it was cut roughly 36 hours previous. I will check a trough level prior to 1400 dose on 05/18/16 Goal trough level estimate: between 15-20 mcg/mL. Pharmacy will continue to follow and will adjust dose/frequency as necessary. Thank you
[2016-05-16] MEDS: ATORVASTATIN 20 MG TAB PO SCH (21:25)
[2016-05-17] MEDS: HydrALAZINE HCL 20 MG/ML VIAL IV. PRN ×2 (00:05→11:07)
[2016-05-17] MEDS: METHYLPREDNISOLONE IV 60 MG in SYRINGE 0 ML IV SCH ×3 (01:47→14:03)
[2016-05-17] MEDS: LEVALBUTEROL 1.25MG/0.5ML NEB INH SCH ×4 (02:18→20:09)
[2016-05-17] MEDS: IPRATROPIUM BROMIDE NEB SOLN 0.02% 2.5 ML VIAL INH SCH ×4 (02:18→20:09)
[2016-05-17 03:38] VITALS: BP 153/72
[2016-05-17] MEDS: PIPERACILL/TAZOBAC IV 4.5 GM in DEXTROSE 5% 100ML IV SCH ×2 (05:44→14:02)
[2016-05-17 06:25] LABS: COMPLETE YES; HEMATOCRIT 27.8 % (42-52); IG% 0.7 %; LYMPH % 4.1 %; LYMPH ABS # 0.36 K/uL (1.2-3.4); MEAN CELL VOLUME 76.6 fL (80-100); MEAN CORPUSCULAR HEMOGLOBIN 25.1 pg (25-34); MEAN CORPUSCULAR HGB CONC 32.7 g/dl (32-36); NEUT % 89.2 %; PLATELET COUNT 283 K/uL (130-400); RED BLOOD COUNT 3.63 M/uL (4.7-6.1); WHITE BLOOD COUNT 8.86 K/uL (4.8-10.8)
[2016-05-17 06:52] LABS: BUN/CREATININE RATIO 23.7 (10-20); CALCIUM 8.7 mg/dl (8.5-10.1); CREATININE 0.82 mg/dl (0.60-1.40); MAGNESIUM 2.1 mg/dl (1.8-2.4); POTASSIUM 4.4 mmol/L (3.5-5.1)
[2016-05-17 07:00] LABS: ALB/GLOB RATIO 0.4 (0.9-2)
[2016-05-17 07:40] VITALS: BP 182/86; PULSE 64; TEMP 37; O2SAT 92
[2016-05-17] MEDS: VANCOMYCIN INJ 2,350 MG in SODIUM CHLORIDE 0.9% 500ML 500 ML IV SCH ×2 (07:44→18:23)
[2016-05-17] MEDS: GUAIFENESIN 200 MG TAB PO SCH ×2 (07:50→21:14)
[2016-05-17] MEDS: RANITIDINE HCL 150 MG TAB PO SCH ×2 (07:50→21:14)
[2016-05-17] MEDS: POTASSIUM CHLORIDE 10 MEQ TABCR PO SCH (07:51)
[2016-05-17] MEDS: MAGNESIUM OXIDE 400 MG TAB PO SCH ×2 (07:51→21:14)
[2016-05-17] MEDS: METOPROLOL TARTRATE 100 MG TAB PO SCH ×2 (07:51→21:14)
[2016-05-17] MEDS: HALOPERIDOL 1 MG TAB PO PRN (07:51)
[2016-05-17] MEDS: HALOPERIDOL 5 MG TAB PO SCH ×2 (07:52→21:14)
[2016-05-17] MEDS: DIVALPROEX SODIUM 500 MG DELAY RELEASE TAB PO SCH ×2 (07:52→21:14)
[2016-05-17 08:06] LABS: ESTIMATED AVERAGE GLUCOSE 137 mg/dl; HA1C FLAG Normal (Normal)
[2016-05-17] MEDS: ASPIRIN 81 MG ECTAB PO SCH (08:26)
[2016-05-17] MEDS: FERROUS SULFATE 325 MG TAB PO SCH ×2 (08:26→18:29)
[2016-05-17] MEDS: ISOSORBIDE MONONITRATE 60 MG TABCR PO SCH (08:26)
[2016-05-17] MEDS: INSULIN GLARGINE SOLOSTAR 100 UNITS/ML 3 ML PEN SC SCH ×2 (08:57→21:29)
[2016-05-17] MEDS: INSULIN ASPART 100 UNITS/ML 3 ML PEN SC SCH ×4 (09:01→21:27)
--- NOTE | 2016-05-17 10:05 | Pharmacy Progress Note ---
Glycemic Control: Progress Nt Date of Service May 17, 2016. Scope Glycemic Pharmacist consulted by Dr Camargo on 05/16/16 for glycemic control and to write orders per [facility] inpatient glycemic control protocol. Objective Accuchecks BSG (last 24hrs): Test 05/16/16 11:12 05/16/16 16:42 05/16/16 20:41 05/17/16 05:59 Bedside Glucose 221 mg/dl (70-99) 212 mg/dl (70-99) 187 mg/dl (70-99) Random Glucose 138 mg/dl (70-99) Test 05/17/16 07:19 Bedside Glucose 145 mg/dl (70-99) Laboratory Data (last 24hrs) Test 05/17/16 05:54 05/17/16 05:59 Hemoglobin A1c 6.4 % White Blood Count 8.86 K/uL Red Blood Count 3.63 M/uL Hemoglobin 9.1 g/dL Hematocrit 27.8 % Mean Corpuscular Volume 76.6 fL Mean Corpuscular Hemoglobin 25.1 pg Mean Corpuscular Hemoglobin Concent 32.7 g/dl Platelet Count 283 K/uL Mean Platelet Volume 9.0 fL Neutrophils (%) (Auto) 89.2 % Lymphocytes (%) (Auto) 4.1 % Monocytes (%) (Auto) 6.0 % Eosinophils (%) (Auto) 0.0 % Basophils (%) (Auto) 0.0 % Neutrophils # (Auto) 7.91 K/uL Lymphocytes # (Auto) 0.36 K/uL Monocytes # (Auto) 0.53 K/uL Eosinophils # (Auto) 0.00 K/uL Basophils # (Auto) 0.00 K/uL Anion Gap 6.0 mmol/L BUN/Creatinine Ratio 23.7 Blood Urea Nitrogen 19 mg/dl Creatinine 0.82 mg/dl Potassium Level 4.4 mmol/L Sodium Level 130 mmol/L HbA1c: Test 05/17/16 05:54 Hemoglobin A1c 6.4 % (4.5-5.6) H Recent Pertinent Medications Outpatient Anti-diabetic Regimen: * Metformin 850 mg TID with meals The patient is currently receiving: * Basal insulin: Lantus 0-20 units (sliding scale based upon BSG) every 12 hours - rec'd 15 units last evening * Correctional Insulin: Novolog Correction per scale ACHS Goal Range: Low 110 mg/dL - High 140 mg/dL Correction Factor: 20 mg/dL/unit * Prandial insulin: Per carb ratio of 1 unit per 7 grams CHO consumed * Oral Agents: None at this time Risk Factors for Insulin Resistance: * Steroids: Solu-medrol 60 mg IV q6h * Infection: on vancomycin and Zosyn for pneumonia * Diet: AHA/ type 2 diabetes - consuming adequate amts of CHO with each meal Assessment & Plan ASSESSMENT: From 05/16/16 note: * Pt with hyperglycemia secondary to holding oral antidiabetic medications ( metformin) w/o subsequent bolus/SSI ordered. Hyperglycemia compounded by high dose RTC steroids with Solumedrol 60mg IV Q6hrs * Will continue to hold metformin for admission and utilize SQ basal bolus insulin regimen which is the recommended regimen for inpatient glycemic control. * Will initiate weight & stress based insulin dosing for insulin akil patient. Titrate dosing based on BSG trends. * Start with aggressive bolus insulin per CF/CR for steroid induced hyperglycemia. Steroids have their most profound effect on post-prandial hyperglycemia therefore aggressive CF/CR warranted. * Will start basal insulin for sustained hyperglycemia (BSG > 180mg/dl) * ADA & AACE recommend a goal blood sugar range 140-180 mg/dl for the majority of critically ill & non-critically ill patients. However, more stringent targets may be selected in individual cases. Will utilize more stringent goal of 110-140mg/dl based on patient age & tight glycemic control at baseline. Additionally, tighter glycemic control is warranted to facilitate infection healing. 05/17/16 * Mr. Stover received 49 units of insulin yesterday with BSGs ranging from 138- 221 mg/dL in the past 24 hours * Lantus was initiated BID for sustained hyperglycemia but 15 units last evening seemed to be enough - fasting today of 138 mg/dL * Will plan to continue with the BID Lantus since it is per a "sliding scale" and patient will not receive a dose if BSGs less than 180 mg/dL * Current CF/CR appeared to work well yesterday so will plan to continue this as well PLAN FOR INPATIENT GLYCEMIC CONTROL: * Continue Lantus 0-20 units (as per sliding scale based upon BSGs) q12h * Continue Novolog ACHS * Goal 110-140 mg/dL * CF 20 mg/dL/unit * CR 1 unit per 7 gm CHO consumed RECOMMENDATIONS FOR DISCHARGE: * A1c from today indicates excellent outpatient control on single oral agent * Continue metformin 850 mg TID Thank you.
[2016-05-17 10:50] VITALS: BP 176/80; PULSE 64
--- NOTE | 2016-05-17 11:10 | SURGERY PROGRESS NOTE ---
DATE: 05/17/2016 DATE: 05/17/2016. The patient has been weaned off of oxygen and is on room air now. His vital signs are stable. This patient will have to be seen in the future after his power of employment attorney issues have been settled. 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 We will be glad to see him in the office and get this set up.
[2016-05-17] MEDS: SODIUM CHLORIDE 0.9% 1000ML 1,000 ML IV SCH ×2 (11:30→21:55)
[2016-05-17 15:11] VITALS: BP 168/73; PULSE 80; TEMP 37; O2SAT 92
--- NOTE | 2016-05-17 20:36 | Progress Note ---
Subjective Date of Service: May 17, 2016. Subjective Pt evaluation today including: conversation w/ patient, physical exam, chart review, lab review, review of inpatient medication list Problem List Medical Problems: (1) SON (acute kidney injury) Status: Acute (2) Altered mental status Status: Acute (3) Anemia Status: Acute (4) Anemia Status: Acute (5) Anemia Status: Acute (6) CHF (congestive heart failure) Status: Acute (7) Hemorrhage of urethra Status: Acute (8) Hypoxia Status: Acute (9) Pneumonia Status: Acute (10) UTI (urinary tract infection) Status: Acute Review of Systems Constitutional: No chills, No fatigue, No fever, No problem reported, No see HPI, No sweats, No weakness, No weight loss Eyes: No diplopia, No discharge, No eye pain, No problem reported, No redness, No see HPI, No worsening of vision ENT: No dental problems, No hearing loss, No nasal symptoms, No problem reported, No see HPI, No sore throat, No tinnitus, No trouble swallowing, No unusual epistaxis Respiratory: No cough, No dyspnea at rest, No dyspnea on exertion, No hemoptysis, No problem reported, No see HPI, No shortness of breath, No sputum, No wheezing Cardiac: No PND, No chest pain, No claudication, No edema, No orthopnea, No palpitations, No problem reported, No see HPI Abdomen: No GI bleeding, No constipation, No diarrhea, No nausea, No pain, No problem reported, No see HPI, No vomiting Musculoskeletal: + joint pain Male : No dysuria, No hematuria, No incontinence, No nocturia more than once/ night, No problem reported, No see HPI, No sexual dysfunction, No slowing stream , No urinary frequency Neurologic: No balance problems, No memory loss, No numbness/tingling, No paralysis, No problem reported, No see HPI, No vertigo, No weakness Psychiatric: No anhedonism, No anxiety, No depression symptoms, No insomnia, No problem reported, No see HPI, No substance abuse Heme: No abnormal bleeding/bruising, No clotting problems, No night sweats, No problem reported, No see HPI, No swollen lymph nodes Endo: No excessive thirst, No excessive urination, No fatigue, No problem reported, No see HPI Skin: No bleeding, No color change, No itch, No new/changing skin lesions, No problem reported, No rash, No see HPI Objective Vital Signs Date Time Temp Pulse Resp B/P Pulse Ox O2 Delivery O2 Flow Rate FiO2 05/17/16 16:40 Room Air 05/17/16 15:11 37.0 80 18 168/73 92 Room Air 05/17/16 10:50 64 19 176/80 05/17/16 07:40 37.0 64 18 182/86 92 Room Air 05/17/16 07:30 Nasal Cannula 05/17/16 03:38 153/72 05/16/16 23:58 36.5 58 18 178/79 91 Room Air Physical Exam General Appearance: no apparent distress Eyes: normal inspection ENT: normal ENT inspection, hearing grossly normal Neck: supple Respiratory/Chest: chest non-tender, lungs clear, normal breath sounds, no respiratory distress Cardiovascular: regular rate, rhythm, no edema, no gallop, no JVD, no murmur Abdomen: normal bowel sounds, non tender, soft, no organomegaly, no pulsatile mass Extremities: + swelling, + pertinent finding (tenderness both ankles) Neurologic/Psychiatric: 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 tested, no motor/sensory deficits, alert, + disoriented (to time but knows place) Skin: normal color, warm/dry, no rash Laboratory Results Last 24 Hours Test 05/16/16 20:41 05/17/16 05:54 05/17/16 05:59 05/17/16 07:19 Bedside Glucose 187 mg/dl 145 mg/dl White Blood Count 8.86 K/uL Red Blood Count 3.63 M/uL Hemoglobin 9.1 g/dL Hematocrit 27.8 % Mean Corpuscular Volume 76.6 fL Mean Corpuscular Hemoglobin 25.1 pg Mean Corpuscular Hemoglobin Concent 32.7 g/dl Platelet Count 283 K/uL Mean Platelet Volume 9.0 fL Neutrophils (%) (Auto) 89.2 % Lymphocytes (%) (Auto) 4.1 % Monocytes (%) (Auto) 6.0 % Eosinophils (%) (Auto) 0.0 % Basophils (%) (Auto) 0.0 % Neutrophils # (Auto) 7.91 K/uL Lymphocytes # (Auto) 0.36 K/uL Monocytes # (Auto) 0.53 K/uL Eosinophils # (Auto) 0.00 K/uL Basophils # (Auto) 0.00 K/uL RDW Standard Deviation 45.0 fL RDW Coefficient of Variation 16.0 % Immature Granulocyte % (Auto) 0.7 % Immature Granulocyte # (Auto) 0.06 K/uL Estimated Average Glucose 137 mg/dl Hemoglobin A1c 6.4 % Sodium Level 130 mmol/L Potassium Level 4.4 mmol/L Chloride Level 95 mmol/L Carbon Dioxide Level 29 mmol/L Anion Gap 6.0 mmol/L Blood Urea Nitrogen 19 mg/dl Creatinine 0.82 mg/dl Est Creatinine Clear Calc Drug Dose 152.7 ml/min Estimated GFR () 106.1 Estimated GFR (Non- 91.5 BUN/Creatinine Ratio 23.7 Random Glucose 138 mg/dl Calcium Level 8.7 mg/dl Magnesium Level 2.1 mg/dl Total Bilirubin 0.2 mg/dl Aspartate Amino Transf (AST/SGOT) 43 U/L Alanine Aminotransferase (ALT/SGPT) 28 U/L Alkaline Phosphatase 70 U/L Total Protein 7.5 gm/dl Albumin 2.2 gm/dl Globulin 5.3 gm/dl Albumin/Globulin Ratio 0.4 Test 05/17/16 11:15 05/17/16 16:44 Bedside Glucose 190 mg/dl 206 mg/dl Assessment and Plan The patient is a 65-year-old male inmate of [facility], recently treated for UTI and hypoxemia and a hilar mass, who is brought to the emergency department with persistent confusion, and a fever Confusion likely metabolic encephalopathy secondary to UTI, improved but not back to base line yet will check ammonia level RPR TSH was checked and was normal UTI POA-stop Cipro by mouth, and use antibiotics as above. recent pseudomonas and klebsiella in the urine repeat urine and blood cx, growing enterococcus sensitive to Amp DC zosyn/vanco and start ampicillin Left lower lobe pneumonia/hilar mass Right hilar mass/chely complex measuring 3.8 x 3.5 cm. guaifenesin extended release 600 mg by mouth twice a day, Solu-Medrol 60 mg IV every 6 hours, and Xopenex with Atrovent nebulizers every 6 hours while awake and every 2 hours when necessary. Last admission Dr. Gomez was consulted and was not able to do biopsy as was not able to get a consent deemed by psychiatrist as incompetent to take a decision legal channels are in the process of obtaining guardianship Mild rhabdomyolysis gentle IVF hydration CAD/hypertension--continue enteric-coated aspirin 81 mg by mouth daily, Bumex 2 mg by mouth daily, isosorbide mononitrate ER see milligrams by mouth daily, mag oxide 400 mg by mouth twice a day, metoprolol tartrate 100 mg by mouth twice a day, and potassium chloride 10 mEq by mouth daily. Diabetes mellitus--hold metformin 850 mg by mouth 3 times a day, and place on Accu-Cheks before meals and at bedtime with NovoLog coverage. Schizophrenia/mental retardation--continue Depakote 1000 mg by mouth at bedtime , and Depakote delayed release 500 mg by mouth daily, haloperidol 10 mg by mouth twice a day with 2 mg by mouth twice a day when necessary. GERD--continue ranitidine 300 mg by mouth twice a day. Hypercholesterolemia--continue atorvastatin 20 mg by mouth at bedtime.
[2016-05-17] MEDS: ATORVASTATIN 20 MG TAB PO SCH (21:14)
--- NOTE | 2016-05-17 21:28 | DIAGNOSTIC IMAGING REPORT ---
LEFT ANKLE 2 VIEWS CLINICAL HISTORY: Left ankle pain and spine. COMPARISON: None FINDINGS: Alignment of left ankle is anatomic. There is soft tissue swelling. No fracture or suspicious lesion is present. Talar dome is intact. IMPRESSION: 1. No acute fracture or dislocation of the left ankle. No osseous abnormality identified. 2. Soft tissue swelling. Electronically signed by: Eliezer Mckeon M.D. 05/17/2016 9:26 PM Dictated Date/Time: 05/17/2016 9:25 PM
--- NOTE | 2016-05-17 21:29 | DIAGNOSTIC IMAGING REPORT ---
RIGHT ANKLE 2 VIEWS CLINICAL HISTORY: Pain and decreased range of motion. COMPARISON: None FINDINGS: This exam was compromised by difficulty with positioning. However, alignment of the right ankle is anatomic. No fracture or other osseous abnormality is present. There is soft tissue swelling. There is moderate vascular calcification. IMPRESSION: 1. No acute osseous abnormality of the right ankle identified. 2. Study compromised due to to difficulty with positioning. 3. Soft tissue swelling. Electronically signed by: Eliezer Mckeon M.D. 05/17/2016 9:27 PM Dictated Date/Time: 05/17/2016 9:26 PM
[2016-05-17] MEDS: AMPICILLIN IV 1 GM in SODIUM CHLOR 0.9% AD-VAN 50ML 50 ML IV SCH (21:54)
[2016-05-18 00:30] VITALS: BP 187/84; PULSE 64; TEMP 37.1; O2SAT 94
[2016-05-18] MEDS: HydrALAZINE HCL 20 MG/ML VIAL IV. PRN ×2 (00:45→11:13)
[2016-05-18 01:43] VITALS: BP 188/77
[2016-05-18] MEDS: LEVALBUTEROL 1.25MG/0.5ML NEB INH SCH ×4 (01:53→19:49)
[2016-05-18] MEDS: IPRATROPIUM BROMIDE NEB SOLN 0.02% 2.5 ML VIAL INH SCH ×4 (01:53→19:49)
[2016-05-18] MEDS: AMPICILLIN IV 1 GM in SODIUM CHLOR 0.9% AD-VAN 50ML 50 ML IV SCH ×3 (03:20→15:00)
[2016-05-18 07:21] LABS: COMPLETE YES; HEMATOCRIT 27.6 % (42-52); IG% 0.4 %; LYMPH % 10.1 %; LYMPH ABS # 0.93 K/uL (1.2-3.4); MEAN CELL VOLUME 74.8 fL (80-100); MEAN CORPUSCULAR HEMOGLOBIN 24.4 pg (25-34); MEAN CORPUSCULAR HGB CONC 32.6 g/dl (32-36); MEAN PLATELET VOLUME 8.9 fL (7.4-10.4); MONO % 14.6 %; NEUT % 74.9 %; PLATELET COUNT 318 K/uL (130-400); RED BLOOD COUNT 3.69 M/uL (4.7-6.1); WHITE BLOOD COUNT 9.24 K/uL (4.8-10.8)
[2016-05-18 07:22] VITALS: BP 182/78; PULSE 79; TEMP 37; O2SAT 93
[2016-05-18] MEDS: SODIUM CHLORIDE 0.9% 1000ML 1,000 ML IV SCH (07:30)
[2016-05-18 07:47] LABS: BUN/CREATININE RATIO 25.8 (10-20); CALCIUM 8.7 mg/dl (8.5-10.1); CREATININE 0.8 mg/dl (0.60-1.40); POTASSIUM 4.3 mmol/L (3.5-5.1)
[2016-05-18 07:50] LABS: ALB/GLOB RATIO 0.4 (0.9-2)
[2016-05-18] MEDS: INSULIN GLARGINE SOLOSTAR 100 UNITS/ML 3 ML PEN SC SCH (07:50)
[2016-05-18] MEDS: RANITIDINE HCL 150 MG TAB PO SCH (07:51)
[2016-05-18] MEDS: ASPIRIN 81 MG ECTAB PO SCH (07:51)
[2016-05-18] MEDS: ISOSORBIDE MONONITRATE 60 MG TABCR PO SCH (07:51)
[2016-05-18] MEDS: FERROUS SULFATE 325 MG TAB PO SCH ×2 (07:51→18:00)
[2016-05-18] MEDS: HALOPERIDOL 1 MG TAB PO PRN (07:52)
[2016-05-18] MEDS: HALOPERIDOL 5 MG TAB PO SCH (07:53)
[2016-05-18] MEDS: GUAIFENESIN 200 MG TAB PO SCH (07:53)
[2016-05-18] MEDS: DIVALPROEX SODIUM 500 MG DELAY RELEASE TAB PO SCH (07:53)
[2016-05-18] MEDS: POTASSIUM CHLORIDE 10 MEQ TABCR PO SCH (07:54)
[2016-05-18] MEDS: MAGNESIUM OXIDE 400 MG TAB PO SCH (07:54)
[2016-05-18] MEDS: METOPROLOL TARTRATE 100 MG TAB PO SCH (07:54)
--- NOTE | 2016-05-18 08:55 | Surgery Progress Note ---
Subjective Date of Service: May 18, 2016. Pt. denies SOB and state "I can finally breath" Objective Vitals Date Time Temp Pulse Resp B/P Pulse Ox O2 Delivery O2 Flow Rate FiO2 05/18/16 07:22 37.0 79 16 182/78 93 Room Air 05/18/16 01:43 188/77 05/18/16 00:30 Room Air 05/18/16 00:30 37.1 64 17 187/84 94 Room Air 05/17/16 16:40 Room Air 05/17/16 15:11 37.0 80 18 168/73 92 Room Air 05/17/16 10:50 64 19 176/80 Physical Exam General: + well developed, + well nourished, No distress CV: + RRR Pulmonary: + pertinent finding (BS decreased at bases) Assessment & Plan 65 year old male with right hilar mass -the pt. has been offered EBUS and FOB however he refused stating "I don't have a mass in my chest" -pt. previously seen by psychiatry and deemed incompetent to make decision -process is underway to assign POA -once POA obtained will discuss possibility of performing above mentioned procedures, which can be done as outpt.
[2016-05-18] MEDS ORDERED: TAMSULOSIN HCL 0.4 MG CAP PO SCH (09:00)
[2016-05-18] MEDS: INSULIN ASPART 100 UNITS/ML 3 ML PEN SC SCH ×3 (09:23→17:59)
[2016-05-18] MEDS ORDERED: COLC0.6T54 PO (10:46)
[2016-05-18] MEDS ORDERED: PRED10TA PO (10:46)
[2016-05-18] MEDS ORDERED: AMPI500C9 PO (10:46)
[2016-05-18] MEDS ORDERED: LCTXP OR (10:46)
[2016-05-18] MEDS ORDERED: FLM4 PO (10:46)
--- NOTE | 2016-05-18 10:49 | Discharge Instructions ---
Discharge Instructions Admission Admission Date: May 15, 2016 at 00:03 Admission Diagnosis: Hyponatremia, Pneumonia. Discharge Care Plan - Problem: Medical Problems: (1) Pneumonia Care Plan - Goal(s): Increase independence Care Plan - Instructions: Recommended Home Diet: Type 2 Diabetes AHA VTE Core Measure Inpt VTE Proph given/why not?: Unfractionated heparin SQ, SCD's Laboratory Results Test Results: Hemoglobin A1c Test 05/17/16 05:54 Range/Units Estimated Average Glucose 137 mg/dl Hemoglobin A1c 6.4 H 4.5-5.6 % Curt Figueroa Recommendations: Call your doctor if: * Temperature above 101 degrees * Pain not relieved by pain medicine ordered * There is increased drainage or redness from any incision * You have any unanswered questions or concerns. Your Doctors Instructions noted above were prepared by provider Sophia Hennessy.
[2016-05-18 10:55] VITALS: BP_SYST 172; BP_SYST 182; BP_DIAS 74; BP_DIAS 78; PULSE 79; TEMP 37; O2SAT 93
[2016-05-18 11:08] VITALS: BP 172/74
--- NOTE | 2016-05-18 11:10 | Pharmacy Progress Note ---
Glycemic Control: Progress Nt Date of Service May 18, 2016. Scope Glycemic Pharmacist consulted for glycemic control and to write orders per [facility] inpatient glycemic control protocol. Objective Accuchecks BSG (last 24hrs): Test 05/17/16 11:15 05/17/16 16:44 05/17/16 21:06 05/18/16 06:50 Bedside Glucose 190 mg/dl (70-99) 206 mg/dl (70-99) 216 mg/dl (70-99) Random Glucose 101 mg/dl (70-99) Test 05/18/16 07:15 Bedside Glucose 102 mg/dl (70-99) Laboratory Data (last 24hrs) Test 05/18/16 06:50 Anion Gap 6.0 mmol/L BUN/Creatinine Ratio 25.8 Blood Urea Nitrogen 21 mg/dl Creatinine 0.80 mg/dl Potassium Level 4.3 mmol/L Sodium Level 133 mmol/L White Blood Count 9.24 K/uL Red Blood Count 3.69 M/uL Hemoglobin 9.0 g/dL Hematocrit 27.6 % Mean Corpuscular Volume 74.8 fL Mean Corpuscular Hemoglobin 24.4 pg Mean Corpuscular Hemoglobin Concent 32.6 g/dl Platelet Count 318 K/uL Mean Platelet Volume 8.9 fL Neutrophils (%) (Auto) 74.9 % Lymphocytes (%) (Auto) 10.1 % Monocytes (%) (Auto) 14.6 % Eosinophils (%) (Auto) 0.0 % Basophils (%) (Auto) 0.0 % Neutrophils # (Auto) 6.92 K/uL Lymphocytes # (Auto) 0.93 K/uL Monocytes # (Auto) 1.35 K/uL Eosinophils # (Auto) 0.00 K/uL Basophils # (Auto) 0.00 K/uL HbA1c: Test 05/17/16 05:54 Hemoglobin A1c 6.4 % (4.5-5.6) H Recent Pertinent Medications Outpatient Anti-diabetic Regimen: * Metformin 850 mg TID with meals The patient is currently receiving: * Basal insulin: Lantus 0-20 units (sliding scale based upon BSG) every 12 hours - rec'd 15 units last evening * Correctional Insulin: Novolog Correction per scale ACHS Goal Range: Low 110 mg/dL - High 140 mg/dL Correction Factor: 20 mg/dL/unit * Prandial insulin: Per carb ratio of 1 unit per 7 grams CHO consumed * Oral Agents: None at this time Risk Factors for Insulin Resistance: * Steroids: Solu-medrol 60 mg IV q6h tapered to prednisone 20 mg daily (started 05/18 AM) * Infection: De-escalated to ampicillin for pneumonia * Diet: AHA/ type 2 diabetes - consuming adequate amts of CHO with each meal Assessment & Plan ASSESSMENT: * ADA & AACE recommend a goal blood sugar range 140-180 mg/dl for the majority of critically ill & non-critically ill patients. However, more stringent targets may be selected in individual cases. From 05/16/16 note: * Pt with hyperglycemia secondary to holding oral antidiabetic medications ( metformin) w/o subsequent bolus/SSI ordered. Hyperglycemia compounded by high dose RTC steroids with Solumedrol 60mg IV Q6hrs * Will continue to hold metformin for admission and utilize SQ basal bolus insulin regimen which is the recommended regimen for inpatient glycemic control. * Will initiate weight & stress based insulin dosing for insulin akil patient. Titrate dosing based on BSG trends. * Start with aggressive bolus insulin per CF/CR for steroid induced hyperglycemia. Steroids have their most profound effect on post-prandial hyperglycemia therefore aggressive CF/CR warranted. * Will start basal insulin for sustained hyperglycemia (BSG > 180mg/dl) * ADA & AACE recommend a goal blood sugar range 140-180 mg/dl for the majority of critically ill & non-critically ill patients. However, more stringent targets may be selected in individual cases. Will utilize more stringent goal of 110-140mg/dl based on patient age & tight glycemic control at baseline. Additionally, tighter glycemic control is warranted to facilitate infection healing. 05/17/16 * Mr. Stover received 49 units of insulin yesterday with BSGs ranging from 138- 221 mg/dL in the past 24 hours * Lantus was initiated BID for sustained hyperglycemia but 15 units last evening seemed to be enough - fasting today of 138 mg/dL * Will plan to continue with the BID Lantus since it is per a "sliding scale" and patient will not receive a dose if BSGs less than 180 mg/dL * Current CF/CR appeared to work well yesterday so will plan to continue this as well 05/18/16 * BSG's ranging 102-216 mg/dL over the last 24 hours. * Steroids tapered to prednisone 20 mg daily. Elevation in BSG's likely 2nd steroids so anticipate better control moving forward. * Will change Lantus to only AM administration to mimic PK of prednisone. * No Lantus this AM for BSG 102 mg/dL (and admin yesterday evening). May consider small dose x1 at lunch. * Continue tomorrow AM based on BSG * Loosen carb ratio and correction factor as well 2nd steroid taper PLAN FOR INPATIENT GLYCEMIC CONTROL: * Hold outpatient oral diabetes medications (metformin) * Decrease basal insulin with LANTUS SQ qAM based on BSG * 0 units for BSG 180 mg/dL or less * 5 units for BSG 181-249 mg/dL * 10 units for BSG 250 mg/dL or greater * Correctional Insulin with NOVOLOG per scale ACHS or Q6hrs while NPO * Goal Range: Low 110 mg/dL - High 140 mg/dL * Loosen Correction Factor: 25 mg/dL/unit * Loosen Nutritional / Prandial insulin per carb ratio of 1 unit per 8 grams CHO consumed * Please note that the plan above was derived based on current level of insulin resistance and hospital stress. These recommendations are appropriate for inpatient admission only. Plan of care upon discharge will need to be reassessed to avoid potential outpatient hypo/hyperglycemia. Thank you.
--- NOTE | 2016-05-18 12:38 | Discharge Summary ---
Discharge Summary Date of Service May 18, 2016. Discharge Summary Admission Date: May 15, 2016 at 00:03 Discharge Date: May 18, 2016 Principal Diagnosis: UTI present on admission Problems/Secondary Diagnoses: Confusion likely metabolic encephalopathy secondary to UTI UTI POA Right hilar mass/chely complex measuring 3.8 x 3.5 cm. Mild rhabdomyolysis CAD/hypertension Diabetes mellitus Schizophrenia/mental retardation GERD Hypercholesterolemia Medication Reconciliation New Medications: Ampicillin (Ampicillin) 500 Mg Cap 1 CAP PO QID for 5 Days, #20 CAP Colchicine (Colchicine) 0.6 Mg Tab 0.6 MG PO DAILY for 3 Days, #3 TAB Lactobacillus Acidophilus (Lactinex Granules) 1 Gm Pack 1 PKT OR TID for 7 Days, #21 PKT Prednisone Tab (Prednisone) 10 Mg Tab 10 MG PO DAILY for 3 Days, #3 TAB Tamsulosin HCl (Tamsulosin HCl) 0.4 Mg Cap 0.4 MG PO QAM for 30 Days, #30 CAP Continued Medications: Acetaminophen (Tylenol) 500 Mg Tab 500 MG PO TID PRN for Pain, TAB Aspirin (Aspirin Ec) 81 Mg Tab 81 MG PO DAILY Atorvastatin (Lipitor) 20 Mg Tab 20 MG PO HS Bumetanide (Bumex) 2 Mg Tab 2 MG PO DAILY, TAB Dimethicone-Zinc Oxide-Vitamin (A & D Zinc Oxide) 1 Cre Cre 1 APPLN TOP BID PRN for DRYNESS Divalproex Sodium (Depakote) 500 Mg Tab 1000 TAB PO HS for 30 Days, TAB 2 Refills Divalproex Sodium (Depakote Delay Rel) 500 Mg Tab 500 MG PO DAILY, TAB Ferrous Sulfate Dried (Feosol) 200 Mg Tab 200 MG PO BID Haloperidol (Haldol) 10 Mg Tab 10 MG PO BID, TAB Haloperidol (Haloperidol) 2 Mg Tab 2 MG PO BID, #30 TAB 2 Refills Ipratropium-Albuterol (Duoneb) 3 Ml Nebu 1 TREATMENT NEB TID PRN for Wheezing, INHA Isosorbide Mononitrate (Isosorbide Mononitrate ER) 60 Mg Tabcr 60 MG PO DAILY Ketoconazole (Topical) (Extina) 2 % Aer 1 DOSE TOP BID Loperamide Hcl (Imodium) 2 Mg Cap 2 MG PO TID PRN for Diarrhea, CAP Magnesium Oxide (Mag-Ox) 400 Mg Tab 400 MG PO BID Metformin Hcl (Glucophage) 850 Mg Tab 850 MG PO TID, TAB Metoprolol Tartrate (Metoprolol Tartrate) 100 Mg Tab 100 MG PO BID Potassium Chloride (K-Tabs) 10 Meq Tabcr 10 MEQ PO DAILY Ranitidine (Zantac) 300 Mg Tab 300 MG PO BID, TAB Triamcinolone Acet (Triamcinolone Acetonide) 45 Appln/15 Gm Cr 1 APPLN TOP BID PRN for RASH for 30 Days, #30 GM Zinc Oxide (Topical) (Desitin Rapid Relief) 13 % Cre 1 APPLN TOP QID PRN for INCONTINENCE Discontinued Medications: Ciprofloxacin (Ciprofloxacin HCl) 500 Mg Tab 500 MG PO BID for 5 Days, #10 TAB Discharge Exam Review of Systems: Constitutional: No chills, No fatigue, No fever, No problem reported, No sweats, No weakness, No weight loss Eyes: No diplopia, No discharge, No eye pain, No problem reported, No redness, No worsening of vision ENT: No dental problems, No hearing loss, No nasal symptoms, No problem reported, No sore throat, No tinnitus, No trouble swallowing, No unusual epistaxis Respiratory: No cough, No dyspnea at rest, No dyspnea on exertion, No hemoptysis, No problem reported, No shortness of breath, No sputum, No wheezing Cardiovascular: No PND, No chest pain, No claudication, No edema, No orthopnea, No palpitations, No problem reported Abdomen: No GI bleeding, No constipation, No diarrhea, No nausea, No pain, No problem reported, No vomiting Musculoskeletal: + joint pain, + muscle pain, + swelling Genitourinary - Male: No dysuria, No hematuria, No impotence, No lesions, No penile discharge, No problem reported, No urinary frequency, No urinary hesitancy, No urinary incontinence, No urinary retention, No urinary urgency Neurologic: No balance problems, No memory loss, No numbness/tingling, No paralysis, No problem reported, No vertigo, No weakness Psychiatric: No anhedonism, No anxiety, No depression symptoms, No insomnia , No problem reported, No substance abuse Endocrine: + fatigue, No excessive thirst, No excessive urination, No problem reported Hematologic / Lymphatic: No abnormal bleeding/bruising, No clotting problems , No night sweats, No problem reported, No swollen lymph nodes Integumentary: No bleeding, No color change, No itch, No new/changing skin lesions, No problem reported, No rash Physical Exam: General Appearance: no apparent distress Eyes: normal inspection, EOMI ENT: normal ENT inspection, hearing grossly normal Neck: supple Respiratory/Chest: chest non-tender, lungs clear, normal breath sounds, no respiratory distress Cardiovascular: regular rate, rhythm, no edema, no gallop, no JVD, no murmur Abdomen / GI: normal bowel sounds, non tender, soft, no organomegaly, no pulsatile mass Extremities: + inflammation, + pedal edema, + swelling 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, recently treated for UTI and hypoxemia and a hilar mass, who is brought to the emergency department with persistent confusion, and a fever. he was found to have the following problems Confusion likely metabolic encephalopathy secondary to UTI, improved other causes of confusion were ruled out; non reactive RPR, TSH was checked and was normal, B12 was normal level also found to have UTI POA-was on Cipro by mouth for recent pseudomonas and klebsiella in the urine, Cipro was stopped and he was placed on vanco and zosyn empirically blood cx, were negative repeat urine grew enterococcus sensitive to Amp, vanco / zosyn stopped and he was started on ampicillin. for his SOB, left lower lobe pneumonia ruled out, appears to be atelectasis. started on guaifenesin/ steroids and bronchodilators CT scan last admission showed hilar mass Right hilar mass/chely complex measuring 3.8 x 3.[address] Gomez was consulted and was not able to do biopsy as was not able to get a consent deemed by psychiatrist as incompetent to take a decision legal channels are in the process of obtaining guardianship Mild rhabdomyolysis was noted and gentle IVF hydration was started, Bumex was held, restarted upon discharge for his CAD/hypertension--continue enteric-coated aspirin 81 mg by mouth daily, Bumex 2 mg by mouth daily, isosorbide mononitrate ER see milligrams by mouth daily, mag oxide 400 mg by mouth twice a day, metoprolol tartrate 100 mg by mouth twice a day, and potassium chloride 10 mEq by mouth daily. for his Diabetes mellitus--held metformin 850 mg by mouth 3 times a day, and place on Accu-Cheks before meals and at bedtime with NovoLog coverage. Metformin can be restarted on discharge. he also complained of B/L ankle pain/swelling, Xray showed no fractures empirically started on 3 days course of prednisone and colchicin for gout frequent exam is warranted to follow up on progression. Total Time Spent: Greater than 30 minutes This includes examination of the patient, discharge planning, medication reconciliation, and communication with other providers. Discharge Instructions Please refer to the electronic Patient Visit Report (Discharge Instructions) for additional information.
[2016-05-18] MEDS ORDERED: VANCOMYCIN TROUGH SCH (13:30)
[2016-05-18 16:20] VITALS: BP 166/79; PULSE 77; TEMP 36.5; O2SAT 93
[2016-05-19] MEDS ORDERED: INSULIN GLARGINE SOLOSTAR 100 UNITS/ML 3 ML PEN SC SCH (09:00)
== END 2016-05-18 20:15 | DRG 193 ==
LOC: ENRESERVDT → ENRESERVTM → EDBD 19:41 → C.EDC 19:43 → C.MSW 05-15 00:03 → EDBEDREQ 05-15 00:15 → EDBEDREQSVC 05-15 00:15
PROVIDERS: ADMIT Hospitalist; ATTEND Internal Medicine
DX: J18.9 Pneumonia, unspecified organism (principal); G93.41 Metabolic encephalopathy; N39.0 Urinary tract infection, site not specified; E87.1 Hypo-osmolality and hyponatremia; E87.2 Acidosis; M62.82 Rhabdomyolysis; I50.9 Heart failure, unspecified; K21.9 Gastro-esophageal reflux disease without esophagitis; F20.9 Schizophrenia, unspecified; R91.8 Other nonspecific abnormal finding of lung field; F79 Unspecified intellectual disabilities; R09.02 Hypoxemia; E78.00 Pure hypercholesterolemia, unspecified; I25.10 Atherosclerotic heart disease of native coronary artery without angina pectoris; M10.9 Gout, unspecified; I10 Essential (primary) hypertension; E11.9 Type 2 diabetes mellitus without complications; B95.2 Enterococcus as the cause of diseases classified elsewhere; Z87.891 Personal history of nicotine dependence; Z79.82 Long term (current) use of aspirin; Z79.84 Long term (current) use of oral hypoglycemic drugs; Z79.899 Other long term (current) drug therapy

== ENCOUNTER 2016-05-24 13:54 | Inpatient (IN) | payer OTHER ==
[~2016-05-24] VITALS: Ht 193 cm; Wt 157.8 kg
[~2016-05-24 13:54] MED LIST changes: +ACET-1256 PO; +AMPI500C9 PO; -CPR500 PO; +FLM4 PO; +IPRASOL4 NEB; +LCTXP OR
--- NOTE | 2016-05-24 14:50 | EMERGENCY ROOM VISIT NOTE ---
History Report prepared by Zabrina: Lorene Mayen Under the Supervision of: Dr. Juliette Christensen D.O. First contact with patient: 14:38 Chief Complaint: FEVER Stated Complaint: FEVER History of Present Illness The patient is a 65 year old male who presents to the Emergency Room from [facility] to be evaluated for a persistent fever today. His temperature was 39.1 upon arrival to the ED. The patient was recently admitted to the hospital for a UTI and was discharged on May 18. He finished a course of Ampicillin PO today for enterococcus faecalis. He has a chronic urinary catheter. Currently, the patient's only complaint is soreness between his legs. He has had the pain since he was washed earlier today. Denies cough, abdominal pain, or other complaints. 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 A total of 10 systems reviewed and were otherwise negative. Past Medical & Surgical Medical Problems: (1) Acute on chronic diastolic (congestive) heart failure (2) Acute respiratory failure with hypoxia (3) CAD (coronary artery disease) (4) Diabetes (5) Hilar mass (6) HTN (hypertension) (7) Hyperkalemia (8) Hyperlipemia (9) Hyponatremia (10) Mental retardation (11) Schizophrenia (12) Shortness of breath Family History No pertinent family history stated. Social History Smoking Status: Unknown if Ever Smoked Alcohol Use: none Drug Use: none Marital Status: single Housing Status: other Occupation Status: disabled, other Current/Historical Medications Scheduled Aspirin (Aspirin Ec), 81 MG PO DAILY Atorvastatin (Lipitor), 20 MG PO HS Bumetanide (Bumex), 2 MG PO DAILY Colchicine (Colchicine), 3 TABS PO DAILY Divalproex Sodium (Depakote), 1,000 MG PO HS Divalproex Sodium (Depakote Delay Rel), 500 MG PO DAILY Ferrous Sulfate Dried (Feosol), 200 MG PO BID Haloperidol (Haldol), 10 MG PO BID Haloperidol (Haloperidol), 2 MG PO BID Isosorbide Mononitrate (Isosorbide Mononitrate ER), 60 MG PO DAILY Ketoconazole (Topical) (Extina), 1 DOSE TOP BID Lactobacillus Acidophilus (Lactinex Granules), 1 PKT OR TID Magnesium Oxide (Mag-Ox), 400 MG PO BID Metformin Hcl (Glucophage), 850 MG PO TID Metoprolol Tartrate (Metoprolol Tartrate), 100 MG PO BID Potassium Chloride (K-Tabs), 10 MEQ PO DAILY Ranitidine (Zantac), 300 MG PO BID Tamsulosin HCl (Tamsulosin HCl), 0.4 MG PO QAM Scheduled PRN Acetaminophen (Tylenol), 500 MG PO TID PRN for Pain Dimethicone-Zinc Oxide-Vitamin (A & D Zinc Oxide), 1 APPLN TOP BID PRN for DRYNESS Ipratropium-Albuterol (Duoneb), 1 TREATMENT NEB TID PRN for Wheezing Loperamide Hcl (Imodium), 2 MG PO TID PRN for Diarrhea Triamcinolone Acet (Triamcinolone Acetonide), 1 APPLN TOP BID PRN for RASH Zinc Oxide (Topical) (Desitin Rapid Relief), 1 APPLN TOP QID PRN for INCONTINENCE Allergies Coded Allergies: No Known Allergies (Unverified , 05/24/16) Physical Exam Vital Signs Date Time Temp Pulse Resp B/P Pulse Ox O2 Delivery O2 Flow Rate FiO2 05/24/16 16:24 113 25 128/69 94 05/24/16 15:54 120 19 95 05/24/16 15:24 109 23 91 05/24/16 14:54 113 27 89 05/24/16 14:24 106 26 93 05/24/16 14:21 94 Nasal Cannula 2.0 05/24/16 14:21 95 Nasal Cannula 2.0 05/24/16 14:12 39.1 114 18 93 Nasal Cannula 2.0 05/24/16 14:07 124 05/24/16 14:04 139/73 Physical Exam General: Appears lethargic. HEENT: Head - normocephalic and atraumatic Pupils are equal, round, and reactive to light. Extraocular eye muscles are intact, and sclera are anicteric. Nose - moist nasal mucosa without discharge. Mouth - moist buccal mucosa. Oropharynx is nonerythematous and there is no tonsillar exudate or edema noted. Neck: Supple; no JVD, nuchal rigidity, cervical lymphadenopathy. Heart: Tachycardic rate and regular rhythm. There is a normal S1 and S2 with no murmurs, clicks, or gallops appreciated. Lungs: Clear to auscultation bilaterally with no wheezes, rales, or rhonchi. Abdomen: Soft, completely nontender, nondistended, with good bowel sounds. There are no palpable pulsatile masses or hepatosplenomegaly. There is no guarding, rigidity, or rebound noted. Extremities: No evidence of cyanosis, clubbing, or edema. There are easily palpable peripheral pulses. Skin: Skin is hot, dry with good turgor and no rashes. Slight excoriation to the scrotum. Medical Decision & Procedures ER Provider Diagnostic Interpretation: Radiology results as stated below per my review and the radiologist's interpretation: CHEST ONE VIEW PORTABLE CLINICAL HISTORY: Sepsis FEVER COMPARISON STUDY: 05/14/2016 FINDINGS: The heart remains enlarged. There is aortic tortuosity/ectasia. There is no focal pulmonary consolidation. There is mild central vascular prominence without evidence of overt edema.[ IMPRESSION: Technically limited study. Persistent cardiomegaly. Mild vascular prominence without evidence of overt edema Electronically signed by: Richard Yun M.D. 05/24/2016 4:04 PM Dictated Date/Time: 05/24/2016 4:03 PM Laboratory Results Test 05/24/16 15:20 05/24/16 15:30 05/24/16 15:35 05/24/16 15:47 Valproic Acid (Depakene) Level 65 mcg/ml (50-100) Immature Granulocyte % (Auto) 0.9 % White Blood Count 7.49 K/uL (4.8-10.8) Red Blood Count 3.96 M/uL (4.7-6.1) Hemoglobin 9.9 g/dL (14.0-18.0) Hematocrit 29.5 % (42-52) Mean Corpuscular Volume 74.5 fL (80-100) Mean Corpuscular Hemoglobin 25.0 pg (25-34) Mean Corpuscular Hemoglobin Concent 33.6 g/dl (32-36) Platelet Count 265 K/uL (130-400) Mean Platelet Volume 9.1 fL (7.4-10.4) Neutrophils (%) (Auto) 62.4 % Lymphocytes (%) (Auto) 23.0 % Monocytes (%) (Auto) 13.2 % Eosinophils (%) (Auto) 0.4 % Basophils (%) (Auto) 0.1 % Neutrophils # (Auto) 4.67 K/uL (1.4-6.5) Lymphocytes # (Auto) 1.72 K/uL (1.2-3.4) Monocytes # (Auto) 0.99 K/uL (0.11-0.59) Eosinophils # (Auto) 0.03 K/uL (0-0.5) Basophils # (Auto) 0.01 K/uL (0-0.2) Immature Granulocyte # (Auto) 0.07 K/uL (0.00-0.02) Prothrombin Time 11.4 SECONDS (9.0-12.0) Prothromb Time International Ratio 1.1 (0.9-1.1) Activated Partial Thromboplast Time 29.4 SECONDS (21.0-31.0) Partial Thromboplastin Ratio 1.1 Total Bilirubin 0.2 mg/dl (0.2-1) Aspartate Amino Transf (AST/SGOT) 26 U/L (15-37) Alanine Aminotransferase (ALT/SGPT) 17 U/L (12-78) Alkaline Phosphatase 68 U/L (45-117) Total Protein 7.3 gm/dl (6.4-8.2) Albumin 2.5 gm/dl (3.4-5.0) Globulin 4.8 gm/dl (2.5-4.0) Albumin/Globulin Ratio 0.5 (0.9-2) Urine Color YELLOW Urine Appearance CLEAR (CLEAR) Urine pH 5.5 (4.5-7.5) Urine Specific [place] 1.017 (1.000-1.030) Urine Protein NEG (NEG) Urine Glucose (UA) NEG (NEG) Urine Ketones NEG (NEG) Urine Occult Blood 1+ (NEG) Urine Nitrite NEG (NEG) Urine Bilirubin NEG (NEG) Urine Urobilinogen NEG (NEG) Urine Leukocyte Esterase TRACE (NEG) Urine WBC (Auto) 1-5 /hpf (0-5) Urine RBC (Auto) 5-10 /hpf (0-4) Urine Hyaline Casts (Auto) 0 /lpf (0-5) Urine Epithelial Cells (Auto) 0-5 /lpf (0-5) Urine Bacteria (Auto) NEG (NEG) Urine Crystals (NONE PRSENT) Bedside Lactic Acid Venous 1.82 mmol/L (0.90-1.70) Laboratory results per my review. Medications Administered Medications (Trade) Dose Ordered Sig/Ismael Route Start Time Stop Time Status Last Admin Dose Admin Acetaminophen 1000 mg 1,000 mg NOW STAT PO 05/24/16 16:00 05/24/16 16:01 DC 05/24/16 16:49 1,000 MG Sodium Chloride 1,000 ml @ 250 mls/hr Q4H STAT IV 05/24/16 16:25 05/24/16 18:50 DC 05/24/16 16:50 250 MLS/HR Sodium Chloride 500 ml @ 999 mls/hr Q31M STAT IV 05/24/16 16:25 05/24/16 16:55 DC 05/24/16 16:49 999 MLS/HR Vancomycin HCl/ Sodium Chloride (Vancomycin Inj/ Nss 500ml) 540 ml @ 200 mls/hr ONE STAT IV 05/24/16 16:33 05/24/16 19:14 DC 05/24/16 18:00 200 MLS/HR Piperacillin Sod/ Tazobactam Sod (Zosyn Iv) 4.5 gm NOW STAT IV 05/24/16 16:33 05/24/16 16:36 DC 05/24/16 17:25 4.5 GM Procedure Medications: Tylenol Tab 1000 mg PO, NSS 500 ml @ 999 mls/hr IV, NSS 1000 ml @ 250 mls/hr IV, Zosyn 4.5 gm IV, Vancomycin HCl 2000 mg/NSS 540 ml @ 200 mls/hr IV. ECG Indication: other (sepsis) Rate (beats per minute): 107 Rhythm: sinus tachycardia Findings: no acute ischemic change, no ectopy ED Course 1440: The patient was evaluated in room B7. A complete history and physical examination were performed. Nursing notes and previous electronic medical records were reviewed. IV lock was established and labs were drawn as above. A twelve-lead EKG was obtained. A sepsis protocol was performed. 1600: Ordered Tylenol Tab 1000 mg PO. The patient had chest x-ray as described above. A urine specimen was obtained from the catheter. Ordered NSS 500 ml @ 999 mls/hr IV, NSS 1000 ml @ 250 mls/hr IV. 1626: I discussed the case with Dr. Mariana RAM Hospitalist. The patient will be evaluated for further management. 1628: Upon reevaluation, I discussed findings and results with the patient. He verbalized agreement of the treatment plan. 1633: Ordered Zosyn 4.5 gm IV, Vancomycin HCl 2000 mg/NSS 540 ml @ 200 mls/hr IV. Medical Decision The patient is a 65 year old male who presents to the ED with a fever. Differential diagnosis includes sepsis, UTI, pneumonia. Labs: WBC 7.4, hemoglobin 9.9, lactic acid 1.8, glucose 127, sodium 128, chloride 89, coags are negative. Urine: occult blood 1+, trace leukocyte esterase. The patient presents with fever and tachycardia concerning for sepsis/SIRS. He just completed a course of ampicillin for Enterococcus faecalis in his urine. The patient has an indwelling Man catheter. I'm concerned about the possibility of recurrent sepsis. Patient also significant hyponatremia. He is receiving sodium chloride at this time. His vitals remained stable. I discussed the case with the [facility] Hospitalist and they will evaluate for further management. Consults Time Called: 1623 Consulting Physician: Dr. Mariana RAM Hospitalist Returned Call: 1626 I discussed the case with him. The patient will be evaluated for further management. Impression Primary Impression: Hyponatremia Additional Impression: SIRS (systemic inflammatory response syndrome) Critical Care I have personally spent greater than 30 minutes of critical care time in the direct management of this patient. This includes bedside care, interpretation of diagnostic studies, and testing, discussion with consultants, patient, and family members, and other required patient management activities. This 30 minutes is in excess of all separately billable procedures. Scribe Attestation The scribe's documentation has been prepared under my direction and personally reviewed by me in its entirety. I confirm that the note above accurately reflects all work, treatment, procedures, and medical decision making performed by me. Departure Information Dispostion Being Evaluated By Hospitalist Referrals Ismael LUNA (PCP) Patient Instructions My [facility] Problem Qualifiers
[2016-05-24] MEDS ORDERED: COLC0.6T54 PO (15:13)
[2016-05-24 15:53] LABS: BASO % 0.1 %; BASO ABS # 0.01 K/uL (0-0.2); COMPLETE YES; EOS % 0.4 %; HEMATOCRIT 29.5 % (42-52); IG% 0.9 %; LYMPH ABS # 1.72 K/uL (1.2-3.4); MEAN CELL VOLUME 74.5 fL (80-100); MEAN CORPUSCULAR HGB CONC 33.6 g/dl (32-36); MEAN PLATELET VOLUME 9.1 fL (7.4-10.4); MONO % 13.2 %; NEUT % 62.4 %; PLATELET COUNT 265 K/uL (130-400); RED BLOOD COUNT 3.96 M/uL (4.7-6.1); WHITE BLOOD COUNT 7.49 K/uL (4.8-10.8)
[2016-05-24] MEDS ORDERED: ACETAMINOPHEN 500 MG TAB PO STA (16:00)
--- NOTE | 2016-05-24 16:07 | DIAGNOSTIC IMAGING REPORT ---
CHEST ONE VIEW PORTABLE CLINICAL HISTORY: Sepsis FEVER COMPARISON STUDY: 05/14/2016 FINDINGS: The heart remains enlarged. There is aortic tortuosity/ectasia. There is no focal pulmonary consolidation. There is mild central vascular prominence without evidence of overt edema.[ IMPRESSION: Technically limited study. Persistent cardiomegaly. Mild vascular prominence without evidence of overt edema Electronically signed by: Richard Yun M.D. 05/24/2016 4:04 PM Dictated Date/Time: 05/24/2016 4:03 PM
[2016-05-24 16:11] LABS: BUN/CREATININE RATIO 16.3 (10-20); CALCIUM 8.4 mg/dl (8.5-10.1); CREATININE 0.98 mg/dl (0.60-1.40); POTASSIUM 3.8 mmol/L (3.5-5.1)
[2016-05-24 16:12] LABS: INR 1.1 (0.9-1.1); PARTIAL THROMBOPLASTIN RATIO 1.1; PROTHROMBIN TIME (PATIENT) 11.4 SECONDS (9.0-12.0)
[2016-05-24 16:13] LABS: URINE APPEARANCE CLEAR (CLEAR); URINE BILIRUBIN NEG (NEG); URINE COLOR YELLOW; URINE NITRITE NEG (NEG); URINE PH 5.5 (4.5-7.5); URINE SPECIFIC GRAVITY 1.017 (1.000-1.030); UROBILINOGEN NEG (NEG); ZZURINE CULT IF INDIC CATH NO
[2016-05-24 16:14] LABS: ALB/GLOB RATIO 0.5 (0.9-2)
[2016-05-24 16:22] LABS: MANUAL MICROSCOPIC REQUIRED? NO; REVIEW REQ? YES
[2016-05-24] MEDS ORDERED: SODIUM CHLORIDE 0.9% 500ML 500 ML IV STA (16:25)
[2016-05-24] MEDS ORDERED: SODIUM CHLORIDE 0.9% 1000ML 1,000 ML IV STA (16:25)
[2016-05-24 16:31] LABS: URINE EPITHELIAL CELL AUTO 0-5 /lpf (0-5)
[2016-05-24] MEDS ORDERED: VANCOMYCIN INJ 2,000 MG in SODIUM CHLORIDE 0.9% 500ML 500 ML IV STA (16:33)
[2016-05-24] MEDS ORDERED: PIPERACILLIN/TAZOBACTAM 4.5 GM/100ML D5W IV STA (16:33)
[2016-05-24] MEDS ORDERED: NITROGLYCERIN 0.4 MG SL PER TAB CHARGE SL PRN (17:15)
[2016-05-24] MEDS ORDERED: LANOLIN/PETROLATUM 30 GM TUBE EXT PRN ×2 (17:15)
[2016-05-24] MEDS ORDERED: POLYETHYLENE (MIRALAX) 17 GM PACK PO PRN (17:15)
[2016-05-24] MEDS ORDERED: ONDANSETRON INJ 2 MG/ML 2 ML VIAL IV PRN (17:15)
[2016-05-24] MEDS ORDERED: TRIAMCINOLONE ACET 0.5% CR 15 GM TUBE EXT PRN (17:15)
[2016-05-24] MEDS ORDERED: ALBUT/IPRATROP 3MG/0.5MG NEB 3 ML VIAL INH PRN (17:15)
[2016-05-24] MEDS ORDERED: ACETAMINOPHEN 500 MG TAB PO PRN (17:15)
[2016-05-24] MEDS ORDERED: ALUMINUM/MAGNESIUM/SIMETH (MAALOX MAX) 30 ML UDC PO PRN (17:15)
[2016-05-24] MEDS ORDERED: MAGNESIUM HYDROXIDE SUSP 30 ML UDC PO PRN (17:15)
[2016-05-24] MEDS ORDERED: LOPERAMIDE HCL 2 MG CAP PO PRN (17:15)
[2016-05-24 17:40] VITALS: Ht 193 cm; Wt 157.8 kg
--- NOTE | 2016-05-24 17:44 | History and Physical ---
History & Physical Date & Time of Service: May 24, 2016 at 17:10 Chief Complaint: FEVER Primary Care Physician: Ismael LUNA History of Present Illness Source: patient, clinic records, hospital records Patient is a 65 y/o male, with PMHx of CAD, HTN, hyperlipidemia, T2DM, diastolic CHF, urinary retentions, schizophrenia, mental retardation, and GERD, who presented to the ED from [facility] for persistent fever. Patient was admitted on 05/14 due hypoxia thought to be secondary to a right hilar mass found on CTA. However, patient denied any intervention to further evaluate the mass, but psychiatry deemed him unable to make own decisions. Additionally, patient had Klebsiella pneumoniae and pseudomonas in his urine. He was discharged on 05/21. Patient returned today due to persistent fever. Patient admits to diarrhea. He denies any other complaints at this time. Patient denies any chills, sweats, lightheadedness, dizziness, vision changes, CP, palpitations , edema, SOB, wheezing, cough, abdominal pain, nausea, vomiting, urinary symptoms, melena, numbness/tingling, weakness, muscle/joint pain, anxiety/ depression, active bleeding, or new skin discoloration/changes. Past Medical/Surgical History Medical Problems: 1. CAD 2. HTN 3. Hyperlipidemia 4. T2DM 5. Diastolic CHF 6. Urinary retentions 7. Schizophrenia 8. Mental retardation 9. GERD Social History Smoking Status: Unknown if Ever Smoked Drug Use: none Marital Status: single Housing status: other Occupational Status: disabled, other Multi-Drug Resistant Organisms History of MDRO: No Allergies Coded Allergies: No Known Allergies (Unverified , 05/24/16) Home Medications Scheduled Aspirin (Aspirin Ec), 81 MG PO DAILY Atorvastatin (Lipitor), 20 MG PO HS Bumetanide (Bumex), 2 MG PO DAILY Colchicine (Colchicine), 3 TABS PO DAILY Divalproex Sodium (Depakote), 1,000 MG PO HS Divalproex Sodium (Depakote Delay Rel), 500 MG PO DAILY Ferrous Sulfate Dried (Feosol), 200 MG PO BID Haloperidol (Haldol), 10 MG PO BID Haloperidol (Haloperidol), 2 MG PO BID Isosorbide Mononitrate (Isosorbide Mononitrate ER), 60 MG PO DAILY Ketoconazole (Topical) (Extina), 1 DOSE TOP BID Lactobacillus Acidophilus (Lactinex Granules), 1 PKT OR TID Magnesium Oxide (Mag-Ox), 400 MG PO BID Metformin Hcl (Glucophage), 850 MG PO TID Metoprolol Tartrate (Metoprolol Tartrate), 100 MG PO BID Potassium Chloride (K-Tabs), 10 MEQ PO DAILY Ranitidine (Zantac), 300 MG PO BID Tamsulosin HCl (Tamsulosin HCl), 0.4 MG PO QAM Scheduled PRN Acetaminophen (Tylenol), 500 MG PO TID PRN for Pain Dimethicone-Zinc Oxide-Vitamin (A & D Zinc Oxide), 1 APPLN TOP BID PRN for DRYNESS Ipratropium-Albuterol (Duoneb), 1 TREATMENT NEB TID PRN for Wheezing Loperamide Hcl (Imodium), 2 MG PO TID PRN for Diarrhea Triamcinolone Acet (Triamcinolone Acetonide), 1 APPLN TOP BID PRN for RASH Zinc Oxide (Topical) (Desitin Rapid Relief), 1 APPLN TOP QID PRN for INCONTINENCE Physical Exam Vital Signs Date Time Temp Pulse Resp B/P Pulse Ox O2 Delivery O2 Flow Rate FiO2 05/24/16 16:24 113 25 128/69 94 05/24/16 15:54 120 19 95 05/24/16 15:24 109 23 91 05/24/16 14:54 113 27 89 05/24/16 14:24 106 26 93 05/24/16 14:21 94 Nasal Cannula 2.0 05/24/16 14:21 95 Nasal Cannula 2.0 05/24/16 14:12 39.1 114 18 93 Nasal Cannula 2.0 05/24/16 14:07 124 05/24/16 14:04 139/73 General Appearance: no apparent distress, + obese Head: normocephalic, atraumatic Eyes: PERRL, + pertinent finding (exophthalmos ) ENT: hearing grossly normal Neck: supple Respiratory/Chest: lungs clear, no respiratory distress, no accessory muscle use Cardiovascular: + tachycardia (regular rhythm) Abdomen/GI: normal bowel sounds, non tender, soft Genitourinary - Male: + pertinent finding (Indwelling Man drainining concentrated yellow urine ) Extremities/Musculoskelatal: no calf tenderness, + pertinent finding (+1 pitting edema of bilateral lower extremitis; chronic stasis dermatitis changes of bilateral LE; firmness noted to LEs) Neurologic/Psych: alert Skin: normal color, warm/dry, no rash Diagnostics Laboratory Results Results Past 24 Hours Test 05/24/16 15:30 05/24/16 15:35 05/24/16 15:47 Range/Units White Blood Count 7.49 4.8-10.8 K/uL Red Blood Count 3.96 4.7-6.1 M/uL Hemoglobin 9.9 14.0-18.0 g/dL Hematocrit 29.5 42-52 % Mean Corpuscular Volume 74.5 80-100 fL Mean Corpuscular Hemoglobin 25.0 25-34 pg Mean Corpuscular Hemoglobin Concent 33.6 32-36 g/dl Platelet Count 265 130-400 K/uL Mean Platelet Volume 9.1 7.4-10.4 fL Neutrophils (%) (Auto) 62.4 % Lymphocytes (%) (Auto) 23.0 % Monocytes (%) (Auto) 13.2 % Eosinophils (%) (Auto) 0.4 % Basophils (%) (Auto) 0.1 % Neutrophils # (Auto) 4.67 1.4-6.5 K/uL Lymphocytes # (Auto) 1.72 1.2-3.4 K/uL Monocytes # (Auto) 0.99 0.11-0.59 K/uL Eosinophils # (Auto) 0.03 0-0.5 K/uL Basophils # (Auto) 0.01 0-0.2 K/uL RDW Standard Deviation 47.7 36.4-46.3 fL RDW Coefficient of Variation 17.3 11.5-14.5 % Immature Granulocyte % (Auto) 0.9 % Immature Granulocyte # (Auto) 0.07 0.00-0.02 K/uL Prothrombin Time 11.4 9.0-12.0 SECONDS Prothromb Time International Ratio 1.1 0.9-1.1 Activated Partial Thromboplast Time 29.4 21.0-31.0 SECONDS Partial Thromboplastin Ratio 1.1 Sodium Level 128 136-145 mmol/L Potassium Level 3.8 3.5-5.1 mmol/L Chloride Level 89 98-107 mmol/L Carbon Dioxide Level 29 21-32 mmol/L Anion Gap 10.0 3-11 mmol/L Blood Urea Nitrogen 16 7-18 mg/dl Creatinine 0.98 0.60-1.40 mg/dl Est Creatinine Clear Calc Drug Dose 118.4 ml/min Estimated GFR () 92.1 Estimated GFR (Non- 79.5 BUN/Creatinine Ratio 16.3 10-20 Random Glucose 127 70-99 mg/dl Calcium Level 8.4 8.5-10.1 mg/dl Total Bilirubin 0.2 0.2-1 mg/dl Aspartate Amino Transf (AST/SGOT) 26 15-37 U/L Alanine Aminotransferase (ALT/SGPT) 17 12-78 U/L Alkaline Phosphatase 68 45-117 U/L Total Protein 7.3 6.4-8.2 gm/dl Albumin 2.5 3.4-5.0 gm/dl Globulin 4.8 2.5-4.0 gm/dl Albumin/Globulin Ratio 0.5 0.9-2 Urine Color YELLOW Urine Appearance CLEAR CLEAR Urine pH 5.5 4.5-7.5 Urine Specific [place] 1.017 1.000-1.030 Urine Protein NEG NEG Urine Glucose (UA) NEG NEG Urine Ketones NEG NEG Urine Occult Blood 1+ NEG Urine Nitrite NEG NEG Urine Bilirubin NEG NEG Urine Urobilinogen NEG NEG Urine Leukocyte Esterase TRACE NEG Urine WBC (Auto) 1-5 0-5 /hpf Urine RBC (Auto) 5-10 0-4 /hpf Urine Hyaline Casts (Auto) 0 0-5 /lpf Urine Epithelial Cells (Auto) 0-5 0-5 /lpf Urine Bacteria (Auto) NEG NEG Urine Crystals NONE PRSENT Bedside Lactic Acid Venous 1.82 0.90-1.70 mmol/L Microbiology Results 05/24/16 Blood Culture, Received Pending 05/24/16 Blood Culture, Received Pending Diagnostic Radiology CHEST ONE VIEW PORTABLE CLINICAL HISTORY: Sepsis FEVER COMPARISON STUDY: 05/14/2016 FINDINGS: The heart remains enlarged. There is aortic tortuosity/ectasia. There is no focal pulmonary consolidation. There is mild central vascular prominence without evidence of overt edema.[ IMPRESSION: Technically limited study. Persistent cardiomegaly. Mild vascular prominence without evidence of overt edema Electronically signed by: Richard Yun M.D. 05/24/2016 4:04 PM Dictated Date/Time: 05/24/2016 4:03 PM The status of this report is Signed. Draft = Not yet reviewed or approved by Radiologist. Signed = Reviewed and approved by Radiologist. Impression Assessment and Plan 65 y/o male, with PMHx of CAD, HTN, hyperlipidemia, T2DM, diastolic CHF, urinary retentions, schizophrenia, mental retardation, and GERD, who presented to the ED from [facility] for persistent fever Septic, ?secondary to recurrent UTI w/ indwelling Man vs c.diff infection: - Admit to tele for cardiac monitoring - IV Zosyn + Vancomycin - IV NSS @ 125 ml/hr - BCx pending - UA unimpressive, UCx pending - Initial lactic acid 1.82- repeat q6 hrs - Tachycardia- TSH 2.810 on 05/09/16 - Diarrhea- check c.diff - Tylenol PRN for fever - Follow CBC and PRP Hyponatremia- stable: IVF as above T2DM: - Hold Metformin - BSG ACHS w/ sliding insulin scale - ha1c 6.4% on 05/17/16 CAD/Chronic diastolic HF w/out exacerbation: - Continue Metoprolol 100 mg BID, Imdur 60 mg daily, Bumex 2 mg daily Iron deficiency anemia, baseline hgb 9.0: Continue iron supplement Right hilar mass noted on CTA on 05/07/16: - Dr. Gomez was consulted, recommended bronchoscopy or biopsy but patient was deemed unable to to make decisions by psychiatry--> discussed w/ patient, stated he does NOT want intervention- guardianship was to be pursed by the [facility] - O2 protocol Urinary retention w/ indwelling Man: - Per patient, Man changed on 05/24 - Continue Tamsulosin 0.4 mg QAM Schizophrenia/mental retardation: - Check Depakote level - Depakote 500 mg daily and 1000 mg HS GI Prophylaxis: Maalox PRN, IV Zofran PRN, Colace and/or Milk of Mag PRN DVT prophylaxis: Lovenox 40 mg SQ q24 hrs, SANDIP and SCDs Code Status: LEVEL V, DNR Dispo: From [facility] [place] Physician Supervision Note: I interviewed and examined the patient. Discussed with Florence Cole PAC and agree with findings and plan as documented in the note. Any exceptions or clarifications are listed here: None THis pt was recently discharged for sepsis, was sent out on antibiotics which he just completed. He returns with fever. he has no focal issues except of diarrhea. vitals show fever car is regular with murmur lungs are clear ? recurrent sepsis, test for c diff culture and follow Documented By: Jim Peña Level of Care Telemetry Resuscitation Status DO NOT RESUSCITATE VTE Prophylaxis VTE Risk Assessment Done? Y/N: Yes Risk Level: Moderate Given or contraindicated: Unfractionated heparin SQ, T.E.D. Stockings, SCD's
[2016-05-24 18:32] VITALS: BP 99/61; PULSE 113; TEMP 37.8; O2SAT 92
[2016-05-24] MEDS ORDERED: VANCOMYCIN CONSULT ACTIVE PRN (19:00)
[2016-05-24] MEDS ORDERED: PIPERACILL/TAZOBAC CONSULT ACTIVE PRN (19:00)
[2016-05-24] MEDS: ENOXAPARIN 40 MG/0.4 ML SYR SC SCH (20:24)
[2016-05-24] MEDS: HALOPERIDOL 1 MG TAB PO SCH (20:25)
[2016-05-24] MEDS: ATORVASTATIN 20 MG TAB PO SCH (20:26)
[2016-05-24] MEDS: HALOPERIDOL 5 MG TAB PO SCH (20:26)
[2016-05-24] MEDS: DIVALPROEX SODIUM 500 MG DELAY RELEASE TAB PO SCH (20:27)
[2016-05-24] MEDS: METOPROLOL TARTRATE 100 MG TAB PO SCH (20:28)
[2016-05-24] MEDS: MAGNESIUM OXIDE 400 MG TAB PO SCH (20:30)
[2016-05-24] MEDS: SODIUM CHLORIDE 0.9% 1000ML 1,000 ML IV SCH (20:30)
[2016-05-24] MEDS: INSULIN ASPART 100 UNITS/ML 3 ML PEN SC SCH (20:31)
[2016-05-24] MEDS ORDERED: VANCOMYCIN INJ 1,900 MG in SODIUM CHLORIDE 0.9% 500ML 500 ML IV SCH (21:00)
[2016-05-24 23:28] VITALS: BP 171/78; PULSE 91; TEMP 37.5; O2SAT 94
[2016-05-25] VITALS (7 sets, daily range): BP systolic 126–194; BP diastolic 65–83; PULSE 79–102; TEMP 37–39.4; O2SAT 90–94
[2016-05-25] MEDS: PIPERACILL/TAZOBAC IV 4.5 GM in DEXTROSE 5% 100ML 100 ML IV SCH ×3 (00:21→15:26)
[2016-05-25] MEDS: ACETAMINOPHEN 325 MG TAB PO PRN ×3 (05:02→23:39)
[2016-05-25 06:16] LABS: HEMATOCRIT 27.1 % (42-52); MEAN CELL VOLUME 75.9 fL (80-100); MEAN CORPUSCULAR HEMOGLOBIN 24.6 pg (25-34); MEAN CORPUSCULAR HGB CONC 32.5 g/dl (32-36); MEAN PLATELET VOLUME 9.2 fL (7.4-10.4); PLATELET COUNT 237 K/uL (130-400); RED BLOOD COUNT 3.57 M/uL (4.7-6.1); WHITE BLOOD COUNT 5.32 K/uL (4.8-10.8)
[2016-05-25 06:43] LABS: BUN/CREATININE RATIO 11.7 (10-20); CALCIUM 8.1 mg/dl (8.5-10.1); CREATININE 0.97 mg/dl (0.60-1.40); MAGNESIUM 1.7 mg/dl (1.8-2.4); POTASSIUM 3.5 mmol/L (3.5-5.1)
[2016-05-25] MEDS: INSULIN ASPART 100 UNITS/ML 3 ML PEN SC SCH ×4 (07:00→21:00)
[2016-05-25] MEDS ORDERED: VANCOMYCIN INJ 1,600 MG in SODIUM CHLORIDE 0.9% 500ML 500 ML IV SCH (08:00)
[2016-05-25] MEDS: ISOSORBIDE MONONITRATE 60 MG TABCR PO SCH (08:29)
[2016-05-25] MEDS: SODIUM CHLORIDE 0.9% 1000ML 1,000 ML IV SCH ×3 (08:29→18:11)
[2016-05-25] MEDS: DIVALPROEX SODIUM 500 MG DELAY RELEASE TAB PO SCH ×2 (08:30→21:02)
[2016-05-25] MEDS: LACTOBACILLUS ACIDOPHILUS 1 GM PACK PO SCH ×3 (08:30→15:27)
[2016-05-25] MEDS: TAMSULOSIN HCL 0.4 MG CAP PO SCH (08:30)
[2016-05-25] MEDS: ASPIRIN 81 MG ECTAB PO SCH (08:30)
[2016-05-25] MEDS: MAGNESIUM OXIDE 400 MG TAB PO SCH ×2 (08:31→21:02)
[2016-05-25] MEDS: HALOPERIDOL 5 MG TAB PO SCH ×2 (08:31→21:02)
[2016-05-25] MEDS: PANTOprazole SOD 40 MG TAB PO SCH (08:31)
[2016-05-25] MEDS: BUMETANIDE 1 MG TAB PO SCH (08:31)
[2016-05-25] MEDS: HALOPERIDOL 1 MG TAB PO SCH ×2 (08:31→21:03)
[2016-05-25] MEDS: COLCHICINE 0.6 MG TAB PO SCH (08:31)
[2016-05-25] MEDS: FERROUS SULFATE 325 MG TAB PO SCH ×2 (08:31→15:27)
[2016-05-25] MEDS: POTASSIUM CHLORIDE 10 MEQ TABCR PO SCH (08:32)
[2016-05-25] MEDS: METOPROLOL TARTRATE 100 MG TAB PO SCH ×2 (08:33→21:03)
[2016-05-25] MEDS ORDERED: MAGNESIUM SULFATE 1GM / D5W 1 GM in PREMIXED IN D5W 100 ML IV ONE (09:00)
[2016-05-25] MEDS ORDERED: EUCERIN CR 120 GM JAR EXT PRN (11:45)
--- NOTE | 2016-05-25 11:50 | Hospitalist Progress Note ---
Hospitalist Progress Note Date of Service May 25, 2016. (Mallory Freitas ., DELORESC) Subjective Pt evaluation today including: conversation w/ patient, physical exam, chart review, lab review, review of studies, review of inpatient medication list Pain: None PO Intake: No appetite Voiding: ortega catheter in place Patient not a reliable historian. He is repeatedly asking about receiving mail and going to the commissary during my interview. He does state that he has no appetite and admits to diarrhea. He states that he is generally not feeling well. He denies feeling feverish subjectively, although he has been febrile through this morning. Ortega catheter in place. The patient denies fevers, chills, sweats, chest pain, palpitations, claudication, cough, wheezing, shortness of breath, nausea, vomiting, abdominal pain, dysuria, hematuria, urinary retention, paralysis, weakness, numbness and tingling. Additional Comments: See HPI for pertinent positives and negatives. All other systems reviewed and negative. (Mallory Freitas ., ÁNGELA-C) Objective Vital Signs Date Time Temp Pulse Resp B/P Pulse Ox O2 Delivery O2 Flow Rate FiO2 05/25/16 08:00 Room Air 05/25/16 07:52 37.7 90 22 126/69 90 Room Air 05/25/16 04:40 38.4 94 20 187/83 90 Room Air 05/25/16 04:00 Room Air 05/24/16 23:59 Room Air 05/24/16 23:28 37.5 91 20 171/78 94 Room Air 05/24/16 20:00 Room Air 05/24/16 18:32 37.8 113 22 99/61 92 Room Air 05/24/16 17:59 37.6 113 25 125/67 94 05/24/16 17:57 113 25 125/67 94 Room Air 2.0 05/24/16 17:40 Room Air 05/24/16 16:24 113 25 128/69 94 05/24/16 15:54 120 19 95 05/24/16 15:24 109 23 91 05/24/16 14:54 113 27 89 05/24/16 14:24 106 26 93 05/24/16 14:21 94 Nasal Cannula 2.0 05/24/16 14:21 95 Nasal Cannula 2.0 05/24/16 14:12 39.1 114 18 93 Nasal Cannula 2.0 05/24/16 14:07 124 05/24/16 14:04 139/73 (Mallory Freitas ., ÁNGELA-C) Physical Exam General Appearance: WD/WN, no apparent distress, + obese (morbidly obese) Eyes: normal inspection, PERRL, sclerae normal, + pertinent finding (proptosis , disconjugate gaze) ENT: normal ENT inspection, hearing grossly normal, pharynx normal Neck: supple, no JVD, trachea midline Respiratory/Chest: lungs clear, normal breath sounds, no respiratory distress, + pertinent finding (exam limited by poor respiratory effort and body habitus) Cardiovascular: regular rate, rhythm, no gallop, no murmur Abdomen: normal bowel sounds, non tender, soft Extremities: non-tender, normal inspection, + swelling (1+ pitting edema) Neurologic/Psychiatric: alert, normal mood/affect, + disoriented (oriented to self, although did not know correct year, limited orientation to place and time) Skin: normal color, warm/dry, no rash (Mallory Freitas ., PA-C) Laboratory Results Last 24 Hours Test 05/24/16 15:20 05/24/16 15:30 05/24/16 15:35 05/24/16 15:47 Valproic Acid (Depakene) Level 65 mcg/ml White Blood Count 7.49 K/uL Red Blood Count 3.96 M/uL Hemoglobin 9.9 g/dL Hematocrit 29.5 % Mean Corpuscular Volume 74.5 fL Mean Corpuscular Hemoglobin 25.0 pg Mean Corpuscular Hemoglobin Concent 33.6 g/dl Platelet Count 265 K/uL Mean Platelet Volume 9.1 fL Neutrophils (%) (Auto) 62.4 % Lymphocytes (%) (Auto) 23.0 % Monocytes (%) (Auto) 13.2 % Eosinophils (%) (Auto) 0.4 % Basophils (%) (Auto) 0.1 % Neutrophils # (Auto) 4.67 K/uL Lymphocytes # (Auto) 1.72 K/uL Monocytes # (Auto) 0.99 K/uL Eosinophils # (Auto) 0.03 K/uL Basophils # (Auto) 0.01 K/uL RDW Standard Deviation 47.7 fL RDW Coefficient of Variation 17.3 % Immature Granulocyte % (Auto) 0.9 % Immature Granulocyte # (Auto) 0.07 K/uL Prothrombin Time 11.4 SECONDS Prothromb Time International Ratio 1.1 Activated Partial Thromboplast Time 29.4 SECONDS Partial Thromboplastin Ratio 1.1 Sodium Level 128 mmol/L Potassium Level 3.8 mmol/L Chloride Level 89 mmol/L Carbon Dioxide Level 29 mmol/L Anion Gap 10.0 mmol/L Blood Urea Nitrogen 16 mg/dl Creatinine 0.98 mg/dl Est Creatinine Clear Calc Drug Dose 118.4 ml/min Estimated GFR () 92.1 Estimated GFR (Non- 79.5 BUN/Creatinine Ratio 16.3 Random Glucose 127 mg/dl Calcium Level 8.4 mg/dl Total Bilirubin 0.2 mg/dl Aspartate Amino Transf (AST/SGOT) 26 U/L Alanine Aminotransferase (ALT/SGPT) 17 U/L Alkaline Phosphatase 68 U/L Total Protein 7.3 gm/dl Albumin 2.5 gm/dl Globulin 4.8 gm/dl Albumin/Globulin Ratio 0.5 Urine Color YELLOW Urine Appearance CLEAR Urine pH 5.5 Urine Specific [place] 1.017 Urine Protein NEG Urine Glucose (UA) NEG Urine Ketones NEG Urine Occult Blood 1+ Urine Nitrite NEG Urine Bilirubin NEG Urine Urobilinogen NEG Urine Leukocyte Esterase TRACE Urine WBC (Auto) 1-5 /hpf Urine RBC (Auto) 5-10 /hpf Urine Hyaline Casts (Auto) 0 /lpf Urine Epithelial Cells (Auto) 0-5 /lpf Urine Bacteria (Auto) NEG Urine Crystals Bedside Lactic Acid Venous 1.82 mmol/L Test 05/24/16 20:22 05/24/16 21:58 05/25/16 05:59 05/25/16 06:27 Bedside Glucose 137 mg/dl 139 mg/dl Lactic Acid Level 1.4 mmol/L White Blood Count 5.32 K/uL Red Blood Count 3.57 M/uL Hemoglobin 8.8 g/dL Hematocrit 27.1 % Mean Corpuscular Volume 75.9 fL Mean Corpuscular Hemoglobin 24.6 pg Mean Corpuscular Hemoglobin Concent 32.5 g/dl RDW Standard Deviation 48.1 fL RDW Coefficient of Variation 17.2 % Platelet Count 237 K/uL Mean Platelet Volume 9.2 fL Sodium Level 132 mmol/L Potassium Level 3.5 mmol/L Chloride Level 96 mmol/L Carbon Dioxide Level 27 mmol/L Anion Gap 9.0 mmol/L Blood Urea Nitrogen 11 mg/dl Creatinine 0.97 mg/dl Est Creatinine Clear Calc Drug Dose 119.3 ml/min Estimated GFR () 93.2 Estimated GFR (Non- 80.5 BUN/Creatinine Ratio 11.7 Random Glucose 143 mg/dl Calcium Level 8.1 mg/dl Magnesium Level 1.7 mg/dl Test 05/25/16 10:39 Bedside Glucose 102 mg/dl (Mallory Freitas, JULIOCESAR) Assessment and Plan 65 y/o male with a history of CAD, HTN, hyperlipidemia, T2DM, diastolic CHF, urinary retention, schizophrenia, mental retardation, and GERD who presented to the ED on 05/24 from [facility] with persistent fevers. Sepsis--unknown etiology. Patient meets sepsis criteria with tachycardia, fevers, and suspected infectious source. Patient has chronic Ortega cath. Also reports diarrhea. - Admit to tele for cardiac monitoring. Patient remained in sinus rhythm overnight with heart rate between 80s and 90s - Continue IV Zosyn + Vancomycin - Continue IV NSS @ 125 ml/hr. Patient reports no appetite - BCx pending - UA negative - C. difficile negative. Stool cultures and WBC smear pending - Initial lactic acid 1.82. Repeat lactic acid 1.4 - Tylenol PRN for fever Hyponatremia--improving -Sodium 128 on arrival -Sodium 132 on 05/25 -IVF as above S4CV--hoeq hemoglobin A1c was 6.4 on 05/17/16 - Hold Metformin -Insulin sliding scale -Check BSGs q ac and qhs CAD/Chronic diastolic HF w/o exacerbation: - Continue Metoprolol tartrate 100 mg PO BID, Imdur 60 mg PO qd, Bumex 2 mg PO qd Iron deficiency anemia, baseline hgb 9.0 -Hgb stable at 8.8 on 05/25 -Continue iron supplement Right hilar mass noted on CTA on 05/07/16 - Dr. Gomez was consulted, recommended bronchoscopy or biopsy but patient was deemed unable to to make decisions by psychiatry--> discussed w/ patient, stated he does NOT want intervention- guardianship was to be pursed by the detention - O2 by protocol Urinary retention w/indwelling Ortega - Per patient, Ortega changed on 05/24 - Continue Tamsulosin 0.4 mg QAM Schizophrenia/mental retardation - Valproic acid within normal limits - Continue Depakote 500 mg PO qd and 1000 mg PO qhs GI prophylaxis -Maalox Max 15 mL PO q4h prn dyspepsia -Milk of magnesia 30 mL PO q6h prn constipation -Miralax 17 gm PO qd prn constipation -Zofran 4 mg IV q6h prn nausea DVT prophylaxis -Enoxaparin 40 mg SC q24h -SANDIP encarnacion and SCDs Code Status -Level V, DO NOT RESUSCITATE Dispo -Pt is inmate at [facility] This chart was completed in part utilizing [employer] Voice Recognition software. Attempts were made to minimize the grammatical errors, random word insertions, pronoun errors and incomplete sentences. Any formal questions or concerns about the content, text or information contained within the body of this dictation should be directly addressed to the provider for clarification. (Mallory Freitas ., PA-C) I agree with PA assessment and plan Resting comfortably in bed Sepsis of unknown source Continue empiric antibiotics Persistent fevers Cultures pending at this time (Caleb Montague, D.O.)
--- NOTE | 2016-05-25 12:25 | Pharmacy Progress Note ---
Pharmacy Antibiotic Consult Date of Service: May 25, 2016. Pharmacy Dosing Scope Pharmacy is consulted to initiate Vancomycin and Zosyn IV dosing therapy, order appropriate labs and adjust drug dose/frequency. Subjective The patient is a 65 year old male admitted on May 24, 2016 at 17:09 with Sepsis. Most recently he was a patient for Sepsis/PNX and was discharged and completed a PO course of antibiotics. Objective Height (Feet): 6 Height (Inches): 4.00 Weight (Kilograms): 155.100 Lab Results (24hrs): Laboratory Tests Test 05/24/16 15:30 05/25/16 05:59 BUN/Creatinine Ratio 16.3 11.7 Blood Urea Nitrogen 16 mg/dl 11 mg/dl Creatinine 0.98 mg/dl 0.97 mg/dl White Blood Count 7.49 K/uL 5.32 K/uL Red Blood Count 3.96 M/uL Hemoglobin 9.9 g/dL Hematocrit 29.5 % Mean Corpuscular Volume 74.5 fL Mean Corpuscular Hemoglobin 25.0 pg Mean Corpuscular Hemoglobin Concent 33.6 g/dl Platelet Count 265 K/uL Mean Platelet Volume 9.1 fL Neutrophils (%) (Auto) 62.4 % Lymphocytes (%) (Auto) 23.0 % Monocytes (%) (Auto) 13.2 % Eosinophils (%) (Auto) 0.4 % Basophils (%) (Auto) 0.1 % Neutrophils # (Auto) 4.67 K/uL Lymphocytes # (Auto) 1.72 K/uL Monocytes # (Auto) 0.99 K/uL Eosinophils # (Auto) 0.03 K/uL Basophils # (Auto) 0.01 K/uL Micro Results: Item Value Date Time Blood Culture Received 05/24/16 1530 Blood Pending C.difficile Toxin B Gene (PCR) - Final Complete 05/25/16 0500 Stool No C. difficile toxin B gene detected Blood Culture Received 05/24/16 1520 Blood Pending Recent Pertinent Medications Item Value Date Time Piperacillin Sod/ 120 ml @ 28.75 mls/hr 05/25/16 0000 Tazobactam Sod Q8H/IV 05/25/16 0832 4.5 gm/Dextrose Assessment & Plan Loading dose: Vancomycin 3900mg (~25mg/kg) IV in divided doses (2gm in ED, then 1900mg upon presentation to PCU) thereafter Vancomycin 1600mg (~10mg/kg). Given patients bariatric nature, I will check trough level prior to 0400 dose on 05/26/16, which is surely before he is at steady state, but I want to be sure he isn't accumulating and that we are on the right track. I estimated his half life at around 8 hours. Goal trough level estimate: between 15-20 mcg/mL. Pharmacy will continue to follow and will adjust dose/frequency as necessary. Thank you
[2016-05-25] MEDS: ERTAPENEM IV 1 GM in SODIUM CHLOR 0.9% AD-VAN 50ML 50 ML IV SCH (18:11)
[2016-05-25] MEDS: ATORVASTATIN 20 MG TAB PO SCH (21:01)
[2016-05-25] MEDS: ENOXAPARIN 40 MG/0.4 ML SYR SC SCH (21:04)
[2016-05-26] MEDS: SODIUM CHLORIDE 0.9% 1000ML 1,000 ML IV SCH (03:00)
[2016-05-26] MEDS ORDERED: VANCOMYCIN TROUGH SCH (03:30)
[2016-05-26 04:32] VITALS: BP 119/68; PULSE 86; TEMP 37.7; O2SAT 91
[2016-05-26 06:13] LABS: HEMATOCRIT 27.9 % (42-52); MEAN CELL VOLUME 76.4 fL (80-100); MEAN CORPUSCULAR HEMOGLOBIN 25.2 pg (25-34); MEAN PLATELET VOLUME 9.8 fL (7.4-10.4); PLATELET COUNT 224 K/uL (130-400); RED BLOOD COUNT 3.65 M/uL (4.7-6.1); WHITE BLOOD COUNT 5.25 K/uL (4.8-10.8)
[2016-05-26 06:57] LABS: BUN/CREATININE RATIO 9.4 (10-20); CALCIUM 8.1 mg/dl (8.5-10.1); CREATININE 0.85 mg/dl (0.60-1.40); MAGNESIUM 2.1 mg/dl (1.8-2.4); POTASSIUM 3.4 mmol/L (3.5-5.1)
[2016-05-26] MEDS: INSULIN ASPART 100 UNITS/ML 3 ML PEN SC SCH ×4 (07:00→21:00)
[2016-05-26 07:52] VITALS: BP 171/80; PULSE 86; TEMP 37.4; O2SAT 90
[2016-05-26] MEDS: HALOPERIDOL 1 MG TAB PO SCH ×2 (08:09→20:43)
[2016-05-26] MEDS: MAGNESIUM OXIDE 400 MG TAB PO SCH ×2 (08:09→20:42)
[2016-05-26] MEDS: COLCHICINE 0.6 MG TAB PO SCH (08:10)
[2016-05-26] MEDS: METOPROLOL TARTRATE 100 MG TAB PO SCH ×2 (08:10→20:44)
[2016-05-26] MEDS: ASPIRIN 81 MG ECTAB PO SCH (08:11)
[2016-05-26] MEDS: ISOSORBIDE MONONITRATE 60 MG TABCR PO SCH (08:11)
[2016-05-26] MEDS: HALOPERIDOL 5 MG TAB PO SCH ×2 (08:11→20:45)
[2016-05-26] MEDS: BUMETANIDE 1 MG TAB PO SCH (08:12)
[2016-05-26] MEDS: TAMSULOSIN HCL 0.4 MG CAP PO SCH (08:12)
[2016-05-26] MEDS: DIVALPROEX SODIUM 500 MG DELAY RELEASE TAB PO SCH ×2 (08:13→20:43)
[2016-05-26] MEDS: POTASSIUM CHLORIDE 10 MEQ TABCR PO SCH (08:13)
[2016-05-26] MEDS: PANTOprazole SOD 40 MG TAB PO SCH (08:13)
[2016-05-26] MEDS: LACTOBACILLUS ACIDOPHILUS 1 GM PACK PO SCH ×3 (08:14→17:42)
[2016-05-26] MEDS: FERROUS SULFATE 325 MG TAB PO SCH ×2 (08:14→17:42)
--- NOTE | 2016-05-26 10:11 | Hospitalist Progress Note ---
Hospitalist Progress Note Date of Service May 26, 2016. (Mallory Freitas ., DELORESC) Subjective Pt evaluation today including: conversation w/ patient, physical exam, chart review, lab review, review of inpatient medication list Pain: None PO Intake: Tolerating PO diet Voiding: ortega catheter in place Patient is not a reliable historian. Unable to obtain much history from the patient directly. However, he states that he is feeling better. Currently, he denies any diarrhea. Per nursing, the patient was actually able to eat very well yesterday despite telling me he had no appetite. He ate all of his breakfast this morning as well. Additional Comments: Unable to obtain reliable ROS from patient due to mental status. (Mallory Freitas, DELORESC) Objective Vital Signs Date Time Temp Pulse Resp B/P Pulse Ox O2 Delivery O2 Flow Rate FiO2 05/26/16 07:52 37.4 86 19 171/80 90 Room Air 05/26/16 04:32 37.7 86 20 119/68 91 Nasal Cannula 2.0 05/26/16 04:04 Room Air 05/26/16 00:01 Room Air 05/25/16 23:48 39.4 91 22 126/65 91 Nasal Cannula 2.0 05/25/16 20:00 Room Air 05/25/16 19:30 38.6 94 20 179/74 90 Room Air 05/25/16 17:00 38.4 102 22 142/67 94 Room Air 05/25/16 16:00 Room Air 05/25/16 15:41 39.2 96 20 194/67 90 Room Air 05/25/16 12:27 37.0 79 20 148/80 91 Room Air 05/25/16 12:00 Room Air (Mallory Freitas ., ÁNGELA-C) Physical Exam General Appearance: WD/WN, no apparent distress, + obese (morbidly obese) Eyes: normal inspection, PERRL, sclerae normal, + pertinent finding (proptosis , disconjugate gaze) ENT: normal ENT inspection, hearing grossly normal, pharynx normal Neck: supple, no JVD, trachea midline Respiratory/Chest: lungs clear, normal breath sounds, no respiratory distress Cardiovascular: regular rate, rhythm, no gallop, no murmur Abdomen: normal bowel sounds, non tender, soft Extremities: non-tender, + swelling (1+ pitting edema bilaterally), + pertinent finding (chronic venous stasis changes) Neurologic/Psychiatric: alert, normal mood/affect, + disoriented Skin: normal color, warm/dry, no rash (Mallory Freitas ., DELORESC) Laboratory Results Last 24 Hours Test 05/25/16 10:39 05/25/16 16:01 05/25/16 16:13 05/25/16 18:35 Bedside Glucose 102 mg/dl 118 mg/dl Lactic Acid Level 1.0 mmol/L Procalcitonin 0.14 ng/mL Test 05/25/16 20:07 05/26/16 05:29 05/26/16 06:48 Bedside Glucose 158 mg/dl 140 mg/dl White Blood Count 5.25 K/uL Red Blood Count 3.65 M/uL Hemoglobin 9.2 g/dL Hematocrit 27.9 % Mean Corpuscular Volume 76.4 fL Mean Corpuscular Hemoglobin 25.2 pg Mean Corpuscular Hemoglobin Concent 33.0 g/dl RDW Standard Deviation 48.9 fL RDW Coefficient of Variation 17.2 % Platelet Count 224 K/uL Mean Platelet Volume 9.8 fL Sodium Level 132 mmol/L Potassium Level 3.4 mmol/L Chloride Level 96 mmol/L Carbon Dioxide Level 29 mmol/L Anion Gap 7.0 mmol/L Blood Urea Nitrogen 8 mg/dl Creatinine 0.85 mg/dl Est Creatinine Clear Calc Drug Dose 137.4 ml/min Estimated GFR () 104.5 Estimated GFR (Non- 90.2 BUN/Creatinine Ratio 9.4 Random Glucose 110 mg/dl Calcium Level 8.1 mg/dl Magnesium Level 2.1 mg/dl (Mallory Freitas ., PA-C) Assessment and Plan 65 y/o male with a history of CAD, HTN, hyperlipidemia, T2DM, diastolic CHF, urinary retention, schizophrenia, mental retardation, and GERD who presented to the ED on 05/24 from [facility] with persistent fevers. Sepsis--unknown etiology. Patient meets sepsis criteria with tachycardia, fevers, and suspected infectious source. Patient has chronic Ortega cath. Also reports diarrhea. - Admit to [facility] for cardiac monitoring. Patient remained in sinus rhythm overnight with heart rate in the 80s - Pt has remained febrile on vanc and zosyn, will D/C - Ertapenem 1 gm IV qd - Infectious disease consulted, appreciate recs - Change IVF to NSS + 20 mEq KCl at 125 cc/hr - BCx NGTD x 2 - UA negative - C. difficile negative. Stool cultures and WBC smear uncollected - Initial lactic acid 1.82. Repeat lactic acid 1.4 - Procalcitonin WNL - Tylenol PRN for fever Hyponatremia--stable -Sodium 128 on arrival -Sodium remains at 132 on 05/26 -IVF as above A4VW--ubys hemoglobin A1c was 6.4 on 05/17/16 - Hold Metformin -Insulin sliding scale -Check BSGs q ac and qhs CAD/Chronic diastolic HF w/o exacerbation: - Continue Metoprolol tartrate 100 mg PO BID, Imdur 60 mg PO qd, Bumex 2 mg PO qd Iron deficiency anemia, baseline hgb 9.0 -Hgb stable at 9.2 on 05/26 -Continue iron supplement Right hilar mass noted on CTA on 05/07/16 - Dr. Gomez was consulted, recommended bronchoscopy or biopsy but patient was deemed unable to to make decisions by psychiatry--> discussed w/ patient, stated he does NOT want intervention- guardianship was to be pursed by the half-way - O2 by protocol Urinary retention w/indwelling Ortega - Per patient, Ortega changed on 05/24 - Continue Tamsulosin 0.4 mg QAM Schizophrenia/mental retardation - Valproic acid within normal limits - Continue Depakote 500 mg PO qd and 1000 mg PO qhs GI prophylaxis -Maalox Max 15 mL PO q4h prn dyspepsia -Milk of magnesia 30 mL PO q6h prn constipation -Miralax 17 gm PO qd prn constipation -Zofran 4 mg IV q6h prn nausea DVT prophylaxis -Enoxaparin 40 mg SC q24h -SANDIP encarnacion and SCDs Code Status -Level V, DO NOT RESUSCITATE Dispo -Pt is inmate at [facility] This chart was completed in part utilizing [employer] Speech Voice Recognition software. Attempts were made to minimize the grammatical errors, random word insertions, pronoun errors and incomplete sentences. Any formal questions or concerns about the content, text or information contained within the body of this dictation should be directly addressed to the provider for clarification. (Mallory Freitas ., PA-C) I agree with PA assessment and plan and have seen and examined pt myself Resting comfortably in bed No complaints but poor historian due to schizophrenia COnt ertapenem ID consulted Fever overnight Awaiting cx results May need viral workup in addition to CSF analysis (Caleb Montague D.O.)
[2016-05-26] MEDS: NSS + 20MEQ KCL 1000ML 1,000 ML IV SCH ×2 (10:55→17:43)
[2016-05-26 11:25] VITALS: BP 148/74; PULSE 80; TEMP 38.2; O2SAT 92
[2016-05-26] MEDS: ACETAMINOPHEN 325 MG TAB PO PRN ×2 (12:32→20:48)
[2016-05-26 15:28] VITALS: BP 129/70; PULSE 77; TEMP 37.4; O2SAT 100
[2016-05-26] MEDS: ERTAPENEM IV 1 GM in SODIUM CHLOR 0.9% AD-VAN 50ML 50 ML IV SCH (17:40)
--- NOTE | 2016-05-26 19:27 | Medical Consult ---
Consultation Date of Consultation: May 26, 2016. Attending Physician: Caleb Montague D.O. Reason for Consultation: Sepsis unknown origin History of Present Illness 65-year-old male, currently prisoner right few, with history of diabetes mellitus, hyperlipidemia, coronary artery disease, schizophrenia, and mental retardation, recently admitted with hypoxia and found to have right hilar mass, awaiting further pulmonary workup, now readmitted with 1-2 day history of persistent fever. Was started empirically on IV vancomycin and Zosyn, all cultures have been negative, chest x-ray without obvious new process, and no other obvious localizing symptoms. I have ordered procalcitonin which is unremarkable. White blood cell count has been normal. Has been having some diarrhea, C diff negative. No other significant exposure or epidemiologic factors. Past Medical/Surgical History Medical Problems: (1) SON (acute kidney injury) Status: Acute (2) Altered mental status Status: Acute (3) Anemia Status: Acute (4) Anemia Status: Acute (5) Anemia Status: Acute (6) CHF (congestive heart failure) Status: Acute (7) Hemorrhage of urethra Status: Acute (8) Hyponatremia Status: Chronic (9) Hypoxia Status: Acute (10) Pneumonia Status: Acute (11) SIRS (systemic inflammatory response syndrome) Status: Acute (12) UTI (urinary tract infection) Status: Acute Medical Problems: (1) Acute on chronic diastolic (congestive) heart failure (2) Acute respiratory failure with hypoxia (3) CAD (coronary artery disease) (4) Diabetes (5) Hilar mass (6) HTN (hypertension) (7) Hyperkalemia (8) Hyperlipemia (9) Hyponatremia (10) Mental retardation (11) Schizophrenia (12) Shortness of breath Family History Noncontributory Social History Smoking Status: Unknown if Ever Smoked Drug Use: none Marital Status: single Housing Status: other Occupation Status: disabled, other Allergies Coded Allergies: No Known Allergies (Unverified , 05/24/16) Current Inpatient Medications Current Inpatient Medications Medications (Trade) Dose Ordered Sig/Ismael Route Start Time Stop Time Status Last Admin Dose Admin Enoxaparin Sodium (Lovenox Inj) 40 mg Q24H SC 05/24/16 21:00 06/23/16 20:59 05/25/16 21:04 40 MG Acetaminophen (Tylenol Tab) 650 mg Q4H PRN PO 05/24/16 17:15 06/23/16 17:14 05/26/16 12:32 650 MG Al Hydrox/Mg Hydrox/Simethicone (Maalox Max Susp) 15 ml Q4H PRN PO 05/24/16 17:15 06/23/16 17:14 Magnesium Hydroxide (Milk Of Magnesia Susp) 30 ml Q12H PRN PO 05/24/16 17:15 06/23/16 17:14 Ondansetron HCl (Zofran Inj) 4 mg Q6H PRN IV 05/24/16 17:15 06/23/16 17:14 Nitroglycerin (Nitrostat Tab) 0.4 mg UD PRN SL 05/24/16 17:15 06/23/16 17:14 Polyethylene (Miralax Powder Packet) 17 gm DAILY PRN PO 05/24/16 17:15 06/23/16 17:14 Aspirin (Ecotrin Tab) 81 mg DAILY PO 05/25/16 09:00 06/24/16 08:59 05/26/16 08:11 81 MG Atorvastatin Calcium (Lipitor Tab) 20 mg HS PO 05/24/16 21:00 06/23/16 20:59 05/25/16 21:01 20 MG Bumetanide (Bumex Tab) 2 mg DAILY PO 05/25/16 09:00 06/24/16 08:59 05/26/16 08:12 2 MG Colchicine (Colchicine Tab) 1.8 mg DAILY PO 05/25/16 09:00 06/24/16 08:59 05/26/16 08:10 1.8 MG Divalproex Sodium (Depakote Delay Rel Tab) 500 mg DAILY PO 05/25/16 09:00 06/24/16 08:59 05/26/16 08:13 500 MG Divalproex Sodium (Depakote Delay Rel Tab) 1,000 mg HS PO 05/24/16 21:00 06/23/16 20:59 05/25/16 21:02 1,000 MG Albuterol/ Ipratropium (Duoneb) 3 ml TID PRN INH 05/24/16 17:15 06/23/16 17:14 Isosorbide Mononitrate (Imdur Ext Rel Tab) 60 mg DAILY PO 05/25/16 09:00 06/24/16 08:59 05/26/16 08:11 60 MG Lactobacillus Acidophilus (Lactinex Granules Pack) 1 gm TIDM PO 05/25/16 07:30 06/24/16 07:29 05/26/16 17:42 1 GM Loperamide HCl (Imodium Cap) 2 mg TID PRN PO 05/24/16 17:15 06/23/16 17:14 Magnesium Oxide (Mag-Ox Tab) 400 mg BID PO 05/24/16 21:00 06/23/16 20:59 05/26/16 08:09 400 MG Metoprolol Tartrate (Lopressor Tab) 100 mg BID PO 05/24/16 21:00 06/23/16 20:59 05/26/16 08:10 100 MG Tamsulosin HCl (Flomax Cap) 0.4 mg QAM PO 05/25/16 09:00 06/24/16 08:59 05/26/16 08:12 0.4 MG Triamcinolone Acetonide (Kenalog 0.5% Crm) 1 appln BID PRN EXT 05/24/16 17:15 06/23/16 17:14 Ferrous Sulfate (Feosol Tab) 325 mg BIDM PO 05/25/16 07:30 06/24/16 07:29 05/26/16 17:42 325 MG Haloperidol (Haldol Tab) 2 mg BID PO 05/24/16 21:00 06/23/16 20:59 05/26/16 08:09 2 MG Haloperidol (Haldol Tab) 10 mg BID PO 05/24/16 21:00 06/23/16 20:59 05/26/16 08:11 10 MG Miscellaneous Information (Order Awaiting Action) 1 ea QS N/A 05/24/16 19:15 06/23/16 19:14 Potassium Chloride (Klor-Con M10) 10 meq DAILY PO 05/25/16 09:00 06/24/16 08:59 05/26/16 08:13 10 MEQ Multi-Ingredient Ointment (Desitin Oint) 1 gm QID PRN EXT 05/24/16 17:15 06/23/16 17:14 Pantoprazole Sodium (Protonix Tab) 40 mg QAM PO 05/25/16 09:00 06/24/16 08:59 05/26/16 08:13 40 MG Insulin Aspart (novoLOG ASPART) SLIDING SCALE G... ACHS SC 05/24/16 21:00 06/23/16 20:59 Multi-Ingredient Ointment (Eucerin Unscented Cr) 1 appln UD PRN EXT 05/25/16 11:45 06/24/16 11:44 05/25/16 13:20 1 APPLN Hydralazine HCl 10 mg 10 mg Q4 PRN IV. 05/25/16 15:45 06/24/16 15:44 Ertapenem 1 gm/ Sodium Chloride 50 ml @ 120 mls/hr DAILY@1800 IV 05/25/16 18:00 06/04/16 23:59 05/26/16 17:40 120 MLS/HR Potassium Chloride/Sodium Chloride (Nss + 20meq KCl 1000ml) 1,000 ml @ 125 mls/hr Q8H IV 05/26/16 08:30 06/25/16 07:59 05/26/16 17:43 125 MLS/HR Review of Systems Constitutional: + fever, + weakness Eyes: No problem reported ENT: No problem reported Respiratory: + shortness of breath Cardiovascular: No problem reported Abdomen: + diarrhea Musculoskeletal: No problem reported Genitourinary - Male: No problem reported Neurologic: No problem reported Psychiatric: No problem reported Endocrine: No problem reported Hematologic / Lymphatic: No problem reported Integumentary: No problem reported Allergic / Immunologic: No problem reported Physical Exam Date Time Temp Pulse Resp B/P Pulse Ox O2 Delivery O2 Flow Rate FiO2 05/26/16 16:10 Room Air 05/26/16 15:28 37.4 77 19 129/70 100 Room Air 05/26/16 12:42 Room Air 05/26/16 11:25 38.2 80 17 148/74 92 Room Air 05/26/16 08:00 Room Air 05/26/16 07:52 37.4 86 19 171/80 90 Room Air 05/26/16 04:32 37.7 86 20 119/68 91 Nasal Cannula 2.0 05/26/16 04:04 Room Air 05/26/16 00:01 Room Air 05/25/16 23:48 39.4 91 22 126/65 91 Nasal Cannula 2.0 05/25/16 20:00 Room Air 05/25/16 19:30 38.6 94 20 179/74 90 Room Air General Appearance: WD/WN, no apparent distress, + obese Head: normocephalic, atraumatic Eyes: normal inspection, sclerae normal, + pertinent finding ( Dysconjugate gaze) ENT: normal ENT inspection, pharynx normal Neck: supple, no adenopathy, thyroid normal, trachea midline Respiratory/Chest: chest non-tender, lungs clear, normal breath sounds, no respiratory distress Cardiovascular: regular rate, rhythm, no gallop, no murmur Abdomen/GI: normal bowel sounds, non tender, soft, no organomegaly Genitourinary - Male: + pertinent finding ( Man catheter in place draining clear urine) Back: normal inspection, normal range of motion Extremities/Musculoskelatal: no calf tenderness, non-tender Neurologic/Psych: alert, + disoriented Skin: normal color, no rash, + pertinent finding ( superficial sacral decubitus ) Lymphatic: no adenopathy Laboratory Results Date/Time Source Procedure Growth Status 05/26/16 15:45 Stool WBC Smear Pending Received 05/26/16 15:45 Stool Shiga Toxin Test Pending Received 05/26/16 15:45 Stool Stool Culture Pending Received Last 24 Hours Test 05/25/16 20:07 05/26/16 05:29 05/26/16 06:48 05/26/16 11:04 Bedside Glucose 158 mg/dl 140 mg/dl 118 mg/dl White Blood Count 5.25 K/uL Red Blood Count 3.65 M/uL Hemoglobin 9.2 g/dL Hematocrit 27.9 % Mean Corpuscular Volume 76.4 fL Mean Corpuscular Hemoglobin 25.2 pg Mean Corpuscular Hemoglobin Concent 33.0 g/dl RDW Standard Deviation 48.9 fL RDW Coefficient of Variation 17.2 % Platelet Count 224 K/uL Mean Platelet Volume 9.8 fL Sodium Level 132 mmol/L Potassium Level 3.4 mmol/L Chloride Level 96 mmol/L Carbon Dioxide Level 29 mmol/L Anion Gap 7.0 mmol/L Blood Urea Nitrogen 8 mg/dl Creatinine 0.85 mg/dl Est Creatinine Clear Calc Drug Dose 137.4 ml/min Estimated GFR () 104.5 Estimated GFR (Non- 90.2 BUN/Creatinine Ratio 9.4 Random Glucose 110 mg/dl Calcium Level 8.1 mg/dl Magnesium Level 2.1 mg/dl Test 05/26/16 16:15 05/26/16 17:50 Bedside Glucose 136 mg/dl Patient Name: KAMILA PATTERSON [id number] Unit Number: [id number] Dictated: 05/24/16 160 Transcribed: 05/24/16 160 ARG Printed Date/Time: [~ rep prt dt]/[~ rep prt tm] [~ rep ct labl] - [~ rep ct ivnm] [facility] [place] [address] Dictated: 05/24/16 160 Transcribed: 05/24/16 160 ARG Printed Date/Time: [~ rep prt dt]/[~ rep prt tm] [~ rep ct labl] - [~ rep ct ivnm] [~ rep ct add3]] CHEST ONE VIEW PORTABLE CLINICAL HISTORY: Sepsis FEVER COMPARISON STUDY: 05/14/2016 FINDINGS: The heart remains enlarged. There is aortic tortuosity/ectasia. There is no focal pulmonary consolidation. There is mild central vascular prominence without evidence of overt edema.[ IMPRESSION: Technically limited study. Persistent cardiomegaly. Mild vascular prominence without evidence of overt edema Electronically signed by: Richard Yun M.D. 05/24/2016 4:04 PM Dictated Date/Time: 05/24/2016 4:03 PM The status of this report is Signed. Draft = Not yet reviewed or approved by Radiologist. Signed = Reviewed and approved by Radiologist. <AttendingPhy></AttendingPhy> <FamilyPhy>Ismael LUNA</FamilyPhy> <PrimaryPhy> Ismael LUNA</PrimaryPhy> <UnitNumber>[id number]</UnitNumber> <VisitNumber> [id number]</VisitNumber> <PatientName>KAMILA PATTERSON [id number]</PatientName> < DateOfBirth>1950</DateOfBirth> <Location>C.EDB</Location> <ServiceDate>08/04</ServiceDate> <MNE>ESINDI</MNE> <OrderingPhy>Botti, Juliette D.O.</ OrderingPhy> <OrderingPhyMNE>f rep ord dr estrada</OrderingPhyMNE> <DictatingPhyMNE> f rep dict dr estrada</DictatingPhyMNE> <CCListMNE>f rep ct natalie</CCListMNE> < AdmittingPhyMNE>f pt admit dr estrada</AdmittingPhyMNE> <AttendingPhyMNE>f pt attend dr estrada</AttendingPhyMNE> <ConsultingPhyMNE>f pt consult dr estrada</ConsultingPhyMNE> <FamilyPhyMNE>f pt fam dr estrada</FamilyPhyMNE> <OtherPhyMNE>f pt other dr estrada</OtherPhyMNE> < PrimaryPhyMNE>f pt prim care dr estrada</PrimaryPhyMNE> <ReferringPhyMNE>f pt referring dr estrada</ReferringPhyMNE> Assessment & Plan 65 yo male with multiple medical comorbidities with recent hospitalizations for UTI, PNA and right hilar mass, now with fever with clinical sepsis, but negative cultures, normal WBC and procalcitonin, and no localizing findings. For now, ertapenem adequate pending final cultures. Influenza PCR ordered. Would also consider repeat chest CT as need to evaluate for possible non- infectious causes of fever e.g.lymphoma. Discussed with Dr Freitas. Will follow.
[2016-05-26 19:32] VITALS: BP 183/65; PULSE 83; TEMP 37.6; O2SAT 92
[2016-05-26 20:09] LABS: INFLUENZA A PCR Neg for Influ A (NEG); INFLUENZA B PCR Neg for Influ B (NEG)
[2016-05-26] MEDS: HydrALAZINE HCL 20 MG/ML VIAL IV. PRN (20:42)
[2016-05-26] MEDS: ATORVASTATIN 20 MG TAB PO SCH (20:42)
[2016-05-26] MEDS: ENOXAPARIN 40 MG/0.4 ML SYR SC SCH (20:45)
[2016-05-26 23:38] VITALS: BP 120/68; PULSE 92; TEMP 38.4; O2SAT 94
[2016-05-27] VITALS (8 sets, daily range): BP systolic 118–168; BP diastolic 61–95; PULSE 80–100; TEMP 36.9–39.4; O2SAT 91–97
[2016-05-27] MEDS: NSS + 20MEQ KCL 1000ML 1,000 ML IV SCH ×3 (00:30→17:55)
[2016-05-27] MEDS: ACETAMINOPHEN 325 MG TAB PO PRN (05:03)
[2016-05-27] MEDS: HydrALAZINE HCL 20 MG/ML VIAL IV. PRN (05:27)
[2016-05-27 06:42] LABS: HEMATOCRIT 27.6 % (42-52); MEAN CELL VOLUME 75.6 fL (80-100); MEAN CORPUSCULAR HEMOGLOBIN 24.7 pg (25-34); MEAN CORPUSCULAR HGB CONC 32.6 g/dl (32-36); MEAN PLATELET VOLUME 9.8 fL (7.4-10.4); PLATELET COUNT 220 K/uL (130-400); RED BLOOD COUNT 3.65 M/uL (4.7-6.1)
[2016-05-27 06:56] LABS: BUN/CREATININE RATIO 9.4 (10-20); CALCIUM 7.7 mg/dl (8.5-10.1); CREATININE 0.77 mg/dl (0.60-1.40); MAGNESIUM 1.8 mg/dl (1.8-2.4); POTASSIUM 4.1 mmol/L (3.5-5.1)
[2016-05-27] MEDS: INSULIN ASPART 100 UNITS/ML 3 ML PEN SC SCH ×4 (07:00→21:00)
[2016-05-27] MEDS: ISOSORBIDE MONONITRATE 60 MG TABCR PO SCH (07:21)
[2016-05-27] MEDS: FERROUS SULFATE 325 MG TAB PO SCH ×2 (07:21→17:56)
[2016-05-27] MEDS: MAGNESIUM OXIDE 400 MG TAB PO SCH ×2 (07:22→21:45)
[2016-05-27] MEDS: BUMETANIDE 1 MG TAB PO SCH (07:22)
[2016-05-27] MEDS: TAMSULOSIN HCL 0.4 MG CAP PO SCH (07:22)
[2016-05-27] MEDS: COLCHICINE 0.6 MG TAB PO SCH (07:22)
[2016-05-27] MEDS: POTASSIUM CHLORIDE 10 MEQ TABCR PO SCH (07:22)
[2016-05-27] MEDS: METOPROLOL TARTRATE 100 MG TAB PO SCH ×2 (07:22→21:45)
[2016-05-27] MEDS: HALOPERIDOL 5 MG TAB PO SCH ×2 (07:23→21:44)
[2016-05-27] MEDS: ASPIRIN 81 MG ECTAB PO SCH (07:23)
[2016-05-27] MEDS: HALOPERIDOL 1 MG TAB PO SCH ×2 (07:23→21:44)
[2016-05-27] MEDS: DIVALPROEX SODIUM 500 MG DELAY RELEASE TAB PO SCH ×2 (07:23→21:43)
[2016-05-27] MEDS: LACTOBACILLUS ACIDOPHILUS 1 GM PACK PO SCH ×4 (07:23→17:56)
[2016-05-27] MEDS: PANTOprazole SOD 40 MG TAB PO SCH (07:25)
--- NOTE | 2016-05-27 10:43 | Hospitalist Progress Note ---
Hospitalist Progress Note Date of Service May 27, 2016. (Malolry Freitas ., DELORESC) Subjective Pt evaluation today including: conversation w/ patient, physical exam, chart review, lab review, review of inpatient medication list Pain: None PO Intake: Tolerating PO diet Voiding: ortega catheter in place Unable to obtain reliable ROS from patient due to mental status, although he states that he is not feeling well and is weak. Per nursing and [place] [facility] guards, the patient has been lethargic today. He did not finish his breakfast, which is unusual for him as he typically has a big appetite. Additional Comments: Unable to obtain reliable ROS from patient due to mental status. (Mallory Freitas ., DELORESC) Objective Vital Signs Date Time Temp Pulse Resp B/P Pulse Ox O2 Delivery O2 Flow Rate FiO2 05/27/16 08:18 Room Air 05/27/16 08:00 37.7 92 20 164/91 96 05/27/16 04:55 39.4 95 18 168/95 91 Room Air 05/27/16 04:00 Room Air 05/27/16 00:01 Room Air 05/26/16 23:38 38.4 92 22 120/68 94 Nasal Cannula 2.0 05/26/16 20:00 Room Air 05/26/16 19:32 37.6 83 20 183/65 92 Room Air 05/26/16 16:10 Room Air 05/26/16 15:28 37.4 77 19 129/70 100 Room Air 05/26/16 12:42 Room Air 05/26/16 11:25 38.2 80 17 148/74 92 Room Air (Mallory Freitas ., ÁNGELA-C) Physical Exam General Appearance: WD/WN, no apparent distress, + obese (morbidly obese), + pertinent finding (lethargic) Eyes: normal inspection, PERRL, sclerae normal, + pertinent finding (proptosis , disconjugate gaze) ENT: normal ENT inspection, hearing grossly normal, pharynx normal Neck: supple, no JVD, trachea midline Respiratory/Chest: lungs clear, normal breath sounds, no respiratory distress Cardiovascular: regular rate, rhythm, no gallop, no murmur Abdomen: normal bowel sounds, non tender, soft Extremities: non-tender, normal inspection, + swelling (1+ pitting edema), + pertinent finding (chronic venous stasis changes) Neurologic/Psychiatric: normal mood/affect, + disoriented, + pertinent finding (lethargic, easily awakened) Skin: normal color, warm/dry, no rash (Mallory Freitas .DELORESC) Laboratory Results Last 24 Hours Test 05/26/16 11:04 05/26/16 16:15 05/26/16 17:50 05/26/16 20:02 Bedside Glucose 118 mg/dl 136 mg/dl 199 mg/dl Influenza Type A (RT-PCR) Neg for Influ A Influenza Type B (RT-PCR) Neg for Influ B Test 05/27/16 05:49 05/27/16 07:00 05/27/16 08:34 White Blood Count 6.00 K/uL Red Blood Count 3.65 M/uL Hemoglobin 9.0 g/dL Hematocrit 27.6 % Mean Corpuscular Volume 75.6 fL Mean Corpuscular Hemoglobin 24.7 pg Mean Corpuscular Hemoglobin Concent 32.6 g/dl RDW Standard Deviation 48.2 fL RDW Coefficient of Variation 17.3 % Platelet Count 220 K/uL Mean Platelet Volume 9.8 fL Sodium Level 136 mmol/L Potassium Level 4.1 mmol/L Chloride Level 97 mmol/L Carbon Dioxide Level 31 mmol/L Anion Gap 8.0 mmol/L Blood Urea Nitrogen 7 mg/dl Creatinine 0.77 mg/dl Est Creatinine Clear Calc Drug Dose 151.7 ml/min Estimated GFR () 108.8 Estimated GFR (Non- 93.9 BUN/Creatinine Ratio 9.4 Random Glucose 93 mg/dl Calcium Level 7.7 mg/dl Magnesium Level 1.8 mg/dl Bedside Glucose 143 mg/dl (Mallory Freitas ., PA-C) Assessment and Plan 65 y/o male with a history of CAD, HTN, hyperlipidemia, T2DM, diastolic CHF, urinary retention, schizophrenia, mental retardation, and GERD who presented to the ED on 05/24 from [facility] with persistent fevers. Sepsis--unknown etiology. Patient meets sepsis criteria with tachycardia, fevers, and suspected infectious source. Patient has chronic Ortega cath. Also reports diarrhea. - Admit to [facility] for cardiac monitoring. Patient remained in sinus rhythm overnight with heart rate in the 70s. Transfer to med/surg on 05/27 - Pt has remained febrile on vanc and zosyn, will D/C - Ertapenem 1 gm IV qd - Infectious disease consulted, appreciate recs: no obvious source of infection. Check flu. Continue ertapenem for now. Consider repeat chest CT to evaluate for non-infectious causes of fever such as lymphoma. - Change IVF to NSS + 20 mEq KCl at 125 cc/hr - BCx NGTD x 2 - UA negative - C. difficile negative. Stool cultures and WBC smear now collected, results pending - Initial lactic acid 1.82. Repeat lactic acid 1.4 - Procalcitonin WNL - Tylenol PRN for fever -Pt remains febrile Hyponatremia--resolved -Sodium 128 on arrival -Sodium 136 on 05/27 -IVF as above [id number]--fcfg hemoglobin A1c was 6.4 on 05/17/16 - Hold Metformin -Insulin sliding scale -Check BSGs q ac and qhs CAD/Chronic diastolic HF w/o exacerbation: - Continue Metoprolol tartrate 100 mg PO BID, Imdur 60 mg PO qd, Bumex 2 mg PO qd Iron deficiency anemia, baseline hgb 9.0 -Hgb stable at 9.0 on 05/27 -Continue iron supplement Right hilar mass noted on CTA on 05/07/16 - Dr. Gomez was consulted, recommended bronchoscopy or biopsy but patient was deemed unable to to make decisions by psychiatry--> discussed w/ patient, stated he does NOT want intervention- guardianship was to be pursed by the [place] [facility] -Contacted [facility] to determine guardianship status. Sandip Montana RN, is the [facility] ([facility]) of [facility], and he is applying for guardianship. Emergency guardianship was denied. A hearing to obtain guardianship is believed to be scheduled for 05/28 per the [facility] charge nurse. This will allow of the [facility] of any [place] [facility] to be POA even if pt is moved to another correctional facility. Sandip Montana is generally reachable Saturday- Saturday from 7-4. -If pt has a POA, we can consider repeat chest CT and get thoracic surgery on board - O2 by protocol Urinary retention w/indwelling Ortega - Per patient, Ortega changed on 05/24 - Continue Tamsulosin 0.4 mg QAM Schizophrenia/mental retardation - Valproic acid within normal limits - Continue Depakote 500 mg PO qd and 1000 mg PO qhs GI prophylaxis -Maalox Max 15 mL PO q4h prn dyspepsia -Milk of magnesia 30 mL PO q6h prn constipation -Miralax 17 gm PO qd prn constipation -Zofran 4 mg IV q6h prn nausea DVT prophylaxis -Enoxaparin 40 mg SC q24h -SANDIP englee and SCDs Code Status -Level V, DO NOT RESUSCITATE Dispo -Pt is inmate at [facility] This chart was completed in part utilizing [employer] Speech Voice Recognition software. Attempts were made to minimize the grammatical errors, random word insertions, pronoun errors and incomplete sentences. Any formal questions or concerns about the content, text or information contained within the body of this dictation should be directly addressed to the provider for clarification. (Mallory Freitas ., PA-C) I agree with PA assessment and plan and have seen and examined pt myself Pt resting in bed comfortably Poor historian No distress noted Persistent fevers Call to [place] [facility] regarding guardianship status Will likely need biopsy of lung mass, ?lymphoma Cx NGTD (Caleb Montague D.O.)
[2016-05-27 12:10] LABS: LYME DISEASE AB IGG NEG (NEG)
[2016-05-27 12:11] LABS: LYME DISEASE AB IGM NEG (NEG)
[2016-05-27 16:21] LABS: ARTERIAL BLD GAS O2 SATURATION 88.3 % (90-95); ARTERIAL BLOOD GAS BASE EXCESS 5.8 mEq/L (-9-1.8); ARTERIAL BLOOD GAS HCO3 30 mmol/L (19-24); ARTERIAL BLOOD GAS PO2 58 mm/Hg (80-95); ARTERIAL BLOOD GAS pH 7.47 (7.35-7.45)
[2016-05-27 16:22] LABS: ALLEN TEST POS (POS); O2 ADMINISTRATION 4 L
--- NOTE | 2016-05-27 17:54 | DIAGNOSTIC IMAGING REPORT ---
CHEST ONE VIEW PORTABLE HISTORY: low o2 sat on room air/ hard to arouse COMPARISON: Chest 05/24/2016. FINDINGS: The lung apices are partially secured by the patient's overlapping head. No definite pneumothorax. Low lung volumes. Cardiomegaly versus. Mild interstitial pulmonary edema has progressed. Bibasilar densities favor subsegmental atelectasis. This remains unchanged. No definite pleural effusions. IMPRESSION: Mild interstitial pulmonary edema has progressed. Cardiomegaly and bibasilar densities, unchanged. Electronically signed by: Brenden Encarnacion M.D. 05/27/2016 5:52 PM Dictated Date/Time: 05/27/2016 5:51 PM
[2016-05-27] MEDS: ERTAPENEM IV 1 GM in SODIUM CHLOR 0.9% AD-VAN 50ML 50 ML IV SCH (17:55)
[2016-05-27] MEDS ORDERED: NURSING VERBAL MED ORDER ONE (18:15)
[2016-05-27] MEDS ORDERED: FUROSEMIDE INJ 60 MG in SYRINGE 0 ML IV ONE (18:45)
[2016-05-27] MEDS: ENOXAPARIN 40 MG/0.4 ML SYR SC SCH (21:45)
[2016-05-27] MEDS: ATORVASTATIN 20 MG TAB PO SCH (21:49)
[2016-05-28 00:36] VITALS: BP 113/72; PULSE 78; TEMP 37.4; O2SAT 91
[2016-05-28] MEDS: INSULIN ASPART 100 UNITS/ML 3 ML PEN SC SCH ×4 (06:30→22:00)
[2016-05-28 07:20] VITALS: BP 144/81; PULSE 89; TEMP 36.8; O2SAT 92
[2016-05-28] MEDS: FERROUS SULFATE 325 MG TAB PO SCH ×2 (07:45→18:16)
[2016-05-28] MEDS: LACTOBACILLUS ACIDOPHILUS 1 GM PACK PO SCH ×3 (07:46→18:17)
[2016-05-28 08:37] LABS: MEAN CELL VOLUME 75.9 fL (80-100); MEAN CORPUSCULAR HEMOGLOBIN 24.9 pg (25-34); MEAN CORPUSCULAR HGB CONC 32.8 g/dl (32-36); MEAN PLATELET VOLUME 9.7 fL (7.4-10.4); PLATELET COUNT 214 K/uL (130-400); RED BLOOD COUNT 3.82 M/uL (4.7-6.1); WHITE BLOOD COUNT 4.68 K/uL (4.8-10.8)
[2016-05-28 08:47] LABS: CREATININE 0.85 mg/dl (0.60-1.40)
[2016-05-28] MEDS: BUMETANIDE 1 MG TAB PO SCH (08:47)
[2016-05-28 08:48] LABS: BUN/CREATININE RATIO 10.2 (10-20); CALCIUM 8.5 mg/dl (8.5-10.1); POTASSIUM 3.7 mmol/L (3.5-5.1)
[2016-05-28] MEDS: DIVALPROEX SODIUM 500 MG DELAY RELEASE TAB PO SCH ×2 (08:48→21:54)
[2016-05-28] MEDS: POTASSIUM CHLORIDE 10 MEQ TABCR PO SCH (08:49)
[2016-05-28] MEDS: PANTOprazole SOD 40 MG TAB PO SCH (08:49)
[2016-05-28] MEDS: TAMSULOSIN HCL 0.4 MG CAP PO SCH (08:50)
[2016-05-28] MEDS: COLCHICINE 0.6 MG TAB PO SCH (08:50)
[2016-05-28] MEDS: ASPIRIN 81 MG ECTAB PO SCH (08:50)
[2016-05-28] MEDS: MAGNESIUM OXIDE 400 MG TAB PO SCH ×2 (08:51→21:55)
[2016-05-28] MEDS: METOPROLOL TARTRATE 100 MG TAB PO SCH ×2 (08:51→21:55)
[2016-05-28] MEDS: ISOSORBIDE MONONITRATE 60 MG TABCR PO SCH (08:51)
[2016-05-28] MEDS: HALOPERIDOL 5 MG TAB PO SCH ×2 (08:52→21:54)
[2016-05-28] MEDS: HALOPERIDOL 1 MG TAB PO SCH ×2 (08:53→21:53)
--- NOTE | 2016-05-28 14:33 | Hospitalist Progress Note ---
Hospitalist Progress Note Date of Service May 28, 2016. (Mallory Freitas, JULIOCESAR) Subjective Pt evaluation today including: conversation w/ patient, physical exam, chart review, lab review, review of studies, review of inpatient medication list Pain: None PO Intake: Tolerating PO diet Voiding: ortega catheter in place Unable to obtain reliable ROS from patient due to mental status. Patient appears more alert today and has had a good appetite per guards. He had a large bowel movement today. Additional Comments: Unable to obtain reliable ROS from patient due to mental status. (Mallory Freitas, JULIOCESAR) Objective Vital Signs Date Time Temp Pulse Resp B/P Pulse Ox O2 Delivery O2 Flow Rate FiO2 05/28/16 07:30 Nasal Cannula 2.0 05/28/16 07:20 36.8 89 18 144/81 92 Room Air 5.0 05/28/16 00:36 37.4 78 18 113/72 91 Nasal Cannula 5.0 05/27/16 21:40 100 118/77 05/27/16 17:19 80 93 4.0 05/27/16 16:03 88 18 97 Nasal Cannula 4.0 05/27/16 15:30 Nasal Cannula 4.0 05/27/16 15:29 36.9 86 20 129/61 91 Nasal Cannula 4.0 (Mallory Freitas PA-C) Physical Exam General Appearance: WD/WN, no apparent distress, + obese (morbidly obese) Eyes: normal inspection, PERRL, + pertinent finding (proptosis, disconjugate gaze) ENT: normal ENT inspection, hearing grossly normal, pharynx normal Neck: supple, no JVD, trachea midline Respiratory/Chest: lungs clear, normal breath sounds, no respiratory distress, + decreased breath sounds (exam limited by body habitus and poor respiratory effort) Cardiovascular: regular rate, rhythm, no gallop, no murmur Abdomen: normal bowel sounds, non tender, soft Extremities: non-tender, normal inspection, + swelling (1+ pitting edema), + pertinent finding (chronic venous stasis changes) Neurologic/Psychiatric: alert, normal mood/affect, + disoriented, + pertinent finding (patient much more alert and talkative today) Skin: normal color, warm/dry, no rash (Mallory Freitas PA-C) Laboratory Results Last 24 Hours Test 05/27/16 15:23 05/27/16 16:10 05/27/16 16:25 05/27/16 20:38 Bedside Glucose 118 mg/dl 98 mg/dl 139 mg/dl Arterial Blood pH 7.47 Arterial Blood Partial Pressure CO2 42 mmHg Arterial Blood Partial Pressure O2 58 mm/Hg Arterial Blood HCO3 30 mmol/L Arterial Blood Oxygen Saturation 88.3 % Arterial Blood Base Excess 5.8 mEq/L Arterial Blood Gas Delivery 4 L Billy Test POS Test 05/28/16 07:11 05/28/16 07:55 05/28/16 11:20 Bedside Glucose 104 mg/dl 119 mg/dl White Blood Count 4.68 K/uL Red Blood Count 3.82 M/uL Hemoglobin 9.5 g/dL Hematocrit 29.0 % Mean Corpuscular Volume 75.9 fL Mean Corpuscular Hemoglobin 24.9 pg Mean Corpuscular Hemoglobin Concent 32.8 g/dl RDW Standard Deviation 48.7 fL RDW Coefficient of Variation 17.5 % Platelet Count 214 K/uL Mean Platelet Volume 9.7 fL Sodium Level 131 mmol/L Potassium Level 3.7 mmol/L Chloride Level 94 mmol/L Carbon Dioxide Level 32 mmol/L Anion Gap 5.0 mmol/L Blood Urea Nitrogen 9 mg/dl Creatinine 0.85 mg/dl Est Creatinine Clear Calc Drug Dose 137.4 ml/min Estimated GFR () 104.5 Estimated GFR (Non- 90.2 BUN/Creatinine Ratio 10.2 Random Glucose 104 mg/dl Calcium Level 8.5 mg/dl (Mallory Freitas, JULIOCESAR) Diagnostic Results Reviewed the following studies and agree with interpretation as follows: Patient Name: KAMILA PATTERSON [id number] Unit Number: [id number] Dictated: 05/27/161750 Transcribed: 05/27/161750 [facility] Printed Date/Time: [~ rep prt dt]/[~ rep prt tm] [~ rep ct labl] - [~ rep ct ivnm] [facility] [place] [address] Dictated: 05/27/161750 Transcribed: 05/27/161750 PA Printed Date/Time: [~ rep prt dt]/[~ rep prt tm] [~ rep ct labl] - [~ rep ct ivnm] Patient: KAMILA PATTERSON [id number] Address1: [facility] Rec: [id number] Address2: Acct ID: [id number] [facility] Zip: [id number] Date: 1950 Sex: M Room/Bed: W2562 Ref Phy: [facility] SC: C.MS2W Att Phy: Caleb Montague D.O. Report #: [id number] Griselda Phy: [facility] Test: CXR1P Admit Phy: Jim Peña M.D. Manager Of Photography: GODWIN Interpreting Phy: Brenden Encarnacion MD Diagnosis: HYPONATREMIA, SIRS Ordering Phy: Caleb Montague D.O. Service Date: 05/27/16 Admit Date: 05/25/1703/06/17 MNE: [id number] CONF: DICTATED BY: Brenden Encarnacion M.D.]] CC: Caleb Montague D.O. [facility] Endcc: [~ rep ct add3]] CHEST ONE VIEW PORTABLE HISTORY: low o2 sat on room air/ hard to arouse COMPARISON: Chest 05/24/2016. FINDINGS: The lung apices are partially secured by the patient's overlapping head. No definite pneumothorax. Low lung volumes. Cardiomegaly versus. Mild interstitial pulmonary edema has progressed. Bibasilar densities favor subsegmental atelectasis. This remains unchanged. No definite pleural effusions. IMPRESSION: Mild interstitial pulmonary edema has progressed. Cardiomegaly and bibasilar densities, unchanged. Electronically signed by: Brenden Encarnacion M.D. 05/27/2016 5:52 PM Dictated Date/Time: 05/27/2016 5:51 PM The status of this report is Signed. Draft = Not yet reviewed or approved by Radiologist. Signed = Reviewed and approved by Radiologist. <AttendingPhy>Caleb Montague D.O.</AttendingPhy> <FamilyPhy>[facility]</ FamilyPhy> <PrimaryPhy>[facility]</PrimaryPhy> <UnitNumber>[id number]</ UnitNumber> <VisitNumber>[id number]</VisitNumber> <PatientName>KAMILA PATTERSON [id number]</PatientName> <DateOfBirth>1950</DateOfBirth> <Location>[facility]</ Location> <ServiceDate>05/24/16</ServiceDate> <MNE>ESINDI</MNE> <OrderingPhy> Caleb Montague D.O.</OrderingPhy> <OrderingPhyMNE>f rep ord dr estrada</ OrderingPhyMNE> <DictatingPhyMNE>f rep dict dr estrada</DictatingPhyMNE> <CCListMNE> f rep ct natalie</CCListMNE> <AdmittingPhyMNE>f pt admit dr estrada</AdmittingPhyMNE> < AttendingPhyMNE>f pt attend dr estrada</AttendingPhyMNE> <ConsultingPhyMNE>f pt consult dr estrada</ConsultingPhyMNE> <FamilyPhyMNE>f pt fam dr estrada</FamilyPhyMNE> <OtherPhyMNE>f pt other dr estrada</OtherPhyMNE> < PrimaryPhyMNE>f pt prim care dr estrada</PrimaryPhyMNE> <ReferringPhyMNE>f pt referring dr estrada</ReferringPhyMNE> (Mallory Freitas ., PAAvelinoC) Assessment and Plan 65 y/o male with a history of CAD, HTN, hyperlipidemia, T2DM, diastolic CHF, urinary retention, schizophrenia, mental retardation, and GERD who presented to the ED on 05/24 from [facility] with persistent fevers. Sepsis--unknown etiology. Patient meets sepsis criteria with tachycardia, fevers, and suspected infectious source. Patient has chronic Ortega cath. Also reports diarrhea. - Admit to tele for cardiac monitoring. Patient remained in sinus rhythm overnight with heart rate in the 70s. Transfer to med/surg on 05/27 - Pt has remained febrile on vanc and zosyn, will D/C - Ertapenem 1 gm IV qd - Infectious disease consulted, appreciate recs: no obvious source of infection. Check flu. Continue ertapenem for now. Consider repeat chest CT to evaluate for non-infectious causes of fever such as lymphoma. - D/C IVF - BCx NGTD x 2 - UA negative - C. difficile negative. Stool cultures and WBC smear negative - Initial lactic acid 1.82. Repeat lactic acid 1.4 - Procalcitonin WNL - Tylenol PRN for fever -Patient now afebrile. Last fever morning of 05/27 Hyponatremia--ongoing -Sodium 128 on arrival -Sodium 136 on 05/27 -Sodium 131 on 05/28 after fluids D/C'd V3IC--kxel hemoglobin A1c was 6.4 on 05/17/16 - Hold Metformin -Insulin sliding scale -Check BSGs q ac and qhs CAD/Chronic diastolic HF--acute exacerbation -CXR on 05/27 shows increased pulmonary edema -Echo pending -Given Lasix 60 mg IV 1 -IV fluids stopped as above, avoid further IVF, pt does not appear to be septic now -Urine output 5225 mL on 05/27 -Continue with Lasix 40 mg IV qd -Continue Metoprolol tartrate 100 mg PO BID, Imdur 60 mg PO qd, Bumex 2 mg PO qd Iron deficiency anemia, baseline hgb 9.0 -Hgb stable -Continue iron supplement Right hilar mass noted on CTA on 05/07/16 - Dr. Gomez was consulted, recommended bronchoscopy or biopsy but patient was deemed unable to to make decisions by psychiatry--> discussed w/ patient, stated he does NOT want intervention- guardianship was to be pursed by the fpc -Sandip Montana able to obtain guardianship for patient and would like to pursue mass biopsy and bronchoscopy. -Thoracic surgery consulted, appreciate recs - O2 by protocol Urinary retention w/indwelling Ortega - Per patient, Ortega changed on 05/24 - Continue Tamsulosin 0.4 mg QAM Schizophrenia/mental retardation - Valproic acid within normal limits - Continue Depakote 500 mg PO qd and 1000 mg PO qhs GI prophylaxis -Maalox Max 15 mL PO q4h prn dyspepsia -Milk of magnesia 30 mL PO q6h prn constipation -Miralax 17 gm PO qd prn constipation -Zofran 4 mg IV q6h prn nausea DVT prophylaxis -Enoxaparin 40 mg SC q24h -SANDIP encarnacion and SCDs Code Status -Level V, DO NOT RESUSCITATE Dispo -Pt is inmate at [facility] This chart was completed in part utilizing Dragon Speech Voice Recognition software. Attempts were made to minimize the grammatical errors, random word insertions, pronoun errors and incomplete sentences. Any formal questions or concerns about the content, text or information contained within the body of this dictation should be directly addressed to the provider for clarification. (Mallory Freitas ., PA-C) I agree with PA assessment and plan and have seen and examined pt Resting comfortably in bed Still incontinent of stools More alert today Responded well to IV lasix yesterday Still edematous Thoracic surgery consulted for eval of lung mass (Caleb Montague D.O.)
[2016-05-28] MEDS ORDERED: FUROSEMIDE INJ 40 MG in SYRINGE 0 ML IV SCH (15:00)
--- NOTE | 2016-05-28 15:05 | Medical Consult ---
Consultation Note Date of Service May 28, 2016. Consultation Note Consult Dictated # [id number]
[2016-05-28 15:34] VITALS: BP 118/74; PULSE 86; TEMP 37.1; O2SAT 96
[2016-05-28 16:00] VITALS: O2SAT 95
[2016-05-28] MEDS: ERTAPENEM IV 1 GM in SODIUM CHLOR 0.9% AD-VAN 50ML 50 ML IV SCH (18:15)
--- NOTE | 2016-05-28 18:16 | ECHOCARDIOGRAM REPORT ---
*NOTICE TO RECEIVING REPUBLICAN AGENCY This information is strictly Confidential and protected under [place] law. [place] law prohibits you from making any further disclosure of this information unless further disclosure is expressly permitted by the written consent of the person to whom it pertains or is authorized by law. A general authorization for the release of medical or other information is not sufficient for this purpose. Hospital accepts no responsibility if the information is made available to any other person, INCLUDING THE PATIENT. Interpretation Summary * Name: KAMILA PATTERSON [id number] Study Date: 05/28/2016 02:53 PM BP: 113/72 mmHg * Patient Location: .MS2W\S\W256\S\2 HR: 78 * : 1950 (M/d/yyyy) Gender: Male Height: 76 in * Age: 65 yrs Ethnicity: AA Weight: 347 lb * Ordering Physician: Caleb Montague * Referring Physician: Ismael LUNA * Performed By: Tasha Still RDCS * * Reason For Study: Low O2 sat on room air difficult to arouse/ pulmonary edema * BSA: 2.8 m2 * The right and left ventricular systolic function appear normal. * Mild concentric left ventricular hypertrophy. * Left ventricular diastolic dysfunction. * This study was technically difficult. Limited visualization of the valves. No significant valvular abnormalities noted. * The study was technically difficult. Procedure Details * A complete two-dimensional transthoracic echocardiogram was performed (2D, M-mode, Doppler and color flow Doppler). * The study was technically limited. * The study was technically difficult. Left Ventricle * The left ventricle is normal in size. * The left ventricle is not well visualized. * There is mild concentric left ventricular hypertrophy. * Left ventricular systolic function is normal. * A full diastolic examination was done with clinical findings of Class I diastolic dysfunction. Right Ventricle * The right ventricle is normal in size and function. * The right ventricle is not well visualized. Atria * The left atrial size is normal. * The left atrium is not well visualized. * Right atrial size is normal. * Right atrium not well visualized. Mitral Valve * The mitral valve is not well visualized. * Significant mitral regurgitation is absent. Tricuspid Valve * The tricuspid valve is not well visualized. * Significant tricuspid regurgitation is absent. Aortic Valve * The aortic valve is not well visualized. * The aortic valve is trileaflet. * Valve appears to open well. * There is no significant aortic regurgitation. Pulmonic Valve * The pulmonic valve is not well visualized. * The pulmonary valve is inadequately visualized, but the Doppler data is adequate for interpretation. * There is no pulmonic valvular stenosis. * There is no significant pulmonary regurgitation. Great Vessels * The aortic root is normal size. * Normal inferior vena cava diameter and respiratory variation suggests normal central venous pressure. MMode 2D Measurements and Calculations IVSd 1.4 cm LVIDd 4.9 cm LVIDs 3.5 cm LVPWd 1.3 cm IVS/LVPW 1.1 FS 28.6 % EDV(Teich) 111.2 ml ESV(Teich) 50.0 ml EF(Teich) 55.0 % EDV(cubed) 115.4 ml ESV(cubed) 42.0 ml EF(cubed) 63.6 % LV mass(C)d 254.0 grams LV mass(C)dI 90.7 grams/m\S\2 SV(Teich) 61.1 ml SI(Teich) 21.8 ml/m\S\2 SV(cubed) 73.5 ml SI(cubed) 26.2 ml/m\S\2 Ao root diam 3.8 cm Ao root area 11.2 cm\S\2 asc Aorta Diam 3.7 cm LVOT diam 2.0 cm LVOT area 3.2 cm\S\2 Doppler Measurements and Calculations MV E max anya 66.9 cm/sec MV A max anya 121.3 cm/sec MV E/A 0.55 MV dec time 0.43 sec Ao V2 max 142.4 cm/sec Ao max PG 8.1 mmHg Ao max PG (full) 3.4 mmHg VICKI(V,A) 2.4 cm\S\2 VICKI(V,D) 2.4 cm\S\2 LV V1 max PG 4.7 mmHg LV V1 max 108.7 cm/sec PA V2 max 86.9 cm/sec PA max PG 3.0 mmHg PA acc slope 312.5 cm/sec\S\2 PA acc time 0.14 sec TR max anya 103.8 cm/sec PA pr(Accel) 14.0 mmHg
--- NOTE | 2016-05-28 19:02 | CONSULTATION REPORT ---
DATE OF CONSULTATION: 05/28/2016 REASON FOR CONSULTATION: Hilar mass. HISTORY OF PRESENT ILLNESS: This is a 65-year-old male who is currently incarcerated at [facility]. We have seen the patient during 2 previous hospital admissions in May 07 and May 15 of this year. In May 07 of this year, the patient did have a CT scan of his chest that was negative for PE; however, the CT scan identified a right hilar mass measuring 3.5 x 3.8 cm. We were asked to see the patient at that time for consideration of a diagnostic bronchoscopy; however, the patient refused. It should be noted that the patient has a history of mental retardation and schizophrenia and he refused the above-mentioned procedure. The patient was seen in consultation by psychiatry and patient was deemed incompetent to make his own decisions. Because the patient is an inmate of a correctional facility, a court process had be undertaken to assign guardianship to this patient. Because the patient did not have a court appointed guardian during the aforementioned admission, no procedure intervention was obtained. The patient was admitted to [facility] on 05/24/2016 secondary to concern for underlying sepsis. The patient was treated with fluid resuscitation. It should be noted that the patient did have stool sent for C. diff which was negative. There was also a negative stool culture. He had blood cultures that are negative to date. He had a urinalysis that was negative for infection and serology for Lyme and influenza A and B are both negative. He had a Depakote level that was noted to be within the therapeutic range. It should be noted that the patient has not exhibited significant leukocytosis since admission and his most recent CBC revealed a white blood cell count of 4.6, hemoglobin and hematocrit were 9.5 and 29.0, and platelet count 214,000. His INR and PTT were both within the normal range. Chemistry profile showed patient's current sodium is 131, potassium was 3.7, BUN and creatinine are within normal range. The patient did not exhibit any elevation of his lactic acid level since admission. There have been no significant elevations of LFTs since admission. The patient did have an ABG this admission that showed a pH of 7.47, pCO2 of 42, pO2 of 58 and a bicarbonate level of 30. Since this admission, the patient has had x-rays that showed mild interstitial pulmonary edema with no discrete infiltrates. The patient has thus far been treated with fluid resuscitation and initially placed on broad-spectrum antibiotics. The patient has stabilized and he is now being diuresed due to fluid overload. I was notified by the medical service, the patient now has a court appointed guardian and this gentleman is Abrahan Montana who works at [employer]. We have discussed with Mr. Montana via phone and he has agreed to consent the above noted diagnostic bronchoscopy we are asked to perform. I visited with the patient at bedside. The patient was unable to participate in a full review of systems due to lack of insight; however, at the present time he notes that he feels comfortable. He specifically denies any chest pain or shortness of breath. He denies any shakes or chills. He also denies any abdominal pain. PAST MEDICAL HISTORY: Includes the followin. Obesity. 2. Mental retardation. 3. Schizophrenia. 4. Coronary artery disease. 5. Hypertension. 6. Hyperlipidemia. 7. Diabetes. 8. History of diastolic CHF. PAST SURGICAL HISTORY: Unknown. ALLERGIES: None. OUTPATIENT MEDICATION REGIMEN: Includes the followin. Tylenol as needed. 2. Aspirin 81 mg daily. 3. Lipitor 20 mg daily. 4. Bumex 2 mg daily. 5. Colchicine 0.6 mg the patient takes 3 tablets daily. 6. Topical vitamin A and D ointment twice daily as needed. 7. Depakote. The patient takes 1000 mg at bedtime and 500 mg during the day. 8. Iron 200 mg twice daily. 9. Haldol 12 mg twice daily. 10. DuoNeb as needed. 11. Isosorbide 60 mg daily. 12. Ketoconazole topically twice daily. 13. Lactinex 3 times daily. 14. Imodium as needed. 15. Mag ox 400 mg twice daily. 16. Glucophage 850 mg 3 times daily. 17. Metoprolol 100 mg twice daily. 18. Potassium chloride 10 mEq daily. 19. Zantac 300 mg twice daily. 20. Flomax 0.4 mg daily. 21. Triamcinolone topically twice daily. 22. Zinc oxide topically 4 times daily. SOCIAL HISTORY: The patient is an inmate of [facility]. FAMILY HISTORY: Unable to be obtained. REVIEW OF SYSTEMS: As described above. PHYSICAL EXAMINATION: VITAL SIGNS: The patient is afebrile with temperature 36.8, pulse 89 and regular, respirations are 18 and unlabored, blood pressure 144/81, pulse ox 92% on 2 liters. It should be noted that patient was noted to be febrile during the previous day of his admission with maximal temperature of 39.4. The patient has been afebrile for nearly 24 hours. GENERAL: The patient is alert to person only. HEENT: Head is atraumatic, normocephalic. Eyes, pupils equal, round and reactive to light and accommodation. Extraocular motions are intact. Ears, auditory acuity is grossly intact. Nose, nasal patency was intact. Sinuses are nontender. Mouth has dry mucous membranes. NECK: Without tracheal shift or stridor. CARDIOVASCULAR: Regular rate and rhythm. LUNGS: Revealed breath sounds were decreased at the bases. I did not appreciate any rhonchi or wheezing. He was not using accessory muscles. ABDOMEN: Rotund, but soft and nontender to palpation. EXTREMITIES: Revealed no cyanosis or clubbing. NEUROLOGIC: Revealed the patient could move all 4 extremities. No noted focal deficits are noted. DIAGNOSTIC DATA: As noted above. IMPRESSION: A 65-year-old male with a right hilar mass. PLAN: As noted above, the patient has a court appointed guardian and this gentleman's name is Abrahan Montana who works at [employer] and as stated above Mr. Montana has given us consent via phone to perform endobronchial ultrasound with biopsies. This was witnessed by both myself as well as Dr. Gomez. I have discussed with the hospitalist service and told them that this can be done on an outpatient basis and they expressed their understanding. I also discussed with the hospitalist the patient has underlying sepsis and as they do not have any discrete source, they are concerned that the patient's process in his chest could be the cause of his fevers. I did discuss with the patient's guardian, the possible complications of this procedure which include but are not limited to bleeding, infection, pneumothorax or not even obtaining a diagnosis. We discussed the benefits of doing the procedure which would be to obtain a diagnosis. We will continue to follow along with this patient while he is in the hospital, but if he is discharged, we will contact the medical department at the correctional facility to perform this procedure on an outpatient basis. ELAINE
--- NOTE | 2016-05-28 19:55 | Infectious Disease Progress Nt ---
Progress Note Date of Service May 28, 2016. Subjective Pt evaluation today including: conversation w/ patient, physical exam, chart review, lab review, review of studies, conversation w/ net developer consultant, review of inpatient medication list No obvious problems overnight. Patient now afebrile. Cardiothoracic surgery consult regarding hilar mass. Cultures remain negative. All Other Systems: Reviewed and Negative Medications Current Inpatient Medications Medications (Trade) Dose Ordered Sig/Ismael Route Start Time Stop Time Status Last Admin Dose Admin Enoxaparin Sodium (Lovenox Inj) 40 mg Q24H SC 05/24/16 21:00 06/23/16 20:59 05/27/16 21:45 40 MG Acetaminophen (Tylenol Tab) 650 mg Q4H PRN PO 05/24/16 17:15 06/23/16 17:14 05/27/16 05:03 650 MG Al Hydrox/Mg Hydrox/Simethicone (Maalox Max Susp) 15 ml Q4H PRN PO 05/24/16 17:15 06/23/16 17:14 Magnesium Hydroxide (Milk Of Magnesia Susp) 30 ml Q12H PRN PO 05/24/16 17:15 06/23/16 17:14 Ondansetron HCl (Zofran Inj) 4 mg Q6H PRN IV 05/24/16 17:15 06/23/16 17:14 Nitroglycerin (Nitrostat Tab) 0.4 mg UD PRN SL 05/24/16 17:15 06/23/16 17:14 Polyethylene (Miralax Powder Packet) 17 gm DAILY PRN PO 05/24/16 17:15 06/23/16 17:14 Aspirin (Ecotrin Tab) 81 mg DAILY PO 05/25/16 09:00 06/24/16 08:59 05/28/16 08:50 81 MG Atorvastatin Calcium (Lipitor Tab) 20 mg HS PO 05/24/16 21:00 06/23/16 20:59 05/27/16 21:49 20 MG Bumetanide (Bumex Tab) 2 mg DAILY PO 05/25/16 09:00 06/24/16 08:59 05/28/16 08:47 2 MG Colchicine (Colchicine Tab) 1.8 mg DAILY PO 05/25/16 09:00 06/24/16 08:59 05/28/16 08:50 1.8 MG Divalproex Sodium (Depakote Delay Rel Tab) 500 mg DAILY PO 05/25/16 09:00 06/24/16 08:59 05/28/16 08:48 500 MG Divalproex Sodium (Depakote Delay Rel Tab) 1,000 mg HS PO 05/24/16 21:00 06/23/16 20:59 05/27/16 21:43 1,000 MG Albuterol/ Ipratropium (Duoneb) 3 ml TID PRN INH 05/24/16 17:15 06/23/16 17:14 05/27/16 16:01 3 ML Isosorbide Mononitrate (Imdur Ext Rel Tab) 60 mg DAILY PO 05/25/16 09:00 06/24/16 08:59 05/28/16 08:51 60 MG Lactobacillus Acidophilus (Lactinex Granules Pack) 1 gm TIDM PO 05/25/16 07:30 06/24/16 07:29 05/28/16 18:17 1 GM Loperamide HCl (Imodium Cap) 2 mg TID PRN PO 05/24/16 17:15 06/23/16 17:14 Magnesium Oxide (Mag-Ox Tab) 400 mg BID PO 05/24/16 21:00 06/23/16 20:59 05/28/16 08:51 400 MG Metoprolol Tartrate (Lopressor Tab) 100 mg BID PO 05/24/16 21:00 06/23/16 20:59 05/28/16 08:51 100 MG Tamsulosin HCl (Flomax Cap) 0.4 mg QAM PO 05/25/16 09:00 06/24/16 08:59 05/28/16 08:50 0.4 MG Triamcinolone Acetonide (Kenalog 0.5% Crm) 1 appln BID PRN EXT 05/24/16 17:15 06/23/16 17:14 Ferrous Sulfate (Feosol Tab) 325 mg BIDM PO 05/25/16 07:30 06/24/16 07:29 05/28/16 18:16 325 MG Haloperidol (Haldol Tab) 2 mg BID PO 05/24/16 21:00 06/23/16 20:59 05/28/16 08:53 2 MG Haloperidol (Haldol Tab) 10 mg BID PO 05/24/16 21:00 06/23/16 20:59 05/28/16 08:52 10 MG Miscellaneous Information (Order Awaiting Action) 1 ea QS N/A 05/24/16 19:15 06/23/16 19:14 Potassium Chloride (Klor-Con M10) 10 meq DAILY PO 05/25/16 09:00 06/24/16 08:59 05/28/16 08:49 10 MEQ Multi-Ingredient Ointment (Desitin Oint) 1 gm QID PRN EXT 05/24/16 17:15 06/23/16 17:14 Pantoprazole Sodium (Protonix Tab) 40 mg QAM PO 05/25/16 09:00 06/24/16 08:59 05/28/16 08:49 40 MG Insulin Aspart (novoLOG ASPART) SLIDING SCALE G... ACHS SC 05/24/16 21:00 06/23/16 20:59 05/26/16 21:00 1 UNITS Multi-Ingredient Ointment (Eucerin Unscented Cr) 1 appln UD PRN EXT 05/25/16 11:45 06/24/16 11:44 05/25/16 13:20 1 APPLN Hydralazine HCl 10 mg 10 mg Q4 PRN IV. 05/25/16 15:45 06/24/16 15:44 05/27/16 05:27 10 MG Ertapenem 1 gm/ Sodium Chloride 50 ml @ 120 mls/hr DAILY@1800 IV 05/25/16 18:00 06/04/16 23:59 05/28/16 18:15 120 MLS/HR Furosemide/Syringe (Lasix Inj/ Syringe) 4 ml @ 4 mls/min DAILY IV 05/29/16 09:00 06/28/16 08:59 Objective Vital Signs Date Time Temp Pulse Resp B/P Pulse Ox O2 Delivery O2 Flow Rate FiO2 05/28/16 16:00 95 Nasal Cannula 1.0 05/28/16 15:34 37.1 86 22 118/74 96 Room Air 05/28/16 07:30 Nasal Cannula 2.0 05/28/16 07:20 36.8 89 18 144/81 92 Room Air 5.0 05/28/16 00:36 37.4 78 18 113/72 91 Nasal Cannula 5.0 05/27/16 21:40 100 118/77 Physical Exam General Appearance: WD/WN, no apparent distress Eyes: normal inspection, sclerae normal ENT: normal ENT inspection, pharynx normal Neck: supple, no adenopathy, thyroid normal, trachea midline Respiratory/Chest: lungs clear, normal breath sounds, no respiratory distress Cardiovascular: regular rate, rhythm, no gallop, no murmur Abdomen: normal bowel sounds, non tender, soft, no organomegaly Extremities: non-tender, + swelling Neurologic/Psychiatric: alert, + disoriented Skin: normal color, no rash Lymphatic: no adenopathy Laboratory Results Last 24 Hours Test 05/27/16 20:38 05/28/16 07:11 05/28/16 07:55 05/28/16 11:20 Bedside Glucose 139 mg/dl 104 mg/dl 119 mg/dl White Blood Count 4.68 K/uL Red Blood Count 3.82 M/uL Hemoglobin 9.5 g/dL Hematocrit 29.0 % Mean Corpuscular Volume 75.9 fL Mean Corpuscular Hemoglobin 24.9 pg Mean Corpuscular Hemoglobin Concent 32.8 g/dl RDW Standard Deviation 48.7 fL RDW Coefficient of Variation 17.5 % Platelet Count 214 K/uL Mean Platelet Volume 9.7 fL Sodium Level 131 mmol/L Potassium Level 3.7 mmol/L Chloride Level 94 mmol/L Carbon Dioxide Level 32 mmol/L Anion Gap 5.0 mmol/L Blood Urea Nitrogen 9 mg/dl Creatinine 0.85 mg/dl Est Creatinine Clear Calc Drug Dose 137.4 ml/min Estimated GFR () 104.5 Estimated GFR (Non- 90.2 BUN/Creatinine Ratio 10.2 Random Glucose 104 mg/dl Calcium Level 8.5 mg/dl Test 05/28/16 16:23 Bedside Glucose 124 mg/dl Assessment and Plan 65 yo male with multiple medical comorbidities with recent hospitalizations for UTI, PNA and right hilar mass, now with fever with clinical sepsis, but negative cultures, normal WBC and procalcitonin, and no localizing findings. For now, ertapenem adequate pending final cultures. Influenza PCR Negative. Cultures remain negative. Fever has apparently resolved. Will discuss with cardiothoracic surgery further management. Will follow.
[2016-05-28] MEDS: ENOXAPARIN 40 MG/0.4 ML SYR SC SCH (21:00)
[2016-05-28] MEDS: ATORVASTATIN 20 MG TAB PO SCH (21:55)
[2016-05-29] VITALS: BP 143/73; PULSE 81; TEMP 37; O2SAT 92
[2016-05-29 07:32] LABS: HEMATOCRIT 27.4 % (42-52); MEAN CELL VOLUME 75.3 fL (80-100); MEAN CORPUSCULAR HGB CONC 33.2 g/dl (32-36); PLATELET COUNT 211 K/uL (130-400); RED BLOOD COUNT 3.64 M/uL (4.7-6.1)
[2016-05-29 07:40] VITALS: BP 153/81; PULSE 81; TEMP 36.8; O2SAT 95
[2016-05-29 07:54] LABS: CALCIUM 8.5 mg/dl (8.5-10.1); CREATININE 0.94 mg/dl (0.60-1.40); POTASSIUM 3.4 mmol/L (3.5-5.1)
--- NOTE | 2016-05-29 08:27 | Hospitalist Progress Note ---
Hospitalist Progress Note Date of Service May 29, 2016. Subjective Pt evaluation today including: conversation w/ patient, physical exam, chart review, lab review, review of studies, review of inpatient medication list Voiding: ortega catheter in place Patient denies any complaints. ROS limited secondary to mental status- denies CP , SOB, abdominal pain, or significant pain. Medications Current Inpatient Medications Medications (Trade) Dose Ordered Sig/Ismael Route Start Time Stop Time Status Last Admin Dose Admin Enoxaparin Sodium (Lovenox Inj) 40 mg Q24H SC 05/24/16 21:00 06/23/16 20:59 05/27/16 21:45 40 MG Acetaminophen (Tylenol Tab) 650 mg Q4H PRN PO 05/24/16 17:15 06/23/16 17:14 05/27/16 05:03 650 MG Al Hydrox/Mg Hydrox/Simethicone (Maalox Max Susp) 15 ml Q4H PRN PO 05/24/16 17:15 06/23/16 17:14 Magnesium Hydroxide (Milk Of Magnesia Susp) 30 ml Q12H PRN PO 05/24/16 17:15 06/23/16 17:14 Ondansetron HCl (Zofran Inj) 4 mg Q6H PRN IV 05/24/16 17:15 06/23/16 17:14 Nitroglycerin (Nitrostat Tab) 0.4 mg UD PRN SL 05/24/16 17:15 06/23/16 17:14 Polyethylene (Miralax Powder Packet) 17 gm DAILY PRN PO 05/24/16 17:15 06/23/16 17:14 Aspirin (Ecotrin Tab) 81 mg DAILY PO 05/25/16 09:00 06/24/16 08:59 05/29/16 08:56 81 MG Atorvastatin Calcium (Lipitor Tab) 20 mg HS PO 05/24/16 21:00 06/23/16 20:59 05/28/16 21:55 20 MG Bumetanide (Bumex Tab) 2 mg DAILY PO 05/25/16 09:00 06/24/16 08:59 05/29/16 08:55 2 MG Colchicine (Colchicine Tab) 1.8 mg DAILY PO 05/25/16 09:00 06/24/16 08:59 05/29/16 08:55 1.8 MG Divalproex Sodium (Depakote Delay Rel Tab) 500 mg DAILY PO 05/25/16 09:00 06/24/16 08:59 05/29/16 08:56 500 MG Divalproex Sodium (Depakote Delay Rel Tab) 1,000 mg HS PO 05/24/16 21:00 06/23/16 20:59 05/28/16 21:54 1,000 MG Albuterol/ Ipratropium (Duoneb) 3 ml TID PRN INH 05/24/16 17:15 06/23/16 17:14 05/27/16 16:01 3 ML Isosorbide Mononitrate (Imdur Ext Rel Tab) 60 mg DAILY PO 05/25/16 09:00 06/24/16 08:59 05/29/16 08:56 60 MG Lactobacillus Acidophilus (Lactinex Granules Pack) 1 gm TIDM PO 05/25/16 07:30 06/24/16 07:29 05/29/16 09:09 1 GM Loperamide HCl (Imodium Cap) 2 mg TID PRN PO 05/24/16 17:15 06/23/16 17:14 Magnesium Oxide (Mag-Ox Tab) 400 mg BID PO 05/24/16 21:00 06/23/16 20:59 05/29/16 08:57 400 MG Metoprolol Tartrate (Lopressor Tab) 100 mg BID PO 05/24/16 21:00 06/23/16 20:59 05/29/16 08:57 100 MG Tamsulosin HCl (Flomax Cap) 0.4 mg QAM PO 05/25/16 09:00 06/24/16 08:59 05/29/16 08:56 0.4 MG Triamcinolone Acetonide (Kenalog 0.5% Crm) 1 appln BID PRN EXT 05/24/16 17:15 06/23/16 17:14 Ferrous Sulfate (Feosol Tab) 325 mg BIDM PO 05/25/16 07:30 06/24/16 07:29 05/29/16 08:55 325 MG Haloperidol (Haldol Tab) 2 mg BID PO 05/24/16 21:00 06/23/16 20:59 05/29/16 08:56 2 MG Haloperidol (Haldol Tab) 10 mg BID PO 05/24/16 21:00 06/23/16 20:59 05/29/16 08:56 10 MG Miscellaneous Information (Order Awaiting Action) 1 ea QS N/A 05/24/16 19:15 06/23/16 19:14 Potassium Chloride (Klor-Con M10) 10 meq DAILY PO 05/25/16 09:00 06/24/16 08:59 05/29/16 08:57 10 MEQ Multi-Ingredient Ointment (Desitin Oint) 1 gm QID PRN EXT 05/24/16 17:15 06/23/16 17:14 Pantoprazole Sodium (Protonix Tab) 40 mg QAM PO 05/25/16 09:00 06/24/16 08:59 05/29/16 08:57 40 MG Insulin Aspart (novoLOG ASPART) SLIDING SCALE G... ACHS SC 05/24/16 21:00 06/23/16 20:59 05/28/16 22:00 1 UNITS Multi-Ingredient Ointment (Eucerin Unscented Cr) 1 appln UD PRN EXT 05/25/16 11:45 06/24/16 11:44 05/25/16 13:20 1 APPLN Hydralazine HCl 10 mg 10 mg Q4 PRN IV. 05/25/16 15:45 06/24/16 15:44 05/27/16 05:27 10 MG Ertapenem 1 gm/ Sodium Chloride 50 ml @ 120 mls/hr DAILY@1800 IV 05/25/16 18:00 06/04/16 23:59 05/28/16 18:15 120 MLS/HR Furosemide/Syringe (Lasix Inj/ Syringe) 4 ml @ 4 mls/min DAILY IV 05/29/16 09:00 06/28/16 08:59 05/29/16 09:10 4 MLS/MIN Objective Vital Signs Date Time Temp Pulse Resp B/P Pulse Ox O2 Delivery O2 Flow Rate FiO2 05/29/16 07:40 36.8 81 18 153/81 95 Room Air 05/29/16 00:00 37.0 81 20 143/73 92 Room Air 05/28/16 23:48 Nasal Cannula 1.0 05/28/16 16:00 95 Nasal Cannula 1.0 05/28/16 15:34 37.1 86 22 118/74 96 Room Air Physical Exam General Appearance: no apparent distress, + obese Eyes: PERRL, + pertinent finding ENT: hearing grossly normal, + pertinent finding (proptosis) Neck: supple Respiratory/Chest: no respiratory distress, no accessory muscle use, + decreased breath sounds (throughout all lung beatty ) Cardiovascular: regular rate, rhythm Abdomen: normal bowel sounds, non tender, soft Extremities: no calf tenderness, + swelling (+1 pitting edema of bilateral lower extremities ), + pertinent finding (Chronic stasis dermatitis changes) Neurologic/Psychiatric: alert, + disoriented Skin: normal color, warm/dry, no rash Laboratory Results Last 24 Hours Test 05/28/16 11:20 05/28/16 16:23 05/28/16 20:23 05/29/16 07:15 Bedside Glucose 119 mg/dl 124 mg/dl 204 mg/dl White Blood Count 4.70 K/uL Red Blood Count 3.64 M/uL Hemoglobin 9.1 g/dL Hematocrit 27.4 % Mean Corpuscular Volume 75.3 fL Mean Corpuscular Hemoglobin 25.0 pg Mean Corpuscular Hemoglobin Concent 33.2 g/dl RDW Standard Deviation 48.5 fL RDW Coefficient of Variation 17.4 % Platelet Count 211 K/uL Mean Platelet Volume 10.0 fL Sodium Level 134 mmol/L Potassium Level 3.4 mmol/L Chloride Level 94 mmol/L Carbon Dioxide Level 34 mmol/L Anion Gap 6.0 mmol/L Blood Urea Nitrogen 10 mg/dl Creatinine 0.94 mg/dl Est Creatinine Clear Calc Drug Dose 124.3 ml/min Estimated GFR () 96.8 Estimated GFR (Non- 83.6 BUN/Creatinine Ratio 11.0 Random Glucose 169 mg/dl Calcium Level 8.5 mg/dl Test 05/29/16 07:35 Bedside Glucose 153 mg/dl Assessment and Plan 65 y/o male, with PMHx of CAD, HTN, hyperlipidemia, T2DM, diastolic CHF, urinary retentions, schizophrenia, mental retardation, and GERD, who presented to the ED from [facility] for persistent fever Sepsis- unknown etiology, ?secondary to recurrent UTI w/ indwelling Ortega vs c.diff infection: - Admit to [facility] for cardiac monitoring -- Transfer to med/surg on 05/27 - IV Zosyn + Vancomycin- remained febrile -- IV Ertapenem- ID following, appreciate recommendations - IV NSS @ 125 ml/hr- d/c'd - BCx NGTD - UA unimpressive - Initial lactic acid 1.82- repeat of 1.4 - Procalcitonin WNL - Tachycardia- TSH 2.810 on 05/09/16 - Diarrhea- stools studies negative - Tylenol PRN for fever - Last fever reported on 05/27 - Follow CBC and PRP Hyponatremia- stable: IVF as above Mild hypokalemia at 3.4 on 05/29, likely secondary to IV Lasix: - Potassium 20 mEq KCl - Follow PRP T2DM: - Hold Metformin - BSG ACHS w/ sliding insulin scale - ha1c 6.4% on 05/17/16 CAD/Acute on chronic diastolic HF w/ exacerbation: - Continue Metoprolol 100 mg BID, Imdur 60 mg daily, Bumex 2 mg daily - CXR on 05/27- increased pulmonary edema - IV Lasix 60 mg x1 dose - Monitor I&Os- continues to have good UO - ECHO- The right and left ventricular systolic function appear normal. Mild concentric left ventricular hypertrophy. Left ventricular diastolic dysfunction. This study was technically difficult. Limited visualization of the valves. No significant valvular abnormalities noted. The study was technically difficult. Iron deficiency anemia, baseline hgb 9.0: Continue iron supplement Right hilar mass noted on CTA on 05/07/16: - Dr. Gomez was consulted, recommended bronchoscopy or biopsy but patient was deemed unable to to make decisions by psychiatry--> discussed w/ patient, stated he does NOT want intervention- guardianship was to be pursed by the alf - Sandip Montana able to obtain guardianship for patient and would like to pursue mass biopsy and bronchoscopy - O2 protocol - Thoracic surgery consulted, appreciate recs -- Consent obtained over phone- further intervention/evaluation can be completed outpt Urinary retention w/ indwelling Ortega: Continue Tamsulosin 0.4 mg QAM Schizophrenia/mental retardation: - Depakote level WNL - Depakote 500 mg daily and 1000 mg HS GI Prophylaxis: Maalox PRN, IV Zofran PRN, Colace and/or Milk of Mag PRN DVT prophylaxis: Lovenox 40 mg SQ q24 hrs, SANDIP and SCDs Code Status: LEVEL V, DNR Dispo: - Return to [facility] when medically stable - Continue IV Lasix treatment, pending final BCx, hopeful discharge in the next 1-2 days
[2016-05-29] MEDS: FERROUS SULFATE 325 MG TAB PO SCH ×2 (08:55→18:10)
[2016-05-29] MEDS: COLCHICINE 0.6 MG TAB PO SCH (08:55)
[2016-05-29] MEDS: BUMETANIDE 1 MG TAB PO SCH (08:55)
[2016-05-29] MEDS: HALOPERIDOL 5 MG TAB PO SCH ×2 (08:56→20:44)
[2016-05-29] MEDS: HALOPERIDOL 1 MG TAB PO SCH ×2 (08:56→20:42)
[2016-05-29] MEDS: TAMSULOSIN HCL 0.4 MG CAP PO SCH (08:56)
[2016-05-29] MEDS: ASPIRIN 81 MG ECTAB PO SCH (08:56)
[2016-05-29] MEDS: DIVALPROEX SODIUM 500 MG DELAY RELEASE TAB PO SCH ×2 (08:56→20:44)
[2016-05-29] MEDS: ISOSORBIDE MONONITRATE 60 MG TABCR PO SCH (08:56)
[2016-05-29] MEDS: POTASSIUM CHLORIDE 10 MEQ TABCR PO SCH (08:57)
[2016-05-29] MEDS: METOPROLOL TARTRATE 100 MG TAB PO SCH ×2 (08:57→20:49)
[2016-05-29] MEDS: PANTOprazole SOD 40 MG TAB PO SCH (08:57)
[2016-05-29] MEDS: MAGNESIUM OXIDE 400 MG TAB PO SCH ×2 (08:57→20:49)
[2016-05-29] MEDS: LACTOBACILLUS ACIDOPHILUS 1 GM PACK PO SCH ×3 (09:09→18:10)
[2016-05-29] MEDS: FUROSEMIDE INJ 40 MG in SYRINGE 0 ML IV SCH (09:10)
[2016-05-29] MEDS: INSULIN ASPART 100 UNITS/ML 3 ML PEN SC SCH ×4 (09:13→20:50)
--- NOTE | 2016-05-29 10:47 | SURGERY PROGRESS NOTE ---
DATE: 05/29/2016 DATE: 05/29/2016. Mr. Stover was seen today again on this hospitalization. I had a long talk with his newly appointed power of director information and have gotten permission for the endobronchial ultrasound. I am not able to get him on the schedule until Saturday. I think discharging him and bringing him back electively for an outpatient procedure would be appropriate.
[2016-05-29] MEDS ORDERED: POTASSIUM CHLORIDE 20 MEQ TABCR PO ONE (11:50)
--- NOTE | 2016-05-29 15:50 | Infectious Disease Progress Nt ---
Progress Note Date of Service May 29, 2016. Subjective Pt evaluation today including: conversation w/ patient, physical exam, chart review, lab review, review of studies, conversation w/ instructional design consultant, review of inpatient medication list Plans for bronchoscopy noted. Patient has been afebrile for 2 days now. All cultures remain negative. No obvious new complaints. All Other Systems: Reviewed and Negative Medications Current Inpatient Medications Medications (Trade) Dose Ordered Sig/Ismael Route Start Time Stop Time Status Last Admin Dose Admin Enoxaparin Sodium (Lovenox Inj) 40 mg Q24H SC 05/24/16 21:00 06/23/16 20:59 05/27/16 21:45 40 MG Acetaminophen (Tylenol Tab) 650 mg Q4H PRN PO 05/24/16 17:15 06/23/16 17:14 05/27/16 05:03 650 MG Al Hydrox/Mg Hydrox/Simethicone (Maalox Max Susp) 15 ml Q4H PRN PO 05/24/16 17:15 06/23/16 17:14 Magnesium Hydroxide (Milk Of Magnesia Susp) 30 ml Q12H PRN PO 05/24/16 17:15 06/23/16 17:14 Ondansetron HCl (Zofran Inj) 4 mg Q6H PRN IV 05/24/16 17:15 06/23/16 17:14 Nitroglycerin (Nitrostat Tab) 0.4 mg UD PRN SL 05/24/16 17:15 06/23/16 17:14 Polyethylene (Miralax Powder Packet) 17 gm DAILY PRN PO 05/24/16 17:15 06/23/16 17:14 Aspirin (Ecotrin Tab) 81 mg DAILY PO 05/25/16 09:00 06/24/16 08:59 05/29/16 08:56 81 MG Atorvastatin Calcium (Lipitor Tab) 20 mg HS PO 05/24/16 21:00 06/23/16 20:59 05/28/16 21:55 20 MG Bumetanide (Bumex Tab) 2 mg DAILY PO 05/25/16 09:00 06/24/16 08:59 05/29/16 08:55 2 MG Colchicine (Colchicine Tab) 1.8 mg DAILY PO 05/25/16 09:00 06/24/16 08:59 05/29/16 08:55 1.8 MG Divalproex Sodium (Depakote Delay Rel Tab) 500 mg DAILY PO 05/25/16 09:00 06/24/16 08:59 05/29/16 08:56 500 MG Divalproex Sodium (Depakote Delay Rel Tab) 1,000 mg HS PO 05/24/16 21:00 06/23/16 20:59 05/28/16 21:54 1,000 MG Albuterol/ Ipratropium (Duoneb) 3 ml TID PRN INH 05/24/16 17:15 06/23/16 17:14 05/27/16 16:01 3 ML Isosorbide Mononitrate (Imdur Ext Rel Tab) 60 mg DAILY PO 05/25/16 09:00 06/24/16 08:59 05/29/16 08:56 60 MG Lactobacillus Acidophilus (Lactinex Granules Pack) 1 gm TIDM PO 05/25/16 07:30 06/24/16 07:29 05/29/16 12:14 1 GM Loperamide HCl (Imodium Cap) 2 mg TID PRN PO 05/24/16 17:15 06/23/16 17:14 Magnesium Oxide (Mag-Ox Tab) 400 mg BID PO 05/24/16 21:00 06/23/16 20:59 05/29/16 08:57 400 MG Metoprolol Tartrate (Lopressor Tab) 100 mg BID PO 05/24/16 21:00 06/23/16 20:59 05/29/16 08:57 100 MG Tamsulosin HCl (Flomax Cap) 0.4 mg QAM PO 05/25/16 09:00 06/24/16 08:59 05/29/16 08:56 0.4 MG Triamcinolone Acetonide (Kenalog 0.5% Crm) 1 appln BID PRN EXT 05/24/16 17:15 06/23/16 17:14 Ferrous Sulfate (Feosol Tab) 325 mg BIDM PO 05/25/16 07:30 06/24/16 07:29 05/29/16 08:55 325 MG Haloperidol (Haldol Tab) 2 mg BID PO 05/24/16 21:00 06/23/16 20:59 05/29/16 08:56 2 MG Haloperidol (Haldol Tab) 10 mg BID PO 05/24/16 21:00 06/23/16 20:59 05/29/16 08:56 10 MG Miscellaneous Information (Order Awaiting Action) 1 ea QS N/A 05/24/16 19:15 06/23/16 19:14 Potassium Chloride (Klor-Con M10) 10 meq DAILY PO 05/25/16 09:00 06/24/16 08:59 05/29/16 08:57 10 MEQ Multi-Ingredient Ointment (Desitin Oint) 1 gm QID PRN EXT 05/24/16 17:15 06/23/16 17:14 Pantoprazole Sodium (Protonix Tab) 40 mg QAM PO 05/25/16 09:00 06/24/16 08:59 05/29/16 08:57 40 MG Insulin Aspart (novoLOG ASPART) SLIDING SCALE G... ACHS SC 05/24/16 21:00 06/23/16 20:59 05/28/16 22:00 1 UNITS Multi-Ingredient Ointment (Eucerin Unscented Cr) 1 appln UD PRN EXT 05/25/16 11:45 06/24/16 11:44 05/25/16 13:20 1 APPLN Hydralazine HCl 10 mg 10 mg Q4 PRN IV. 05/25/16 15:45 06/24/16 15:44 05/27/16 05:27 10 MG Ertapenem 1 gm/ Sodium Chloride 50 ml @ 120 mls/hr DAILY@1800 IV 05/25/16 18:00 06/04/16 23:59 05/28/16 18:15 120 MLS/HR Furosemide/Syringe (Lasix Inj/ Syringe) 4 ml @ 4 mls/min DAILY IV 05/29/16 09:00 06/28/16 08:59 05/29/16 09:10 4 MLS/MIN Potassium Chloride (Klor-Con Tab) 20 meq QAM PO 05/30/16 09:00 06/29/16 08:59 Objective Vital Signs Date Time Temp Pulse Resp B/P Pulse Ox O2 Delivery O2 Flow Rate FiO2 05/29/16 07:40 36.8 81 18 153/81 95 Room Air 05/29/16 07:35 Room Air 05/29/16 00:00 37.0 81 20 143/73 92 Room Air 05/28/16 23:48 Nasal Cannula 1.0 05/28/16 16:00 95 Nasal Cannula 1.0 Physical Exam General Appearance: WD/WN, no apparent distress Eyes: normal inspection, sclerae normal ENT: normal ENT inspection, pharynx normal Neck: supple, no adenopathy, trachea midline Respiratory/Chest: chest non-tender, lungs clear, normal breath sounds, no respiratory distress Cardiovascular: regular rate, rhythm, no gallop, no murmur Abdomen: normal bowel sounds, non tender, soft, no organomegaly Extremities: non-tender, no calf tenderness Neurologic/Psychiatric: alert, oriented x 3 Skin: normal color, no rash Lymphatic: no adenopathy Laboratory Results Last 24 Hours Test 05/28/16 16:23 05/28/16 20:23 05/29/16 07:15 05/29/16 07:35 Bedside Glucose 124 mg/dl 204 mg/dl 153 mg/dl White Blood Count 4.70 K/uL Red Blood Count 3.64 M/uL Hemoglobin 9.1 g/dL Hematocrit 27.4 % Mean Corpuscular Volume 75.3 fL Mean Corpuscular Hemoglobin 25.0 pg Mean Corpuscular Hemoglobin Concent 33.2 g/dl RDW Standard Deviation 48.5 fL RDW Coefficient of Variation 17.4 % Platelet Count 211 K/uL Mean Platelet Volume 10.0 fL Sodium Level 134 mmol/L Potassium Level 3.4 mmol/L Chloride Level 94 mmol/L Carbon Dioxide Level 34 mmol/L Anion Gap 6.0 mmol/L Blood Urea Nitrogen 10 mg/dl Creatinine 0.94 mg/dl Est Creatinine Clear Calc Drug Dose 124.3 ml/min Estimated GFR () 96.8 Estimated GFR (Non- 83.6 BUN/Creatinine Ratio 11.0 Random Glucose 169 mg/dl Calcium Level 8.5 mg/dl Test 05/29/16 11:28 Bedside Glucose 154 mg/dl Assessment and Plan 65 yo male with multiple medical comorbidities with recent hospitalizations for UTI, PNA and right hilar mass, now with fever with clinical sepsis, but negative cultures, normal WBC and procalcitonin, and no localizing findings. Given apparent resolution of fever, have discontinued ertapenem. Will discuss further management with all involved.
[2016-05-29 15:51] VITALS: BP 139/83; PULSE 86; TEMP 36.7; O2SAT 97
[2016-05-29 16:15] VITALS: O2SAT 97
[2016-05-29 20:46] VITALS: BP 145/79; PULSE 91; O2SAT 92
[2016-05-29] MEDS: ATORVASTATIN 20 MG TAB PO SCH (20:49)
[2016-05-29] MEDS: ENOXAPARIN 40 MG/0.4 ML SYR SC SCH (20:50)
[2016-05-30 00:06] VITALS: BP 167/77; PULSE 77; TEMP 36.9; O2SAT 95
[2016-05-30] MEDS: INSULIN ASPART 100 UNITS/ML 3 ML PEN SC SCH ×2 (06:30→11:00)
[2016-05-30 07:24] LABS: HEMATOCRIT 28.3 % (42-52); MEAN CELL VOLUME 75.1 fL (80-100); MEAN CORPUSCULAR HEMOGLOBIN 24.9 pg (25-34); MEAN CORPUSCULAR HGB CONC 33.2 g/dl (32-36); MEAN PLATELET VOLUME 9.5 fL (7.4-10.4); PLATELET COUNT 206 K/uL (130-400); RED BLOOD COUNT 3.77 M/uL (4.7-6.1); WHITE BLOOD COUNT 5.05 K/uL (4.8-10.8)
[2016-05-30 07:38] VITALS: BP 148/77; PULSE 72; TEMP 36.5; O2SAT 93
[2016-05-30 07:44] LABS: BUN/CREATININE RATIO 12.7 (10-20); CALCIUM 8.4 mg/dl (8.5-10.1); CREATININE 0.83 mg/dl (0.60-1.40); POTASSIUM 3.6 mmol/L (3.5-5.1)
[2016-05-30 08:00] VITALS: O2SAT 93
[2016-05-30] MEDS: ASPIRIN 81 MG ECTAB PO SCH (08:20)
[2016-05-30] MEDS: ISOSORBIDE MONONITRATE 60 MG TABCR PO SCH (08:20)
[2016-05-30] MEDS: FUROSEMIDE INJ 40 MG in SYRINGE 0 ML IV SCH (08:20)
[2016-05-30] MEDS: COLCHICINE 0.6 MG TAB PO SCH (08:20)
[2016-05-30] MEDS: DIVALPROEX SODIUM 500 MG DELAY RELEASE TAB PO SCH (08:21)
[2016-05-30] MEDS: BUMETANIDE 1 MG TAB PO SCH (08:21)
[2016-05-30] MEDS: FERROUS SULFATE 325 MG TAB PO SCH (08:21)
[2016-05-30] MEDS: LACTOBACILLUS ACIDOPHILUS 1 GM PACK PO SCH ×2 (08:21→12:04)
[2016-05-30] MEDS: PANTOprazole SOD 40 MG TAB PO SCH (08:21)
[2016-05-30] MEDS: MAGNESIUM OXIDE 400 MG TAB PO SCH (08:22)
[2016-05-30] MEDS: METOPROLOL TARTRATE 100 MG TAB PO SCH (08:22)
[2016-05-30] MEDS: HALOPERIDOL 1 MG TAB PO SCH (08:22)
[2016-05-30] MEDS: HALOPERIDOL 5 MG TAB PO SCH (08:22)
[2016-05-30] MEDS: POTASSIUM CHLORIDE 10 MEQ TABCR PO SCH (08:23)
[2016-05-30] MEDS: TAMSULOSIN HCL 0.4 MG CAP PO SCH (08:23)
[2016-05-30] MEDS ORDERED: POTASSIUM CHLORIDE 20 MEQ TABCR PO SCH (09:00)
--- NOTE | 2016-05-30 13:33 | Discharge Instructions ---
Discharge Instructions Admission Admission Date: May 24, 2016 at 17:09 Admission Diagnosis: Hyponatremia, Sirs. Discharge Care Plan - Problem: Medical Problems: (1) SIRS (systemic inflammatory response syndrome) (2) Hyponatremia Care Plan - Goal(s): Decrease discomfort, Improve function Care Plan - Instructions: Activity Recommendations: no limitations Recommended Home Diet: Type 2 Diabetes AHA Provider Instructions: You will be contacted by Dr. Carrillo office with an appointment date for your lung biopsy VTE Core Measure Inpt VTE Proph given/why not?: Unfractionated heparin SQ, T.E.D. Stockings, SCD 's Laboratory Results Test Results: Hemoglobin A1c Test 05/17/16 05:54 Range/Units Estimated Average Glucose 137 mg/dl Hemoglobin A1c 6.4 H 4.5-5.6 % Curt Figueroa Recommendations: Call your doctor if: * Temperature above 101 degrees * Pain not relieved by pain medicine ordered * There is increased drainage or redness from any incision * You have any unanswered questions or concerns. Your Doctors Instructions noted above were prepared by provider Ailyn Werner.
[2016-05-30 13:39] VITALS: BP 148/77; PULSE 72; TEMP 36.5; O2SAT 93
--- NOTE | 2016-05-30 15:04 | Infectious Disease Progress Nt ---
Progress Note Date of Service May 30, 2016. Subjective Pt evaluation today including: conversation w/ patient, physical exam, chart review, lab review, review of studies, conversation w/ storage consultant, review of inpatient medication list patient remains afebrile off antibiotics. Offers no new complaints. Plans for outpatient bronchoscopy noted. All Other Systems: Reviewed and Negative Medications Current Inpatient Medications Medications (Trade) Dose Ordered Sig/Ismael Route Start Time Stop Time Status Last Admin Dose Admin Enoxaparin Sodium (Lovenox Inj) 40 mg Q24H SC 05/24/16 21:00 06/23/16 20:59 05/29/16 20:50 40 MG Acetaminophen (Tylenol Tab) 650 mg Q4H PRN PO 05/24/16 17:15 06/23/16 17:14 05/27/16 05:03 650 MG Al Hydrox/Mg Hydrox/Simethicone (Maalox Max Susp) 15 ml Q4H PRN PO 05/24/16 17:15 06/23/16 17:14 Magnesium Hydroxide (Milk Of Magnesia Susp) 30 ml Q12H PRN PO 05/24/16 17:15 06/23/16 17:14 Ondansetron HCl (Zofran Inj) 4 mg Q6H PRN IV 05/24/16 17:15 06/23/16 17:14 Nitroglycerin (Nitrostat Tab) 0.4 mg UD PRN SL 05/24/16 17:15 06/23/16 17:14 Polyethylene (Miralax Powder Packet) 17 gm DAILY PRN PO 05/24/16 17:15 06/23/16 17:14 Aspirin (Ecotrin Tab) 81 mg DAILY PO 05/25/16 09:00 06/24/16 08:59 05/30/16 08:20 81 MG Atorvastatin Calcium (Lipitor Tab) 20 mg HS PO 05/24/16 21:00 06/23/16 20:59 05/29/16 20:49 20 MG Bumetanide (Bumex Tab) 2 mg DAILY PO 05/25/16 09:00 06/24/16 08:59 05/30/16 08:21 2 MG Colchicine (Colchicine Tab) 1.8 mg DAILY PO 05/25/16 09:00 06/24/16 08:59 05/30/16 08:20 1.8 MG Divalproex Sodium (Depakote Delay Rel Tab) 500 mg DAILY PO 05/25/16 09:00 06/24/16 08:59 05/30/16 08:21 500 MG Divalproex Sodium (Depakote Delay Rel Tab) 1,000 mg HS PO 05/24/16 21:00 06/23/16 20:59 05/29/16 20:44 1,000 MG Albuterol/ Ipratropium (Duoneb) 3 ml TID PRN INH 05/24/16 17:15 06/23/16 17:14 05/27/16 16:01 3 ML Isosorbide Mononitrate (Imdur Ext Rel Tab) 60 mg DAILY PO 05/25/16 09:00 06/24/16 08:59 05/30/16 08:20 60 MG Lactobacillus Acidophilus (Lactinex Granules Pack) 1 gm TIDM PO 05/25/16 07:30 06/24/16 07:29 05/30/16 12:04 1 GM Loperamide HCl (Imodium Cap) 2 mg TID PRN PO 05/24/16 17:15 06/23/16 17:14 Magnesium Oxide (Mag-Ox Tab) 400 mg BID PO 05/24/16 21:00 06/23/16 20:59 05/30/16 08:22 400 MG Metoprolol Tartrate (Lopressor Tab) 100 mg BID PO 05/24/16 21:00 06/23/16 20:59 05/30/16 08:22 100 MG Tamsulosin HCl (Flomax Cap) 0.4 mg QAM PO 05/25/16 09:00 06/24/16 08:59 05/30/16 08:23 0.4 MG Triamcinolone Acetonide (Kenalog 0.5% Crm) 1 appln BID PRN EXT 05/24/16 17:15 06/23/16 17:14 Ferrous Sulfate (Feosol Tab) 325 mg BIDM PO 05/25/16 07:30 06/24/16 07:29 05/30/16 08:21 325 MG Haloperidol (Haldol Tab) 2 mg BID PO 05/24/16 21:00 06/23/16 20:59 05/30/16 08:22 2 MG Haloperidol (Haldol Tab) 10 mg BID PO 05/24/16 21:00 5/6/17 20:59 05/30/16 08:22 10 MG Miscellaneous Information (Order Awaiting Action) 1 ea QS N/A 05/24/16 19:15 06/23/16 19:14 Potassium Chloride (Klor-Con M10) 10 meq DAILY PO 05/25/16 09:00 06/24/16 08:59 05/30/16 08:23 10 MEQ Multi-Ingredient Ointment (Desitin Oint) 1 gm QID PRN EXT 05/24/16 17:15 06/23/16 17:14 Pantoprazole Sodium (Protonix Tab) 40 mg QAM PO 05/25/16 09:00 06/24/16 08:59 05/30/16 08:21 40 MG Insulin Aspart (novoLOG ASPART) SLIDING SCALE G... ACHS SC 05/24/16 21:00 06/23/16 20:59 05/28/16 22:00 1 UNITS Multi-Ingredient Ointment (Eucerin Unscented Cr) 1 appln UD PRN EXT 05/25/16 11:45 06/24/16 11:44 05/25/16 13:20 1 APPLN Hydralazine HCl 10 mg 10 mg Q4 PRN IV. 05/25/16 15:45 06/24/16 15:44 05/27/16 05:27 10 MG Furosemide/Syringe (Lasix Inj/ Syringe) 4 ml @ 4 mls/min DAILY IV 05/29/16 09:00 06/28/16 08:59 05/30/16 08:20 4 MLS/MIN Potassium Chloride (Klor-Con Tab) 20 meq QAM PO 05/30/16 09:00 06/29/16 08:59 05/30/16 08:21 20 MEQ Objective Vital Signs Date Time Temp Pulse Resp B/P Pulse Ox O2 Delivery O2 Flow Rate FiO2 05/30/16 13:39 36.5 72 18 93 Room Air 05/30/16 08:00 93 Room Air 05/30/16 07:38 36.5 72 18 148/77 93 Room Air 05/30/16 00:20 Room Air 05/30/16 00:06 36.9 77 20 167/77 95 Room Air 05/29/16 20:46 91 145/79 92 Room Air 05/29/16 16:15 97 Room Air 05/29/16 15:51 36.7 86 20 139/83 97 Room Air Physical Exam General Appearance: WD/WN, no apparent distress Eyes: normal inspection, EOMI, sclerae normal ENT: normal ENT inspection, pharynx normal (7 Go) Neck: supple, trachea midline Respiratory/Chest: lungs clear, normal breath sounds, no respiratory distress Cardiovascular: regular rate, rhythm, no gallop, no murmur Abdomen: normal bowel sounds, non tender, soft, no organomegaly Extremities: non-tender, no calf tenderness Neurologic/Psychiatric: alert, oriented x 3 Skin: normal color, no rash Lymphatic: no adenopathy Laboratory Results Last 24 Hours Test 05/29/16 16:03 05/29/16 20:14 05/30/16 07:10 05/30/16 07:29 Bedside Glucose 136 mg/dl 134 mg/dl 133 mg/dl White Blood Count 5.05 K/uL Red Blood Count 3.77 M/uL Hemoglobin 9.4 g/dL Hematocrit 28.3 % Mean Corpuscular Volume 75.1 fL Mean Corpuscular Hemoglobin 24.9 pg Mean Corpuscular Hemoglobin Concent 33.2 g/dl RDW Standard Deviation 48.2 fL RDW Coefficient of Variation 17.5 % Platelet Count 206 K/uL Mean Platelet Volume 9.5 fL Sodium Level 136 mmol/L Potassium Level 3.6 mmol/L Chloride Level 98 mmol/L Carbon Dioxide Level 33 mmol/L Anion Gap 5.0 mmol/L Blood Urea Nitrogen 11 mg/dl Creatinine 0.83 mg/dl Est Creatinine Clear Calc Drug Dose 140.7 ml/min Estimated GFR () 105.5 Estimated GFR (Non- 91.0 BUN/Creatinine Ratio 12.7 Random Glucose 107 mg/dl Calcium Level 8.4 mg/dl Test 05/30/16 11:43 Bedside Glucose 164 mg/dl Assessment and Plan 65 yo male with multiple medical comorbidities with recent hospitalizations for UTI, PNA and right hilar mass, now with fever with clinical sepsis, but negative cultures, normal WBC and procalcitonin, and no localizing findings. fever has resolved and patient remains afebrile off all antibiotics. See no contraindication for discharge with outpatient procedure to further evaluate right hilar mass.
--- NOTE | 2016-05-30 16:41 | SURGERY PROGRESS NOTE ---
DATE: 05/30/2016 Mr. Stover is being discharged today from [facility]. I have discussed his case with multiple physicians and the patient. We are going to proceed with an endobronchial ultrasound under general anesthesia next week. He will be set up electively.
--- NOTE | 2016-05-31 09:01 | Discharge Summary ---
Discharge Summary Date of Service May 31, 2016. Discharge Summary Admission Date: May 24, 2016 at 17:09 Discharge Date: May 30, 2016 Discharge Disposition: Rehab Principal Diagnosis: SIRS/Hyponatremia Problems/Secondary Diagnoses: Consultations: Infectious Disease Medication Reconciliation Continued Medications: Acetaminophen (Tylenol) 500 Mg Tab 500 MG PO TID PRN for Pain, TAB Aspirin (Aspirin Ec) 81 Mg Tab 81 MG PO DAILY Atorvastatin (Lipitor) 20 Mg Tab 20 MG PO HS Bumetanide (Bumex) 2 Mg Tab 2 MG PO DAILY, TAB Colchicine (Colchicine) 0.6 Mg Tab 3 TABS PO DAILY, TAB Dimethicone-Zinc Oxide-Vitamin (A & D Zinc Oxide) 1 Cre Cre 1 APPLN TOP BID PRN for DRYNESS Divalproex Sodium (Depakote) 500 Mg Tab 1000 MG PO HS for 30 Days, 2 Refills Divalproex Sodium (Depakote Delay Rel) 500 Mg Tab 500 MG PO DAILY, TAB Ferrous Sulfate Dried (Feosol) 200 Mg Tab 200 MG PO BID Haloperidol (Haldol) 10 Mg Tab 10 MG PO BID, TAB Haloperidol (Haloperidol) 2 Mg Tab 2 MG PO BID, #30 TAB 2 Refills Ipratropium-Albuterol (Duoneb) 3 Ml Nebu 1 TREATMENT NEB TID PRN for Wheezing, INHA Isosorbide Mononitrate (Isosorbide Mononitrate ER) 60 Mg Tabcr 60 MG PO DAILY Ketoconazole (Topical) (Extina) 2 % Aer 1 DOSE TOP BID Lactobacillus Acidophilus (Lactinex Granules) 1 Gm Pack 1 PKT OR TID for 7 Days, #21 PKT Loperamide Hcl (Imodium) 2 Mg Cap 2 MG PO TID PRN for Diarrhea, CAP Magnesium Oxide (Mag-Ox) 400 Mg Tab 400 MG PO BID Metformin Hcl (Glucophage) 850 Mg Tab 850 MG PO TID, TAB Metoprolol Tartrate (Metoprolol Tartrate) 100 Mg Tab 100 MG PO BID Potassium Chloride (K-Tabs) 10 Meq Tabcr 10 MEQ PO DAILY Ranitidine (Zantac) 300 Mg Tab 300 MG PO BID, TAB Tamsulosin HCl (Tamsulosin HCl) 0.4 Mg Cap 0.4 MG PO QAM for 30 Days, #30 CAP Triamcinolone Acet (Triamcinolone Acetonide) 45 Appln/15 Gm Cr 1 APPLN TOP BID PRN for RASH for 30 Days, #30 GM Zinc Oxide (Topical) (Desitin Rapid Relief) 13 % Cre 1 APPLN TOP QID PRN for INCONTINENCE Discharge Exam Review of Systems: Constitutional: No chills, No fever Eyes: No worsening of vision ENT: No hearing loss Respiratory: No cough Cardiovascular: No chest pain Abdomen: No nausea, No pain Musculoskeletal: No joint pain Genitourinary - Female: No dysuria Genitourinary - Male: No dysuria, No hematuria Neurologic: + memory loss Psychiatric: + depression symptoms Endocrine: + fatigue Hematologic / Lymphatic: + abnormal bleeding/bruising Physical Exam: General Appearance: WD/WN, no apparent distress Eyes: normal inspection ENT: normal ENT inspection Neck: supple Respiratory/Chest: chest non-tender Cardiovascular: regular rate, rhythm, no edema Abdomen / GI: normal bowel sounds, non tender, soft Extremities: normal inspection Neurologic/Psychiatric: director home II-XII nml as tested, no motor/sensory deficits , alert, oriented x 3 Skin: normal color, warm/dry, no rash Lymphatic: no adenopathy Hospital Course Admission HPI Patient is a 65 y/o male, with PMHx of CAD, HTN, hyperlipidemia, T2DM, diastolic CHF, urinary retentions, schizophrenia, mental retardation, and GERD, who presented to the ED from [facility] for persistent fever. Patient was admitted on 05/14 due hypoxia thought to be secondary to a right hilar mass found on CTA. However, patient denied any intervention to further evaluate the mass, but psychiatry deemed him unable to make own decisions. Additionally, patient had Klebsiella pneumoniae and pseudomonas in his urine. He was discharged on 05/21. Patient returned due to persistent fever. Hospital Cours - patient admitted to the hospitalist service for suspected Urosepsis given PMHX -started on IV Zosyn + Vancomycin and remained febrile -infectious Dz was consulted and started on IV Ertapenem - started on IV NSS @ 125 ml/hr- d/c'd - BCx NGTD - UA unimpressive - Initial lactic acid 1.82- repeat of 1.4 - Procalcitonin WNL - Tachycardia- TSH 2.810 on 05/09/16 - Diarrhea- stools studies negative - Last fever reported on 05/27 -Patients ertapenem was stopped and patient was observed off IV antibiotics for 48 hours - presenting fevers thought to be secondary to possible malignancy Right hilar mass noted on CTA on 05/07/16: - Dr. Gomez was consulted, recommended bronchoscopy or biopsy but patient was deemed unable to to make decisions by psychiatry on prior admission--> discussed w/ patient, stated he does NOT want intervention- guardianship was to be pursed by the long-term - Sandip Montana able to obtain guardianship for patient and would like to pursue mass biopsy and bronchoscopy - Consent obtained over phone- further intervention/evaluation to be completed outpt ( bronchoscopy with biopsy) Hyponatremia - resolved with IVF as above T2DM: - Held Metformin - BSG ACHS w/ sliding insulin scale - ha1c 6.4% on 05/17/16 CAD/Acute on chronic diastolic HF w/ exacerbation: - Continued Metoprolol 100 mg BID, Imdur 60 mg daily, Bumex 2 mg daily - CXR on 05/27- increased pulmonary edema -given IV Lasix 60 mg x1 dose - Monitor I&Os- continues to have good UO - ECHO- The right and left ventricular systolic function appear normal. Mild concentric left ventricular hypertrophy. Left ventricular diastolic dysfunction. This study was technically difficult. Limited visualization of the valves. No significant valvular abnormalities noted. The study was technically difficult. Iron deficiency anemia, baseline hgb 9.0: Continued iron supplement Urinary retention w/ indwelling Man: Continued Tamsulosin 0.4 mg QAM Schizophrenia/mental retardation: - Depakote level WNL - Depakote 500 mg daily and 1000 mg HS GI Prophylaxis: Maalox PRN, IV Zofran PRN, Colace and/or Milk of Mag PRN DVT prophylaxis: Lovenox 40 mg SQ q24 hrs, SANDIP and SCDs Code Status: LEVEL V, DNR Dispo: - Returned to [facility] SCI/ signout was to given to the PAAvelinoC in medical department Total Time Spent: Greater than 30 minutes This includes examination of the patient, discharge planning, medication reconciliation, and communication with other providers. Discharge Instructions Please refer to the electronic Patient Visit Report (Discharge Instructions) for additional information.
--- NOTE | 2016-05-31 11:42 | EDITING REQUIRED CODING QUERY ---
CODING QUERY To promote full compliance with coding requirements relating to patient care, provider participation is requested in all cases of coating operator uncertainty. Please assist us with the question(s) below: Coding Question(s): 05/29 Progress note documents SIRS secondary to UTI in patient with indwelling ortega catheter. Please document, if known or suspected, the etiology of the patient's UTI. Thank you! [facility] Physician's Response(s): Principal Diagnosis: "_that condition established after study, to be chiefly responsible for occasioning the admission of the patient to the hospital for care." Co-Existing Principal Diagnosis: "_when two or more diagnoses equally meet the criteria for principal diagnosis as determined by the circumstances of admission, diagnostic work up, and/or therapy provided, and the Alphabetic Index, Tabular List, or another coding guideline does not provide sequencing direction, any one of the diagnoses may be sequenced first." "When the physician has documented what appears to be a current diagnosis in the body of the record, but has not included the diagnosis in the final diagnostic statement, the physician should be asked whether the diagnosis should be added." (Source Coding [facility] 2 QTR90. p3-4)
== END 2016-05-30 16:17 | DRG 640 ==
LOC: ENRESERVDT → ENRESERVTM → EDBD 13:54 → C.EDB 13:55 → C.2T 17:09 → C.MS2W 05-27 11:44
PROVIDERS: ADMIT Internal Medicine; ATTEND Hospitalist
DX: E87.1 Hypo-osmolality and hyponatremia (principal); I50.33 Acute on chronic diastolic (congestive) heart failure; R65.11 Systemic inflammatory response syndrome (SIRS) of non-infectious origin with acute organ dysfunction; R50.9 Fever, unspecified; R91.8 Other nonspecific abnormal finding of lung field; I25.10 Atherosclerotic heart disease of native coronary artery without angina pectoris; I10 Essential (primary) hypertension; F20.9 Schizophrenia, unspecified; F79 Unspecified intellectual disabilities; E78.5 Hyperlipidemia, unspecified; E11.9 Type 2 diabetes mellitus without complications; K21.9 Gastro-esophageal reflux disease without esophagitis; D50.9 Iron deficiency anemia, unspecified; R33.9 Retention of urine, unspecified; Z66 Do not resuscitate; E66.9 Obesity, unspecified

== ENCOUNTER 2016-06-13 09:18 | Day surgery (SDC) | payer OTHER ==
[~2016-06-13] VITALS: Ht 195.6 cm; Wt 159.0 kg
[~2016-06-13 09:18] MED LIST changes: -AMPI500C9 PO; +COLC0.6T54 PO; +LACTATED RINGER'S 1000ML 1,000 ML IV SCH
[2016-06-13 10:10] VITALS: BP 135/76; PULSE 71; TEMP 37.5; O2SAT 92; Ht 195.6 cm; Wt 159.0 kg
[2016-06-13] MEDS ORDERED: MIDAZOLAM HCL 1 MG/ML 2ML VIAL ONE (10:16)
[2016-06-13] MEDS ORDERED: FENTANYL CITRATE INJ 50 MCG/1 ML 2 ML VIAL ONE (10:16)
--- NOTE | 2016-06-13 10:35 | History & Physical Bridge Note ---
H&P Re-Evaluation Bridge Note: I have examined the patient, reviewed the History & Physical and in the interval since the performance of the History & Physical I have noted the following changes of clinical significance: No changes noted
--- NOTE | 2016-06-13 10:40 | Discharge Instructions ---
Discharge Instructions Date of Service Jun 13, 2016. Visit Reason for Visit: Hilar Mass Discharge Discharge Diagnosis / Problem: Hilar Mass Discharge Goals Goal(s): Learn about illness Activity Recommendations Activity Limitations: resume your previous activity (in 24 hours) Anesthesia . Post Anesthesia Instructions: If you have had General Anesthesia or IV Sedation: * Do not drive today. * Resume driving when surgeon permits. * Do not make important decisions or sign legal documents today. * Call surgeon for: 1. Temperature elevations greater than 101 degrees F. 2. Uncontrollable pain. 3. Excessive bleeding. 4. Persistent nausea and vomiting. 5. Medication intolerance (nausea, vomiting or rash). * For nausea and vomiting use only clear liquids such as: tea, soda, bouillon until nausea subsides, then gradually increase diet as tolerated. * If you have any concerns or questions, call your surgeon's office. If physician is unavailable and it is an emergency, call 911 or go to the nearest emergency room. . Instructions / Follow-Up Instructions / Follow-Up 1. You may cough up some blood. Call physician if excessive amount noted. 2. Dr. Gomez's staff will call medical staff at correctional facility with results of bronchoscopy/biopsies. Diet Recommendations Recommended Home Diet: resume previous diet Pending Studies Studies pending at discharge: no Medical Emergencies . Who to Call and When: Medical Emergencies: If at any time you feel your situation is an emergency, please call 911 immediately. . Non-Emergent Contact Non-Emergency issues call your: Surgeon Call Non-Emergent contact if: your pain is not controlled . . "Provider Documentation" section prepared by Dejuan Nam. .
[2016-06-13] MEDS ORDERED: CISATRACURIUM BESYLATE IV SOLN 2 MG/ML 10 ML VIAL ONE (12:02)
[2016-06-13] MEDS ORDERED: PROPOFOL IV EMULSION 10 MG/ML 20 ML VIAL IV ONE (12:02)
[2016-06-13] MEDS ORDERED: CLINDAMYCIN PHOS 150 MG/ML 2 ML VIAL ONE (12:02)
[2016-06-13] MEDS ORDERED: LIDOCAINE HCL 2% 2 ML VIAL (20MG/ML) ONE (12:02)
[2016-06-13] MEDS ORDERED: DEXAMETHASONE SOD INJ 4 MG/ML VIAL ONE (12:02)
[2016-06-13] MEDS ORDERED: SUCCINYLCHOLINE CHLORIDE 20 MG/ML 10 ML VIAL IV ONE (12:02)
[2016-06-13] MEDS ORDERED: NEOSTIGMINE METHYLSULFATE 5 MG/5 ML SYR ONE (12:02)
[2016-06-13] MEDS ORDERED: GLYCOPYRROLATE INJ 0.2 MG/ML VIAL ONE (12:02)
[2016-06-13] MEDS ORDERED: LARYING-O-JET KIT (LTA) EXT ONE ×2 (12:02)
[2016-06-13] MEDS ORDERED: ONDANSETRON INJ 2 MG/ML 2 ML VIAL ONE (12:02)
[2016-06-13] MEDS ORDERED: KETAMINE HCL INJ 50 MG/ML 10 ML VIAL ONE (12:13)
[2016-06-13] MEDS ORDERED: ATROPINE SULFATE 0.1 MG/ML 5ML SYR IV PRN (13:15)
[2016-06-13] MEDS ORDERED: EpHEDrine SULFATE INJ 50 MG/ML AMP IV PRN (13:15)
[2016-06-13] MEDS ORDERED: HydrALAZINE HCL 20 MG/ML VIAL ONE (13:40)
--- NOTE | 2016-06-13 13:47 | DIAGNOSTIC IMAGING REPORT ---
SINGLE VIEW CHEST CLINICAL HISTORY: Status post endobronchial ultrasound. FINDINGS: An AP, portable, upright chest radiograph is compared to study dated 05/27/2016 and correlated with chest CT dated 05/07/2016. The examination is significantly degraded by portable technique, large body habitus, and patient rotation. The heart is enlarged. There is pulmonary vascular congestion. Small pleural effusions are identified and there is bibasilar consolidation. No pneumothorax is seen. The skeletal structures are osteopenic. The bony thorax is grossly intact. IMPRESSION: 1. Cardiomegaly with evidence of congestive failure. 2. No pneumothorax is identified post procedure. 3. Small pleural effusions and bibasilar consolidation. This likely represents atelectasis. Clinical correlation will be required. Electronically signed by: Alex Lama M.D. 06/13/2016 1:45 PM Dictated Date/Time: 06/13/2016 1:43 PM
--- NOTE | 2016-06-13 14:41 | Anesthesiology Progress Note ---
Anesthesia Post Op Note Date & Time Jun 13, 2016 at 14:40 Vital Signs Pain Intensity: 0 Vital Signs Past 12 Hours Date Time Temp Pulse Resp B/P Pulse Ox O2 Delivery O2 Flow Rate FiO2 06/13/16 14:34 36.0 06/13/16 14:30 61 18 166/89 92 Nasal Cannula 3 06/13/16 14:20 36.0 61 18 163/84 92 Nasal Cannula 3 06/13/16 14:10 66 18 165/88 93 Nasal Cannula 3 06/13/16 14:00 69 16 157/89 95 Nasal Cannula 3 06/13/16 13:50 66 20 152/98 96 Nasal Cannula 3 06/13/16 13:40 64 17 165/96 92 Mask 10 06/13/16 13:30 67 19 176/94 96 Mask 15 06/13/16 13:20 67 22 169/104 94 Mask 15 06/13/16 13:11 35.8 64 12 179/89 94 Mask 15 06/13/16 10:10 37.5 71 20 135/76 92 Room Air Notes Mental Status: alert / awake / arousable, participated in evaluation Pt Amnestic to Procedure: Yes Nausea / Vomiting: adequately controlled Pain: adequately controlled Airway Patency, RR, SpO2: stable & adequate BP & HR: stable & adequate Hydration State: stable & adequate Anesthetic Complications: no major complications apparent
[2016-06-13 14:42] VITALS: BP 152/86; PULSE 70; TEMP 36.5; O2SAT 94
[2016-06-13 15:15] VITALS: BP 165/94; PULSE 63; TEMP 36.4; O2SAT 94
--- NOTE | 2016-06-13 15:30 | OPERATIVE REPORT ---
DATE OF OPERATION: 06/13/2016 PREOPERATIVE DIAGNOSIS: Right hilar mass. 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 PROCEDURE: Endobronchial ultrasound biopsy. SURGEON: Jeb Gomez MD TIP INSERTER: Salomon Duke, respiratory therapy. ANESTHESIA: General anesthesia endotracheal intubation. INDICATION FOR PROCEDURE AND FINDINGS: Domenic Stover is a huge 65-year-old man who is schizophrenic and has low IQ, who is incarcerated at [facility]. He is serving a life sentence. He was found to have a mass in the right hilar area and has presented several times with respiratory failure. After he had a court appointed power of prosecuting attorney, we got permission to do an endobronchial ultrasound. Today on 06/13/2016, patient was brought to the operating room and underwent an uncomplicated endobronchial ultrasound with biopsy. We biopsied the left level 10, level 7, right level 10, right level 11, right level 4 lymph nodes. It appears from the right level 10 lymph nodes that we are dealing with a carcinoma. We elected to do other stains to determine the exact cell type. He has tolerated it well. DESCRIPTION OF PROCEDURE: The patient was brought to the operating room and laid in the supine position. General anesthesia was induced and endotracheal intubation was performed. After appropriate timeout had been called and antibiotics had been given, the endobronchial ultrasound scope was placed. The patient really did not have much in the way of sputum. He did have some clear mucus which was easily suctioned out. I saw no endobronchial lesions. We started on the left side, did level 10 lymph node biopsy as well as level 7. I went back over and did the right level 10, right level 11, right level 4 lymph nodes. We got good lymphocytes back. Dr. Mcfarland from pathology felt that the cells from the R10 lymph node station were suspicious. I went back and did multiple other biopsies of the right level 10 and he feels that we have enough tissue for a diagnosis. It is unclear whether we are dealing with a nonsmall cell lung carcinoma or possible small cell lung carcinoma. It is important to note that all of these biopsies were directed by a real-time ultrasound. I then suctioned out the airways quite nicely. It really had no bleeding. He tolerated it well. I attest to the content of the Intraoperative Record and any orders documented therein. Any exceptions are noted below. ELAINE
== END 2016-06-13 15:37 | disposition home or self-care (01) ==
LOC: C.ACU 09:18
PROVIDERS: ATTEND Surgery
DX: R22.2 Localized swelling, mass and lump, trunk (principal); E66.9 Obesity, unspecified; F79 Unspecified intellectual disabilities; F20.9 Schizophrenia, unspecified; I25.10 Atherosclerotic heart disease of native coronary artery without angina pectoris; I10 Essential (primary) hypertension; E78.5 Hyperlipidemia, unspecified; E11.9 Type 2 diabetes mellitus without complications; Z79.82 Long term (current) use of aspirin

== ENCOUNTER → 2016-07-12 | Outpatient (CLI) | payer OTHER ==
[~2016-07-12] MED LIST changes: +GADAVIST IV PRN; -LACTATED RINGER'S 1000ML 1,000 ML IV SCH
--- NOTE | 2016-07-12 12:00 | DIAGNOSTIC IMAGING REPORT ---
KUB CLINICAL HISTORY: Acute renal insufficiency. FINDINGS: 4 AP supine abdominal radiographs are correlated with renal ultrasound dated 02/23/2016. There is a nonobstructed abdominal bowel gas pattern. Rectosigmoid fecal impaction is noted. There is no radiographic evidence of nephrolithiasis. Vascular calcifications are observed in the pelvis. The skeletal structures are osteopenic. Lumbosacral spondylosis is noted. IMPRESSION: 1. There is no radiographic evidence of nephrolithiasis. 2. Rectosigmoid fecal impaction is observed. Electronically signed by: Alex Lama M.D. 07/12/2016 11:59 AM Dictated Date/Time: 07/12/2016 11:58 AM
--- NOTE | 2016-07-12 13:24 | DIAGNOSTIC IMAGING REPORT ---
MRI OF THE BRAIN COMBO CLINICAL HISTORY: Lung cancer. COMPARISON STUDY: CT of the brain dated 05/07/2016. TECHNIQUE: MRI of the brain was performed utilizing various T1 and T2-weighted sequences in the axial, sagittal, and coronal planes. Contrast-enhanced sequences were acquired following the administration of 13.5 cc of Gadavist. The examination is degraded by motion artifact. FINDINGS: Brain parenchyma: There are age-related involutional changes noting mild subcortical and periventricular microangiopathic disease. There is no hemorrhage or mass effect. There is no restricted diffusion to suggest acute ischemia. No enhancing mass lesion is identified on the postcontrast images. Wolfe-white matter differentiation is preserved. No extra-axial fluid collection is seen. The cerebellar tonsils are normal in configuration. Ventricles, sulci, and cisterns: Prominent secondary to involutional change. Pituitary and sella: Unremarkable. Intracranial vasculature: Normal flow voids are maintained at the skull base. Orbits: The bony orbits are grossly intact. Orbital contents are normal in appearance. Sinuses and mastoids: There is trace mucosal thickening in the left maxillary antrum there is trace fluid within the sphenoid sinuses. The remaining paranasal sinuses and the mastoid air cells are clear. Calvarium: Unremarkable. Cervical cord: Partially visualized cervical spinal cord is normal in morphology and signal intensity. IMPRESSION: 1. No acute intracranial abnormality noting a motion degraded examination. 2. Specifically, there is no MRI evidence of intracranial metastatic disease. Electronically signed by: Alex Lama M.D. 07/12/2016 1:23 PM Dictated Date/Time: 07/12/2016 1:19 PM
== END ==
LOC: C.MRI 10:57
PROVIDERS: ATTEND Physician Assistant Medical
DX: C80.1 Malignant (primary) neoplasm, unspecified (principal)

== ENCOUNTER → 2016-07-17 | Outpatient (CLI) | payer OTHER ==
[~2016-07-17] MED LIST changes: -GADAVIST IV PRN
--- NOTE | 2016-07-17 13:43 | DIAGNOSTIC IMAGING REPORT ---
WHOLE BODY BONE SCAN HISTORY: SMALL CELL LUNG CA RADIOTRACER: 27.2 mCi Tc-99m MDP STUDY/IMAGES: Planar anterior and posterior whole body imaging was performed 3 hours following the intravenous administration of radiotracer. COMPARISON: Chest abdomen and pelvis CT 07/17/2016. FINDINGS: There is a radiotracer uptake within the shoulders, bilateral sternoclavicular joints, left hip, bilateral knees, and feet which favor degenerative change. There is also radiotracer uptake within the left talar dome. This is unlikely to represent metastatic disease and may be due to degenerative change. No suspicious areas of radiotracer uptake identified. Focus of radiotracer uptake within the proximal right femur likely corresponds to the heterotopic ossification seen on the prior CT examination. IMPRESSION: 1. No suspicious areas of radiotracer uptake within the axial or appendicular skeleton to suggest metastatic disease. 2. Focus of radiotracer uptake at the left talar dome which may also be due to long-standing degenerative change.. Electronically signed by: Brenden Encarnacion M.D. 07/17/2016 1:42 PM Dictated Date/Time: 07/17/2016 1:38 PM
== END | disposition home or self-care (01) ==
LOC: C.NUCL 09:13
PROVIDERS: ATTEND Family Medicine
DX: C34.90 Malignant neoplasm of unspecified part of unspecified bronchus or lung (principal)

== ENCOUNTER → 2016-07-17 | Outpatient (CLI) | payer OTHER ==
[~2016-07-17] MED LIST changes: +OPTIRAY 320 IV PRN
--- NOTE | 2016-07-17 12:41 | DIAGNOSTIC IMAGING REPORT ---
CT OF THE CHEST WITH IV CONTRAST CLINICAL HISTORY: Lung carcinoma COMPARISON STUDY: 05/07/2016 TECHNIQUE: Following the IV administration of 92 mL of Optiray-320, CT of the thorax was performed from the thoracic inlet to the lung bases. Images are reviewed in the axial, sagittal, and coronal planes. IV contrast was administered without complication. CT DOSE: 2964.35 mGy.cm FINDINGS: Thyroid: Imaged portions of the thyroid gland are normal in appearance. Thoracic aorta: The thoracic aorta is normal in course and caliber, noting standard 3-vessel arch anatomy. No aneurysm or dissection is seen. Pulmonary vasculature: The pulmonary trunk is normal in caliber. There are no central filling defects identified to suggest pulmonary embolus. Note that this examination was not protocoled for the evaluation of pulmonary emboli. HEART: The heart is enlarged. There are coronary artery calcifications. Lungs and pleural spaces: The examination is limited due to respiratory motion artifact. There are no significant pleural effusions. There is no lobar consolidation. Mediastinum: Paratracheal lymph nodes are the upper limits of normal in size. Alondra: There is a persistent 3.5 cm right hilar mass/adenopathy. Axilla: Clear. Upper abdomen: Partially visualized upper abdominal viscera is within normal limits. Skeletal structures: There are no lytic or blastic osseous lesions. IMPRESSION: 1. Technically limited study secondary to patient motion artifact. 2. Persistent 3.5 cm right hilar mass/adenopathy. 3. No evidence of focal pulmonary consolidation Electronically signed by: Richard Yun M.D. 07/17/2016 12:40 PM Dictated Date/Time: 07/17/2016 12:35 PM
--- NOTE | 2016-07-17 12:43 | DIAGNOSTIC IMAGING REPORT ---
ABDOMEN AND PELVIS CT WITH IV CONTRAST CT DOSE: HISTORY: Lung cancer. TECHNIQUE: Multiaxial CT images of the abdomen and pelvis were performed following the use of intravenous contrast. COMPARISON STUDY: None. FINDINGS: A 5 mm nodule within the right lung base. The heart is mildly enlarged. No suspicious lytic or blastic osseous lesions. Suboptimal evaluation of the abdomen and pelvis due to streak artifact. However, the liver, gallbladder, spleen, adrenal glands, and pancreas are unremarkable. No retroperitoneal lymphadenopathy. No hydronephrosis. Heterogeneous enhancement within the left kidney and diminished enhancement within the right kidney with mild perinephric fat stranding. This could be due to the artifact. However, a bilateral pyelonephritis could also have a similar appearance. The bladder is decompressed by a Man catheter. There are small fat-containing bilateral inguinal hernias. No abdominal or pelvic lymphadenopathy. Mild presacral edema. No bowel wall thickening or obstruction. IMPRESSION: 1. No evidence for metastatic disease within the abdomen or pelvis. 2. No bowel wall thickening or obstruction. 3. Heterogeneous enhancement within the left kidney and diminished enhancement within the right kidney with mild perinephric fat stranding. This could be due to the artifact. However, a bilateral pyelonephritis could also have a similar appearance. Correlation with urinalysis is suggested Electronically signed by: Brenden Encarnacion M.D. 07/17/2016 12:42 PM Dictated Date/Time: 07/17/2016 12:35 PM
== END | disposition home or self-care (01) ==
LOC: C.CTS 09:18
PROVIDERS: ATTEND Family Medicine
DX: C34.90 Malignant neoplasm of unspecified part of unspecified bronchus or lung (principal); E11.9 Type 2 diabetes mellitus without complications